=== PATIENT | male | born 1950 | race Caucasian/White ===

== ENCOUNTER 2018-09-08 20:13 | Inpatient (IN) | payer OTHER ==
--- OUTSIDE RECORDS SUMMARY | 2018-09-08 20:18 | XMS REPORT | Continuity of Care Document ---
:1950 Author Organization Interface Problems Problem Status Onset Classification Date Comments Source Date Reported AMS Active [facility] 8 INCREASED Active [facility] [place] 8 LEVEL/ACUTE ENCEPHAL LT HIP PAIN Active [facility] 5 [facility] OTHER Active [facility] SPECIFIED ABNORMAL FINDINGS OF BLO Medications Medication Details Route Status Patient Ordering Order Source Instructions Provider Date amLODIPine 10 mg 10 mg=1 tab, Active oral tablet PO, Daily, # 2018 [facility] 30 tab, 0 Refill(s), other gabapentin 100 MG 100 mg=1 cap, Active Oral Capsule PO, BID, # 60 2017 [facility] cap, 1 Refill(s), other Valium 10 mg, 2 tab, Inactive Route: PO, 2017 [facility] Drug form: TAB, ONCE, Dosing Weight 107.727, kg, Start date: 12/21/17 16:00:00 CDT, Stop date: 12/21/17 16:00:00 CDTNotes: (Same as: Valium) Ativan 1 mg, 0.5 mL, Inactive Route: IM, 2017 [facility] Drug form: INJ, ONCE, Dosing Weight 107.727, kg, Start date: 12/21/17 8:04:00 CDT, Stop date: 12/21/17 8:04:00 CDTNotes: (Same as: Ativan) potassium chloride 40 mEq, 2 tab, Inactive 20 mEq oral Route: PO, 2017 [facility] tablet, extended Drug form: release ERTAB, ONCE, Dosing Weight 107.727, kg, Start date: 12/17/17 20:38:00 CDT, Stop date: 12/17/17 20:38:00 CDTNotes: (Same as: K-Dur 20) "Do Not Crush" For patients unable to swallow tablet, dissolve in one half glass of water. Allow about 2 minutes for the tablets to disintegrate. Stir before giving to prepare slurry and administer. Please exclude Patient’ s with feeding tube less than 14 Japanese (Dobhoff, J-tube etc) and pediatric and patients. With food and full glass of water Lactulose 667 20 gm, 30 ml, Inactive MG/ML Oral Route: PO, 2017 [facility] Solution Drug form: SYRP, ONCE, Dosing Weight 107.727, kg, Start date: 12/17/17 20:38:00 CDT, Stop date: 12/17/17 20:38:00 CDTNotes: (Same as:Chronulac) Omnipaque 350 100 mL, Route: No Longer injectable IV, Drug Form: Active 2017 [facility] solution SOLN, Dosing Weight 107.727, kg, ONCALL, GFR > 45 mL/min, Start date: 12/17/17 14:00:00 CDT, Duration: 1 doses or timesNotes: (same as:Omnipaque 350). WASTE: F/P - Black; E - [employer] Trash Bin Vitamin B 12 1,000 No Longer microgram, 1 Active 2017 [facility] mL, Route: IM, Drug form: INJ, Daily, Dosing Weight 107.727, kg, Start date: 12/17/17 9:00:00 CDT, Duration: 7 day, Stop date: 12/23/17 9:00:00 CDTNotes: (Same As: Vitamin B12) Potassium Chloride 40 mEq, 2 tab, Inactive Route: PO, 2017 [facility] Drug form: ERTAB, ONCE, Dosing Weight 107.727, kg, Start date: 12/16/17 13:09:00 CDT, Stop date: 12/16/17 13:09:00 CDTNotes: (Same as: K-Dur 20) "Do Not Crush" For patients unable to swallow tablet, dissolve in one half glass of water. Allow about 2 minutes for the tablets to disintegrate. Stir before giving to prepare slurry and administer. Please exclude Patient’ s with feeding tube less than 14 Japanese (Dobhoff, J-tube etc) and pediatric and patients. With food and full glass of water cetirizine 10 mg, 2 tab, Inactive Route: PO, 2017 [facility] Drug form: TAB, Daily, Start date: 12/16/17 9:00:00 CDT, Duration: 30 day, Stop date: 01/14/18 9:00:00 CDTNotes: (Same As: Zyrtec) venlafaxine 75 mg, 2 tab, No Longer Route: PO, [facility] 2017 [facility] Drug form: TAB, Daily, Dosing Weight 107.727, kg, Start date: 12/16/17 9:00:00 CDT, Duration: 30 day, Stop date: 01/14/18 9:00:00 CDTNotes: (Same As: Effexor) Hydrochlorothiazid 1 tab, Route: No Longer e 12.5 MG / PO, Drug Form: [address] Losartan Potassium TAB, Dosing 100 MG Oral Tablet Weight 107.727, kg, Daily, Start date: 12/16/17 9:00:00 CDT, Duration: 30 day, Stop date: 01/14/18 9:00:00 CDT fexofenadine 180 mg, Route: No Longer PO, Drug form: [facility] 2017 [facility] TAB, Daily, Dosing Weight 107.727, kg, Start date: 12/16/17 9:00:00 CDT, Duration: 30 day, Stop date: 01/14/18 9:00:00 CDT clopidogrel 75 mg, 1 tab, No Longer Route: PO, 2017 [facility] Drug form: TAB, Daily, Dosing Weight 107.727, kg, Start date: 12/16/17 9:00:00 CDT, Duration: 30 day, Stop date: 01/14/18 9:00:00 CDTNotes: (Same As: Plavix) Simvastatin 20 mg, 1 tab, No Longer Route: PO, 2017 [facility] Drug form: TAB, Bedtime, Dosing Weight 107.727, kg, Start date: 12/15/17 21:00:00 CDT, Duration: 30 day, Stop date: 01/13/18 21:00:00 CDTNotes: (Same as: Zocor) Epitol 200 mg, 1 tab, No Longer Route: PO, 2017 [facility] Drug form: TAB, Q12H, Dosing Weight 107.727, kg, Start date: 12/15/17 21:00:00 CDT, Duration: 30 day, Stop date: 01/14/18 9:00:00 CDTNotes: With food. (Same As: Tegretol) Carbamazepine 200 mg, 1 tab, Inactive Route: PO, 2017 [facility] Drug form: TAB, Q6H, Dosing Weight 107.727, kg, Start date: 12/15/17 18:00:00 CDT, Duration: 30 day, Stop date: 01/14/18 12:00:00 CDTNotes: With food. (Same As: Tegretol) Advair Diskus 250 1 puff, Route: Inactive mcg-50 mcg INHALATION, 2017 [facility] inhalation powder Drug Form: AERO, Dosing Weight 107.727, kg, BID, Start date: 12/15/17 17:00:00 CDT, Duration: 30 day, Stop date: 01/14/18 9:00:00 CDT Fenofibrate 160 MG 145 mg, 1 tab, No Longer Oral Tablet Route: PO, Active 2017 [facility] Drug form: TAB, Daily, Dosing Weight 107.727, kg, Start date: 12/15/17 17:00:00 CDT, Duration: 30 day, Stop date: 01/13/18 17:00:00 CDTNotes: (Same as: Tricor) budesonide-formote 2 inhalation, No Longer rol 160 mcg-4.5 Route: Active 2017 [facility] mcg/inh inhalation INHALATION, aerosol with Drug Form: adapter AERO/A, BID, Start date: 12/15/17 17:00:00 CDT, Duration: 30 day, Stop date: 01/14/18 9:00:00 CDTNotes: (Same as: Symbicort) WASTE: Aerosol - Return to Pharmacy Albuterol 0.833 3 mL, Route: No Longer MG/ML / NEB, Drug Active 2017 [facility] Ipratropium Form: SOLN, [place] 0.167 Dosing Weight MG/ML Inhalant 107.727, kg, Solution RQID, Start date: 12/15/17 15:00:00 CDT, Duration: 30 day, Stop date: 01/14/18 11:00:00 CDTNotes: (Same as: Duoneb) Cozaar 100 mg, 2 tab, No Longer Route: PO, 2017 [facility] Drug form: TAB, Daily, Start date: 12/15/17 14:00:00 CDT, Duration: 30 day, Stop date: 01/14/18 9:00:00 CDTNotes: (Same as: Cozaar) hydrochlorothiazid 12.5 mg, 1 No Longer e tab, Route: Active 2017 [facility] PO, Drug form: TAB, Daily, Start date: 12/15/17 14:00:00 CDT, Duration: 30 day, Stop date: 01/14/18 9:00:00 CDTNotes: (Same as: Hydrodiuril). Give with food. Amoxicillin 500 MG 1 tab, PO, No Longer / Clavulanate 125 TID, 0 2017 [facility] Oral Tablet Refill(s) venlafaxine 75 mg 75 mg=1 tab, Active oral tablet PO, Daily, 0 2017 Refill(s) Advair Diskus 250 1 puff, No Longer mcg-50 mcg INHALATION, Active 2017 [facility] inhalation powder BID, 0 Refill(s) Carbamazepine 200 200 mg=1 tab, Active MG Oral Tablet PO, Q12H, 0 2017 [Epitol] Refill(s) carBAMazepine 200 200 mg=1 tab, Inactive mg oral tablet PO, QID, 0 2017 Refill(s) Metformin 500 mg, PO, Active Bedtime, 0 2017 Refill(s) gabapentin 300 MG 300 mg=1 cap, No Longer Oral Capsule PO, Bedtime, 0 2017 [facility] Refill(s) Hydrochlorothiazid 1 tab, PO, Active e 12.5 MG / Daily, 0 2017 [facility] Potassium Refill(s) 100 MG Oral Tablet simvastatin 20 mg 20 mg=1 tab, Active oral tablet PO, Bedtime, 0 2017 Refill(s) fexofenadine 180 180 mg=1 tab, Active mg oral tablet PO, Daily, 0 2017 [facility] Refill(s) Fenofibrate 160 MG 160 mg=1 tab, Active Oral Tablet PO, Daily, 0 2017 [facility] Refill(s) tramadol 50 mg=1 tab, No Longer hydrochloride 50 PO, Q4H, PRN Active 2017 [facility] MG Oral Tablet Pain Score 7-10, 0 Refill(s) clopidogrel 75 mg 75 mg=1 tab, Active oral tablet PO, Daily, 0 2017 [facility] Refill(s) Albuterol 0.833 3 mL, NEB, Active MG/ML / QID, 0 2017 [facility] Ipratropium Refill(s) [place] 0.167 MG/ML Inhalant Solution heparin 5,000 unit, 1 No Longer mL, Route: Active 2017 [facility] SUB-Q, Drug form: INJ, Q8H, Dosing Weight 102.273, kg, Start date: 12/15/17 0:00:00 CDT, Duration: 30 day, Stop date: 01/13/18 16:00:00 CDTNotes: porcine heparin Norvasc 10 mg, 2 tab, No Longer Route: PO, Active 2017 [facility] Drug form: TAB, Q24H, Dosing Weight 102.273, kg, Start date: 12/14/17 20:00:00 CDT, Duration: 30 day, Stop date: 01/12/18 20:00:00 CDTNotes: (Same as: Norvasc) Ativan 1 mg, 0.5 mL, Inactive Route: IV, 2017 [facility] Drug form: INJ, ONCE, Dosing Weight 102.273, kg, Start date: 12/14/17 19:09:00 CDT, Stop date: 12/14/17 19:09:00 CDTNotes: (Same as: Ativan) Albuterol 0.833 3 mL, Route: No Longer MG/ML / NEB, Drug Active 2017 [facility] Ipratropium Form: SOLN, [place] 0.167 Dosing Weight MG/ML Inhalant 102.273, kg, Solution [DuoNeb] Q6H, PRN as needed for shortness of breath or wheezing, Start date: 12/14/17 19:09:00 CDT, Duration: 30 day, Stop date: 01/13/18 19:08:00 CDTNotes: (Same as: Duoneb) Insulin Lispro 1 unit, 0.01 No Longer mL, Route: Active 2017 [facility] SUB-Q, Drug form: SOLN, TID-Before Meals, Dosing Weight 102.273, kg, PRN Blood Glucose Results, Start date: 12/14/17 19:07:00 CDT, Duration: 30 day, Stop date: 01/13/18 19:06:00 CDTNotes: (Same as: Humalog ) Roll in palms of hands gently; Do not shake `vigorously. "Single Patient Use Only " WASTE: F/P - Black; E - [employer] Trash Bin Stable for 28 days at room temperature. Expires in days from Date Glucagon 1 mg, Route: No Longer IM, Drug form: Active 2017 [facility] PDR/INJ, PRN, Dosing Weight 102.273, kg, PRN Blood Glucose Results, Start date: 12/14/17 19:07:00 CDT, Duration: 30 day, Stop date: 01/13/18 19:06:00 CDT Dextrose 50% 12.5 gm, 25 No Longer Syringe mL, Route: Active 2017 [facility] IVP, Drug Form: INJ, Dosing Weight 102.273, kg, PRN, PRN Blood Glucose Results, Start date: 12/14/17 19:07:00 CDT, Duration: 30 day, Stop date: 01/13/18 19:06:00 CDT Nitroglycerin 0.02 1 inch, Route: Inactive MG/MG Topical TOP, Drug 2017 [facility] Ointment Form: OINT, Dosing Weight 102.273, kg, ONCE, Start date: 12/14/17 18:56:00 CDT, Stop date: 12/14/17 18:56:00 CDTNotes: 1 gram is approximately 1 inch of nitroglycerin ointment (20 mg NTG per gram) (Same as:Nitro-Bid) Hydralazine 10 mg, 0.5 mL, No Longer Route: IV, Active [address] [place] [address] Drug form: INJ, Q6H, Dosing Weight 102.273, kg, PRN Elevated BP, Start date: 12/14/17 18:55:00 CDT, Duration: 30 day, Stop date: 01/13/18 18:54:00 CDT, for SBP > 160 mmNotes: (Same as: Apresoline) Push over 5 minutes NS 1,000 mL 1,000 mL, No Longer Rate: 75 Active 2017 [facility] ml/hr, Infuse over: 13.3 hr, Route: IV, Dosing Weight 102.273 kg, Total Volume: 1,000, Start date: 12/14/17 18:39:00 CDT, Duration: 30 day, Stop date: 01/13/18 18:38:00 CDT, 2.3, m2 Ondansetron 4 mg, 1 tab, No Longer Route: PO, Active 2017 [facility] Drug form: TAB, Q6H, Dosing Weight 102.273, kg, PRN Nausea & Vomiting, Start date: 12/14/17 18:38:00 CDT, Stop date: 01/13/18 18:37:00 CDTNotes: (Same as: Zofran) Acetaminophen 650 mg, 2 tab, No Longer Route: PO, Active 2017 [facility] Drug form: TAB, Q4H, Dosing Weight 102.273, kg, PRN Pain 1-3/Temp > 100.4 F, Start date: 12/14/17 18:38:00 CDT, Duration: 30 day, Stop date: 01/13/18 18:37:00 CDTNotes: Do not exceed 4 gm/day. (Same as: Tylenol) Lactulose 667 30 gm, 45 ml, Inactive MG/ML Oral Route: PO, 2017 [facility] Solution Drug form: SYRP, ONCE, Dosing Weight 102.273, kg, Priority: STAT, Start date: 12/14/17 17:31:00 CDT, Stop date: 12/14/17 17:31:00 CDTNotes: (Same as:Chronulac) Acetaminophen 300 1 tab, PO, Inactive MG / Codeine Q6H, PRN Pain, 2018 [facility] Phosphate 30 MG X 3 day, # 13 Oral Tablet tab, 0 [Tylenol with Refill(s) Codeine #3] Allergies, Adverse Reactions, Alerts Substance Category Reaction Severity Reaction Status Date Comments Source type Reported Immunizations Immunization Date Site Status Last Comments Source Given Updated pneumococcal Left completed [facility] 13-valent 8 Deltoid vaccine Results Order Name Results Value Reference Date Interpretation Comments Source Range LIPIDS LDL 74 mg/dL <=99 mg/dL 12/17 (Calculated) [facility] LIPIDS VLDL 29 12/17 [facility] LIPIDS Chol 136 mg/dL <=199 12/17 mg/dL [facility] LIPIDS Trig 143 mg/dL <=149 12/17 mg/dL [facility] LIPIDS CHD Risk 4.12 4.00 - 12/17 7.30 [facility] LIPIDS HDL 33 mg/dL >=61 mg/dL 12/17 [facility] CHEM PANEL Ammonia 35.0 <=45.0 12/16 umol/L uMol/L /2017 [facility] Carotid Carotid Patient Name: JULIÁN LEBLANC HASLIP 12/16 - artery artery /2017 - [facility] Doppler Doppler : 1950; Age: 67 years Male bilat US bilat US MR: [id number] Read by: David Gagnon MD Dictated Date/time: 12/16/17 14:37 Electronically Signed by: David Gagnon MD 12/16/17 14:39 FINAL REPORT Study: Carotid artery Doppler bilat US 12/15/2017 3:25 PM CDT Clinical Indication: - encephalopathy. COMPARISON: None TECHNIQUE: Pardo-scale, color Doppler and spectral Doppler of the carotid arteries was performed. Any reported ICA stenoses indirectly reference the distal internal carotid diameter as the denominator for the sten osis measurement, utilizing consensus panel criteria. FINDINGS: RIGHT: No significant plaque. ICA PSV 71 cm/sec CCA PSV 88 cm/sec ICA/CCA ratio 0.81 Vertebral flow is antegrade. External carotid artery is patent. LEFT: No significant plaque. ICA PSV 68.2 cm/sec CCA PSV 162 cm/sec ICA/CCA ratio 0.42 Vertebral flow is antegrade. External carotid artery is patent. IMPRESSION: 1. RIGHT: ICA stenosis <50% by velocity criteria. 1. LEFT: ICA stenosis <50% by velocity criteria. Consensus panel Doppler US criteria for diagnosis of ICA stenosis: Stenosis (%) ICA PSV (cm/sec) ICA/CCA ratio -- <50 <125 <2.0 50-69 125-230 2.0-4.0 >70 but less than >230 >4.0 near occlusion Near occlusion High, low, or Variable undetectable SL: [id number] ANEMIA Vitamin B12 323 pg/mL 254 - 1320 12/16 STUDY Lvl [facility] ELECTROLYT AGAP 12.4 meq/L 10.0 - 12/16 ES 20.0 [facility] ELECTROLYT B/C Ratio 20 6 - 25 12/16 ES [facility] ELECTROLYT Globulin 3.5 g/dL 2.7 - 4.2 12/16 ES [facility] ELECTROLYT A/G Ratio 1.0 0.7 - 1.6 12/16 [facility]16 Result Comment: The eGFR is calculated using the CKD-EPI formula. In most young, healthy individuals the eGFR will be >90 mL/ min/1.73m2. The eGFR declines with age. An eGFR of 60-89 may be normal in [facility] mL/min/1.7 some populations, particularly the elderly, for whom the CKD-EPI formula has not been extensively validated. Use of the eGFR is not recommended in the following populations: [facility] 3m2 Individuals with unstable creatinine concentrations, including patients and those with serious co-morbid conditions. Patients with extremes in muscle mass or diet. The data above are obtained from the National Kidney Disease Education Program (NKDEP) which additionally recommends that when the eGFR is used in patients with extremes of body mass index for purposes of drug dosing, the eGFR should be multiplied by the estimated BMI. ELECTROLYT Albumin Lvl 3.4 g/dL 3.5 - 5.0 12/16 [facility] Creatinine 0.97 mg/dL 0.50 - 12/16 ES Lvl 1.40 /2017 [facility] ELECTROLYT BUN 19 mg/dL 7 - 22 12/16 ES [facility] ELECTROLYT Sodium Lvl 142 meq/L 135 - 145 12/16 MH [facility] ELECTROLYT Glucose Lvl 137 mg/dL 70 - 99 12/16 [facility] ELECTROLYT CO2 26 meq/L 24 - 32 12/16 [facility] ELECTROLYT Calcium Lvl 9.3 mg/dL 8.5 - 10.5 12/16 [facility] ELECTROLYT Total 6.9 g/dL 6.4 - 8.4 12/16 ES [facility] ELECTROLYT ALT 14 unit/L 0 - 65 12/16 [facility] ELECTROLYT Bili Total 0.3 mg/dL 0.2 - 1.3 12/16 [facility] ELECTROLYT AST 6 unit/L 0 - 37 12/16 [facility] ELECTROLYT Alk Phos 63 unit/L 39 - 136 12/16 [facility] ELECTROLYT Potassium 3.4 meq/L 3.5 - 5.1 12/16 [facility] Lv /2017 [facility] ELECTROLYT Chloride Lvl 107 meq/L 95 - 109 12/16 [facility] HEMATOLOGY Hgb 12.6 g/dL 14.0 - 12/16 18.0 [facility] HEMATOLOGY Hct 36.5 % 42.0 - 12/16 54.0 [facility] HEMATOLOGY RBC 4.27 M/CMM 4.70 - 12/16 6.10 [facility] HEMATOLOGY WBC 5.5 K/CMM 3.7 - 10.4 12/16 [facility] HEMATOLOGY MCHC 34.4 g/dL 32.0 - 12/16 36.0 [facility] HEMATOLOGY RDW 13.4 % 11.5 - 12/16 14.5 [facility] HEMATOLOGY Platelet 232 K/CMM 133 - 450 12/16 [facility] HEMATOLOGY MCV 85.5 fL 80.0 - 12/16 94.0 [facility] HEMATOLOGY MPV 9.0 fL 7.4 - 10.4 12/16 [facility] HEMATOLOGY MCH 29.4 pg 27.0 - 12/16 31.0 [facility] Brain wo Brain wo Clinical Indication: - confusion 12/16 - contrast contrast MRI /2017 - [facility] MRI Comparison: Comparison is made to CT study of 12/14/2017 Read by: Cullen Santana MD Dictated Date/time: 12/16/17 10:39 TECHNIQUE: Multiplanar pre- and post-gadolinium contrast-enhanced MRI of the brain is performed on a 1.5 Batsheva magnet. Electronically Signed by: Cullen Santana MD 12/16/17 10:43 FINAL REPORT Contrast: None. 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 There is a chronic lacunar type infarct in the right paramedian juan jose. Multiple punctate areas of hemosiderin deposition are present in the juan jsoe and supratentorial brain consistent with amyloid angiopathy. There is flow in the 4th portions of both vertebral arteries, the basilar artery and intracranial carotid arteries. There is no obstructive hydrocephalus. There is central and cortical atrophy the supratentorial brain. There are no extra-axial fluid collections. Sella and parasellar structures in normal. There is no cerebellar tonsillar ectopia. CEREBELLOPONTINE REGIONS AND SKULL BASE: The cerebellopontine angles appear unremarkable. The skull base, craniocervical junction, and brainstem are normal. The optic chiasm is normal. The sellar and pineal regions are unremarkable. VENTRICLES: The ventricles are normal in size and configuration. The basilar cisterns are normal. VESSELS: The venous sinuses are grossly unremarkable. The expected intracranial flow voids are present. ORBITS, VISUALIZED PARANASAL SINUSES AND MASTOIDS: There is mucosal thickening throughout the ethmoid air cells and minimally of the frontal sinuses , frontal ethmoid recess and sphenoid sinus and base o f the maxillary sinuses. The orbital fossa contents are normal. The mastoid air cells are clear. 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 There is a chronic lacunar type infarct in the right paramedian juan jose. Multiple punctate areas of hemosiderin deposition are present in the juan jose and s upratentorial brain consistent with amyloid angiopathy. SL: JENNY-EDELMIRA Hip bilat Hip bilat w Clinical Indication: - patient says he had hip surgery , need x-ray done to be able to do MRI 12/15 - w pelvis pelvis and /2017 - [facility] and both both lat Comparison: None lat hips hips DX DX Read by: Richar Curry MD Dictated Date/time: 12/15/17 23:24 FINDINGS: Electronically Signed by: Richar Curry MD 12/15/17 23:26 FINAL REPORT Frontal view of the pelvis and neutral and abducted views of the bilateral hips demonstrate bilateral hip arthroplasty. There is resection of bilateral femoral head and neck. Superior and inferior pubic rami and iliac wings are intact. Sacroiliac joints are symmetric. Lucency is noted diffusely about the left acetabular component. There is a surgical clip in the soft tissues at the last of the right. IMPRESSION: Lucency about the left acetabular component concerning for loosening or infection. SL: [id number] ANEMIA Folate Lvl 17.7 ng/mL >=3.0 12/15 STUDY ng/mL /2017 [facility] CHEM PANEL eGFR 83 12/15 Result Comment: The eGFR is calculated using the CKD-EPI formula. In most young, healthy individuals the eGFR will be >90 mL/ min/1.73m2. The eGFR declines with age. An eGFR of 60-89 may be normal in mL/min/1.7 /2018 some populations, particularly the elderly, for whom the CKD-EPI formula has not been extensively validated. Use of the eGFR is not recommended in the following populations: [facility] 3m2 Individuals with unstable creatinine concentrations, including patients and those with serious co-morbid conditions. Patients with extremes in muscle mass or diet. The data above are obtained from the National Kidney Disease Education Program (NKDEP) which additionally recommends that when the eGFR is used in patients with extremes of body mass index for purposes of drug dosing, the eGFR should be multiplied by the estimated BMI. CHEM PANEL Bili Total 0.3 mg/dL 0.2 - 1.3 12/15 [facility] CHEM PANEL Alk Phos 62 unit/L 39 - 136 12/15 [facility] CHEM PANEL Potassium 3.5 meq/L 3.5 - 5.1 12/15 Lvl /2017 [facility] CHEM PANEL BUN 20 mg/dL 7 - 22 12/15 [facility] CHEM PANEL Sodium Lvl 145 meq/L 135 - 145 12/15 [facility] CHEM PANEL Creatinine 0.95 mg/dL 0.50 - 12/15 Lvl 1.40 /2017 [facility] CHEM PANEL Glucose Lvl 133 mg/dL 70 - 99 12/15 [facility] CHEM PANEL Albumin Lvl 3.3 g/dL 3.5 - 5.0 12/15 [facility] CHEM PANEL ALT 14 unit/L 0 - 65 12/15 [facility] CHEM PANEL A/G Ratio 1.0 0.7 - 1.6 12/15 [facility] CHEM PANEL AST 10 unit/L 0 - 37 12/15 [facility] CHEM PANEL Globulin 3.3 g/dL 2.7 - 4.2 12/15 [facility] CHEM PANEL Total 6.6 g/dL 6.4 - 8.4 12/15 [facility] CHEM PANEL Calcium Lvl 8.9 mg/dL 8.5 - 10.5 12/15 [facility] CHEM PANEL AGAP 13.5 meq/L 10.0 - 12/15 20.0 [facility] CHEM PANEL B/C Ratio 21 6 - 25 12/15 [facility] CHEM PANEL CO2 25 meq/L 24 - 32 12/15 [facility] CHEM PANEL Chloride Lvl 110 meq/L 95 - 109 12/15 [facility] CHEM PANEL Magnesium 1.7 mg/dL 1.8 - 2.4 12/15 MH Lvl /2018 [facility] HEMATOLOGY Hct 36.0 % 42.0 - 12/15 MH 54.0 [facility] HEMATOLOGY MCV 85.6 fL 80.0 - 12/15 MH 94.0 [facility] HEMATOLOGY Hgb 12.3 g/dL 14.0 - 12/15 MH 18.0 [facility] HEMATOLOGY MCH 29.4 pg 27.0 - 12/15 MH 31.0 [facility] HEMATOLOGY MCHC 34.3 g/dL 32.0 - 12/15 MH 36.0 [facility] HEMATOLOGY RDW 13.7 % 11.5 - 06 MH 14.5 [facility] HEMATOLOGY MPV 8.7 fL 7.4 - 10.4 12/15 [facility] HEMATOLOGY Platelet 223 K/CMM 133 - 450 12/15 [facility] HEMATOLOGY RBC 4.20 M/CMM 4.70 - 06 MH 6.10 [facility] HEMATOLOGY WBC 4.8 K/CMM 3.7 - 10.4 12/15 [facility] HEMATOLOGY Lymphocytes 1.5 K/CMM 1.0 - 5.5 12/15 MH # /2018 [facility] HEMATOLOGY Monocytes # 0.3 K/CMM 0.0 - 0.8 12/15 [facility] HEMATOLOGY Lymphocytes 31.9 % 20.0 - 12/15 MH 40.0 [facility] HEMATOLOGY Segs 55.2 % 45.0 - 12/15 MH 75.0 /2017 [facility] HEMATOLOGY Monocytes 7.1 % 2.0 - 12.0 12/15 [facility] HEMATOLOGY Eosinophils 4.6 % 0.0 - 4.0 12/15 [facility] HEMATOLOGY Segs-Bands # 2.6 K/CMM 1.5 - 8.1 12/15 [facility] HEMATOLOGY Basophils 1.2 % 0.0 - 1.0 12/15 [facility] HEMATOLOGY Eosinophils 0.2 K/CMM 0.0 - 0.5 12/15 /2017 [facility] HEMATOLOGY Basophils # 0.1 K/CMM 0.0 - 0.2 12/15 [facility] DRUG U Benzodia Negative Negative 12/14 SCREEN Sc[facility] *NA* (12/14/17 3:27 PM) DRUG U Cocaine Negative Negative 12/14 SCREEN [facility] *NA* (12/14/17 3:27 PM) DRUG U Cannab Scr Negative Negative 12/14 SCREEN [facility] *NA* (12/14/17 3:27 PM) DRUG U Opiate Scr Negative Negative 12/14 [facility] *NA* (12/14/17 3:27 PM) DRUG U Amph Scr Negative Negative 12/14 SCREEN [facility] *NA* (12/14/17 3:27 PM) DRUG U Sosa Scr Negative Negative 12/14 SCREEN [facility] *NA* (12/14/17 3:27 PM) DRUG UDS Note See Note 12/14 SCREEN /2017 [facility] (12/14/17 3:27 PM) DRUG U Phencyc Negative Negative 12/14 SCREEN Scr [facility] *NA* (12/14/17 3:27 PM) URINE AND UA Gran Cast 1 /LPF 12/14 STOOL [facility] URINE AND UA Sq Epi None Seen 12/14 STOOL [facility] URINE AND UA Mucus Few /LPF None Seen 12/14 STOOL /LPF /2017 [facility] URINE AND UA RBC 2 /HPF 0 - 2 12/14 STOOL [facility] URINE AND UA WBC 1 /HPF 0 - 5 12/14 STOOL [facility] URINE AND UA Blood Negative Negative 12/14 STOOL [facility] (12/14/17 3:27 PM) URINE AND UA 2.0 mg/dL 0.1 - 1.0 12/14 STOOL Urobilinogen /2017 [facility] URINE AND UA pH 5.0 5.0 - 8.0 12/14 STOOL [facility] URINE AND UA Spec Grav 1.027 <=1.030 12/14 STOOL [facility] URINE AND UA Protein Negative Negative 12/14 STOOL mg/dL mg/dL URINE AND UA Glucose Negative Negative 12/14 [facility]OOL mg/dL mg/dL URINE AND UA Nitrite Negative Negative 12/14 STOOL [facility] (12/14/17 3:27 PM) URINE AND UA Leuk Est Negative Negative 12/14 STOOL [facility] (12/14/17 3:27 PM) URINE AND UA Ketones Negative Negative 12/14 STOOL mg/dL mg/dL URINE AND UA Bili Negative Negative 12/14 STOOL [facility] *NA* (12/14/17 3:27 PM) URINE AND UA Turbidity Clear Clear 12/14 STOOL [facility] (12/14/17 3:27 PM) URINE AND UA Color Yellow Yellow 12/14 STOOL [facility] *NA* (12/14/17 3:27 PM) CHEM PANEL Ammonia 51.0 <=45.0 12/14 umol/L uMol/L [facility] CHEM PANEL eGFR 52 12/14 Result Comment: The eGFR is calculated using the CKD-EPI formula. In most young, healthy individuals the eGFR will be >90 mL/ min/1.73m2. The eGFR declines with age. An eGFR of 60-89 may be normal in MH mL/min/1.7 some populations, particularly the elderly, for whom the CKD-EPI formula has not been extensively validated. Use of the eGFR is not recommended in the following populations: [facility] 3m2 Individuals with unstable creatinine concentrations, including patients and those with serious co-morbid conditions. Patients with extremes in muscle mass or diet. The data above are obtained from the National Kidney Disease Education Program (NKDEP) which additionally recommends that when the eGFR is used in patients with extremes of body mass index for purposes of drug dosing, the eGFR should be multiplied by the estimated BMI. CHEM PANEL Alk Phos 70 unit/L 39 - 136 12/14 [facility] CHEM PANEL AST 7 unit/L 0 - 37 12/14 [facility] CHEM PANEL Bili Total 0.3 mg/dL 0.2 - 1.3 12/14 [facility] CHEM PANEL ALT 14 unit/L 0 - 65 12/14 [facility] CHEM PANEL Chloride Lvl 110 meq/L 95 - 109 12/14 [facility] CHEM PANEL Potassium 3.7 meq/L 3.5 - 5.1 12/14 Lvl [facility] CHEM PANEL Calcium Lvl 8.9 mg/dL 8.5 - 10.5 12/14 [facility] CHEM PANEL Albumin Lvl 3.8 g/dL 3.5 - 5.0 12/14 [facility] CHEM PANEL CO2 27 meq/L 24 - 32 12/14 [facility] CHEM PANEL Total 7.5 g/dL 6.4 - 8.4 12/14 [facility] CHEM PANEL Creatinine 1.41 mg/dL 0.50 - 12/14 MH Lvl 1.40 /2017 [facility] CHEM PANEL BUN 21 mg/dL 7 - 22 12/14 [facility] CHEM PANEL Glucose Lvl 125 mg/dL 70 - 99 12/14 [facility] CHEM PANEL Sodium Lvl 142 meq/L 135 - 145 12/14 [facility] CHEM PANEL AGAP 8.7 meq/L 10.0 - 12/14 20.0 [facility] CHEM PANEL B/C Ratio 15 6 - 25 12/14 [facility] CHEM PANEL A/G Ratio 1.0 0.7 - 1.6 12/14 [facility] CHEM PANEL Globulin 3.7 g/dL 2.7 - 4.2 12/14 [facility] HEMATOLOGY MPV 9.0 fL 7.4 - 10.4 12/14 [facility] HEMATOLOGY MCHC 33.5 g/dL 32.0 - 12/14 36.0 [facility] HEMATOLOGY RDW 13.5 % 11.5 - 12/14 MH 14. [facility] HEMATOLOGY Platelet 267 K/CMM 133 - 450 12/14 [facility] HEMATOLOGY MCH 28.7 pg 27.0 - 12/14 31.0 /2017 [facility] HEMATOLOGY MCV 85.8 fL 80.0 - 12/14 MH 94.0 /2017 [facility] HEMATOLOGY Hct 38.9 % 42.0 - 12/14 MH 54.0 /2017 [facility] HEMATOLOGY Hgb 13.0 g/dL 14.0 - 12/14 MH 18.0 /2017 [facility] HEMATOLOGY RBC 4.54 M/CMM 4.70 - 12/14 MH 6.10 /2017 [facility] HEMATOLOGY WBC 6.8 K/CMM 3.7 - 10.4 12/14 /2017 [facility] HEMATOLOGY Eosinophils 0.1 K/CMM 0.0 - 0.5 12/14 MH # /2018 [facility] HEMATOLOGY Basophils # 0.1 K/CMM 0.0 - 0.2 12/14 /2017 [facility] HEMATOLOGY Monocytes # 0.5 K/CMM 0.0 - 0.8 12/14 [facility] HEMATOLOGY Segs-Bands # 4.4 K/CMM 1.5 - 8.1 12/14 [facility] HEMATOLOGY Lymphocytes 1.7 K/CMM 1.0 - 5.5 12/14 # /2018 [facility] HEMATOLOGY Eosinophils 1.8 % 0.0 - 4.0 12/14 /2017 [facility] HEMATOLOGY Basophils 0.9 % 0.0 - 1.0 12/14 [facility] HEMATOLOGY Monocytes 7.1 % 2.0 - 12.0 12/14 /2017 [facility] HEMATOLOGY Segs 65.2 % 45.0 - 12/14 75.0 /2017 [facility] Lymphocytes 25.0 % 20.0 - 12/14 40.0 [facility] TOXICOLOGY Ethanol Lvl null 12/14 [facility] TOXICOLOGY Etoh (%) null 12/14 [facility] TOXICOLOGY Salicylate null 0.0 - 30.0 12/14 Lvl /2017 [facility] TOXICOLOGY Acetaminoph <2 10 - 20 12/14 Lvl
(12/14 3:17 PM) CARDIAC Total CK 79 unit/L 12 - 191 12/14 ENZYMES /2017 [facility] CARDIAC Troponin-I null 0.00 - 12/14 ENZYMES 0.40 /2017 [facility] Brain wo Brain wo Clinical Indication: Abdominal pain, bloody stool, ams 12/14 - contrast contrast CT /2017 - [facility] CT Comparison: None Read by: Dee Galindo MD Dictated Date/time: 12/14/17 16:46 TECHNIQUE: CT images were obtained from the foramen magnum to the vertex without the use of intravenous contrast on a multidetector CT. Coronal and sagittal reconstructions were obtained. Electronically Signed by: Dee Galindo MD 12/14/17 16:[address] radiation dose DLP: 982 mGy-cm FINDINGS: BRAIN PARENCHYMA: There is generalized brain parenchymal atrophy related to the patient's age. Severe nonspecific periventricular white matter disease changes are noted. A megacisterna magna is aga in noted. Atherosclerotic calcifications are present within the carotid siphons and distal vertebral arteries. There are no focal mass lesions on this noncontrast head CT. There is no mass effect, midline shift or edema. There are no intra-axial or extra-axial fluid collections, intraventricular or intraparenchy mal hemorrhage. There is no noncontrast CT evidence of a subacute stroke. The pineal, sellar, brainstem, cerebellum and skull base regions appear unremarkable. VENTRICLES: The lateral ventricles, third and fourth ventricles are unremarkable. The basilar cisterns are normal. ORBITS, MASTOIDS AND PARANASAL SINUSES: The visualized orbits are unremarkable. The paranasal sinuses are clear. The mastoid air cells are clear. SKULL: There are no calvarial abnormalities seen. If there is further concern for intracranial pathology or acute stroke, MRI of the brain may be performed for complete assessment. IMPRESSION: Chronic age-related and small vessel ischemic changes without acute intracranial injury, mass, hemorrhage or subacute stroke. SL: [id number] Chest Chest 1view 1 VIEW CXR. PORTABLE EXAM 3:07 PM 12/14 [facility] 1view DX /[address] [place] [address] HISTORY: Altered mental status. Read by: Rudy Dale MD Dictated Date/time: 12/14/17 15:26 Electronically Signed by: Rudy Dale MD 12/14/17 15:27 FINAL REPORT COMPARISON: None. The cardiomediastinal silhouette is normal. The lungs are clear with normal pulmonary vasculature. No pleural abnormality. Bones intact. IMPRESSION: Normal exam. END OF IMPRESSION SL: [id number] Vital Signs Vital Sign Value Date Comments Source Respitory Rate 18 12/23/2017 [facility] Heart Rate 78 12/23/2017 [facility] Systolic (mm Hg) 148 12/23/2017 [facility] Diastolic (mm Hg) 94 12/23/2017 [facility] Temperature Oral (F) 97.6 F 12/23/2017 [facility] Respitory Rate 18 12/23/2017 [facility] Respitory Rate 16 12/23/2017 [facility] Heart Rate 82 12/23/2017 [facility] Systolic (mm Hg) 143 12/23/2017 [facility] Diastolic (mm Hg) 94 12/23/2017 [facility] Temperature Oral (F) 98.4 F 12/23/2017 [facility] Heart Rate 93 12/22/2017 [facility] Temperature Oral (F) 98.7 F 12/22/2017 [facility] Systolic (mm Hg) 130 12/22/2017 [facility] Diastolic (mm Hg) 83 12/22/2017 [facility] BMI Calculated 32.21 12/15/2017 [facility] Weight 107.727 12/15/2017 [facility] Height 182.88 cm 12/15/2017 [facility] Height 182.88 cm 12/14/2017 [facility] BMI Calculated 30.58 12/14/2017 [facility] Weight 102.273 12/14/2017 [facility] Encounters Location Location Encounter Encounter Reason Attending ADM DC Status Source Details Type Number For Provider Date Date Visit [facility] [id number] Kilo 06/25 07/25 [facility] [place] /2014 [facility] [id number] Amir 12/14 12/23 Ritesh Haleranious /[address] [facility] Hospital Procedures Procedure Code Date Perfomer Comments Source Back fusion [id number] [facility] Hip replacement [id number] [facility]
[2018-09-08] MEDS ORDERED: NA CHLORIDE 0.9% 1,000 ML ONE (20:48)
--- NOTE | 2018-09-08 20:56 | RAD REPORT ---
EXAM DESCRIPTION: CT - Head C Spine Mpr Wo Con - 09/08/2018 8:44 pm CLINICAL HISTORY: Head and neck injury status post fall. Head and neck pain COMPARISON: None. TECHNIQUE: Computed axial tomography of the head and cervical spine was obtained. Sagittal and coronal reconstruction was performed. All CT scans are performed using dose optimization technique as appropriate and may include automated exposure control or mA/KV adjustment according to patient size. FINDINGS: An intracranial bleed is not seen. The ventricles are normal in caliber. An extra-axial fl uid collection is not noted. Marked low-density area within periventricular, deep and subcortical whi te matter is present bilaterally Fluid within the visualized sinuses and mastoids is not seen A cervical fracture is not visualized. No dislocation is noted. Spondylosis involves the cervical spi ne IMPRESSION: No acute intracranial abnormality is seen. Marked low-density areas within periventricular, deep and subcortical white matter may represent isch emic changes secondary to small vessel disease or a demyelinating process A cervical fracture is not visualized. If the patient continues to have symptoms to suggest intracra nial /spinal cord pathology then MRI would be recommended
[2018-09-08 21:13] LABS: Absolute Lymphocytes (CBC) 1.5 K/uL (0.7-4.9); Absolute Monocytes 0.5 K/uL (0.1-1.3); Absolute Neutrophil 5.4 K/uL (1.8-8.0); Basophils % 0.6 % (0-1.3); Eosinophils % 0.8 % (0-4.4); Hematocrit 46.7 % (39.6-49.0); Lymphocytes % 19.7 % (15.3-44.8); MPV 9.2 fL (7.6-11.3); Monocytes % 6.4 % (3.3-12.3); Protime INR 1.05; RBC Red Blood Cell Count 5.18 M/uL (4.33-5.43)
[2018-09-08 21:33] LABS: Amylase Level 15 U/L (25-115); BUN Blood Urea Nitrogen 27 mg/dL (7-18); Bicarbonate 25 mmol/L (21-32); Glucose Level 174 mg/dL (74-106); Lipase 55 U/L (73-393); Potassium 3.7 mmol/L (3.5-5.1); Sodium Level 141 mmol/L (136-145); Troponin (Emerg Dept Use Only) < 0.02 ng/mL (0.0-0.045)
[2018-09-08 22:35] LABS: Barbiturates NEGATIVE (NEGATIVE); Benzodiazepines NEGATIVE (NEGATIVE); Cocaine NEGATIVE (NEGATIVE); METHAMPHETAM NEGATIVE (NEGATIVE); Methadone NEGATIVE (NEGATIVE); Opiates NEGATIVE (NEGATIVE); Phencyclidine NEGATIVE (NEGATIVE); THC Cannibis NEGATIVE (NEGATIVE)
--- NOTE | 2018-09-08 22:57 | ER ---
Nurse's Notes [facility] Name: Reese Graf Age: 67 yrs Sex: Male : 1950 Arrival Date: 09/08/2018 Time: 20:15 Bed 6 Private MD: Diagnosis: Syncope and collapse Presentation: 09/08 20:25 Presenting complaint: Patient's nephew states that the patient wandered over to his [facility] house today, he noticed the patient had bruising on his forehead, and that he seemed confused, and his gait was less steady than normal. Patient reports that he tripped earlier today and hit his head but cannot remember what he tripped over or what he his head on. Patient takes Plavix for previous stroke. Care prior to arrival: None. Mechanism of Injury: Fall unknown. Trauma event details: Injury occurred in the [facility]. 20:25 Acuity: ANITA 2 aj1 20:25 Method Of Arrival: Wheelchair aj1 20:28 Transition of care: patient was not received from another setting of care. Onset of [facility] symptoms was September 08, 2018. Risk Assessment: Do you want to hurt yourself or someone else? Patient reports no desire to harm self or others. Initial Sepsis Screen: Does the patient meet any 2 criteria? No. Patient's initial sepsis screen is negative. Does the patient have a suspected source of infection? No. Patient's initial sepsis screen is negative. Triage Assessment: 20:32 General: Appears comfortable, Behavior is calm, cooperative. Pain: Denies pain. Neuro: aj1 Level of Consciousness is awake, alert, confused, Oriented to person, place, time, situation, Pediatric Cns are equal bilaterally Moves all extremities. Gait is unsteady, Speech Patient answers some questions appropriately, and other patients he answers inappropriately . Cardiovascular: Patient's skin is warm and dry. Respiratory: Airway is patent Respiratory effort is even, unlabored, Respiratory pattern is regular, symmetrical. Derm: Bruising that is dark purple, on forehead. Trauma Activation: Alert Physician: ED Physician; Name: ; Notified At: ; Arrived At: Physician: General Surgeon; Name: ; Notified At: ; Arrived At: Physician: Radiology; Name: ; Notified At: ; Arrived At: Physician: Respiratory; Name: ; Notified At: ; Arrived At: Physician: Lab; Name: ; Notified At: ; Arrived At: Historical: - Allergies: 20:32 No Known Allergies; aj1 - Home Meds: 20:32 Zanaflex 4 mg Oral tab 1 tab at night as needed [Active]; Plavix 75 mg Oral tab 1 tab aj1 once daily [Active]; simvastatin 20 mg Oral tab 1 tab once daily [Active]; venlafaxine 75 mg oral cp24 1 cap once daily [Active]; fexofenadine 180 mg Oral tab 1 tab once daily [Active]; fenofibrate 160 mg oral tab 1 tab once daily [Active]; carbamazepine 200 mg Oral CM12 1 cap every 12 hours [Active]; losartan 25 mg oral tab 1 tab once daily [Active]; - PMHx: 20:32 CVA; Hypertension; Hyperlipidemia; aj1 - PSHx: 20:32 hip replacement; back surgery; aj1 - Immunization history:: Flu vaccine is not up to date. - Immunization history: Last tetanus immunization: unknown. - Social history:: Patient/guardian denies using alcohol, street drugs, The patient lives with family, Smoking status: Patient/guardian denies using tobacco. - Ebola Screening: : Patient denies travel to an Ebola-affected area in the 21 days before illness onset. - Family history:: not pertinent. Screenin:25 Abuse screen: Denies threats or abuse. Denies injuries from another. Tuberculosis aj1 screening: No symptoms or risk factors identified. 20:35 Nutritional screening: No deficits noted. aj1 21:06 Fall Risk IV access (20 points). ea Primary Survey: 20:25 NO uncontrolled hemorrhage observed. A: The patient is alert. Airway: patent. aj1 Breathing/Chest: Respiratory pattern: regular, Respiratory effort: spontaneous, unlabored. Circulation: Skin color: pink. Disability Alert. Exposure/Environment: There is no evidence of uncontrolled external bleeding. 21:30 Reassessment Airway Airway Patent Breathing/Chest Respiratory pattern Regular ea Respiratory effort Spontaneous Unlabored Disability Alert. Secondary Survey: 21:08 HEENT: No deficits noted. Injury Description: Laceration sustained to forehead is 0.5 ea to 2.5 cm long. Assessment: 21:04 General: Appears in no apparent distress. Behavior is calm, cooperative. Pain: Denies ea pain. Neuro: Level of Consciousness is awake, alert, obeys commands, Oriented to person, place, time, Pediatric Cns are equal bilaterally Moves all extremities. Speech with expressive aphasia noted, Facial symmetry appears normal. Cardiovascular: Patient's skin is warm and dry. Respiratory: Airway is patent Respiratory effort is even, unlabored, Respiratory pattern is regular, symmetrical. GI: No signs and/or symptoms were reported involving the gastrointestinal system. Derm: Skin is pink, warm \T\ dry. 22:04 Reassessment: Patient and/or family updated on plan of care and expected duration. Pain ea level reassessed. Patient is alert, oriented x 3, equal unlabored respirations, skin warm/dry/pink. 22:42 Reassessment: No changes from previously documented assessment. Patient and/or family jd3 updated on plan of care and expected duration. Pain level reassessed. Patient is alert, oriented x 3, equal unlabored respirations, skin warm/dry/pink. 09/09 00:00 Reassessment: Patient and/or family updated on plan of care and expected duration. Pain ea level reassessed. Patient is alert, oriented x 3, equal unlabored respirations, skin warm/dry/pink. 01:00 Reassessment: Patient and/or family updated on plan of care and expected duration. Pain ea level reassessed. Pt resting with eyes closed, no s/s of pain or discomfort noted at this time. Awaiting on room assignment. 02:31 Reassessment: Patient and/or family updated on plan of care and expected duration. Pain ea level reassessed. Patient is alert, oriented x 3, equal unlabored respirations, skin warm/dry/pink. Report called to Lara OATES. Vital Signs: 09/08 20:25 BP 151 / 95; Pulse 86; Resp 20; Temp 98.6; Pulse Ox 97% on R/A; Pain 0/10; aj1 21:07 BP 146 / 88; Pulse 85; Resp 18; Pulse Ox 98% ; ea 22:07 BP 156 / 98; Pulse 77; Resp 18; Pulse Ox 99% ; ea 22:41 BP 171 / 93; Pulse 61; Resp 19 S; Pulse Ox 95% on R/A; jd3 23:30 BP 157 / 94; Pulse 67; Resp 18; Pulse Ox 98% on R/A; ea 09/09 00:00 BP 150 / 95; Pulse 68; Resp 18; Pulse Ox 98% on R/A; ea 01:00 BP 157 / 87; Pulse 66; Resp 18; Pulse Ox 99% on R/A; ea 02:35 BP 134 / 67; Pulse 69; Resp 18; Pulse Ox 99% on R/A; ea [place] Coma Score: 03 20:25 Eye Response: spontaneous(4). Verbal Response: confused(4). Motor Response: obeys aj1 commands(6). Total: 14. 21:07 Eye Response: spontaneous(4). Verbal Response: oriented(5). Motor Response: obeys ea commands(6). Total: 15. 22:07 Eye Response: spontaneous(4). Verbal Response: oriented(5). Motor Response: obeys ea commands(6). Total: 15. 22:41 Eye Response: spontaneous(4). Verbal Response: oriented(5). Motor Response: obeys ea commands(6). Total: 15. 23:30 Eye Response: spontaneous(4). Verbal Response: oriented(5). Motor Response: obeys ea commands(6). Total: 15. 0308 00:00 Eye Response: spontaneous(4). Verbal Response: oriented(5). Motor Response: obeys ea commands(6). Total: 15. 01:00 Eye Response: spontaneous(4). Verbal Response: oriented(5). Motor Response: obeys ea commands(6). Total: 15. 02:35 Eye Response: spontaneous(4). Verbal Response: oriented(5). Motor Response: obeys ea commands(6). Total: 15. Trauma Score (Adult): 09/08 20:25 Eye Response: spontaneous(1); Verbal Response: confused(1); Motor Response: obeys aj1 commands(2); Systolic BP: > 89 mm Hg(4); Respiratory Rate: 10 to 29 per min(4); [place] Score: 14; Trauma Score: 12 ED Course: 20:15 Patient arrived in ED. am2 20:21 Denise Dawn MD is Attending Physician. ma2 20:25 Patient has correct armband on for positive identification. aj1 20:25 Patient maintains SpO2 saturation greater than 95% on room air. aj1 20:27 Triage completed. aj1 20:32 Arm band placed on Patient placed in an exam room. aj1 20:35 Mcrae, Claudia, RN is Primary Nurse. ea 20:35 Inserted saline lock: 20 gauge in left antecubital area, using aseptic technique. Blood ea collected. 21:06 Thermoregulation: warm blanket given to patient. ea 22:07 No provider procedures requiring assistance completed. ea 22:56 Danika Dill MD is Hospitalizing Provider. ma2 23:15 Chest Single View In Process Unspecified. EDMS 09/09 02:36 Patient admitted, IV remains in place. ea Administered Medications: 09/08 21:00 Drug: NS 0.9% 1000 ml Route: IV; Rate: 1 bolus; Site: right antecubital; ea 09/09 00:00 Follow up: Response: No adverse reaction; IV Status: Completed infusion; IV Intake: ea 100ml Intake: 00:00 IV: 100ml; Total: 100ml. ea 02:35 PO: 0ml; Total: 100ml. ea Outcome: 09/08 22:57 Decision to Hospitalize by Provider. ma2 23:00 Admitted to Med/surg accompanied by tech, room 203, with chart, Report called to Lara kelley RN 23:00 Instructed on the need for admit. 03 02:35 Patient's length of stay in the Emergency Department was greater than 2 hours. Awaiting ea on room for admissionPatient's length of stay extended due to 02:52 Condition: stable ea 03:00 Patient left the ED. ea Signatures: Dispatcher [employer] EDDC Jasmyn Castillo RN RN aj1 Mary Herron Elena, RN RN Gurwinder Duke RN RN Denise Cruz MD MD az2
--- NOTE | 2018-09-08 22:58 | EDPHYS ---
Physician Documentation [facility] Name: Reese Graf Age: 67 yrs Sex: Male : 1950 Arrival Date: 09/08/2018 Time: 20:15 Bed 6 Private MD: ED Physician Denise Dawn HPI: 09/08 21:11 This 67 yrs old Male presents to ER via Wheelchair with complaints of Fall ma2 Injury, S/S of Possible Stroke. 21:11 Onset: The symptoms/episode began/occurred gradually, 1 day(s) ago. Severity of ma2 symptoms: At their worst the symptoms were moderate, in the emergency department the symptoms are unchanged. The patient has experienced a previous episode. hx of stroke found by son mildly confused and has forehead bruises, likely fall he does not remember he is mildly confused, at baseline he is a0x2 today aox1 to person only and slow to respond. Historical: - Allergies: 20:32 No Known Allergies; aj1 - Home Meds: 20:32 Zanaflex 4 mg Oral tab 1 tab at night as needed [Active]; Plavix 75 mg Oral tab 1 tab aj1 once daily [Active]; simvastatin 20 mg Oral tab 1 tab once daily [Active]; venlafaxine 75 mg oral cp24 1 cap once daily [Active]; fexofenadine 180 mg Oral tab 1 tab once daily [Active]; fenofibrate 160 mg oral tab 1 tab once daily [Active]; carbamazepine 200 mg Oral CM12 1 cap every 12 hours [Active]; losartan 25 mg oral tab 1 tab once daily [Active]; - PMHx: 20:32 CVA; Hypertension; Hyperlipidemia; aj1 - PSHx: 20:32 hip replacement; back surgery; aj1 - Immunization history:: Flu vaccine is not up to date. - Immunization history: Last tetanus immunization: unknown. - Social history:: Patient/guardian denies using alcohol, street drugs, The patient lives with family, Smoking status: Patient/guardian denies using tobacco. - Ebola Screening: : Patient denies travel to an Ebola-affected area in the 21 days before illness onset. - Family history:: not pertinent. ROS: 21:11 Cardiovascular: Negative for chest pain, palpitations, and edema, Respiratory: Negative ma2 for shortness of breath, cough, wheezing, and pleuritic chest pain, Abdomen/GI: Negative for abdominal pain, nausea, diarrhea, and constipation. 21:11 All other systems are negative. 21:11 All other systems are negative. 21:11 Unable to obtain ROS due to altered mental status. Exam: 21:11 Constitutional: This is a well developed, well nourished patient who is awake, alert, ma2 and in no acute distress. Neck: Trachea midline, no thyromegaly or masses palpated, and no cervical lymphadenopathy. Supple, full range of motion without nuchal rigidity, or vertebral point tenderness. No Meningismus. Chest/axilla: Normal chest wall appearance and motion. Nontender with no deformity. No lesions are appreciated. Cardiovascular: Regular rate and rhythm with a normal S1 and S2. No gallops, murmurs, or rubs. Normal PMI, no JVD. No pulse deficits. Respiratory: Lungs have equal breath sounds bilaterally, clear to auscultation and percussion. No rales, rhonchi or wheezes noted. No increased work of breathing, no retractions or nasal flaring. 21:11 Eyes: Pupils equal round and reactive to light, extra-ocular motions intact. Lids and lashes normal. Conjunctiva and sclera are non-icteric and not injected. Cornea within normal limits. Periorbital areas with no swelling, redness, or edema. ENT: Nares patent. No nasal discharge, no septal abnormalities noted. Tympanic membranes are normal and external auditory canals are clear. Oropharynx with no redness, swelling, or masses, exudates, or evidence of obstruction, uvula midline. Mucous membranes moist. Abdomen/GI: Soft, non-tender, with normal bowel sounds. No distension or tympany. No guarding or rebound. No evidence of tenderness throughout. Back: No spinal tenderness. No costovertebral tenderness. Full range of motion. MS/ Extremity: Pulses equal, no cyanosis. Neurovascular intact. Full, normal range of motion. 21:11 Head/face: forehead contusion . 21:11 Neuro: Orientation: to person, Not oriented to place, time, situation, Mentation: slow to respond, Cranial nerves: extraocular movements are intact, Facial palsy and sensory deficits are absent. Motor: moves all fours, strength is 5/5 in all extremities, unable to test, Sensation: unable to test, Gait: unable to assess. Vital Signs: 20:25 BP 151 / 95; Pulse 86; Resp 20; Temp 98.6; Pulse Ox 97% on R/A; Pain 0/10; aj1 21:07 BP 146 / 88; Pulse 85; Resp 18; Pulse Ox 98% ; ea 22:07 BP 156 / 98; Pulse 77; Resp 18; Pulse Ox 99% ; ea 22:41 BP 171 / 93; Pulse 61; Resp 19 S; Pulse Ox 95% on R/A; jd3 23:30 BP 157 / 94; Pulse 67; Resp 18; Pulse Ox 98% on R/A; ea 03 00:00 BP 150 / 95; Pulse 68; Resp 18; Pulse Ox 98% on R/A; ea 01:00 BP 157 / 87; Pulse 66; Resp 18; Pulse Ox 99% on R/A; ea 02:35 BP 134 / 67; Pulse 69; Resp 18; Pulse Ox 99% on R/A; ea Kashif Coma Score: 09/08 20:25 Eye Response: spontaneous(4). Verbal Response: confused(4). Motor Response: obeys aj1 commands(6). Total: 14. 21:07 Eye Response: spontaneous(4). Verbal Response: oriented(5). Motor Response: obeys ea commands(6). Total: 15. 22:07 Eye Response: spontaneous(4). Verbal Response: oriented(5). Motor Response: obeys ea commands(6). Total: 15. 22:41 Eye Response: spontaneous(4). Verbal Response: oriented(5). Motor Response: obeys ea commands(6). Total: 15. 23:30 Eye Response: spontaneous(4). Verbal Response: oriented(5). Motor Response: obeys ea commands(6). Total: 15. 08 00:00 Eye Response: spontaneous(4). Verbal Response: oriented(5). Motor Response: obeys ea commands(6). Total: 15. 01:00 Eye Response: spontaneous(4). Verbal Response: oriented(5). Motor Response: obeys ea commands(6). Total: 15. 02:35 Eye Response: spontaneous(4). Verbal Response: oriented(5). Motor Response: obeys ea commands(6). Total: 15. Trauma Score (Adult): 09/08 20:25 Eye Response: spontaneous(1); Verbal Response: confused(1); Motor Response: obeys aj1 commands(2); Systolic BP: > 89 mm Hg(4); Respiratory Rate: 10 to 29 per min(4); [place] Score: 14; Trauma Score: 12 MDM: 20:21 Patient medically screened. [facility] 21:11 Differential diagnosis: closed head injury, contusion, fracture, sprain, sepsis vs ma2 stroke . 22:55 Data reviewed: vital signs, nurses notes. Counseling: I had a detailed discussion with ma2 the patient and/or guardian regarding: the historical points, exam findings, and any diagnostic results supporting the discharge/admit diagnosis, the presence of at least one elevated blood pressure reading (>120/80) during this emergency department visit. Response to treatment: the patient's symptoms have markedly improved after treatment. ED course: has no deficit speech is unchanged yet he needs observation for syncope and further eval, discussed with dr. lopez. 09/08 21:20 Order name: CBC with Automated Diff; Complete Time: 21:56 EDMS 09/08 21:22 Order name: Protime (+INR); Complete Time: 21:56 EDMS 09/08 21:22 Order name: PTT, Activated Partial Thromb; Complete Time: 21:56 EDMS 09/08 21:33 Order name: Basic Metabolic Panel; Complete Time: 21:56 EDMS 09/08 21:33 Order name: Troponin (Emerg Dept Use Only); Complete Time: 21:56 EDMS 09/08 21:33 Order name: Amylase Level; Complete Time: 21:56 EDMS 09/08 20:57 Order name: CT; Complete Time: 21:56 EDMS 09/08 21:33 Order name: Lipase; Complete Time: 21:56 EDMS 09/08 22:36 Order name: Urine Drug Screen; Complete Time: 22:51 EDMS 09/08 23:14 Order name: Urine Dipstick--Ancillary (enter results); Complete Time: 02:01 ag4 09/08 23:15 Order name: Head C Spine Mpr Wo Con EDMS 09/08 23:49 Order name: Basic Metabolic Panel EDMS 09/08 23:49 Order name: Troponin (Emerg Dept Use Only) EDMS 09/08 23:49 Order name: Amylase Level EDMS 09/08 23:49 Order name: Lipase EDMS 09/08 23:49 Order name: CBC with Automated Diff EDMS 09/08 23:49 Order name: Protime (+INR) EDMS 09/08 23:49 Order name: PTT, Activated Partial Thromb EDMS 09/08 23:53 Order name: Urine Drug Screen EDIL 09/08 20:31 Order name: EKG; Complete Time: 20:32 il2 09/08 20:31 Order name: Accucheck; Complete Time: 21:54 il2 09/08 20:31 Order name: Cardiac monitoring; Complete Time: 21:54 il2 09/08 20:31 Order name: EKG - Nurse/Tech; Complete Time: 21:54 [facility] 09/08 20:31 Order name: IV Saline Lock; Complete Time: 21:01 il2 09/08 20:31 Order name: Labs collected and sent; Complete Time: 21:01 il2 09/08 20:31 Order name: NPO; Complete Time: 21:00 [facility] 09/08 20:31 Order name: O2 Per Protocol; Complete Time: 21:01 il2 09/08 20:31 Order name: O2 Sat Monitoring; Complete Time: 21:01 [facility] 09/08 20:31 Order name: Stroke Swallow Screen; Complete Time: 21:00 [facility] 09/08 20:31 Order name: Urine Dipstick-Ancillary (obtain specimen); Complete Time: 22:08 il2 09/08 23:15 Order name: Chest Single View EDIL Administered Medications: 21:00 Drug: NS 0.9% 1000 ml Route: IV; Rate: 1 bolus; Site: right antecubital; ea 09/09 00:00 Follow up: Response: No adverse reaction; IV Status: Completed infusion; IV Intake: ea 100ml Disposition: 09/08/18 22:57 Hospitalization ordered by Danika Lopez for Observation. Preliminary diagnosis is Syncope and collapse. - Bed requested for Telemetry/MedSurg (observation). - Status is Observation. ea - Condition is Stable. - Problem is new. - Symptoms are unchanged. UTI on Admission? No Signatures: Dispatcher [employer] [facility] Jasmyn Castillo RN RN aj1 Dianne Bautista RN RN kl Antunez, Elena, RN RN ea [facility], MD MD ma2 Corrections: (The following items were deleted from the chart) 09/08 23:46 20:31 CT-STROKE BRAIN W/O CONTRAST+CT.RAD.BRZ ordered. EDMS EDMS 23:46 20:32 Chest Single View+RAD.RAD.BRZ ordered. EDMS EDMS 23:46 20:32 C Spine Wo Con+CT.RAD.BRZ ordered. EDMS EDMS 23:55 20:31 AMYLASE, SERUM+C.LAB.BRZ ordered. EDMS EDMS 23:55 20:31 URINE DRUG SCREEN+CHEM UR.LAB.BRZ ordered. EDMS EDMS 23:56 20:31 TROPONIN (EMERG DEPT USE ONLY)+C.LAB.BRZ ordered. EDMS EDMS 23:56 20:31 LIPASE+C.LAB.BRZ ordered. EDMS EDMS 23:56 20:31 BASIC METABOLIC PANEL+C.LAB.BRZ ordered. EDMS EDMS 23:56 20:31 CBC+H.LAB.BRZ ordered. EDMS EDMS 23:56 20:31 PROTIME (+INR)+COAG.LAB.BRZ ordered. EDMS EDMS 23:56 20:31 PTT, ACTIVATED+COAG.LAB.BRZ ordered. EDIL EDMS 09/09 02:10 09/08 22:57 Hospitalization Ordered by Danika Lopez MD for Observation. Preliminary kl diagnosis is Syncope and collapse. Bed requested for Telemetry/MedSurg (observation). Status is Observation. Condition is Stable. Problem is new. Symptoms are unchanged. UTI on Admission? No. ma2 09/09 03:00 02:10 09/08/2018 22:57 Hospitalization Ordered by Danika Lopez MD for Observation. ea Preliminary diagnosis is Syncope and collapse. Bed requested for Telemetry/MedSurg (observation). Status is Observation. Condition is Stable. Problem is new. Symptoms are unchanged. UTI on Admission? No. kl
[2018-09-08 23:57] LABS: Urine Blood NEGATIVE (NEG); Urine Glucose NEGATIVE (NEG); Urine Protein 1+ (NEG); Urine Specific Gravity 1.025 (1.005-1.030); Urine pH 5.5 (5.0-7.0)
--- NOTE | 2018-09-09 02:14 | P.HP ---
Certification for Inpatient Patient admitted to: Observation With expected LOS: <2 Midnights Practitioner: I am a practitioner with admitting privileges, knowledge of patient current condition, hospital course, and medical plan of care. Services: Services provided to patient in accordance with Admission requirements found in Title 42 Section 412.3 of the Code of Federal Regulations Patient History Date of Service: 09/09/18 Reason for admission: syncope History of Present Illness: Mr Graf is a 67 years old male with history of CVA with residual expressive aphasia, HTN, who apparently he fell this morning and hit his forehead. His nephew with to the patient's house and found him more confused, and lethargic than usual. The patient can talk in 3 words sentence, this is his baseline. No history of fever or chills. No chest pain, palpitations or SOB reported. Lab work shows slightly abnormal renal function, EKG SR without ST-T abnormalities. CT head and neck shows no acute abnormalities. Home medications list reviewed: Yes - Past Medical/Surgical History -: CVA -: HTN -: hyperlipidemia -: Hip replacement -: back surgery - Family History Family History: Reviewed- Non-Contributory - Social History Smoking Status: Unknown if ever smoked CD- Drugs: No Place of Residence: Home Review of Systems 10-point ROS is otherwise unremarkable Physical Examination - Physical Exam General: Alert, In no apparent distress HEENT: PERRLA, Mucous membr. moist/pink, EOMI, Sclerae nonicteric Neck: Supple, 2+ carotid pulse no bruit, No LAD, Without JVD or thyroid abnormality Respiratory: Clear to auscultation bilaterally, Normal air movement Cardiovascular: Regular rate/rhythm, Normal S1 S2 Gastrointestinal: Normal bowel sounds, No tenderness Musculoskeletal: No tenderness Integumentary: No rashes Neurological: Normal strength at 5/5 x4 extr, Normal tone, Normal affect, Abnormal speech (expressive aphasia) Lymphatics: No axilla or inguinal lymphadenopathy - Studies Laboratory Data (last 24 hrs) 09/08/18 20:55: PT 12.4, INR 1.05, APTT 30.1 09/08/18 20:55: WBC 7.5, Hgb 15.9, Hct 46.7, Plt Count 205 09/08/18 20:55: Sodium 141, Potassium 3.7, BUN 27 H, Creatinine 1.19, Glucose 174 H, Amylase 15 L, Lipase 55 L 09/08/18 20:31: PT Cancelled, INR Cancelled, APTT Cancelled 09/08/18 20:31: WBC Cancelled, Hgb Cancelled, Hct Cancelled, Plt Count Cancelled 09/08/18 20:31: Sodium Cancelled, Potassium Cancelled, BUN Cancelled, Creatinine Cancelled, Glucose Cancelled, Lipase Cancelled 09/08/18 20:31: Amylase Cancelled Assessment and Plan - Problems (Diagnosis) (1) Syncope Current Visit: Yes Status: Acute Qualifiers: Syncope type: unspecified Qualified Code(s): R55 - Syncope and collapse (2) HTN (hypertension) Current Visit: Yes Status: Acute Qualifiers: Hypertension type: essential hypertension Qualified Code(s): I10 - Essential (primary) hypertension (3) Dyslipidemia Current Visit: Yes Status: Acute - Plan Will admit the patient to the hospital due to syncopal episode. Etiology no clear. Will order ECHO, radiation monitor, neurology consult. - Advance Directives Does patient have a Living Will: No Does patient have a Durable POA for Healthcare: No - Code Status/Comfort Care Code Status Assessed: Yes Code Status: Full Code
[2018-09-09] MEDS ORDERED: ONDANSETRON 4 MG/2 ML VIAL IV PRN (02:42)
[2018-09-09 05:58] LABS: Absolute Lymphocytes (CBC) 1.8 K/uL (0.7-4.9); Absolute Monocytes 0.5 K/uL (0.1-1.3); Absolute Neutrophil 4.6 K/uL (1.8-8.0); Basophils % 0.9 % (0-1.3); Eosinophils % 1.9 % (0-4.4); Hematocrit 41.9 % (39.6-49.0); Lymphocytes % 25.7 % (15.3-44.8); MPV 9.2 fL (7.6-11.3); Monocytes % 6.9 % (3.3-12.3); RBC Red Blood Cell Count 4.72 M/uL (4.33-5.43)
[2018-09-09 06:14] LABS: Potassium 3.5 mmol/L (3.5-5.1)
[2018-09-09] MEDS ORDERED: POTASSIUM CL SA 10 MEQ TAB PO ONE (08:00)
--- NOTE | 2018-09-09 08:07 | RAD REPORT ---
EXAM DESCRIPTION: RAD - Chest Single View - 09/08/2018 9:05 pm CLINICAL HISTORY: CODE STROKE Chest pain. COMPARISON: No comparisons FINDINGS: Portable technique limits examination quality. The lungs are mildly emphysematous but grossly clear. The heart is normal in size. No displaced fract ures. IMPRESSION: No acute intrathoracic process suspected.
--- NOTE | 2018-09-09 12:25 | RAD REPORT ---
EXAM DESCRIPTION: MRI - Brain W/Wo Cont - 09/09/2018 11:52 am CLINICAL HISTORY: Syncope, frequent falls COMPARISON: CT head September 08 TECHNIQUE: Sagittal and axial T1-weighted images were obtained. Axial PD/heavily T2-weighted and T2- FLAIR images were obtained along with axial DWI/ADC mapping sequences. Coronal heavily T2 weighted s equence obtained. Axial and coronal post-contrast T1-weighted images were also obtained. A 20 ml Mul tihance contrast following utilized. FINDINGS: No intracranial hemorrhage or mass lesions seen. There is no mass effect, edema or shift o f midline structures. Patient has a very small 2- 3 millimeter punctate focus of acute nonhemorrhagic infarction in the subcortical white matter anterior left frontal lobe. There is corresponding dimini shed activity on ADC mapping. Underlying moderate atrophy changes are present. Patient has advanced c hronic ischemic change throughout the cerebral white matter, each thalamus and basal ganglia. Brainst em chronic ischemic changes are also present. Signal voids are seen as a normal finding in the major intracranial vessels. Left frontal scalp hematoma again noted. Post-contrast imaging shows no enhancement at the punctate acute infarctions site. No abnormal dura o r brain parenchymal enhancement seen. Mastoid air cells and paranasal sinuses are clear. IMPRESSION: Punctate 2-3 mm focus of nonhemorrhagic acute infarction in the anterior left frontal lo be. No associated edema. Patient has very advanced chronic ischemic change throughout the cerebral white matter with significa nt but less extensive chronic ischemic change in the brainstem, thalamus and basal ganglia. Moderate underlying atrophy. Ventricles are in proportion to volume loss.
[2018-09-09] MEDS: CLOPIDOGREL 75 MG TABLET PO SCH (13:30)
[2018-09-09] MEDS: ASPIRIN EC 81 MG TAB PO SCH (13:30)
--- NOTE | 2018-09-09 13:41 | EKG ---
Test Date: 2018-09-08 Test Time: 21:44:17 Social Work Coordinator: JEANNIE MEASUREMENT RESULTS: Intervals: Rate: 73 MS: 226 QRSD: 100 QT: 392 QTc: 431 [place]: P: 52 MS: 226 QRS: -23 T: -15 INTERPRETIVE STATEMENTS: Sinus rhythm with 1st degree AV block Abnormal ECG No previous ECG available for comparison Electronically Signed On 09-09-18 13:41:19 BOARD CERTIFIED MUSIC THERAPIST by Theo Rondon
--- NOTE | 2018-09-09 14:36 | ECHO ---
HEIGHT: 6 ft 0 in WEIGHT: 204 lb 6.4 oz DATE OF STUDY: 09/09/[address]: Danika Douglas MD 2-DIMENSIONAL: YES M.MODE: YES DOPPLER: YES COLOR FLOW: YES TDS: YES PORTABLE: DEFINITY: BUBBLE STUDY: DIAGNOSIS: SYNCOPE CARDIAC HISTORY: CATHERIZATION: YES SURGERY: NO PROSTHETIC VALVE: NO PACEMAKER: NO MEASUREMENTS (cm) DIASTOLIC (NORMALS) SYSTOLIC (NORMALS) IVSd 1.3 (0.6-1.2) LA Diam 4.0 (1.9-4.0) LVEF 55% LVIDd 5.0 (3.5-5.7) LVIDs 3.6 (2.0-3.5) %FS 29% LVPWd 1.4 (0.6-1.2) Ao Diam 3.6 (2.0-3.7) 2 DIMENSIONAL ASSESSMENT: RIGHT ATRIUM: NORMAL LEFT ATRIUM: DILATED RIGHT VENTRICLE: NORMAL LEFT VENTRICLE: LEFT VENTRICULAR HYPERTROPHY TRICUSPID VALVE: NORMAL MITRAL VALVE: NORMAL PULMONIC VALVE: NORMAL AORTIC VALVE: NORMAL PERICARDIAL EFFUSION: NONE AORTIC ROOT: NORMAL LEFT VENTRICULAR WALL MOTION: NORMAL DOPPLER/COLOR FLOW: IMPAIRED LEFT VENTRICULAR RELAXATION. MILD AORTIC REGURGITATION AND MITRAL REGURGITATION. COMMENTS: NORMAL LEFT VENTRICULAR EJECTION FRACTION. LEFT VENTRICULAR HYPERTROPHY. DILATED LEFT ATRIUM. IMPAIRED LEFT VENTRICULAR RELAXATION. MILD AORTIC REGURGITATION AND MITRAL REGURGITATION. TECHNOLOGIST: PHYLLIS HOOD
--- NOTE | 2018-09-09 15:10 | RAD REPORT ---
EXAM DESCRIPTION: US - CP - 09/09/2018 2:41 pm CLINICAL HISTORY: CVA Headache, drowsiness, CVA COMPARISON: Head C Spine Mpr Wo Con dated 09/08/2018 TECHNIQUE: Real-time sonographic evaluation of both carotid systems was performed. Doppler interroga tion was performed with waveform tracing bilaterally. FINDINGS: Normal high resistance waveforms are noted in both external carotid arteries. The common c arotid arteries and internal carotid arteries show normal low resistance waveforms. Small amount hard plaque is seen in the left carotid bulb. Peak systolic and end diastolic velocity v alues and the ICA/CCA ratios are in the non-hemodynamically significant range. Antegrade flow seen in both vertebral arteries. IMPRESSION: Small amount hard plaque is seen left carotid bulb. No evidence of a hemodynamically significant stenosis.
[2018-09-09] MEDS ORDERED: PNEUMOCOCCAL VACCINE 0.5 ML IMVAC ONE (16:00)
--- NOTE | 2018-09-09 17:57 | PN ---
Date of Progress Note: 09/09/2018 Subjective: The patient is seen and examined. Chart reviewed and case discussed with RN. Code Status: Full. Physical Examination: Vital Signs: Temperature 98.6, heart rate 68, blood pressure 150/95, respirations 18, O2 98% on room air. General: Awake, alert, and oriented, no acute distress. Elderly male, ill appearing. CV: S1, S2. Regular rate and rhythm. Peripheral pulses present. Respiratory: Moving air well bilaterally. No wheezing. Gastrointestinal: Abdomen is soft, nontender, nondistended. Positive bowel sounds. Extremities: No clubbing, cyanosis, or edema. Neuro: Cranial nerves 2 through 12 intact grossly. No focal neurological deficit. Speech is normal . Skin: The patient has abrasions on his forehead. Laboratory Data: Sodium 142, potassium 3.5, chloride 108, CO2 26, BUN 24, creatinine 1.09, glucose 1 41, calcium 8.2. WBC 7.1, H and H 14.5 and 41.9, platelets 195, neutrophils 64%. MRI of the brain shows punctate 2 to 3 mm focus of nonhemorrhagic acute infarction in the anterior le ft frontal lobe. No associated edema. The patient has very advanced chronic ischemic change through out the cerebral white matter with significant, but less extensive chronic ischemic change in the bra instem, thalamus, and basal ganglia. Moderate underlying atrophy. Ventricles are in proportion to v olume loss. Assessment And Plan: A 67-year-old male with, 1.Acute cerebrovascular accident, left frontal lobe, 2 to 3 mm lesion, nonhemorrhagic. We will star t on stroke guidelines. Dr. Lebron with Neurology has been consulted. We will continue with PT, O T, aspirin, statin, and Plavix. 2.Syncopal episode. We will continue with fall precautions. Physical therapy evaluation likely sec ondary to above. 3.Essential hypertension. We will allow permissive hypertension and hold blood pressure medications for now. 4.Dyslipidemia. Continue statin. 5.Deep vein thrombosis prophylaxis with Lovenox. Plan: We will obtain remainder of the workup including echocardiogram and carotid artery ultrasound. SA/MODL Voice ID: [id number] Report ID: [id number]
[2018-09-09] MEDS: ATORVASTATIN 40 MG TAB PO SCH (21:05)
--- NOTE | 2018-09-10 03:05 | CON ---
Reason For Consultation: Aphasia earlier in the morning. History Of Present Illness: The patient was reportedly only able to speak about 3 words. Came into [facility]. Had the head CT scan, which identified a small vessel ischemic disease that is at a marked degree. No acute intracranial findings. However, subsequently brain MRI done stroke pro tocol identified a punctate 2-3 mm area of nonhemorrhagic acute infarct in the anterior left frontal lobe along with very advanced chronic small-vessel ischemic disease, but to less extent involving the brainstem, thalamus, and basal ganglia. Ventricles are increase in size in proportion. The rest of his stroke workup included an echocardiogram showing ejection fraction of 55% with impaired ventricu lar relaxation, left ventricular hypertrophy. His carotid artery ultrasound showed a small hard plaq ue in the left carotid bulb. No evidence of hemodynamically significant stenosis. The patient was p laced on aspirin and Plavix along with 40 mg of Lipitor. Past Medical History: Stroke, hypertension, and dyslipidemia. Surgical History: Hip replacement and back surgery. Family History: Noncontributory. Social History: Denies recent alcohol, tobacco, or IV drug use. Family History: Noncontributory. Current Medications: As indicated above. Review of Systems: The patient is unable to give a very reliable review of systems, but as far as he can tell, he denies fevers or chills, myalgias, arthralgias. No recent rash, weight change. Physical Examination: Vital Signs: Blood pressure 173/90, pulse 75, respiratory rate 18, temperature 97.6, oxygen saturati on 98%, weight 204 pounds, height 6 feet, and BMI 27.7. Neurologic: Mr. Graf is alert and oriented to situation and place. He does follow simple commands . However, he is unable to recall 3 words after 3 minutes, unable to spell the word world backwards and unable to do serial 7 calculations. On cranial nerve examination, he has no focal deficits on 2 through 12 despite the history of his atrophy and acute small stroke. On motor examination, no focal weakness identified in upper and lower extremities, at least 4+ bilaterally. Sensory exam, stocking -glove loss. Reflexes show paratonia with increased tone. Coordination is slow, but intact in upper and lower extremities. Laboratory Studies: Complete blood count with differential is completely normal. His chemistries sh ow slightly elevated chloride of 108, glucose ranging at 241-174. His toxicology screen is negative. Urinalysis shows 1+ protein. Assessment: Mr. Graf is a 67-year-old patient with likely hypertensive-related small vessel ischem ic disease and lacunar infarct in the left frontal lobe. He also has advanced dementia, likely vascu lar. He does have a slight bruise actually on his forehead from a fall. Plan: 1.Aspirin and Plavix as indicated. 2.Lipitor as indicated. 3.The patient may benefit from physical, occupational, and speech therapy. May determine if he can be a candidate for inpatient rehabilitation. At this point, he does have some significant cognitive issues and could benefit again from cognitive therapy. ISA/JAVON Voice ID: [id number] Report ID: [id number]
[2018-09-10 06:53] LABS: Absolute Lymphocytes (CBC) 1.5 K/uL (0.7-4.9); Absolute Monocytes 0.4 K/uL (0.1-1.3); Absolute Neutrophil 3.2 K/uL (1.8-8.0); Hematocrit 41.3 % (39.6-49.0); MPV 9.2 fL (7.6-11.3); Monocytes % 7.2 % (3.3-12.3); RBC Red Blood Cell Count 4.64 M/uL (4.33-5.43)
[2018-09-10 06:58] LABS: Potassium 3.4 mmol/L (3.5-5.1)
[2018-09-10 07:45] LABS: Magnesium 1.9 mg/dL (1.8-2.4)
[2018-09-10] MEDS ORDERED: POTASSIUM 25 MEQ EFFERV TAB PO ONE (09:00)
[2018-09-10] MEDS: ASPIRIN EC 81 MG TAB PO SCH (09:06)
[2018-09-10] MEDS: CLOPIDOGREL 75 MG TABLET PO SCH (09:06)
--- NOTE | 2018-09-10 12:43 | P.PN ---
Subjective Date of Service: 09/10/18 Chief Complaint: syncope Patient seen and examined at bedside with RN. Chart reviewed. Case discussed with neurology at this time. Overnight no complaints to offer. Doing well overall. Working with physical therapy occupational therapy and speech therapy at this time Review of Systems 10-point ROS is otherwise unremarkable Physical Examination - Vital Signs Temperature: 97.2 F Blood Pressure: 165/82 Pulse: 58 Respirations: 18 Pulse Ox (%): 97 - Physical Exam General: Alert, In no apparent distress HEENT: Atraumatic, PERRLA, EOMI Neck: Supple, JVD not distended Respiratory: Clear to auscultation bilaterally, Normal air movement Cardiovascular: Regular rate/rhythm, Normal S1 S2 Gastrointestinal: Normal bowel sounds, No tenderness Musculoskeletal: No tenderness Integumentary: No rashes Neurological: Normal speech, Normal tone, Normal affect Lymphatics: No axilla or inguinal lymphadenopathy - Studies Medications List Reviewed: Yes Assessment And Plan - Current Problems (Diagnosis) (1) Acute CVA (cerebrovascular accident) Current Visit: Yes Status: Acute Plan: MRI consistent with left frontal lobe, 2 to 3 mm lesion, nonhemorrhagic. - patient started on stroke precautions at this time - Dr. Lebron with Neurology consulted and appreciated recommendations at this time - patient currently working with occupational therapy and physical therapy. - will continue with aspirin, Plavix, statin at this time -patient will benefit from placement in inpatient rehab her physical therapy and neurology recommendation (2) Syncope Current Visit: Yes Status: Acute Plan: Acute syncopal episode most likely secondary to acute CVA -fall precautions given at this time Qualifiers: Syncope type: unspecified Qualified Code(s): R55 - Syncope and collapse (3) Dyslipidemia Current Visit: Yes Status: Chronic (4) HTN (hypertension) Current Visit: Yes Status: Chronic Qualifiers: Hypertension type: essential hypertension Qualified Code(s): I10 - Essential (primary) hypertension - Plan Patient pending placement at this time. Currently working with physical therapy , occupational therapy, speech therapy. Will benefit from inpatient rehab if accepted Discharge Plan: Other Plan to discharge in: Greater than 2 days - Code Status/Comfort Care Code Status Assessed: Yes Critical Care: No
[2018-09-10] MEDS ORDERED: PNEUMOCOCCAL VACCINE 0.5 ML IMVAC ONE (13:00)
[2018-09-10] MEDS ORDERED: ACETAMINOPHEN 500 MG TAB PO PRN (15:26)
[2018-09-10] MEDS: ATORVASTATIN 40 MG TAB PO SCH (20:19)
[2018-09-11] MEDS: ASPIRIN EC 81 MG TAB PO SCH (09:08)
[2018-09-11] MEDS: CLOPIDOGREL 75 MG TABLET PO SCH (09:08)
--- NOTE | 2018-09-11 10:27 | P.PN ---
Subjective Date of Service: 09/11/18 Chief Complaint: syncope Patient seen and examined at bedside with RN. Chart reviewed. Case discussed with neurology at this time. Overnight no complaints to offer. Doing well overall. Working with physical therapy occupational therapy and speech therapy at this time. Pending Placement to Inpatient Rehab Review of Systems 10-point ROS is otherwise unremarkable Physical Examination - Vital Signs Temperature: 97.9 F Blood Pressure: 147/89 Pulse: 70 Respirations: 16 Pulse Ox (%): 97 - Physical Exam General: Alert, In no apparent distress HEENT: Atraumatic, PERRLA, EOMI Neck: Supple, JVD not distended Respiratory: Clear to auscultation bilaterally, Normal air movement Cardiovascular: Regular rate/rhythm, Normal S1 S2 Gastrointestinal: Normal bowel sounds, No tenderness Musculoskeletal: No tenderness Integumentary: No rashes Neurological: Normal speech, Normal tone, Normal affect, Abnormal strength Lymphatics: No axilla or inguinal lymphadenopathy - Studies Medications List Reviewed: Yes Assessment And Plan - Current Problems (Diagnosis) (1) Acute CVA (cerebrovascular accident) Current Visit: Yes Status: Acute Plan: MRI consistent with left frontal lobe, 2 to 3 mm lesion, nonhemorrhagic. - Dr. Lebron with Neurology consulted and appreciated recommendations at this time - patient currently working with occupational therapy and physical therapy. - will continue with aspirin, Plavix, statin at this time - patient will benefit from placement in inpatient rehab her physical therapy and neurology recommendation (2) Syncope Current Visit: Yes Status: Acute Plan: Acute syncopal episode most likely secondary to acute CVA -fall precautions given at this time Qualifiers: Syncope type: unspecified Qualified Code(s): R55 - Syncope and collapse (3) Dyslipidemia Current Visit: Yes Status: Chronic (4) HTN (hypertension) Current Visit: Yes Status: Chronic Qualifiers: Hypertension type: essential hypertension Qualified Code(s): I10 - Essential (primary) hypertension - Plan Patient pending placement at this time. Currently working with physical therapy , occupational therapy, speech therapy. Will benefit from inpatient rehab if accepted Discharge Plan: Other Plan to discharge in: 48 Hours - Code Status/Comfort Care Code Status Assessed: Yes Critical Care: No
[2018-09-11] MEDS: ATORVASTATIN 40 MG TAB PO SCH (20:19)
[2018-09-11] MEDS: TRAMADOL HCL 50 MG TAB PO PRN (22:31)
[2018-09-12 06:32] VITALS: BMI 28.8
[2018-09-12] MEDS: ASPIRIN EC 81 MG TAB PO SCH (08:19)
[2018-09-12] MEDS: CLOPIDOGREL 75 MG TABLET PO SCH (08:19)
--- NOTE | 2018-09-12 14:00 | P.PN ---
Subjective Date of Service: 09/12/18 Chief Complaint: syncope Patient seen and examined at bedside with RN. Chart reviewed. Case discussed with neurology at this time. Overnight no complaints to offer. Doing well overall. Working with physical therapy occupational therapy and speech therapy at this time. Pending Placement to Inpatient Rehab Review of Systems 10-point ROS is otherwise unremarkable Physical Examination - Vital Signs Temperature: 98.1 F Blood Pressure: 173/88 Pulse: 78 Respirations: 20 Pulse Ox (%): 93 - Physical Exam General: Alert, In no apparent distress HEENT: Atraumatic, PERRLA, EOMI Neck: Supple, JVD not distended Respiratory: Clear to auscultation bilaterally, Normal air movement Cardiovascular: Regular rate/rhythm, Normal S1 S2 Gastrointestinal: Normal bowel sounds, No tenderness Musculoskeletal: No tenderness Integumentary: No rashes Neurological: Normal speech, Normal tone, Normal affect Lymphatics: No axilla or inguinal lymphadenopathy - Studies Medications List Reviewed: Yes Assessment And Plan - Current Problems (Diagnosis) (1) Acute CVA (cerebrovascular accident) Current Visit: Yes Status: Acute Plan: MRI consistent with left frontal lobe, 2 to 3 mm lesion, nonhemorrhagic. - Dr. Lebron with Neurology consulted and appreciated recommendations at this time - patient currently working with occupational therapy and physical therapy. - will continue with aspirin, Plavix, statin at this time - patient will benefit from placement in inpatient rehab her physical therapy and neurology recommendation (2) Syncope Current Visit: Yes Status: Acute Plan: Acute syncopal episode most likely secondary to acute CVA -fall precautions given at this time Qualifiers: Syncope type: unspecified Qualified Code(s): R55 - Syncope and collapse (3) Dyslipidemia Current Visit: Yes Status: Chronic (4) HTN (hypertension) Current Visit: Yes Status: Chronic Qualifiers: Hypertension type: essential hypertension Qualified Code(s): I10 - Essential (primary) hypertension - Plan Patient pending placement at this time. Currently working with physical therapy , occupational therapy, speech therapy. Will benefit from inpatient rehab if accepted Discharge Plan: Other Plan to discharge in: 48 Hours - Code Status/Comfort Care Code Status Assessed: Yes Critical Care: No
[2018-09-12] MEDS: TRAMADOL HCL 50 MG TAB PO PRN (19:15)
[2018-09-12] MEDS: ATORVASTATIN 40 MG TAB PO SCH (20:03)
[2018-09-13] MEDS: ASPIRIN EC 81 MG TAB PO SCH (08:38)
[2018-09-13] MEDS: CLOPIDOGREL 75 MG TABLET PO SCH (08:38)
[2018-09-13] MEDS: TRAMADOL HCL 50 MG TAB PO PRN (08:40)
--- NOTE | 2018-09-13 16:28 | P.PN ---
Subjective Date of Service: 09/13/18 Chief Complaint: syncope Patient seen and examined at bedside with RN. Chart reviewed. Case discussed with neurology at this time. Overnight no complaints to offer. Doing well overall. Working with physical therapy occupational therapy and speech therapy at this time. Pending Placement to Inpatient Rehab Review of Systems 10-point ROS is otherwise unremarkable Physical Examination - Vital Signs Temperature: 97.8 F Blood Pressure: 165/91 Pulse: 78 Respirations: 16 Pulse Ox (%): 98 - Physical Exam General: Alert, In no apparent distress HEENT: Atraumatic, PERRLA, EOMI Neck: Supple, JVD not distended Respiratory: Clear to auscultation bilaterally, Normal air movement Cardiovascular: Regular rate/rhythm, Normal S1 S2 Gastrointestinal: Normal bowel sounds, No tenderness Musculoskeletal: No tenderness Integumentary: No rashes Neurological: Normal speech, Normal tone, Normal affect Lymphatics: No axilla or inguinal lymphadenopathy - Studies Medications List Reviewed: Yes Assessment And Plan - Current Problems (Diagnosis) (1) Acute CVA (cerebrovascular accident) Current Visit: Yes Status: Acute Plan: MRI consistent with left frontal lobe, 2 to 3 mm lesion, nonhemorrhagic. - Dr. Lebron with Neurology consulted and appreciated recommendations at this time - patient currently working with occupational therapy and physical therapy. - will continue with aspirin, Plavix, statin at this time - patient will benefit from placement in inpatient rehab her physical therapy and neurology recommendation (2) Syncope Current Visit: Yes Status: Acute Plan: Acute syncopal episode most likely secondary to acute CVA -fall precautions given at this time Qualifiers: Syncope type: unspecified Qualified Code(s): R55 - Syncope and collapse (3) Dyslipidemia Current Visit: Yes Status: Chronic (4) HTN (hypertension) Current Visit: Yes Status: Chronic Qualifiers: Hypertension type: essential hypertension Qualified Code(s): I10 - Essential (primary) hypertension - Plan Patient pending placement at this time. Currently working with physical therapy , occupational therapy, speech therapy. Will benefit from inpatient rehab if accepted Discharge Plan: Other Plan to discharge in: 48 Hours Critical Care: No
[2018-09-13] MEDS: ATORVASTATIN 40 MG TAB PO SCH (20:54)
[2018-09-14] MEDS: ASPIRIN EC 81 MG TAB PO SCH (09:15)
[2018-09-14] MEDS: CLOPIDOGREL 75 MG TABLET PO SCH (09:15)
--- NOTE | 2018-09-14 16:29 | P.PN ---
Subjective Date of Service: 09/14/18 Chief Complaint: syncope Patient seen and examined at bedside with RN. Chart reviewed. Case discussed with neurology at this time. Overnight no complaints to offer. Doing well overall. Working with physical therapy occupational therapy and speech therapy at this time. Pending Placement to Inpatient Rehab Physical Examination - Vital Signs Temperature: 97.9 F Blood Pressure: 161/92 Pulse: 80 Respirations: 18 Pulse Ox (%): 97 - Physical Exam General: Alert, In no apparent distress HEENT: Atraumatic, PERRLA, EOMI Neck: Supple, JVD not distended Respiratory: Clear to auscultation bilaterally, Normal air movement Cardiovascular: Regular rate/rhythm, Normal S1 S2 Gastrointestinal: Normal bowel sounds, No tenderness Musculoskeletal: No tenderness Integumentary: No rashes Neurological: Normal speech, Normal tone, Normal affect Lymphatics: No axilla or inguinal lymphadenopathy - Studies Medications List Reviewed: Yes Assessment And Plan - Current Problems (Diagnosis) (1) Acute CVA (cerebrovascular accident) Current Visit: Yes Status: Acute Plan: MRI consistent with left frontal lobe, 2 to 3 mm lesion, nonhemorrhagic. - Dr. Lebron with Neurology consulted and appreciated recommendations at this time - patient currently working with occupational therapy and physical therapy. - will continue with aspirin, Plavix, statin at this time - patient will benefit from placement in inpatient rehab her physical therapy and neurology recommendation (2) Syncope Current Visit: Yes Status: Acute Plan: Acute syncopal episode most likely secondary to acute CVA -fall precautions given at this time Qualifiers: Syncope type: unspecified Qualified Code(s): R55 - Syncope and collapse (3) Dyslipidemia Current Visit: Yes Status: Chronic (4) HTN (hypertension) Current Visit: Yes Status: Chronic Qualifiers: Hypertension type: essential hypertension Qualified Code(s): I10 - Essential (primary) hypertension - Plan Patient pending placement at this time. Currently working with physical therapy , occupational therapy, speech therapy. Will benefit from inpatient rehab if accepted
[2018-09-14] MEDS: ATORVASTATIN 40 MG TAB PO SCH (21:08)
[2018-09-14] MEDS: TRAMADOL HCL 50 MG TAB PO PRN (21:08)
[2018-09-15 02:08] VITALS: O2SAT 95
[2018-09-15] MEDS: CLOPIDOGREL 75 MG TABLET PO SCH (09:13)
[2018-09-15] MEDS: ASPIRIN EC 81 MG TAB PO SCH (09:13)
--- NOTE | 2018-09-15 14:43 | P.PN ---
Subjective Date of Service: 09/15/18 Chief Complaint: syncope Patient seen and examined at bedside with RN. Chart reviewed. Case discussed with neurology at this time. Overnight no complaints to offer. Doing well overall. Working with physical therapy occupational therapy and speech therapy at this time. Pending Placement to Inpatient Rehab Review of Systems 10-point ROS is otherwise unremarkable Physical Examination - Vital Signs Temperature: 98.0 F Blood Pressure: 145/92 Pulse: 94 Respirations: 18 Pulse Ox (%): 96 - Physical Exam General: Alert, In no apparent distress HEENT: Atraumatic, PERRLA, EOMI Neck: Supple, JVD not distended Respiratory: Clear to auscultation bilaterally, Normal air movement Cardiovascular: Regular rate/rhythm, Normal S1 S2 Gastrointestinal: Normal bowel sounds, No tenderness Musculoskeletal: No tenderness Integumentary: No rashes Neurological: Normal speech, Normal tone, Normal affect Lymphatics: No axilla or inguinal lymphadenopathy - Studies Medications List Reviewed: Yes Assessment And Plan - Current Problems (Diagnosis) (1) Acute CVA (cerebrovascular accident) Current Visit: Yes Status: Acute Plan: MRI consistent with left frontal lobe, 2 to 3 mm lesion, nonhemorrhagic. - Dr. Lebron with Neurology consulted and appreciated recommendations at this time - patient currently working with occupational therapy and physical therapy. - will continue with aspirin, Plavix, statin at this time - patient will benefit from placement in inpatient rehab her physical therapy and neurology recommendation (2) Syncope Current Visit: Yes Status: Acute Plan: Acute syncopal episode most likely secondary to acute CVA -fall precautions given at this time Qualifiers: Syncope type: unspecified Qualified Code(s): R55 - Syncope and collapse (3) Dyslipidemia Current Visit: Yes Status: Chronic (4) HTN (hypertension) Current Visit: Yes Status: Chronic Qualifiers: Hypertension type: essential hypertension Qualified Code(s): I10 - Essential (primary) hypertension - Plan Patient pending placement at this time. Currently working with physical therapy , occupational therapy, speech therapy. Will benefit from inpatient rehab if accepted Discharge Plan: Other Plan to discharge in: Greater than 2 days - Code Status/Comfort Care Code Status Assessed: Yes Critical Care: No
--- NOTE | 2018-09-15 17:04 | P.DS ---
Admission Date: 09/09/18 Discharge Date: 09/15/18 Reason for Admission: syncope Consultations: Neurology - Problems (1) Acute CVA (cerebrovascular accident) Current Visit: Yes Status: Acute (2) Syncope Current Visit: Yes Status: Acute Qualifiers: Syncope type: unspecified Qualified Code(s): R55 - Syncope and collapse (3) Dyslipidemia Current Visit: Yes Status: Chronic (4) HTN (hypertension) Current Visit: Yes Status: Chronic Qualifiers: Hypertension type: essential hypertension Qualified Code(s): I10 - Essential (primary) hypertension Brief History of Present Illness: Mr Graf is a 67 years old male with history of CVA with residual expressive aphasia, HTN, who apparently he fell this morning and hit his forehead. His nephew with to the patient's house and found him more confused, and lethargic than usual. The patient can talk in 3 words sentence, this is his baseline. No history of fever or chills. No chest pain, palpitations or SOB reported. Lab work shows slightly abnormal renal function, EKG SR without ST-T abnormalities. CT head and neck shows no acute abnormalities. Hospital Course: Overall during the hospital stay patient remained stable Patient was initially admitted to the hospital status post fall. Patient also had altered mental status when he was presented to the ER. Patient had extensive workup done here for acute CVA. Patient had head CT which was negative initially. Patient also had a brain MRI which was positive for acute CVA. At that time. Neurology was consulted who recommended patient be started on aspirin Plavix and Lipitor. Patient was started here on aspirin Plavix and Lipitor in the hospital. Patient did well overall. Patient had physical therapy speech therapy and occupational therapy consulted in the hospital. Physical therapy neurology recommended the patient get inpatient rehab for continuous therapy after his acute CVA. Patient was accepted to the inpatient rehab and was approved with insurance and thus was transferred to inpatient rehab for further care. Vital Signs/Physical Exam: Temp Pulse Resp BP Pulse Ox 98.0 F 94 H 18 145/92 H 96 09/15/18 14:43 09/15/18 14:43 09/15/18 14:43 09/15/18 14:43 09/15/18 14:43 General: Alert, In no apparent distress HEENT: Atraumatic, PERRLA, EOMI Neck: Supple, JVD not distended Respiratory: Clear to auscultation bilaterally, Normal air movement Cardiovascular: Regular rate/rhythm, Normal S1 S2 Gastrointestinal: Normal bowel sounds, No tenderness Musculoskeletal: No tenderness Integumentary: No rashes Neurological: Normal speech, Normal tone, Normal affect Lymphatics: No axilla or inguinal lymphadenopathy Laboratory Data at Discharge: WBC 5.3 K/uL (4.3-10.9) D 09/10/18 06:20 Hgb 14.3 g/dL (13.6-17.9) 09/10/18 06:20 Hct 41.3 % (39.6-49.0) 09/10/18 06:20 Plt Count 194 K/uL (152-406) 09/10/18 06:20 PT 12.4 SECONDS (9.5-12.5) 09/08/18 20:55 INR 1.05 09/08/18 20:55 APTT 30.1 SECONDS (24.3-36.9) 09/08/18 20:55 Sodium 142 mmol/L (136-145) 09/10/18 06:20 Potassium 4.3 mmol/L (3.5-5.1) 09/10/18 16:15 BUN 20 mg/dL (7-18) H 09/10/18 06:20 Creatinine 0.99 mg/dL (0.55-1.3) 09/10/18 06:20 Glucose 130 mg/dL (74-106) H 09/10/18 06:20 Magnesium 1.9 mg/dL (1.8-2.4) 09/10/18 06:20 Amylase 15 U/L (25-115) L 09/08/18 20:55 Lipase 55 U/L (73-393) L 09/08/18 20:55 Home Medications: NK [No Home Meds] 09/10/18
[2018-09-15 17:48] VITALS: BP 151/91; TEMP 97.7
== END 2018-09-15 18:25 | DRG 66 ==
LOC: ER 20:13 → ERHOLD 09-09 02:03 → 2ND 09-09 02:36 → OBSVTOIN 09-09 12:37
PROVIDERS: ADMIT Internal Medicine; ATTEND Family Medicine
DX: I63.9 Cerebral infarction, unspecified (principal); R55 Syncope and collapse; E78.5 Hyperlipidemia, unspecified; I10 Essential (primary) hypertension; S00.83XA Contusion of other part of head, initial encounter; W01.0XXA Fall on same level from slipping, tripping and stumbling without subsequent striking against object, initial encounter; Y93.89 Activity, other specified; Y92.019 Unspecified place in single-family (private) house as the place of occurrence of the external cause; F01.50 Vascular dementia, unspecified severity, without behavioral disturbance, psychotic disturbance, mood disturbance, and anxiety; F80.1 Expressive language disorder
CPT/HCPCS: 36415; 70450; 70553; 71045; 72125; 80048; 80061; 80307; 81003; 82150; 83690; 83735; 84132; 84484; 85025; 85610; 85730; 90670; 92507; 92523; 92610; 93005; 93306; 93880; 96360; 96361; 97110; 97112; 97116; 97163; 97166; 97530; 99285; A9577; G0378; J7030

== ENCOUNTER 2018-09-15 15:32 | Inpatient (IN) | payer OTHER ==
--- NOTE | 2018-09-15 16:11 | R.PREADM ---
SCREENING DATE AND TIME 09/15/2018 15:36 (CDT) ANTICIPATED REHAB ADMISSION DATE 09/17/2018 REFERRING FACILITY [facility] REFERRAL DATE AND TIME 09/15/2018 15:36 (CDT) REFERRAL ROOM# [id number] ACUTE ADMIT DATE 09/09/2018 Previous Rehabilitation(s): No. REFERRING PHYSICIAN Rigo Granado REHAB FACILITY [facility] CLINICAL LIAISON Danyelle Bobby PHYSICIAN REVIEWER Dr. Moises Lebron M.D. [id number] [id number] NAME REESE JJ ADDRESS [address] [facility] [place]IP [id number] DATE OF 1950 AGE 67 SSN# [id number] GENDER male MARITAL STATUS RACE white ADMIT FROM 02 - [facility] PRE-HOSPITAL LIVING SETTING 01 - Home (private home/apt. board/care, assisted living, half-way, transitional living) HOME TYPE AND DETAILS Type of home: single family house # of levels in the residence: 1 # of steps within the residence: 0 # of steps to enter the residence: 3 PRE-HOSPITAL LIVING WITH Alone FAMILY SUPPORT Yes PRIMARY FAMILY CONTACT NAME RASHEEDA MARTIN PRIMARY FAMILY CONTACT PHONE PRIMARY FAMILY CONTACT RELATIONSHIP Nephew PHONE PRIMARY FAMILY CONTACT ON ADM.? no IS PRIMARY FAMILY CONTACT AUTH. REP.? no 1ST EMERGENCY CONTACT RASHEEDA MARTIN 1ST CONTACT PHONE 1ST CONTACT RELATIONSHIP Nephew PHONE 1ST CONTACT ON ADM. no IS 1ST CONTACT AUTH. REP.? no PHONE 2ND CONTACT ON ADM.? no PATIENT EMPLOYMENT STATUS Retired (for age) PATIENT EMPLOYER No Employer PAYOR INFORMATION: 1ST PAYOR NAME [employer] MEDICARE 1ST PAYOR INJURY/ILLNESS DUE TO ACCIDENT? No ANOTHER GREEN PARTY RESPONSIBLE? No PRIMARY REHAB/ACUTE DIAGNOSIS: Left Acute CVA ONSET DATE 09/09/2018 REHAB IMPAIRMENT CATEGORY (JAMEE): 01 Stroke (STR) MEETS 60% rule AFFECTED EXTREMITIES: RLE, and RUE PRIMARY DIAGNOSIS-RELATED SURGERIES: N/A COMORBID REHAB/ACUTE DIAGNOSES: - N/A CVA Hypertension Hyperlipidemia INTERVENTIONS: - Hypertension Fluid management Medications VS RISK FOR COMPLICATIONS: - Hypertension CVA Hypotension NM TIA SUMMARY OF ACUTE HOSPITALIZATION: Pt. is a 67 yo Right-handed white male. On 09/09/2018 Pt. presented to [facility] with sudden onset of right-side weakn ess. On 09/09/2018 he was admitted to [facility] with diagnosis Left Acute CVA. His impairment category is Stroke 01 - Right Body (Left Brain) (01.2). Pre-morbidly, Pt. was independent/mod-I in Self-Care, Sphincter Control, Transfers Control, Locomotio n, Communication, and Social Cognition; and he had good Sphincter Control. Currently, he has deficits of Transfers Control, Locomotion, Communication, Social Cognition, Enduran ce, Balance, Safety Awareness, and Self-Care. Pt. is now referred to [facility] for acute in-patient rehabilitation in order to maximize patient's functional independence in activities of daily living, strength, ROM, and mobi lity. Patient has realistic goal of being discharged at assistance level 6-Delmer to reside at Home with Fam davie/Relatives. Reese Jj is a 67 year old male that lives in a single wendi home with 3 steps to enter. Patient is independent and performs self care ADL without assist at home and he received meals on wheels. On 09/09/2018, he was walking down the street when he fell and hit his forehead and was admitted to [facility] and treated. He is now medically stable but in need of 24-hour nursing, doctor supervision and oversite participate in 3hours of therapy a day/15 hours per week and receive care with an intensive interdisciplinary approach. PAST MEDICAL HISTORY CVA Hyperlipidemia Hypertension PAST SURGICAL HISTORY: Hip Replacement BACK SURGERY MEDICATION ALLERGIES: No Known Drug Allergies (NKDA) ENVIRONMENTAL ALLERGIES: None Known - Substance Allergies None Known - Other Allergies None Known CODE STATUS: Full code WEIGHT/HEIGHT/BMI: WEIGHT 212 lbs HEIGHT 6'0" BMI 28.7 DIET: - Diet Type Heart Healthy - Diet - Solid Texture Regular - Diet - Liquid Texture Regular - Tube Feed N/A REVIEW OF SYSTEMS: - Gen Alert and awake Lying in bed No apparent distress Oriented to: person, time, and place - Vital Signs Temperature: 98 F SBP/DBP: 145/92 Pulse: 94 Resp: 18 Vital signs stable, afebrile - CVS RRR VITAL SIGNS Temperature: 98 F SBP/DBP: 145/92 Pulse: 94 Resp: 18 Vital signs stable, afebrile CURRENT SPHINCTER CONTROL: Pre-hospital bladder status: continent # of bladder accidents in the last 7 days prior to screenin Pre-hospital bowel status: continent # of bowel accidents in the last 7 days prior to screenin Last Bowel Movement Date: 09/12/2018 DETAILED CURRENT FUNCTIONAL STATUS: - Bladder accident frequency: Ind - No accidents in the past 7 days - Bowel accident frequency: Ind - No accidents in the past 7 days - Walking score based on distance walked: 3(>=150ft) - Wheelchair score based on distance traveled: 0(N/A) FUNCTIONAL STATUS: - Self-Care A. Eating Ind Delmer B. Grooming Ind sup C. Bathing Ind sup D. Dressing - Upper Ind Lisbet E. Dressing - Lower Ind Dep F. Toileting Ind sup - Sphincter Control G: Bladder control Ind Ind H: Bowel control Ind Ind - Transfers Control I. Bed/Chair/Wheelchair Ind sup J. Toilet Ind sup K. Tub/Shower Ind ADNO - Locomotion L. Walk/Wheelchair (C) Ind sup L. Walk/Wheelchair (W) Ind sup M. Stairs Ind sup - Communication N. Comprehension (B) Ind Lisbet O. Expression (B) Ind Lisbet - Social Cognition P. Social Interaction Ind sup Q. Problem Solving Ind sup R. Memory Ind sup - Endurance Fair - Balance Fair - Safety Awareness Fair CURRENT FUNC. DEFICITS: Transfers Control, Locomotion, Communication, Social Cognition, Endurance, Balance, Safety Awareness, and Self-Care THERAPY NOTES FROM ACUTE CARE: Attached. SPECIAL NEEDS: - Safety Concerns Skin breakdown precautions needed due to skin breakdown risk PATIENT NEEDS ACTIVE AND ONGOING THERAPEUTIC INTERVENTION OF MULTIPLE THERAPY DISCIPLINES, INCLUDING: - Occupational Therapy Evaluate and Treat. Visual Perceptual Training. Cognitive Retraining. - Speech Therapy Cognitive Training. Memory Strategies. Speech Intelligibility Training. Expressive Language Skills. R eceptive Language Skills. - Physical Therapy Evaluate and Treat. PATIENT NEEDS CLOSE MEDICAL SUPERVISION BY A REHABILITATION PHYSICIAN FOR: Bowel and Bladder Management Coordination of Treatment Team Medical and Co-Morbidity Management Pain Management DVT Management PATIENT REQUIRES 24X7 REHAB NURSING FOR MEDICAL AND FUNCTIONAL MGT. OF THE FOLLOWING DEFICITS: ADL's Ambulation Bowel and Bladder Management Cognition Communication Disease Management Medication Management Patient/Family Education Providing Safe Environment Transfers PATIENT REQUIRES INTENSIVE, COORDINATED INTERDISCIPLINARY APPROACH TO REHAB: Arranging Home Equipment/Services Discharge Planning Family Intervention/Training Solar Maintenance Technician/Case Management PATIENT REHAB POTENTIAL: Expected level of measurable improvement will be of a practical value to patient's functional capacit y or adaptations to impairments Has a viable Discharge Plan Medically appropriate; condition is sufficiently stable to participate in intensive rehab program Patient is able and expected to receive 3 hours of individualized therapy daily on at least 5 of ever y 7 days Patient's prognosis for significant practical improvement within a reasonable period of time appears Good DISCHARGE PLAN: - Estimated Length of Stay (days) 17. - Consensus on plan Discharge plan has been discussed with primary caregiver. Patient/Family is in agreement with the jazzmine n. Primary caregiver is in agreement with the plan. - Patient/Family Goals Return home with assistance. - Planned Living Setting Upon Discharge Home, to live with Family/Relatives. RECOMMENDED CARE LEVEL: IRF RECOMMENDATION DETAILS: Recommended Admission to Comprehensive Rehabilitation Program to Increase Functional [place] SCREENER'S COMPLETENESS CONFIRMATION: - Screening Confirmation The patient data collection on this preadmission screening form is finished PHYSICIANS REVIEW AND ADMISSION DETERMINATION Admit - Based on my review of the Pre-Admission Screening results, in my medical judgment and experie nce, I concur with the findings and recommend admission to [facility], as this patient requires an IRF level of care. SIGNATURE PANEL: Clinical Liaison - [electronically] signed by Danyelle Bobby on 09/15/2018 at 15:55 (CDT) Physician Reviewer - [electronically] signed by Dr. Moises Lebron M.D. on 09/15/2018 at 16:09 (CDT )
--- OUTSIDE RECORDS SUMMARY | 2018-09-15 18:40 | XMS REPORT | Continuity of Care Document ---
:1950 Author Organization Interface Problems Problem Status Onset Classification Date Comments Source Date Reported AMS Active [facility] 8 INCREASED Active [facility] [place] 8 LEVEL/ACUTE ENCEPHAL LT HIP PAIN Active [facility] 5 TLA [facility] OTHER Active [facility] SPECIFIED ABNORMAL FINDINGS OF BLO Medications Medication Details Route Status Patient Ordering Order Source Instructions Provider Date amLODIPine 10 mg 10 mg=1 tab, Active oral tablet PO, Daily, # 2018 [facility] 30 tab, 0 Refill(s), other gabapentin 100 MG 100 mg=1 cap, Active Oral Capsule PO, BID, # 60 2017 [facility] cap, 1 Refill(s), other Valium 10 mg, 2 tab, Inactive Route: PO, 2017 [facility] Drug form: TAB, ONCE, Dosing Weight 107.727, kg, Start date: 12/21/17 16:00:00 CDT, Stop date: 12/21/17 16:00:00 CDTNotes: (Same as: Valium) Ativan 1 mg, 0.5 mL, Inactive Route: IM, 2017 [facility] Drug form: INJ, ONCE, Dosing Weight 107.727, kg, Start date: 12/21/17 8:04:00 CDT, Stop date: 12/21/17 8:04:00 CDTNotes: (Same as: Ativan) potassium chloride 40 mEq, 2 tab, Inactive 20 mEq oral Route: PO, 2017 [facility] tablet, extended Drug form: release ERTAB, ONCE, [...] s with feeding tube less than 14 [place] (Dobhoff, J-tube etc) and pediatric and patients. With food and full glass of water Lactulose 667 20 gm, 30 ml, Inactive MG/ML Oral Route: PO, 2017 [facility] Solution Drug form: SYRP, ONCE, Dosing Weight 107.727, kg, Start date: 12/17/17 20:38:00 CDT, Stop date: 12/17/17 20:38:00 CDTNotes: (Same as:Chronulac) Omnipaque 350 100 mL, Route: No Longer injectable IV, Drug Form: Active 2017 [facility] solution SOLN, Dosing Weight 107.727, kg, ONCALL, GFR > 45 mL/min, Start date: 12/17/17 14:00:00 CDT, Duration: 1 doses or timesNotes: (same as:Omnipaque 350). WASTE: F/P - Black; E - [employer] Trash Bin Vitamin B 12 1,000 No Longer microgram, 1 Active 2017 [facility] mL, Route: IM, Drug form: INJ, Daily, Dosing Weight 107.727, kg, Start date: 12/17/17 9:00:00 CDT, Duration: 7 day, Stop date: 12/23/17 9:00:00 CDTNotes: (Same As: Vitamin B12) Potassium Chloride 40 mEq, 2 tab, Inactive Route: PO, 2017 [facility] Drug form: ERTAB, ONCE, Dosing Weight 107.727, [...] s with feeding tube less than 14 [place] (Dobhoff, J-tube etc) and pediatric and patients. With food and full glass of water cetirizine 10 mg, 2 tab, Inactive Route: PO, 2017 [facility] Drug form: TAB, Daily, Start date: 12/16/17 9:00:00 CDT, Duration: 30 day, Stop date: 01/14/18 9:00:00 CDTNotes: (Same As: Zyrtec) venlafaxine 75 mg, 2 tab, No Longer Route: PO, [facility] 2017 [facility] Drug form: TAB, Daily, Dosing Weight 107.727, kg, Start date: 12/16/17 9:00:00 CDT, Duration: 30 day, Stop date: 01/14/18 9:00:00 CDTNotes: (Same As: Effexor) Hydrochlorothiazid 1 tab, Route: No Longer e 12.5 MG / PO, Drug Form: [address] Losartan Potassium TAB, Dosing 100 MG Oral Tablet Weight 107.727, kg, Daily, Start date: 12/16/17 9:00:00 CDT, Duration: 30 day, Stop date: 01/14/18 9:00:00 CDT fexofenadine 180 mg, Route: No Longer PO, Drug form: [facility] 2017 [facility] TAB, Daily, Dosing Weight 107.727, kg, Start date: 12/16/17 9:00:00 CDT, Duration: 30 day, Stop date: 01/14/18 9:00:00 CDT clopidogrel 75 mg, 1 tab, No Longer Route: PO, 2017 [facility] Drug form: TAB, Daily, Dosing Weight 107.727, kg, Start date: 12/16/17 9:00:00 CDT, Duration: 30 day, Stop date: 01/14/18 9:00:00 CDTNotes: (Same As: Plavix) Simvastatin 20 mg, 1 tab, No Longer Route: PO, 2017 [facility] Drug form: TAB, Bedtime, Dosing Weight 107.727, kg, Start date: 12/15/17 21:00:00 CDT, Duration: 30 day, Stop date: 01/13/18 21:00:00 CDTNotes: (Same as: Zocor) Epitol 200 mg, 1 tab, No Longer Route: PO, 2017 [facility] Drug form: TAB, Q12H, Dosing Weight 107.727, kg, Start date: 12/15/17 21:00:00 CDT, Duration: 30 day, Stop date: 01/14/18 9:00:00 CDTNotes: With food. (Same As: Tegretol) Carbamazepine 200 mg, 1 tab, Inactive Route: PO, 2017 [facility] Drug form: TAB, Q6H, Dosing Weight 107.727, kg, Start date: 12/15/17 18:00:00 CDT, Duration: 30 day, Stop date: 01/14/18 12:00:00 CDTNotes: With food. (Same As: Tegretol) Advair Diskus 250 1 puff, Route: Inactive mcg-50 mcg INHALATION, 2017 [facility] inhalation powder Drug Form: AERO, Dosing Weight 107.727, kg, BID, Start date: 12/15/17 17:00:00 CDT, Duration: 30 day, Stop date: 01/14/18 9:00:00 CDT Fenofibrate 160 MG 145 mg, 1 tab, No Longer Oral Tablet Route: PO, Active 2017 [facility] Drug form: TAB, Daily, Dosing Weight 107.727, kg, Start date: 12/15/17 17:00:00 CDT, Duration: 30 day, Stop date: 01/13/18 17:00:00 CDTNotes: (Same as: Tricor) budesonide-formote 2 inhalation, No Longer rol 160 mcg-4.5 Route: Active 2017 [facility] mcg/inh inhalation INHALATION, aerosol with Drug Form: adapter AERO/A, BID, Start date: 12/15/17 17:00:00 CDT, Duration: 30 day, Stop date: 01/14/18 9:00:00 CDTNotes: (Same as: Symbicort) WASTE: Aerosol - Return to Pharmacy Albuterol 0.833 3 mL, Route: No Longer MG/ML / NEB, Drug Active 2017 [facility] Ipratropium Form: SOLN, [place] 0.167 Dosing Weight MG/ML Inhalant 107.727, kg, Solution RQID, Start date: 12/15/17 15:00:00 CDT, Duration: 30 day, Stop date: 01/14/18 11:00:00 CDTNotes: (Same as: Duoneb) Cozaar 100 mg, 2 tab, No Longer Route: PO, 2017 [facility] Drug form: TAB, Daily, Start date: 12/15/17 14:00:00 CDT, Duration: 30 day, Stop date: 01/14/18 9:00:00 CDTNotes: (Same as: Cozaar) hydrochlorothiazid 12.5 mg, 1 No Longer e tab, Route: Active 2017 [facility] PO, Drug form: TAB, Daily, Start date: [...] No Longer mcg-50 mcg INHALATION, Active 2017 [facility] inhalation powder BID, 0 Refill(s) Carbamazepine 200 200 mg=1 tab, Active MG Oral Tablet PO, Q12H, 0 2017 [Epitol] Refill(s) carBAMazepine 200 200 mg=1 tab, Inactive mg oral tablet PO, QID, 0 2017 Refill(s) Metformin 500 mg, PO, Active Bedtime, 0 2017 Refill(s) gabapentin 300 MG 300 mg=1 cap, No Longer Oral Capsule PO, Bedtime, 0 2017 [facility] Refill(s) Hydrochlorothiazid 1 tab, PO, Active e 12.5 MG / Daily, 0 2017 Losartan Potassium Refill(s) 100 MG Oral Tablet simvastatin 20 mg 20 mg=1 tab, Active oral tablet PO, Bedtime, 0 2017 Refill(s) fexofenadine 180 180 mg=1 tab, Active mg oral tablet PO, Daily, 0 2017 [facility] Refill(s) Fenofibrate 160 MG 160 mg=1 tab, Active Oral Tablet PO, Daily, 0 2017 [facility] Refill(s) tramadol 50 mg=1 tab, No Longer hydrochloride 50 PO, Q4H, PRN Active 2017 [facility] MG Oral Tablet Pain Score 7-10, 0 Refill(s) clopidogrel 75 mg 75 mg=1 tab, Active oral tablet PO, Daily, 0 2017 [facility] Refill(s) Albuterol 0.833 3 mL, NEB, Active MG/ML / QID, 0 2017 [facility] Ipratropium Refill(s) [place] 0.167 MG/ML Inhalant Solution heparin 5,000 unit, 1 No Longer mL, Route: Active 2017 [facility] SUB-Q, Drug form: INJ, Q8H, Dosing Weight 102.273, kg, Start date: 12/15/17 0:00:00 CDT, Duration: 30 day, Stop date: 01/13/18 16:00:00 CDTNotes: porcine heparin Norvasc 10 mg, 2 tab, No Longer Route: PO, Active 2017 [facility] Drug form: TAB, Q24H, Dosing Weight 102.273, kg, Start date: 12/14/17 20:00:00 CDT, Duration: 30 day, Stop date: 01/12/18 20:00:00 CDTNotes: (Same as: Norvasc) Ativan 1 mg, 0.5 mL, Inactive Route: IV, 2017 [facility] Drug form: INJ, ONCE, Dosing Weight 102.273, kg, Start date: 12/14/17 19:09:00 CDT, Stop date: 12/14/17 19:09:00 CDTNotes: (Same as: Ativan) Albuterol 0.833 3 mL, Route: No Longer MG/ML / NEB, Drug Active 2017 [facility] Ipratropium Form: SOLN, [place] 0.167 Dosing Weight MG/ML Inhalant 102.273, kg, Solution [DuoNeb] Q6H, PRN as needed for shortness of breath or wheezing, Start date: 12/14/17 19:09:00 CDT, Duration: 30 day, Stop date: 01/13/18 19:08:00 CDTNotes: (Same as: Duoneb) Insulin Lispro 1 unit, 0.01 No Longer mL, Route: Active 2017 [facility] SUB-Q, Drug form: SOLN, TID-Before Meals, Dosing [...] No Longer IM, Drug form: Active 2017 [facility] PDR/INJ, PRN, Dosing Weight 102.273, kg, PRN Blood Glucose Results, Start date: 12/14/17 19:07:00 CDT, Duration: 30 day, Stop date: 01/13/18 19:06:00 CDT Dextrose 50% 12.5 gm, 25 No Longer Syringe mL, Route: Active 2017 [facility] IVP, Drug Form: INJ, Dosing Weight 102.273, kg, PRN, PRN Blood Glucose Results, Start date: 12/14/17 19:07:00 CDT, Duration: 30 day, Stop date: 01/13/18 19:06:00 CDT Nitroglycerin 0.02 1 inch, Route: Inactive MG/MG Topical TOP, Drug 2017 [facility] Ointment Form: OINT, Dosing Weight 102.273, kg, ONCE, Start date: 12/14/17 18:56:00 CDT, Stop date: 12/14/17 18:56:00 CDTNotes: 1 gram is approximately 1 inch of nitroglycerin ointment (20 mg NTG per gram) (Same as:Nitro-Bid) Hydralazine 10 mg, 0.5 mL, No Longer Route: IV, Active [address] [place] [address] Drug form: INJ, Q6H, Dosing Weight 102.273, kg, PRN Elevated BP, Start date: 12/14/17 18:55:00 CDT, Duration: 30 day, Stop date: 01/13/18 18:54:00 CDT, for SBP > 160 mmNotes: (Same as: Apresoline) Push over 5 minutes NS 1,000 mL 1,000 mL, No Longer Rate: 75 Active 2017 [facility] ml/hr, Infuse over: 13.3 hr, Route: IV, Dosing Weight 102.273 kg, Total Volume: 1,000, Start date: 12/14/17 18:39:00 CDT, Duration: 30 day, Stop date: 01/13/18 18:38:00 CDT, 2.3, m2 Ondansetron 4 mg, 1 tab, No Longer Route: PO, Active 2017 [facility] Drug form: TAB, Q6H, Dosing Weight 102.273, kg, PRN Nausea & Vomiting, Start date: 12/14/17 18:38:00 CDT, Stop date: 01/13/18 18:37:00 CDTNotes: (Same as: Zofran) Acetaminophen 650 mg, 2 tab, No Longer Route: PO, Active 2017 [facility] Drug form: TAB, Q4H, Dosing Weight 102.273, kg, PRN Pain 1-3/Temp > 100.4 F, Start date: 12/14/17 18:38:00 CDT, Duration: 30 day, Stop date: 01/13/18 18:37:00 CDTNotes: Do not exceed 4 gm/day. (Same as: Tylenol) Lactulose 667 30 gm, 45 ml, Inactive MG/ML Oral Route: PO, 2017 [facility] Solution Drug form: SYRP, ONCE, Dosing Weight 102.273, kg, Priority: STAT, Start date: 12/14/17 17:31:00 CDT, Stop date: 12/14/17 17:31:00 CDTNotes: (Same as:Chronulac) Acetaminophen 300 1 tab, PO, Inactive MG / Codeine Q6H, PRN Pain, 2018 [facility] Phosphate 30 MG X 3 day, # 13 Oral Tablet tab, 0 [Tylenol with Refill(s) Codeine #3] Allergies, Adverse Reactions, Alerts Substance Category Reaction Severity Reaction Status Date Comments Source type Reported Immunizations Immunization Date Site Status Last Comments Source Given Updated pneumococcal Left completed [facility] 13-valent 8 Deltoid vaccine Results Order Name Results Value Reference Date Interpretation Comments Source Range LIPIDS LDL 74 mg/dL <=99 mg/dL 12/17 (Calculated) [facility] LIPIDS VLDL 29 12/17 [facility] LIPIDS Chol 136 mg/dL <=199 12/17 mg/dL [facility] LIPIDS Trig 143 mg/dL <=149 12/17 mg/dL [facility] LIPIDS CHD Risk 4.12 4.00 - 12/17 7.30 [facility] LIPIDS HDL 33 mg/dL >=61 mg/dL 12/17 [facility] CHEM PANEL Ammonia 35.0 <=45.0 12/16 umol/L uMol/L /2017 [facility] Carotid Carotid Patient Name: JULIÁN LEBLANC HASLIP 12/16 - artery artery /2017 - [facility] Doppler Doppler : 1950; Age: 67 years Male bilat US bilat US MR: [id number] Read by: David Gagnon MD Dictated Date/time: [...] occlusion High, low, or Variable undetectable SL: [id number] [place] Vitamin B12 323 pg/mL 254 - 1320 12/16 STUDY Lvl [facility] ELECTROLYT AGAP 12.4 meq/L 10.0 - 12/16 ES 20.0 [facility] ELECTROLYT B/C Ratio 20 6 - 25 12/16 ES [facility] ELECTROLYT Globulin 3.5 g/dL 2.7 - 4.2 12/16 ES [facility] ELECTROLYT A/G Ratio 1.0 0.7 - 1.6 12/16 [facility] 82 12/16 Result Comment: The eGFR is calculated using the CKD-EPI formula. In most young, healthy individuals the eGFR will be >90 mL/ min/1.73m2. The eGFR declines with age. An eGFR of 60-89 [address] normal in [facility] mL/min/1.7 some populations, particularly the elderly, for whom the CKD-EPI formula has not been extensively validated. Use of the eGFR is not recommended in the following populations: [facility] 3m2 Individuals with unstable creatinine concentrations, including [...] 3.4 g/dL 3.5 - 5.0 12/16 ES [facility] Creatinine 0.97 mg/dL 0.50 - 12/16 ES Lvl 1.40 /2017 [facility] ELECTROLYT BUN 19 mg/dL 7 - 22 12/16 ES [facility] ELECTROLYT Sodium Lvl 142 meq/L 135 - 145 12/16 MH [facility] ELECTROLYT Glucose Lvl 137 mg/dL 70 - 99 12/16 [facility] ELECTROLYT CO2 26 meq/L 24 - 32 12/16 [facility] ELECTROLYT Calcium Lvl 9.3 mg/dL 8.5 - 10.5 12/16 [facility] ELECTROLYT Total 6.9 g/dL 6.4 - 8.4 12/16 ES [facility] ELECTROLYT ALT 14 unit/L 0 - 65 12/16 [facility] ELECTROLYT Bili Total 0.3 mg/dL 0.2 - 1.3 12/16 [facility] ELECTROLYT AST 6 unit/L 0 - 37 12/16 [facility] ELECTROLYT Alk Phos 63 unit/L 39 - 136 12/16 [facility] ELECTROLYT Potassium 3.4 meq/L 3.5 - 5.1 12/16 [facility] Lv /2017 [facility] ELECTROLYT Chloride Lvl 107 meq/L 95 - 109 12/16 [facility] HEMATOLOGY Hgb 12.6 g/dL 14.0 - 12/16 18.0 [facility] HEMATOLOGY Hct 36.5 % 42.0 - 12/16 54.0 [facility] HEMATOLOGY RBC 4.27 M/CMM 4.70 - 12/16 6.10 [facility] HEMATOLOGY WBC 5.5 K/CMM 3.7 - 10.4 12/16 [facility] HEMATOLOGY MCHC 34.4 g/dL 32.0 - 12/16 36.0 [facility] HEMATOLOGY RDW 13.4 % 11.5 - 12/16 14.5 [facility] HEMATOLOGY Platelet 232 K/CMM 133 - 450 12/16 [facility] HEMATOLOGY MCV 85.5 fL 80.0 - 12/16 94.0 [facility] HEMATOLOGY MPV 9.0 fL 7.4 - 10.4 12/16 [facility] HEMATOLOGY MCH 29.4 pg 27.0 - 12/16 31.0 [facility] Brain wo Brain wo Clinical Indication: - confusion 12/16 - contrast contrast MRI /2017 - [facility] MRI Comparison: Comparison is made to CT [...] are present in the [place] and supratentorial brain consistent with amyloid angiopathy. [...] component concerning for loosening or infection. SL: [id number] [place] Folate Lvl 17.7 ng/mL >=3.0 12/15 STUDY ng/mL /2017 [facility] CHEM PANEL eGFR 83 12/15 Result Comment: [...] is not recommended in the following populations: [facility] 3m2 Individuals with unstable creatinine concentrations, including [...] Total 0.3 mg/dL 0.2 - 1.3 12/15 [facility] CHEM PANEL Alk Phos 62 unit/L 39 - 136 12/15 [facility] CHEM PANEL Potassium 3.5 meq/L 3.5 - 5.1 12/15 Lvl /2017 [facility] CHEM PANEL BUN 20 mg/dL 7 - 22 12/15 [facility] CHEM PANEL Sodium Lvl 145 meq/L 135 - 145 12/15 [facility] CHEM PANEL Creatinine 0.95 mg/dL 0.50 - [...] Lvl 8.9 mg/dL 8.5 - 10.5 12/15 [facility] CHEM PANEL AGAP 13.5 meq/L 10.0 - 12/15 20.0 [facility] CHEM PANEL B/C Ratio 21 6 - 25 12/15 [facility] CHEM PANEL CO2 25 meq/L 24 - 32 12/15 [facility] CHEM PANEL Chloride Lvl 110 meq/L 95 - 109 12/15 [facility] CHEM PANEL Magnesium 1.7 mg/dL 1.8 - 2.4 12/15 [facility] Lvl /2018 [facility] HEMATOLOGY Hct 36.0 % 42.0 - 12/15 [facility] 54.0 [facility] HEMATOLOGY MCV 85.6 fL 80.0 - 12/15 [facility] 94.0 [facility] HEMATOLOGY Hgb 12.3 g/dL 14.0 - 12/15 MH 18.0 [facility] HEMATOLOGY MCH 29.4 pg 27.0 - 12/15 MH 31.0 [facility] HEMATOLOGY MCHC 34.3 g/dL 32.0 - 12/15 MH 36.0 [facility] HEMATOLOGY RDW 13.7 % 11.5 - 06 MH 14.5 [facility] HEMATOLOGY MPV 8.7 fL 7.4 - 10.4 12/15 [facility] HEMATOLOGY Platelet 223 K/CMM 133 - 450 12/15 [facility] HEMATOLOGY RBC 4.20 M/CMM 4.70 - 06 MH 6.10 [facility] HEMATOLOGY WBC 4.8 K/CMM 3.7 - 10.4 12/15 [facility] HEMATOLOGY Lymphocytes 1.5 K/CMM 1.0 - 5.5 12/15 MH # /2018 [facility] HEMATOLOGY Monocytes # 0.3 K/CMM 0.0 - 0.8 12/15 [facility] HEMATOLOGY Lymphocytes 31.9 % 20.0 - 12/15 MH 40.0 [facility] HEMATOLOGY Segs 55.2 % 45.0 - 12/15 MH 75.0 /2017 [facility] HEMATOLOGY Monocytes 7.1 % 2.0 - 12.0 12/15 [facility] HEMATOLOGY Eosinophils 4.6 % 0.0 - 4.0 12/15 [facility] HEMATOLOGY Segs-Bands # 2.6 K/CMM 1.5 - 8.1 12/15 [facility] HEMATOLOGY Basophils 1.2 % 0.0 - 1.0 12/15 [facility] HEMATOLOGY Eosinophils 0.2 K/CMM 0.0 - 0.5 12/15 /2017 [facility] HEMATOLOGY Basophils # 0.1 K/CMM 0.0 - 0.2 12/15 [facility] DRUG U Benzodia Negative Negative 12/14 SCREEN Scr [facility] *NA* (12/14/17 3:27 PM) DRUG U Cocaine Negative Negative 12/14 SCREEN [facility] *NA* (12/14/17 3:27 PM) DRUG U Cannab Scr Negative Negative 12/14 SCREEN [facility] *NA* (12/14/17 3:27 PM) DRUG U Opiate Scr Negative Negative 12/14 [facility] *NA* (12/14/17 3:27 PM) DRUG U Amph Scr Negative Negative 12/14 SCREEN [facility] *NA* (12/14/17 3:27 PM) DRUG U Sosa Scr Negative Negative 12/14 SCREEN [facility] *NA* (12/14/17 3:27 PM) DRUG UDS Note See Note 12/14 SCREEN /2017 [facility] (12/14/17 3:27 PM) DRUG U Phencyc Negative Negative 12/14 SCREEN Scr [facility] *NA* (12/14/17 3:27 PM) URINE AND UA Gran Cast 1 /LPF 12/14 STOOL [facility] URINE AND UA Sq Epi None Seen 12/14 STOOL [facility] URINE AND UA Mucus Few /LPF None Seen 12/14 STOOL /LPF /2017 [facility] URINE AND UA RBC 2 /HPF 0 - 2 12/14 STOOL [facility] URINE AND UA WBC 1 /HPF 0 - 5 12/14 STOOL [facility] URINE AND UA Blood Negative Negative 12/14 STOOL [facility] (12/14/17 3:27 PM) URINE AND UA 2.0 mg/dL 0.1 - 1.0 12/14 STOOL Urobilinogen /2017 [facility] URINE AND UA pH 5.0 5.0 - 8.0 12/14 [facility]OL [facility] [facility] URINE AND UA Spec Grav 1.027 <=1.030 12/14 STOOL [facility] URINE AND UA Protein Negative Negative 12/14 STOOL mg/dL mg/dL URINE AND UA Glucose Negative Negative 12/14 STOOL mg/dL mg/dL URINE AND UA Nitrite Negative Negative 12/14 STOOL [facility] (12/14/17 3:27 PM) URINE AND UA Leuk Est Negative Negative 12/14 STOOL [facility] (12/14/17 3:27 PM) URINE AND UA Ketones Negative Negative 12/14 STOOL mg/dL mg/dL URINE AND UA Bili Negative Negative 12/14 STOOL [facility] *NA* (12/14/17 3:27 PM) URINE AND UA Turbidity Clear Clear 12/14 STOOL [facility] (12/14/17 3:27 PM) URINE AND UA Color Yellow Yellow 12/14 STOOL [facility] *NA* (12/14/17 3:27 PM) CHEM PANEL Ammonia 51.0 <=45.0 12/14 umol/L uMol/L [facility] CHEM PANEL eGFR 52 12/14 Result Comment: [...] is not recommended in the following populations: [facility] 3m2 Individuals with unstable creatinine concentrations, including [...] Lvl 142 meq/L 135 - 145 12/14 [facility] CHEM PANEL AGAP 8.7 meq/L 10.0 - 12/14 20.0 [facility] CHEM PANEL B/C Ratio 15 6 - 25 12/14 [facility] CHEM PANEL A/G Ratio 1.0 0.7 - 1.6 12/14 [facility] CHEM PANEL Globulin 3.7 g/dL 2.7 - 4.2 12/14 [facility] HEMATOLOGY MPV 9.0 fL 7.4 - 10.4 12/14 [facility] HEMATOLOGY MCHC 33.5 g/dL 32.0 - 12/14 36.0 [facility] HEMATOLOGY RDW 13.5 % 11.5 - 12/14 MH 14. [facility] HEMATOLOGY Platelet 267 K/CMM 133 - 450 12/14 [facility] HEMATOLOGY MCH 28.7 pg 27.0 - 12/14 31.0 /2017 [facility] HEMATOLOGY MCV 85.8 fL 80.0 - 12/14 MH 94.0 /2017 [facility] HEMATOLOGY Hct 38.9 % 42.0 - 12/14 MH 54.0 /2017 [facility] HEMATOLOGY Hgb 13.0 g/dL 14.0 - 12/14 MH 18.0 /2017 [facility] HEMATOLOGY RBC 4.54 M/CMM 4.70 - 12/14 MH 6.10 /2017 [facility] HEMATOLOGY WBC 6.8 K/CMM 3.7 - 10.4 12/14 /2017 [facility] HEMATOLOGY Eosinophils 0.1 K/CMM 0.0 - 0.5 12/14 MH # /2018 [facility] HEMATOLOGY Basophils # 0.1 K/CMM 0.0 - 0.2 12/14 /2017 [facility] HEMATOLOGY Monocytes # 0.5 K/CMM 0.0 - 0.8 12/14 [facility] HEMATOLOGY Segs-Bands # 4.4 K/CMM 1.5 - 8.1 12/14 [facility] HEMATOLOGY Lymphocytes 1.7 K/CMM 1.0 - 5.5 12/14 # /2018 [facility] HEMATOLOGY Eosinophils 1.8 % 0.0 - 4.0 12/14 /2017 [facility] HEMATOLOGY Basophils 0.9 % 0.0 - 1.0 12/14 [facility] HEMATOLOGY Monocytes 7.1 % 2.0 - 12.0 12/14 /2017 [facility] HEMATOLOGY Segs 65.2 % 45.0 - 12/14 75.0 /2017 [facility] Lymphocytes 25.0 % 20.0 - 12/14 40.0 [facility] TOXICOLOGY Ethanol Lvl null 12/14 [facility] TOXICOLOGY Etoh (%) null 12/14 [facility] TOXICOLOGY Salicylate null 0.0 - 30.0 12/14 Lvl /2017 [facility] TOXICOLOGY Acetaminoph <2 10 - 20 12/14 Lvl
(12/14 3:17 PM) CARDIAC Total CK 79 unit/L 12 - 191 12/14 ENZYMES /2017 [facility] CARDIAC Troponin-I null 0.00 - 12/14 ENZYMES 0.40 /2017 [facility] Brain wo Brain wo Clinical Indication: Abdominal pain, bloody stool, ams 12/14 - contrast contrast CT /2017 - [facility] CT Comparison: None Read by: Dee Galindo [...] injury, mass, hemorrhage or subacute stroke. SL: [id number] Chest Chest 1view 1 VIEW CXR. PORTABLE EXAM 3:07 PM 12/14 [facility] 1view DX /[address] [place] [address] HISTORY: Altered mental status. Read by: Rudy Dale MD Dictated Date/time: 12/14/17 15:26 Electronically Signed by: Rudy Dale MD 12/14/17 15:27 FINAL REPORT COMPARISON: None. The cardiomediastinal silhouette is normal. The lungs are clear with normal pulmonary vasculature. No pleural abnormality. Bones intact. IMPRESSION: Normal exam. END OF IMPRESSION SL: [id number] Vital Signs Vital Sign Value Date Comments Source Respitory Rate 18 12/23/2017 [facility] Heart Rate 78 12/23/2017 [facility] Systolic (mm Hg) 148 12/23/2017 [facility] Diastolic (mm Hg) 94 12/23/2017 [facility] Temperature Oral (F) 97.6 F 12/23/2017 [facility] Respitory Rate 18 12/23/2017 [facility] Respitory Rate 16 12/23/2017 [facility] Heart Rate 82 12/23/2017 [facility] Systolic (mm Hg) 143 12/23/2017 [facility] Diastolic (mm Hg) 94 12/23/2017 [facility] Temperature Oral (F) 98.4 F 12/23/2017 [facility] Heart Rate 93 12/22/2017 [facility] Temperature Oral (F) 98.7 F 12/22/2017 [facility] Systolic (mm Hg) 130 12/22/2017 [facility] Diastolic (mm Hg) 83 12/22/2017 [facility] BMI Calculated 32.21 12/15/2017 [facility] Weight 107.727 12/15/2017 [facility] Height 182.88 cm 12/15/2017 [facility] Height 182.88 cm 12/14/2017 [facility] BMI Calculated 30.58 12/14/2017 [facility] Weight 102.273 12/14/2017 [facility] Encounters Location Location Encounter Encounter Reason Attending ADM DC Status Source Details Type Number For Provider Date Date Visit [facility] Edwin OP Therapy [id number] Kilo 06/25 07/25 [facility] [place] /2014 [facility] [id number] Amir 12/14 12/23 Ritesh Haleranious /2017 [facility] Procedures Procedure Code Date Perfomer Comments Source Back fusion [id number] [facility] Hip replacement [id number] [facility]
[2018-09-15] MEDS ORDERED: DOCUSATE NA/SENNA CONC 1 TAB PO PRN (18:49)
[2018-09-15] MEDS: ATORVASTATIN 40 MG TAB PO SCH (20:10)
[2018-09-15 20:15] LABS: Urine Appearance CLEAR; Urine Bilirubin NEGATIVE (NEG); Urine Blood NEGATIVE (NEG); Urine Color YELLOW; Urine Glucose NEGATIVE (NEG); Urine Protein NEGATIVE (NEG)
[2018-09-15 21:06] LABS: Urine Bacteria NONE SEEN /HPF (NONE SEEN); Urine Culture Reflex Order NOT NEEDED; Urine RBC <5 /HPF (NONE SEEN)
[2018-09-16 06:58] LABS: Absolute Lymphocytes (CBC) 2.1 K/uL (0.7-4.9); Absolute Monocytes 0.4 K/uL (0.1-1.3); Absolute Neutrophil 3.8 K/uL (1.8-8.0); Albumin 3.5 g/dL (3.4-5.0); Basophils % 1.3 % (0-1.3); Eosinophils % 4.5 % (0-4.4); Hematocrit 43.4 % (39.6-49.0); Lymphocytes % 31.8 % (15.3-44.8); MPV 9.3 fL (7.6-11.3); Magnesium 1.9 mg/dL (1.8-2.4); Monocytes % 5.8 % (3.3-12.3); Potassium 3.9 mmol/L (3.5-5.1); Prealbumin 23.6 mg/dL (20-40); RBC Red Blood Cell Count 4.89 M/uL (4.33-5.43)
[2018-09-16] MEDS: ASPIRIN EC 81 MG TAB PO SCH (08:32)
[2018-09-16] MEDS: CLOPIDOGREL 75 MG TABLET PO SCH (08:32)
--- NOTE | 2018-09-16 10:16 | P.RH.PN ---
Estimated Length of Stay: 7 Expected Discharge Date: 09/28/18 Discharge Disposition Plan: Home Family Support: Yes Insurance Sales Specialist Goal: Mobility, Transfers, Self Care Vital Signs: Last Vital Signs Temp 97.1 F 09/16/18 07:43 Pulse 63 09/16/18 07:43 Resp 16 09/16/18 07:43 BP 175/89 H 09/16/18 07:43 Pulse Ox 98 09/16/18 07:43 Laboratory: Laboratory Last Values WBC 6.7 K/uL (4.3-10.9) D 09/16/18 06:30 RBC 4.89 M/uL (4.33-5.43) 09/16/18 06:30 Hgb 15.0 g/dL (13.6-17.9) 09/16/18 06:30 Hct 43.4 % (39.6-49.0) 09/16/18 06:30 MCV 88.6 fL (80-100) 09/16/18 06:30 MCH 30.7 pg (27.0-35.0) 09/16/18 06:30 MCHC 34.7 g/dL (32.0-36.0) 09/16/18 06:30 RDW 13.1 % (12.1-15.2) 09/16/18 06:30 Plt Count 236 K/uL (152-406) D 09/16/18 06:30 MPV 9.3 fL (7.6-11.3) 09/16/18 06:30 Neutrophils % 56.6 % (41.7-73.7) 09/16/18 06:30 Lymphocytes % 31.8 % (15.3-44.8) 09/16/18 06:30 Monocytes % 5.8 % (3.3-12.3) 09/16/18 06:30 Eosinophils % 4.5 % (0-4.4) H 09/16/18 06:30 Basophils % 1.3 % (0-1.3) 09/16/18 06:30 Absolute Neutrophils 3.8 K/uL (1.8-8.0) 09/16/18 06:30 Absolute Lymphocytes 2.1 K/uL (0.7-4.9) 09/16/18 06:30 Absolute Monocytes 0.4 K/uL (0.1-1.3) 09/16/18 06:30 Absolute Eosinophils 0.3 K/uL (0-0.5) 09/16/18 06:30 Absolute Basophils 0.1 K/uL (0-0.5) 09/16/18 06:30 Sodium 142 mmol/L (136-145) 09/16/18 06:30 Potassium 3.9 mmol/L (3.5-5.1) 09/16/18 06:30 Chloride 110 mmol/L (98-107) H 09/16/18 06:30 Carbon Dioxide 28 mmol/L (21-32) 09/16/18 06:30 BUN 23 mg/dL (7-18) H 09/16/18 06:30 Creatinine 0.92 mg/dL (0.55-1.3) 09/16/18 06:30 Estimated GFR 83 mL/min (=/>90) L 09/16/18 06:30 Glucose 124 mg/dL (74-106) H 09/16/18 06:30 Calcium 8.6 mg/dL (8.5-10.1) 09/16/18 06:30 Magnesium 1.9 mg/dL (1.8-2.4) 09/16/18 06:30 Albumin 3.5 g/dL (3.4-5.0) 09/16/18 06:30 Prealbumin 23.6 mg/dL (20-40) 09/16/18 06:30 Urine Color Yellow 09/15/18 19:25 Urine Appearance Clear 09/15/18 19:25 Urine pH 7.0 (5.0-7.0) 09/15/18 19:25 Ur Specific Jerome 1.020 (1.005-1.030) 09/15/18 19:25 Urine Ketones Negative (NEG) 09/15/18 19:25 Urine Blood Negative (NEG) 09/15/18 19:25 Urine Nitrite Negative (NEG) 09/15/18 19:25 Urine Bilirubin Negative (NEG) 09/15/18 19:25 Urine Urobilinogen 1.0 mg/dL (0.2-1.0) 09/15/18 19:25 Ur Leukocyte Esterase Negative (NEG) 09/15/18 19:25 Urine RBC <5 /HPF (NONE SEEN) 03/14/19 19:25 Urine WBC <5 /HPF (<5) 09/15/18 19:25 Ur Squamous Epith Cells <5 /HPF (NONE SEEN) 09/15/18 19:25 Urine Bacteria None seen /HPF (NONE SEEN) 09/15/18 19:25 Urine Culture Reflexed Not needed 09/15/18 19:25 Urine Glucose Negative (NEG) 09/15/18 19:25 Urine Total Protein Negative (NEG) 09/15/18 19:25 Weight: 215 lb 1.6 oz Wound Present: No Closed Surgical Incision Present: No Negative Pressure Wound Therapy Present: No Physician Update: Labs have been reviewed and are essentially normal. He has right arm and shoulder pain after a fall on the right side. He is at the standby assistance with plhysical and occupational therapy. Summary: Patient's care plan and roasterman goals have been reviewed and revised as necessary. Please see the Rehabilitation Signature page for all necessary signatures.
--- NOTE | 2018-09-16 14:38 | RAD REPORT ---
EXAM DESCRIPTION: Shoulder Right 2 View - 09/16/2018 2:25 pm CLINICAL HISTORY: Nontraumatic right shoulder pain COMPARISON: None. TECHNIQUE: Internal and external rotation views of the right shoulder were obtained. FINDINGS: There is no fracture or dislocation. AC joint is normal in appearance. Acromial humeral j oint space is normal with no abnormal soft tissue calcifications. No acute or suspicious findings. IMPRESSION: Negative two-view right shoulder examination.
--- NOTE | 2018-09-16 15:20 | R.HP ---
FACILITY: [facility] ENCOUNTER DATE AND TIME: 09/16/2018 15:13 (CDT) MR#: [id number] NAME REESE GRAF ADDRESS: [address] CITY: [place]IP [address] PHONE: DATE OF : 1950 AGE: 67 SSN# [id number] GENDER: Male DEXTERITY Right-handed MARITAL STATUS RACE White PRE-HOSPITAL LIVING SETTING 01 - Home (private home/apt. board/care, assisted living, long-term, transitional living) PRE-HOSPITAL LIVING WITH Alone ENCOUNTER PHYSICIAN: Dr. Moises Lebron M.D. REFERRING DOCTOR: gregg Granado DATE OF ADMISSION: 09/15/2018 18:37 (CDT) REFERRING FACILITY [facility] HOME TYPE AND DETAILS: Type of home: single family house # of levels in the residence: 1 # of steps within the residence: 0 # of steps to enter the residence: 3 ADMISSION DIAGNOSIS: Left Acute CVA ONSET DATE: 09/09/2018 PRIMARY DIAGNOSIS-RELATED SURGERIES: N/A SECONDARY/COMORBID DIAGNOSES (TIERED): - N/A CVA Hypertension Hyperlipidemia HISTORY OF PRESENT ILLNESS (HPI): Pt. is a 67 yo Right-handed white male. On 09/09/2018 Pt. presented to [facility] with sudden onset of right-side weakn ess. On 09/09/2018 he was admitted to [facility] with diagnosis Left Acute CVA. His impairment category is Stroke 01 - Right Body (Left Brain) (01.2). Pre-morbidly, Pt. was independent/mod-I in Self-Care, Sphincter Control, Transfers Control, Locomotio n, Communication, and Social Cognition; and he had good Sphincter Control. Currently, he has deficits of Transfers Control, Locomotion, Communication, Social Cognition, Enduran ce, Balance, Safety Awareness, and Self-Care. Pt. is now referred to [facility] for acute in-patient rehabilitation in order to maximize patient's functional independence in activities of daily living, strength, ROM, and mobi lity. Patient has realistic goal of being discharged at assistance level 6-Delmer to reside at Home with Fam davie/Relatives. Reese Graf is a 67 year old male that lives in a single wendi home with 3 steps to enter. Patient is independent and performs self care ADL without assist at home and he received meals on wheels. On 09/09/2018, he was walking down the street when he fell and hit his forehead and was admitted to [facility] and treated. He is now medically stable but in need of 24-hour nursing, doctor supervision and oversite participate in 3hours of therapy a day/15 hours per week and receive care with an intensive interdisciplinary approach. MEDICATION ALLERGIES: No Known Drug Allergies (NKDA) ENVIRONMENTAL ALLERGIES: None Known - Substance Allergies None Known - Other Allergies None Known PAST MEDICAL HISTORY: CVA Hyperlipidemia Hypertension PAST SURGICAL HISTORY: Hip Replacement BACK SURGERY FAMILY HISTORY: Family history is not contributory. SOCIAL HISTORY: - Home Living Alone REVIEW OF SYSTEMS: - Gen No Chills No Fatigue No Fever - Eyes No Double Vision No itchiness - ENMT No Difficulty Swallowing - CVS No Chest Discomfort No Chest Pain No Fatigue No Weight Gain - Resp No Cough No Shortness of Breath - GI Continent No Abdominal Pain No Constipation No Diarrhea - Continent No Kidney Pain No Painful Urination No Urinary Urgency - MSK No Joint Pain No Muscle Cramps No Stiffness - Skin No Itching No Rash No Suspicious Lesions - Neuro No Coordination Difficulty No Difficulty with Concentration No Memory Loss No Seizures No Weakness - Psych No Anxiety No Depression No HIV Exposure No Persistent Infections No Seasonal Allergies - Endo No Cold/Heat Intolerance No Excessive Hunger No Excessive Thirst No Excessive Urination PHYSICAL EXAM - Gen Alert and awake Lying in bed No apparent distress Oriented to: person, time, and place - Skin No beakdown No abnormalities - Eyes No abnormalities - Neck No abnormalities - CVS RRR - Chest Clear - Abd +bowel sounds - GI Soft Deferred - No abnormalities - Ext no edema - MSK No focal muscle weakness. - Neuro Expressive aphasia and incoordination. - Psych No abnormalities VITAL SIGNS Temperature: 97.8 F SBP/DBP: 175/89 Pulse: 63 Resp: 18 NURSING: - Shower allowing shower - Bladder care per protocol - Skin care per protocol PRECAUTIONS: - Weight Bearing Precaution WBAT right LE ACTIVITIES OOB only with supervision FUNCTIONAL STATUS: - Self-Care A. Eating Ind Delmer B. Grooming Ind sup C. Bathing Ind sup D. Dressing - Upper Ind Lisbet E. Dressing - Lower Ind Dep F. Toileting Ind sup - Sphincter Control G: Bladder control Ind Ind H: Bowel control Ind Ind - Transfers Control I. Bed/Chair/Wheelchair Ind sup J. Toilet Ind sup K. Tub/Shower Ind ADNO - Locomotion L. Walk/Wheelchair (C) Ind sup L. Walk/Wheelchair (W) Ind sup M. Stairs Ind sup - Communication N. Comprehension (B) Ind Lisbet O. Expression (B) Ind Lisbet - Social Cognition P. Social Interaction Ind sup Q. Problem Solving Ind sup R. Memory Ind sup - Endurance Fair - Balance Fair - Safety Awareness Fair CURRENT FUNC. DEFICITS: Transfers Control, Locomotion, Communication, Social Cognition, Endurance, Balance, Safety Awareness, and Self-Care ASSESSMENT: Pt. is a 67 yo Right-handed white male.On 09/09/2018 Pt. presented to [facility] with sudden onset of right-side weakness.On 09/09/2018 he was admitted to [facility] with diagnosis Left Acute CVA.His impairment category is Stroke 01 - Right Body (Left Brain) (01.2).Pre-morbidly, Pt. was independent/mod-I in Self-Care, Sphincter Control, Transfers Control, L ocomotion, Communication, and Social Cognition; and he had good Sphincter Control.Currently, he has d eficits of Transfers Control, Locomotion, Communication, Social Cognition, Endurance, Balance, Safety Awareness, and Self-Care.Pt. is now referred to [facility] for acute in-patie nt rehabilitation in order to maximize patient's functional independence in activities of daily livin g, strength, ROM, and mobility.- Rehab Goal Patient has realistic goal of being discharged at assistance level 6-Delmer to reside at Home with Fam davie/Relatives. Reese Graf is a 67 year old male that lives in a single wendi home with 3 steps to enter. Patient is independent and performs self care ADL without assist at home and he received meals on wheels. On 09/09/2018, he was walking down the street when he fell and hit his forehead and was admitted to [facility] and treated. He is now medically stable but in need of 24-hour nursing, doctor supervision and oversite participate in 3hours of therapy a day/15 hours per week and receive care with an intensive interdisciplinary approach.REHAB PLAN: for Dementia, TBI, Stroke, or others - Physical Therapy Gait dysfunction - to improve, our physical therapists will perform initial evaluation of pt's status upon admission and devise an individualized program for Gait Training, and Wheel Chair mobility Inability to transfer - to improve, our physical therapists will perform initial evaluation of pt's s tatus upon admission and devise an individualized program for Bed mobility Need for home safety evaluation - to improve, our physical therapists will perform initial evaluation of pt's status upon admission and devise an individualized program for Home Evaluation Need in caregiver upon discharge - to improve, our physical therapists will perform initial evaluatio n of pt's status upon admission and devise an individualized program for Caregiver Training New precaution - to improve, our physical therapists will perform initial evaluation of pt's status u yanci admission and devise an individualized program for Patient precaution education Poor balance - to improve, our physical therapists will perform initial evaluation of pt's status upo n admission and devise an individualized program for Balance Training Poor endurance - to improve, our physical therapists will perform initial evaluation of pt's status u yanci admission and devise an individualized program for Endurance Training Weakness - to improve, our physical therapists will perform initial evaluation of pt's status upon ad mission and devise an individualized program for Aquatic Therapy, Neuromuscular Reeducation, and Stre ngthening Achieving independence - to improve, our physical therapists will perform initial evaluation of pt's status upon admission and devise an individualized program for Community Reintegration Activities - Occupational Therapy ADL deficits - to improve, our occupation therapists will perform initial evaluation of pt's status u yanci admission and devise an individualized program for Bathing, Bed mobility, Community Reintegration , Cooking, Dressing, Eating, Fine Motor Skills, Grooming, Homemaking, Kitchen Mobility, Laundry, Tamika ent Education, Safety Awareness, Splinting - Positioning, Transfers(Toilet, Tub, Shower), and Wheel C hair Management Cognitive deficits - to improve, our occupation therapists will perform initial evaluation of pt's st atus upon admission and devise an individualized program for Cognition - orientation Need for intensive care nurse - to improve, our occupation therapists will perform initial evaluation of pt's s tatus upon admission and devise an individualized program for Caregiver Training Weakness - to improve, our occupation therapists will perform initial evaluation of pt's status upon admission and devise an individualized program for Aquatic Therapy, Balance, Endurance, UE ROM, and U E strengthening MEDICAL PLAN: - Diet Type Heart Healthy - Diet - Liquid Texture Regular - Tube Feed N/A - Bladder care per protocol - Weight Bearing Precaution WBAT LE - Skin care per protocol - Diet - Solid Texture Regular - Shower shower DISCHARGE PLAN: - Estimated Length of Stay (days) 17. - Consensus on plan Discharge plan has been discussed with primary caregiver. Patient/Family is in agreement with the jazzmine n. Primary caregiver is in agreement with the plan. - Patient/Family Goals Return home with assistance. - Planned Living Setting Upon Discharge Home, to live with Family/Relatives. SIGNATURE PANEL: (CDT)
--- NOTE | 2018-09-16 15:21 | PAPE ---
PATIENT: [facility] MR# [id number] REFERRING DOCTOR gregg Granado EVALUATION DATE AND TIME 09/16/2018 15:19 (CDT) NAME JULIÁN JJ DATE OF 1950 AGE 67 PHONE SSN# [id number] GENDER male EVALUATING PHYSICIAN Dr. Moises Lebron M.D. ADMISSION DIAGNOSIS: Left Acute CVA ONSET DATE 09/09/2018 SECONDARY/COMORBID DIAGNOSES TIERED: - N/A CVA Hypertension Hyperlipidemia POST-ADMISSION FUNCTIONAL/MEDICAL STATUS: - Bladder Same accident frequency: Ind - No accidents in the past 7 days - Bowel Same accident frequency: Ind - No accidents in the past 7 days - Walking Same score based on distance walked: 3(>=150ft) - Wheelchair Same score based on distance traveled: 0(N/A) STATUS CHANGE EVALUATION: No change in Functional or Medical Status is identified compared with Pre-Admission screening. PATIENT NEEDS CLOSE MEDICAL SUPERVISION BY A REHABILITATION PHYSICIAN FOR: Bowel and Bladder Management Coordination of Treatment Team Medical and Co-Morbidity Management Pain Management DVT Management PATIENT REQUIRES 24X7 REHAB NURSING FOR MEDICAL AND FUNCTIONAL MGT. OF THE FOLLOWING DEFICITS: ADL's Ambulation Bowel and Bladder Management Cognition Communication Disease Management Medication Management Patient/Family Education Providing Safe Environment Transfers PATIENT REQUIRES INTENSIVE, COORDINATED INTERDISCIPLINARY APPROACH TO REHAB: Arranging Home Equipment/Services Discharge Planning Family Intervention/Training Clinical Transformation Specialist/Case Management LIST OF IDENTIFIED AND POTENTIAL PROBLEMS: Alteration in leisure activities Bladder, Incontinence Blood Pressure, Hypertension/hypotension Issues Bowel, Incontinence Infection, Actual or Potential Mobility Impaired Pain, Alteration in Comfort Self Care Deficit Skin Integrity, Actual or Potential Urinary Tract Infection (UTI), Actual or Potential RISK FOR COMPLICATIONS - Hypertension CVA. Hypotension. MD. TIA. INTERVENTIONS - Hypertension PATIENT COULD BE AT RISK FOR COMPLICATIONS FROM ADVERSE MEDICAL CONDITIONS DUE TO HIS/HER COMORBIDITI ES AND THE RIGORS OF THE INTENSIVE REHABILLITATION PROGRAM. METHODS OR INTERVENTIONS TO AVOID COMPLIC ATIONS INCLUDE: - Deep Vein Thrombosis (DVT) Prophylaxis therapy for prevention . Sequential Compression Device (SCD). TE D Hose. - Bleeding Stroke patients assessed for lethargy or change in status. - Infection Clinical staff to assess and manage the signs and symptoms of infection including fever, redness, war mth, etc. - Urinary Tract Infection - Aspiration Clinical staff will assess and manage coughing, drooling, congestion. - Falls Patient will be evaluated for Fall Precautions and will be placed on Fall Precautions as indicated pe r protocol. - Skin Breakdown Nursing will assess skin daily using assessment tool and will place on Skin Breakdown Precautions as indicated per protocol. - Pain Clinical staff may employ non-medication methods such as massage, distraction, decrease stimulus, etc . as needed. Clinical staff will assess patient's pain level every shift per protocol to assess and e nsure pain management effectiveness. Medications will be given and the pain level re-assessed. PRELIMINARY PLAN OF CARE: - Physical Therapy Patient needs Physical Therapy for a daily minimum of 1.5 hours at least 5 out of 7 days, to improve: Mobility, Strengthening, Transfers, Stretching, ROM, Endurance, Ability to manage stairs, Gait, and Balance. - Speech Therapy Patient needs Speech Therapy for a daily minimum of 0.5 hours at least 5 out of 7 days, to improve: S wallowing, Cognition, Language Skills, and Compensatory Strategies. - Rehabilitation Nursing Patient requires 24x7 Rehabilitation Nursing for: Pain Issues, Identifying and preventing risk factor s, Monitoring and reporting current medical conditions, Assisting with ambulation and transfer, Rafa ting with all ADL-s, Teaching patients about disease process and medications, Family teaching, Provid ing safe environment, Bowel and Bladder Issues, Skin Integrity, and Medication Management. Patient needs Clinical Transformation Specialist and/or Case Management for: Discharge Planning, Arranging Home Equipmen t or Services, and Family Interventions. - Dietary and Nutrition Services Patient needs Dietary and Nutrition Services for: Adequate Nutrition, Nutritional Supplements, and Nu tritional Education. - Occupational Therapy Patient needs Occupational Therapy for a daily minimum of 1.5 hours at least 5 out of 7 days, to impr ove Activities of Daily Living, including: Eating, Grooming, Bathing, Dressing, Toileting, Toilet Tra nsfers, Community Reintegration, Higher functional activities, Adaptive Equipment, Splinting, Househo ld Tasks, and Other activities as determined. POTENTIAL FUNCTIONAL GOALS FOR PATIENT TO ACHIEVE BY DISCHARGE: - Safety Precaution Patient will remain free from falls or injury at time of discharge. - Bed Mobility Patient will perform bed mobility at 4-Lisbet level of assistance. - Transfers Patient will complete transfers from bed to chair at 4-Lisbet level of assistance. - Mobility Patient will ambulate 150 ft with 4-Lisbet level of assistance with RW. PATIENT REHAB POTENTIAL Expected level of measurable improvement will be of a practical value to patient's functional capacit y or adaptations to impairments Has a viable Discharge Plan Medically appropriate; condition is sufficiently stable to participate in intensive rehab program Patient is able and expected to receive 3 hours of individualized therapy daily on at least 5 of ever y 7 days Patient's prognosis for significant practical improvement within a reasonable period of time appears Good DISCHARGE PLAN: - Estimated Length of Stay (days) 17. - Consensus on plan Discharge plan has been discussed with primary caregiver. Patient/Family is in agreement with the [facility]. Primary caregiver is in agreement with the plan. - Patient/Family Goals Return home with assistance. - Planned Living Setting Upon Discharge Home, to live with Family/Relatives. CONCLUSION ON REHABILITATION NECESSITY: I have evaluated patient's pre-admission functional status and, comparing it to the patient's post-ad mission functional status now, I conclude that the pre-admission assessment was accurate. Patient's c ondition on admission supports the medical necessity of admission to IRF. It is safe to proceed with patient's therapy program. SIGNATURE PANEL: (CDT)
--- NOTE | 2018-09-16 15:54 | FAST ---
SHIFT START DATE/TIME: 09/16/2018 07:00 (CDT) SHIFT END DATE/TIME: 09/16/2018 19:00 (CDT) NAME JULIÁN JJ DATE OF : 1950 DATE OF ADMISSION: 09/15/2018 18:37 (CDT) PHONE: AGE: 67 N# [id number] GENDER: Male ENCOUNTER PHYSICIAN: Dr. Moises Lebron M.D. ADMISSION DIAGNOSIS: - Stroke 01 - Right Body (Left Brain) (01.2) Left Acute CVA. EATING: EATING - STEP 1: Does the patient require the assistance of a person or device, or need extra time when eating? Yes. EATING - STEP 2: Does the patient require the assistance of a helper? Yes. EATING - STEP 3: Does the patient perform half or more of the eating tasks? Yes. EATING - STEP 4: Does the patient need only supervision, cuing, coaxing OR help to apply an orthosis OR help to cut fo od, open containers, pour liquids, or butter bread? Yes. EATING - SCORE: 5-SUP GROOMING: Activity did not occur on this shift GROOMING - SCORE: 0-UNK BATHING: Activity did not occur on this shift BATHING - SCORE: 0-UNK DRESSING - UPPER BODY: Activity did not occur on this shift ARTICLES SCORE Total number of steps: 0 DRESSING - UPPER BODY - SCORE: 0-UNK DRESSING - UPPER BODY - COMMENTS: Will change clothes during shower time with therapist DRESSING - LOWER BODY: Activity did not occur on this shift ARTICLES SCORE Total number of steps: 0 DRESSING - LOWER BODY - SCORE: 0-UNK DRESSING - LOWER BODY - COMMENTS: Will change during shower time with therapist TOILETING: TOILETING - STEP 1: Does the patient require the assistance of a person or device, or need extra time with toileting? Yes . TOILETING - STEP 2: Does the patient require the assistance of a helper? No. TOILETING - SCORE: 6-SIMONA BLADDER MANAGEMENT: BLADDER MANAGEMENT - STEP 1: Does the patient control the bladder completely and intentionally without equipment or devices or med ications, and is always continent? No. BLADDER MANAGEMENT - STEP 2: Does the patient require the assistance of a helper? No, patient requires and independently uses an a ssistive device, such as a urinal, bedpan, bedside commode, catheter, absorbent pad, or collecting de vice BLADDER MANAGEMENT - SCORE: 6-SIMONA BLADDER MANAGEMENT - FREQUENCY OF ACCIDENTS: BLADDER MANAGEMENT(FA) - STEP 1: How many accidents has the patient had during the current shift? 0 BOWEL MANAGEMENT: Activity did not occur on this shift BOWEL MANAGEMENT - SCORE: 7-IND BOWEL MANAGEMENT - FREQUENCY OF ACCIDENTS: BOWEL MANAGEMENT(FA) - STEP 1: How many accidents has the patient had during the current shift? 0 TRANSFERS: BED, CHAIR, WHEELCHAIR: TRANSFERS: BED, CHAIR, WHEELCHAIR - STEP 1: Does the patient require assistance of a person or device, or need extra time with bed, chair, or whe elchair transfers? Yes. TRANSFERS: BED, CHAIR, WHEELCHAIR - STEP 2: Does the patient require the assistance of a helper? No. Patient only requires an assistive device fo r bed, chair, wheelchair transfers such as a sliding board, grab bar, or brace, OR s/he takes more th an reasonable time, OR there is a safety concern when s/he performs the transfers TRANSFERS: BED, CHAIR, WHEELCHAIR - SCORE: 6-SIMONA TRANSFERS: TOILET: TRANSFERS: TOILET - STEP 1: Does the patient require the assistance of a person or device, or need extra time with toilet transfe rs? Yes. TRANSFERS: TOILET - STEP 2: Does the patient require the assistance of a helper? No. Patient only requires an assistive device fry ch as a grab bar or special seat, OR s/he takes more than reasonable time to perform toilet transfers , OR there is a safety concern when s/he performs toilet transfers. TRANSFERS: TOILET - SCORE: 6-SIMONA TRANSFERS: SHOWER: Activity did not occur on this shift TRANSFERS: SHOWER - SCORE: 0-UNK TRANSFERS: TUB: Activity did not occur on this shift TRANSFERS: TUB - SCORE: 0-UNK LOCOMOTION: WALK: LOCOMOTION: WALK - STEP 1: Does the patient need help from a person or device, or need extra time to walk 150 feet? Yes. LOCOMOTION: WALK - STEP 2: How much assistance does the patient require to walk a minimum of 150 feet? Only supervision, cuing, or coaxing LOCOMOTION: WALK - SCORE: 5-SUP LOCOMOTION: WHEELCHAIR: Activity did not occur on this shift LOCOMOTION: WHEELCHAIR - SCORE: 0-UNK COMPREHENSION: COMPREHENSION: TYPE: Both COMPREHENSION - STEP 1: Does the patient require help from a person or device, or need extra time to understand complex and a bstract ideas (such as current events, finances, discharge planning, medical issues, relationships, e tc)? Yes. COMPREHENSION - STEP 2: Does the patient require help to understand questions or statements about basic needs or ideas (such as hunger, thirst, sleep, safety, daily schedule, room location, or discomfort) half or more of the t ute? No. COMPREHENSION - STEP 3: How often does the patient need help to understand directions and conversation about basic needs? 10% - 24% of the time COMPREHENSION - SCORE: 4-MIN COMPREHENSION - COMMENTS: Pt has expressive asphia EXPRESSION EXPRESSION: TYPE: Both EXPRESSION - STEP 1: Does the patient require help from a person or device, or need extra time expressing complex and abst ract ideas (such as current events, finances, discharge planning, medical issues, relationships, etc) ? Yes. EXPRESSION - STEP 2: Does the patient require help to express basic necessities or ideas (such as hunger, thirst, sleep, s afety, daily schedule, room location, or discomfort) half or more of the time? No. EXPRESSION - STEP 3: How often does the patient need help to express directions and conversation about basic needs? 10-24% of the time EXPRESSION - SCORE: 4-MIN EXPRESSION - COMMENTS: Expressive asphia SOCIAL INTERACTION: SOCIAL INTERACTION - STEP 1: Does the patient require a helper to interact with others in social and therapeutic situations? No. SOCIAL INTERACTION - STEP 2: Does the patient need extra time in social situations, OR does s/he interact with staff, other patien ts, and family members ONLY in structured environments, OR does s/he require medication for social in teraction? Yes, patient needs extra time SOCIAL INTERACTION - SCORE: 6-SIMONA PROBLEM SOLVING: PROBLEM SOLVING - STEP 1: Does the patient need help from a person or device, or need extra time to solve complex problems such as managing a checking account or confronting interpersonal problems? Yes. PROBLEM SOLVING - STEP 2: Does the patient solve basic routine problems half or more of the time? Yes. PROBLEM SOLVING - STEP 3: How often does the patient need help to solve basic routine problems? 10%-24% of the time PROBLEM SOLVING - SCORE: 4-MIN MEMORY: MEMORY - STEP 1: Does the patient need help from a person or device, or need extra time to remember frequently encount ered people, daily routines, and executing requests? Yes. MEMORY - STEP 2: How often does the patient need help to remember frequently encountered people, daily routines, and e xecuting requests? 10% - 24% of the time MEMORY - SCORE: 4-MIN SIGNATURE PANEL: The following modified sections: Eating - Score, Grooming - Score, Bathing - Score, Dressing - Upper Body - Score, Dressing - Lower Body - Score, Dressing - Upper Body - Comments:, Dressing - Lower Body - Comments:, Toileting - Score, Bladder Management - Score, Bowel Management - Score, Transfers: Bed , Chair, Wheelchair - Score, Transfers: Toilet - Score, Transfers: Shower - Score, Transfers: Tub - S core, Locomotion: Walk - Score, Locomotion: Wheelchair - Score, Comprehension - Score, Comprehension - Comments:, Expression - Score, Expression - Comments:, Social Interaction - Score, Problem Solving - Score, Memory - Score were [electronically] signed by Nora HydeNSharmaine on WedSep 16 2018 15:53 :33 T-0500 (Central Daylight Time)
--- NOTE | 2018-09-16 16:52 | FAST ---
ENCOUNTER DATE AND TIME: 09/16/2018 08:00 (CDT) NAME JULIÁN JJ DATE OF : 1950 DATE OF ADMISSION: 09/15/2018 18:37 (CDT) PHONE: AGE: 67 N# [id number] GENDER: Male ENCOUNTER PHYSICIAN: Dr. Moises Lebron M.D. ADMISSION DIAGNOSIS: - Stroke 01 - Right Body (Left Brain) (01.2) Left Acute CVA. EATING: Activity did not occur on this shift EATING - SCORE: 0-UNK GROOMING: Activity did not occur on this shift GROOMING - SCORE: 0-UNK BATHING: Activity did not occur on this shift BATHING - SCORE: 0-UNK DRESSING - UPPER BODY: Activity did not occur on this shift Patient is not dressing in public clothing ARTICLES SCORE Total number of steps: 0 DRESSING - UPPER BODY - SCORE: 0-UNK DRESSING - LOWER BODY: Activity did not occur on this shift Patient is not dressing in public clothing ARTICLES SCORE Total number of steps: 0 DRESSING - LOWER BODY - SCORE: 0-UNK TOILETING: Activity did not occur on this shift TOILETING - SCORE: 0-UNK BLADDER MANAGEMENT: Activity did not occur on this shift BLADDER MANAGEMENT - SCORE: 7-IND BOWEL MANAGEMENT: Activity did not occur on this shift BOWEL MANAGEMENT - SCORE: 7-IND TRANSFERS: BED, CHAIR, WHEELCHAIR: TRANSFERS: BED, CHAIR, WHEELCHAIR - STEP 1: Does the patient require assistance of a person or device, or need extra time with bed, chair, or whe elchair transfers? Yes. TRANSFERS: BED, CHAIR, WHEELCHAIR - STEP 2: Does the patient require the assistance of a helper? Yes. TRANSFERS: BED, CHAIR, WHEELCHAIR - STEP 3: How much assistance does the patient require from the helper? Only supervision TRANSFERS: BED, CHAIR, WHEELCHAIR - SCORE: 5-SUP TRANSFERS: TOILET: Activity did not occur on this shift TRANSFERS: TOILET - SCORE: 0-UNK TRANSFERS: SHOWER: Activity did not occur on this shift TRANSFERS: SHOWER - SCORE: 0-UNK TRANSFERS: TUB: Activity did not occur on this shift TRANSFERS: TUB - SCORE: 0-UNK LOCOMOTION: WALK: LOCOMOTION: WALK - STEP 1: Does the patient need help from a person or device, or need extra time to walk 150 feet? Yes. LOCOMOTION: WALK - STEP 2: How much assistance does the patient require to walk a minimum of 150 feet? Only supervision, cuing, or coaxing LOCOMOTION: WALK - SCORE: 5-SUP LOCOMOTION: WHEELCHAIR: Activity did not occur on this shift LOCOMOTION: WHEELCHAIR - SCORE: 0-UNK LOCOMOTION: STAIRS: LOCOMOTION: STAIRS - STEP 1: Does the patient need help to go up and down 12 to 14 stairs? No. LOCOMOTION: STAIRS - STEP 2: Does the patient require an assistive device - such as handrails or cane - to go up and down one flig ht of stairs, OR does s/he take more than reasonable time, OR is there a concern for safety? Yes, the patient requires an assistive device LOCOMOTION: STAIRS - SCORE: 6-SIMONA COMPREHENSION: COMPREHENSION - SCORE: 0-UNK EXPRESSION EXPRESSION - SCORE: 0-UNK SOCIAL INTERACTION: SOCIAL INTERACTION - SCORE: 0-UNK PROBLEM SOLVING: PROBLEM SOLVING - SCORE: 0-UNK MEMORY: MEMORY - SCORE: 0-UNK SIGNATURE PANEL: The following modified sections: Transfers: Bed, Chair, Wheelchair - Score, Transfers: Toilet - Score , Locomotion: Walk - Score, Locomotion: Wheelchair - Score, Locomotion: Stairs - Score were [electron icakory] signed by Jeff Garcia PT on WedSep 16 2018 16:51:31 T-0500 (Central Daylight Time)
[2018-09-16] MEDS: APIXABAN 2.5 MG TABLET PO SCH (20:17)
[2018-09-16] MEDS: MELATONIN 3 MG TABLET PO PRN (20:17)
[2018-09-16] MEDS: ATORVASTATIN 40 MG TAB PO SCH (20:17)
--- NOTE | 2018-09-17 02:05 | FAST ---
SHIFT START DATE/TIME: 09/16/2018 19:00 (CDT) SHIFT END DATE/TIME: 09/17/2018 07:00 (CDT) NAME JULIÁN JJ DATE OF : 1950 DATE OF ADMISSION: 09/15/2018 18:37 (CDT) PHONE: AGE: 67 N# [id number] GENDER: Male ENCOUNTER PHYSICIAN: Dr. Moises Lebron M.D. ADMISSION DIAGNOSIS: - Stroke 01 - Right Body (Left Brain) (01.2) Left Acute CVA. EATING: Activity did not occur on this shift EATING - SCORE: 0-UNK GROOMING: Activity did not occur on this shift GROOMING - SCORE: 0-UNK BATHING: Activity did not occur on this shift BATHING - SCORE: 0-UNK DRESSING - UPPER BODY: Patient is not dressing in public clothing ARTICLES SCORE Total number of steps: 0 DRESSING - UPPER BODY - SCORE: 0-UNK DRESSING - LOWER BODY: Patient is not dressing in public clothing ARTICLES SCORE Total number of steps: 0 DRESSING - LOWER BODY - SCORE: 0-UNK TOILETING: TOILETING - STEP 1: Does the patient require the assistance of a person or device, or need extra time with toileting? Yes . TOILETING - STEP 2: Does the patient require the assistance of a helper? Yes. TOILETING - STEP 3: How much assistance does the patient require from the helper? Only supervision TOILETING - SCORE: 5-SUP BLADDER MANAGEMENT: BLADDER MANAGEMENT - STEP 1: Does the patient control the bladder completely and intentionally without equipment or devices or med ications, and is always continent? No. BLADDER MANAGEMENT - STEP 2: Does the patient require the assistance of a helper? Yes. BLADDER MANAGEMENT - STEP 3: How much assistance does the patient require from the helper? Only set-up of equipment - such as plac ing it within reach of the patient or emptying a device - to maintain either satisfactory voiding pat tern or managing an external device, such as an absorbent pad, ileal device, or catheter BLADDER MANAGEMENT - SCORE: 5-SUP BOWEL MANAGEMENT: Activity did not occur on this shift BOWEL MANAGEMENT - SCORE: 7-IND TRANSFERS: BED, CHAIR, WHEELCHAIR: Activity did not occur on this shift TRANSFERS: BED, CHAIR, WHEELCHAIR - SCORE: 0-UNK TRANSFERS: TOILET: Activity did not occur on this shift TRANSFERS: TOILET - SCORE: 0-UNK TRANSFERS: SHOWER: Activity did not occur on this shift TRANSFERS: SHOWER - SCORE: 0-UNK TRANSFERS: TUB: Activity did not occur on this shift TRANSFERS: TUB - SCORE: 0-UNK LOCOMOTION: WALK: Activity did not occur on this shift LOCOMOTION: WALK - SCORE: 0-UNK LOCOMOTION: WHEELCHAIR: Activity did not occur on this shift LOCOMOTION: WHEELCHAIR - SCORE: 0-UNK COMPREHENSION: COMPREHENSION: TYPE: Both COMPREHENSION - STEP 1: Does the patient require help from a person or device, or need extra time to understand complex and a bstract ideas (such as current events, finances, discharge planning, medical issues, relationships, e tc)? No. COMPREHENSION - STEP 2: Does the patient need extra time, require an assistive device (such as glasses for visual comprehensi on or a hearing aid for auditory comprehension) or does s/he have mild difficulty understanding compl ex and abstract information? Yes. COMPREHENSION - SCORE: 6-SIMONA EXPRESSION EXPRESSION: TYPE: Both EXPRESSION - STEP 1: Does the patient require help from a person or device, or need extra time expressing complex and abst ract ideas (such as current events, finances, discharge planning, medical issues, relationships, etc) ? No. EXPRESSION - STEP 2: Does the patient need extra time, require an assistive device (such as augmentive communication syste m or a communication board), OR does s/he have mild difficulty expressing complex and abstract ideas (including mild dysarthria or mild word-find problems)? Yes. EXPRESSION - SCORE: 6-SIMONA SOCIAL INTERACTION: SOCIAL INTERACTION - STEP 1: Does the patient require a helper to interact with others in social and therapeutic situations? No. SOCIAL INTERACTION - STEP 2: Does the patient need extra time in social situations, OR does s/he interact with staff, other patien ts, and family members ONLY in structured environments, OR does s/he require medication for social in teraction? Yes, patient needs extra time SOCIAL INTERACTION - SCORE: 6-SIMONA PROBLEM SOLVING: PROBLEM SOLVING - STEP 1: Does the patient need help from a person or device, or need extra time to solve complex problems such as managing a checking account or confronting interpersonal problems? No. PROBLEM SOLVING - STEP 2: Does the patient require extra time to make decisions or solve problems, OR does s/he have slight dif ficulty reading, initiating, or self-correcting in unfamiliar situations? Yes, patient needs extra ti me. PROBLEM SOLVING - SCORE: 6-SIMONA MEMORY: MEMORY - STEP 1: Does the patient need help from a person or device, or need extra time to remember frequently encount ered people, daily routines, and executing requests? No. MEMORY - STEP 2: Does the patient have slight difficulty recognizing frequently encountered people, daily routines, or executing requests without the need for repetition or using self-initiated or environmental cues to remember? Yes. MEMORY - SCORE: 6-SIMONA
[2018-09-17] MEDS: VENLAFAXINE HCL XR 75 MG CAP PO SCH (08:00)
[2018-09-17] MEDS ORDERED: LOSARTAN POTASSIUM 50 MG TABLET PO SCH (08:00)
[2018-09-17] MEDS: ASPIRIN EC 81 MG TAB PO SCH (08:33)
[2018-09-17] MEDS: CLOPIDOGREL 75 MG TABLET PO SCH (08:33)
[2018-09-17] MEDS: APIXABAN 2.5 MG TABLET PO SCH ×2 (08:33→21:20)
[2018-09-17] MEDS ORDERED: ACETAMINOPHEN 500 MG TAB PO PRN (09:18)
[2018-09-17] MEDS: TRAMADOL HCL 50 MG TAB PO PRN ×2 (10:20→15:26)
--- NOTE | 2018-09-17 15:22 | FAST ---
SHIFT START DATE/TIME: 09/17/2018 07:00 (CDT) SHIFT END DATE/TIME: 09/17/2018 19:00 (CDT) NAME JULIÁN JJ DATE OF : 1950 DATE OF ADMISSION: 09/15/2018 18:37 (CDT) PHONE: AGE: 67 N# [id number] GENDER: Male ENCOUNTER PHYSICIAN: Dr. Moises Lebron M.D. ADMISSION DIAGNOSIS: - Stroke 01 - Right Body (Left Brain) (01.2) Left Acute CVA. EATING: EATING - STEP 1: Does the patient require the assistance of a person or device, or need extra time when eating? Yes. EATING - STEP 2: Does the patient require the assistance of a helper? No, patient only requires an assistive device, O R s/he takes more than reasonable time to eat, OR there is a safety concern, OR s/he requires modifie d food consistency EATING - SCORE: 6-SIMONA GROOMING: Comb/brush hair Wash, rinse, and dry face Wash, rinse, and dry hands GROOMING - STEP 1: Does the patient require the assistance of a person or device, or need extra time when grooming? Yes. GROOMING - STEP 2: Does the patient require the assistance of a helper? No. The patient only requires an assistive devic e, OR takes more than reasonable time to groom, OR there is a concern for safety as the patient groom s GROOMING - SCORE: 6-SIMONA BATHING: Activity did not occur on this shift BATHING - SCORE: 0-UNK DRESSING - UPPER BODY: Button down shirt or blouse - NOT tucked in (four steps) ARTICLES SCORE Total number of steps: 4 DRESSING - UPPER BODY - STEP 1: Does the patient require help from a person or device, or need extra time when dressing above the gina st? Yes. DRESSING - UPPER BODY - STEP 2: Does the patient require the assistance of a helper? No. Patient only requires an assistive device, s uch as a button hook, velcro, or wireless telegrapher. OR s/he takes more than reasonable time as s/he dresses the upper body. OR there is a concern for safety when s/he dresses the upper body DRESSING - UPPER BODY - SCORE: 6-SIMONA DRESSING - LOWER BODY: Sock - Left foot (one step) Sock - Right foot (one step) Zippered pants (four steps) ARTICLES SCORE Total number of steps: 6 DRESSING - LOWER BODY - STEP 1: Does the patient require help from a person or device, or need extra time when dressing below the gina st? Yes. DRESSING - LOWER BODY - STEP 2: Does the patient require the assistance of a helper? No. Patient requires an assistive device such as a wireless telegrapher. OR s/he takes more than reasonable time as s/he dresses the lower body, OR there is a con cern for safety when s/he dresses the lower body DRESSING - LOWER BODY - SCORE: 6-SIMONA TOILETING: TOILETING - STEP 1: Does the patient require the assistance of a person or device, or need extra time with toileting? Yes . TOILETING - STEP 2: Does the patient require the assistance of a helper? No. TOILETING - SCORE: 6-SIMONA BLADDER MANAGEMENT: BLADDER MANAGEMENT - STEP 1: Does the patient control the bladder completely and intentionally without equipment or devices or med ications, and is always continent? No. BLADDER MANAGEMENT - STEP 2: Does the patient require the assistance of a helper? No, patient requires and independently uses an a ssistive device, such as a urinal, bedpan, bedside commode, catheter, absorbent pad, or collecting de vice BLADDER MANAGEMENT - SCORE: 6-SIMONA BLADDER MANAGEMENT - FREQUENCY OF ACCIDENTS: BLADDER MANAGEMENT(FA) - STEP 1: How many accidents has the patient had during the current shift? 0 BOWEL MANAGEMENT: Activity did not occur on this shift BOWEL MANAGEMENT - SCORE: 7-IND BOWEL MANAGEMENT - FREQUENCY OF ACCIDENTS: BOWEL MANAGEMENT(FA) - STEP 1: How many accidents has the patient had during the current shift? 0 TRANSFERS: BED, CHAIR, WHEELCHAIR: TRANSFERS: BED, CHAIR, WHEELCHAIR - STEP 1: Does the patient require assistance of a person or device, or need extra time with bed, chair, or whe elchair transfers? No. TRANSFERS: BED, CHAIR, WHEELCHAIR - SCORE: 7-IND TRANSFERS: TOILET: TRANSFERS: TOILET - STEP 1: Does the patient require the assistance of a person or device, or need extra time with toilet transfe rs? Yes. TRANSFERS: TOILET - STEP 2: Does the patient require the assistance of a helper? No. Patient only requires an assistive device fry ch as a grab bar or special seat, OR s/he takes more than reasonable time to perform toilet transfers , OR there is a safety concern when s/he performs toilet transfers. TRANSFERS: TOILET - SCORE: 6-SIMONA TRANSFERS: SHOWER: Activity did not occur on this shift TRANSFERS: SHOWER - SCORE: 0-UNK TRANSFERS: TUB: Activity did not occur on this shift TRANSFERS: TUB - SCORE: 0-UNK LOCOMOTION: WALK: LOCOMOTION: WALK - STEP 1: Does the patient need help from a person or device, or need extra time to walk 150 feet? Yes. LOCOMOTION: WALK - STEP 2: How much assistance does the patient require to walk a minimum of 150 feet? Only supervision, cuing, or coaxing LOCOMOTION: WALK - SCORE: 5-SUP LOCOMOTION: WHEELCHAIR: Activity did not occur on this shift LOCOMOTION: WHEELCHAIR - SCORE: 0-UNK COMPREHENSION: COMPREHENSION: TYPE: Both COMPREHENSION - STEP 1: Does the patient require help from a person or device, or need extra time to understand complex and a bstract ideas (such as current events, finances, discharge planning, medical issues, relationships, e tc)? No. COMPREHENSION - STEP 2: Does the patient need extra time, require an assistive device (such as glasses for visual comprehensi on or a hearing aid for auditory comprehension) or does s/he have mild difficulty understanding compl ex and abstract information? Yes. COMPREHENSION - SCORE: 6-SIMONA EXPRESSION EXPRESSION: TYPE: Both EXPRESSION - STEP 1: Does the patient require help from a person or device, or need extra time expressing complex and abst ract ideas (such as current events, finances, discharge planning, medical issues, relationships, etc) ? Yes. EXPRESSION - STEP 2: Does the patient require help to express basic necessities or ideas (such as hunger, thirst, sleep, s afety, daily schedule, room location, or discomfort) half or more of the time? No. EXPRESSION - STEP 3: How often does the patient need help to express directions and conversation about basic needs? Less t gamble 10% of the time EXPRESSION - SCORE: 5-SUP SOCIAL INTERACTION: SOCIAL INTERACTION - STEP 1: Does the patient require a helper to interact with others in social and therapeutic situations? No. SOCIAL INTERACTION - STEP 2: Does the patient need extra time in social situations, OR does s/he interact with staff, other patien ts, and family members ONLY in structured environments, OR does s/he require medication for social in teraction? Yes, patient needs extra time SOCIAL INTERACTION - SCORE: 6-SIMONA PROBLEM SOLVING: PROBLEM SOLVING - STEP 1: Does the patient need help from a person or device, or need extra time to solve complex problems such as managing a checking account or confronting interpersonal problems? Yes. PROBLEM SOLVING - STEP 2: Does the patient solve basic routine problems half or more of the time? Yes. PROBLEM SOLVING - STEP 3: How often does the patient need help to solve basic routine problems? Less than 10% of the time PROBLEM SOLVING - SCORE: 5-SUP MEMORY: MEMORY - STEP 1: Does the patient need help from a person or device, or need extra time to remember frequently encount ered people, daily routines, and executing requests? No. MEMORY - STEP 2: Does the patient have slight difficulty recognizing frequently encountered people, daily routines, or executing requests without the need for repetition or using self-initiated or environmental cues to remember? Yes. MEMORY - SCORE: 6-SIMNOA SIGNATURE PANEL: The following modified sections: Eating - Score, Grooming - Score, Transfers: Bed, Chair, Wheelchair - Score, Transfers: Toilet - Score, Transfers: Shower - Score, Transfers: Tub - Score, Locomotion: Wa lk - Score, Comprehension - Score, Social Interaction - Score, Problem Solving - Score, Memory - Scor e, Expression - Score, Locomotion: Wheelchair - Score, Bathing - Score, Dressing - Upper Body - Score , Dressing - Lower Body - Score, Toileting - Score, Bladder Management - Score, Bowel Management - Sc ore were [electronically] signed by Lavonne Lucas C.N.A. on Sat Sep 17 2018 15:21:33 GMT-0500 (Centra l Daylight Time)
[2018-09-17] MEDS: FENOFIBRATE 160 MG TAB PO SCH (17:07)
[2018-09-17] MEDS: DOCUSATE NA/SENNA CONC 1 TAB PO SCH (21:20)
[2018-09-17] MEDS: ATORVASTATIN 40 MG TAB PO SCH (21:20)
[2018-09-17] MEDS: LOSARTAN POTASSIUM 50 MG TABLET PO SCH (22:02)
[2018-09-17] MEDS: cloNIDine HCl 0.1 MG TAB PO PRN (23:12)
[2018-09-17] MEDS: MELATONIN 3 MG TABLET PO PRN (23:13)
--- NOTE | 2018-09-18 02:44 | FAST ---
SHIFT START DATE/TIME: 09/17/2018 19:00 (CDT) SHIFT END DATE/TIME: 09/18/2018 07:00 (CDT) NAME JULIÁN JJ DATE OF : 1950 DATE OF ADMISSION: 09/15/2018 18:37 (CDT) PHONE: AGE: 67 N# [id number] GENDER: Male ENCOUNTER PHYSICIAN: Dr. Moises Lebron M.D. ADMISSION DIAGNOSIS: - Stroke 01 - Right Body (Left Brain) (01.2) Left Acute CVA. EATING: Activity did not occur on this shift EATING - SCORE: 0-UNK GROOMING: Wash, rinse, and dry hands GROOMING - STEP 1: Does the patient require the assistance of a person or device, or need extra time when grooming? Yes. GROOMING - STEP 2: Does the patient require the assistance of a helper? No. The patient only requires an assistive devic e, OR takes more than reasonable time to groom, OR there is a concern for safety as the patient groom s GROOMING - SCORE: 6-SIMONA BATHING: Activity did not occur on this shift BATHING - SCORE: 0-UNK DRESSING - UPPER BODY: Patient is not dressing in public clothing ARTICLES SCORE Total number of steps: 0 DRESSING - UPPER BODY - SCORE: 0-UNK DRESSING - LOWER BODY: Patient is not dressing in public clothing ARTICLES SCORE Total number of steps: 0 DRESSING - LOWER BODY - SCORE: 0-UNK TOILETING: TOILETING - STEP 1: Does the patient require the assistance of a person or device, or need extra time with toileting? Yes . TOILETING - STEP 2: Does the patient require the assistance of a helper? Yes. TOILETING - STEP 3: How much assistance does the patient require from the helper? Only supervision TOILETING - SCORE: 5-SUP BLADDER MANAGEMENT: BLADDER MANAGEMENT - STEP 1: Does the patient control the bladder completely and intentionally without equipment or devices or med ications, and is always continent? Yes. BLADDER MANAGEMENT - SCORE: 7-IND BOWEL MANAGEMENT: BOWEL MANAGEMENT - STEP 1: Does the patient control bowels completely and intentionally without equipment devices or medications AND is always continent? No. BOWEL MANAGEMENT - STEP 2: Does the patient require the assistance of a helper? No, patient requires medication for control such as stool softeners, suppositories, laxatives, enemas, or OTC medications BOWEL MANAGEMENT - SCORE: 6-SIMONA TRANSFERS: BED, CHAIR, WHEELCHAIR: TRANSFERS: BED, CHAIR, WHEELCHAIR - STEP 1: Does the patient require assistance of a person or device, or need extra time with bed, chair, or whe elchair transfers? Yes. TRANSFERS: BED, CHAIR, WHEELCHAIR - STEP 2: Does the patient require the assistance of a helper? No. Patient only requires an assistive device fo r bed, chair, wheelchair transfers such as a sliding board, grab bar, or brace, OR s/he takes more th an reasonable time, OR there is a safety concern when s/he performs the transfers TRANSFERS: BED, CHAIR, WHEELCHAIR - SCORE: 6-SIMONA TRANSFERS: TOILET: TRANSFERS: TOILET - STEP 1: Does the patient require the assistance of a person or device, or need extra time with toilet transfe rs? Yes. TRANSFERS: TOILET - STEP 2: Does the patient require the assistance of a helper? No. Patient only requires an assistive device fry ch as a grab bar or special seat, OR s/he takes more than reasonable time to perform toilet transfers , OR there is a safety concern when s/he performs toilet transfers. TRANSFERS: TOILET - SCORE: 6-SIMONA TRANSFERS: SHOWER: Activity did not occur on this shift TRANSFERS: SHOWER - SCORE: 0-UNK TRANSFERS: TUB: Activity did not occur on this shift TRANSFERS: TUB - SCORE: 0-UNK LOCOMOTION: WALK: Activity did not occur on this shift LOCOMOTION: WALK - SCORE: 0-UNK LOCOMOTION: WHEELCHAIR: Activity did not occur on this shift LOCOMOTION: WHEELCHAIR - SCORE: 0-UNK COMPREHENSION: COMPREHENSION: TYPE: Both COMPREHENSION - STEP 1: Does the patient require help from a person or device, or need extra time to understand complex and a bstract ideas (such as current events, finances, discharge planning, medical issues, relationships, e tc)? Yes. COMPREHENSION - STEP 2: Does the patient require help to understand questions or statements about basic needs or ideas (such as hunger, thirst, sleep, safety, daily schedule, room location, or discomfort) half or more of the t ute? No. COMPREHENSION - STEP 3: How often does the patient need help to understand directions and conversation about basic needs? Les s than 10% of the time COMPREHENSION - SCORE: 5-SUP EXPRESSION EXPRESSION: TYPE: Both EXPRESSION - STEP 1: Does the patient require help from a person or device, or need extra time expressing complex and abst ract ideas (such as current events, finances, discharge planning, medical issues, relationships, etc) ? No. EXPRESSION - STEP 2: Does the patient need extra time, require an assistive device (such as augmentive communication syste m or a communication board), OR does s/he have mild difficulty expressing complex and abstract ideas (including mild dysarthria or mild word-find problems)? Yes. EXPRESSION - SCORE: 6-SIMONA SOCIAL INTERACTION: SOCIAL INTERACTION - STEP 1: Does the patient require a helper to interact with others in social and therapeutic situations? No. SOCIAL INTERACTION - STEP 2: Does the patient need extra time in social situations, OR does s/he interact with staff, other patien ts, and family members ONLY in structured environments, OR does s/he require medication for social in teraction? Yes, patient requires medication for social interaction SOCIAL INTERACTION - SCORE: 6-SIMONA PROBLEM SOLVING: PROBLEM SOLVING - STEP 1: Does the patient need help from a person or device, or need extra time to solve complex problems such as managing a checking account or confronting interpersonal problems? Yes. PROBLEM SOLVING - STEP 2: Does the patient solve basic routine problems half or more of the time? Yes. PROBLEM SOLVING - STEP 3: How often does the patient need help to solve basic routine problems? Less than 10% of the time PROBLEM SOLVING - SCORE: 5-SUP MEMORY: MEMORY - STEP 1: Does the patient need help from a person or device, or need extra time to remember frequently encount ered people, daily routines, and executing requests? No. MEMORY - STEP 2: Does the patient have slight difficulty recognizing frequently encountered people, daily routines, or executing requests without the need for repetition or using self-initiated or environmental cues to remember? Yes. MEMORY - SCORE: 6-SIMONA SIGNATURE PANEL: The following modified sections: Eating - Score, Grooming - Score, Dressing - Upper Body - Score, Kiran ssing - Lower Body - Score, Toileting - Score, Bladder Management - Score, Bowel Management - Score, Transfers: Bed, Chair, Wheelchair - Score, Transfers: Toilet - Score, Transfers: Shower - Score, Sethi sfers: Tub - Score, Locomotion: Walk - Score, Locomotion: Wheelchair - Score, Comprehension - Score, Expression - Score, Social Interaction - Score, Problem Solving - Score, Memory - Score were [electro nically] signed by Lisa Marks CNA on WedSep 18 2018 02:43:33 GMT-0500 (Central Daylight Time)
[2018-09-18] MEDS: TRAMADOL HCL 50 MG TAB PO PRN (08:09)
[2018-09-18] MEDS: VENLAFAXINE HCL XR 75 MG CAP PO SCH (08:09)
[2018-09-18] MEDS: LOSARTAN POTASSIUM 50 MG TABLET PO SCH ×2 (08:09→20:03)
[2018-09-18] MEDS: APIXABAN 2.5 MG TABLET PO SCH ×2 (08:10→20:03)
[2018-09-18] MEDS: ASPIRIN EC 81 MG TAB PO SCH (08:10)
[2018-09-18] MEDS: CLOPIDOGREL 75 MG TABLET PO SCH (08:10)
--- NOTE | 2018-09-18 13:45 | FAST ---
SHIFT START DATE/TIME: 09/18/2018 07:00 (CDT) SHIFT END DATE/TIME: 09/18/2018 19:00 (CDT) NAME JULIÁN JJ DATE OF : 1950 DATE OF ADMISSION: 09/15/2018 18:37 (CDT) PHONE: AGE: 67 N# [id number] GENDER: Male ENCOUNTER PHYSICIAN: Dr. Moises Lebron M.D. ADMISSION DIAGNOSIS: - Stroke 01 - Right Body (Left Brain) (01.2) Left Acute CVA. EATING: EATING - STEP 1: Does the patient require the assistance of a person or device, or need extra time when eating? Yes. EATING - STEP 2: Does the patient require the assistance of a helper? No, patient only requires an assistive device, O R s/he takes more than reasonable time to eat, OR there is a safety concern, OR s/he requires modifie d food consistency EATING - SCORE: 6-SIMONA GROOMING: Comb/brush hair Wash, rinse, and dry face Wash, rinse, and dry hands GROOMING - STEP 1: Does the patient require the assistance of a person or device, or need extra time when grooming? No. GROOMING - SCORE: 7-IND BATHING: Activity did not occur on this shift BATHING - SCORE: 0-UNK DRESSING - UPPER BODY: Activity did not occur on this shift ARTICLES SCORE Total number of steps: 0 DRESSING - UPPER BODY - SCORE: 0-UNK DRESSING - LOWER BODY: Activity did not occur on this shift ARTICLES SCORE Total number of steps: 0 DRESSING - LOWER BODY - SCORE: 0-UNK TOILETING: TOILETING - STEP 1: Does the patient require the assistance of a person or device, or need extra time with toileting? No. TOILETING - SCORE: 7-IND BLADDER MANAGEMENT: BLADDER MANAGEMENT - STEP 1: Does the patient control the bladder completely and intentionally without equipment or devices or med ications, and is always continent? Yes. BLADDER MANAGEMENT - SCORE: 7-IND BLADDER MANAGEMENT - FREQUENCY OF ACCIDENTS: BLADDER MANAGEMENT(FA) - STEP 1: How many accidents has the patient had during the current shift? 0 BOWEL MANAGEMENT: Activity did not occur on this shift BOWEL MANAGEMENT - SCORE: 7-IND BOWEL MANAGEMENT - FREQUENCY OF ACCIDENTS: BOWEL MANAGEMENT(FA) - STEP 1: How many accidents has the patient had during the current shift? 0 TRANSFERS: BED, CHAIR, WHEELCHAIR: TRANSFERS: BED, CHAIR, WHEELCHAIR - STEP 1: Does the patient require assistance of a person or device, or need extra time with bed, chair, or whe elchair transfers? No. TRANSFERS: BED, CHAIR, WHEELCHAIR - SCORE: 7-IND TRANSFERS: TOILET: TRANSFERS: TOILET - STEP 1: Does the patient require the assistance of a person or device, or need extra time with toilet transfe rs? No. TRANSFERS: TOILET - SCORE: 7-IND TRANSFERS: SHOWER: Activity did not occur on this shift TRANSFERS: SHOWER - SCORE: 0-UNK TRANSFERS: TUB: Activity did not occur on this shift TRANSFERS: TUB - SCORE: 0-UNK LOCOMOTION: WALK: LOCOMOTION: WALK - STEP 1: Does the patient need help from a person or device, or need extra time to walk 150 feet? No. LOCOMOTION: WALK - STEP 2: Does the patient need an assistive device (such as an orthosis, prosthesis, crutches, or walker) to g o 150 feet, OR does s/he take more than reasonable time, OR is there a concern for safety? No. LOCOMOTION: WALK - SCORE: 7-IND LOCOMOTION: WHEELCHAIR: Activity did not occur on this shift LOCOMOTION: WHEELCHAIR - SCORE: 0-UNK COMPREHENSION: COMPREHENSION: TYPE: Both COMPREHENSION - STEP 1: Does the patient require help from a person or device, or need extra time to understand complex and a bstract ideas (such as current events, finances, discharge planning, medical issues, relationships, e tc)? No. COMPREHENSION - STEP 2: Does the patient need extra time, require an assistive device (such as glasses for visual comprehensi on or a hearing aid for auditory comprehension) or does s/he have mild difficulty understanding compl ex and abstract information? Yes. COMPREHENSION - SCORE: 6-SIMONA EXPRESSION EXPRESSION: TYPE: Both EXPRESSION - STEP 1: Does the patient require help from a person or device, or need extra time expressing complex and abst ract ideas (such as current events, finances, discharge planning, medical issues, relationships, etc) ? No. EXPRESSION - STEP 2: Does the patient need extra time, require an assistive device (such as augmentive communication syste m or a communication board), OR does s/he have mild difficulty expressing complex and abstract ideas (including mild dysarthria or mild word-find problems)? Yes. EXPRESSION - SCORE: 6-SIMONA SOCIAL INTERACTION: SOCIAL INTERACTION - STEP 1: Does the patient require a helper to interact with others in social and therapeutic situations? No. SOCIAL INTERACTION - STEP 2: Does the patient need extra time in social situations, OR does s/he interact with staff, other patien ts, and family members ONLY in structured environments, OR does s/he require medication for social in teraction? No. SOCIAL INTERACTION - SCORE: 7-IND PROBLEM SOLVING: PROBLEM SOLVING - STEP 1: Does the patient need help from a person or device, or need extra time to solve complex problems such as managing a checking account or confronting interpersonal problems? No. PROBLEM SOLVING - STEP 2: Does the patient require extra time to make decisions or solve problems, OR does s/he have slight dif ficulty reading, initiating, or self-correcting in unfamiliar situations? Yes, patient has slight dif ficulty reading, initiating, or self-correcting in unfamiliar situations. PROBLEM SOLVING - SCORE: 6-SIMONA MEMORY: MEMORY - STEP 1: Does the patient need help from a person or device, or need extra time to remember frequently encount ered people, daily routines, and executing requests? No. MEMORY - STEP 2: Does the patient have slight difficulty recognizing frequently encountered people, daily routines, or executing requests without the need for repetition or using self-initiated or environmental cues to remember? Yes. MEMORY - SCORE: 6-SIMONA SIGNATURE PANEL: The following modified sections: Eating - Score, Grooming - Score, Bathing - Score, Dressing - Upper Body - Score, Dressing - Lower Body - Score, Toileting - Score, Bladder Management - Score, Bowel Man agement - Score, Transfers: Bed, Chair, Wheelchair - Score, Transfers: Toilet - Score, Transfers: Siomara wer - Score, Transfers: Tub - Score, Locomotion: Walk - Score, Locomotion: Wheelchair - Score, Compre hension - Score, Expression - Score, Social Interaction - Score, Problem Solving - Score, Memory - Sc ore were [electronically] signed by Lavonne Lucas C.N.A. on WedSep 18 2018 13:45:02 T-0500 (Centra l Daylight Time)
[2018-09-18] MEDS: LIDOCAINE 5% PATCH TOP SCH (16:56)
[2018-09-18] MEDS: FENOFIBRATE 160 MG TAB PO SCH (16:56)
[2018-09-18] MEDS: DOCUSATE NA/SENNA CONC 1 TAB PO SCH (20:04)
[2018-09-18] MEDS: MELATONIN 3 MG TABLET PO PRN (20:04)
[2018-09-18] MEDS: ATORVASTATIN 40 MG TAB PO SCH (20:04)
--- NOTE | 2018-09-19 01:18 | FAST ---
SHIFT START DATE/TIME: 09/18/2018 19:00 (CDT) SHIFT END DATE/TIME: 09/19/2018 07:00 (CDT) NAME JULIÁN JJ DATE OF : 1950 DATE OF ADMISSION: 09/15/2018 18:37 (CDT) PHONE: AGE: 67 N# [id number] GENDER: Male ENCOUNTER PHYSICIAN: Dr. Moises Lebron M.D. ADMISSION DIAGNOSIS: - Stroke 01 - Right Body (Left Brain) (01.2) Left Acute CVA. EATING: Activity did not occur on this shift EATING - SCORE: 0-UNK GROOMING: Wash, rinse, and dry hands GROOMING - STEP 1: Does the patient require the assistance of a person or device, or need extra time when grooming? Yes. GROOMING - STEP 2: Does the patient require the assistance of a helper? No. The patient only requires an assistive devic e, OR takes more than reasonable time to groom, OR there is a concern for safety as the patient groom s GROOMING - SCORE: 6-SIMONA BATHING: Activity did not occur on this shift BATHING - SCORE: 0-UNK DRESSING - UPPER BODY: Patient is not dressing in public clothing ARTICLES SCORE Total number of steps: 0 DRESSING - UPPER BODY - SCORE: 0-UNK DRESSING - LOWER BODY: Patient is not dressing in public clothing ARTICLES SCORE Total number of steps: 0 DRESSING - LOWER BODY - SCORE: 0-UNK TOILETING: TOILETING - STEP 1: Does the patient require the assistance of a person or device, or need extra time with toileting? Yes . TOILETING - STEP 2: Does the patient require the assistance of a helper? No. TOILETING - SCORE: 6-SIMONA BLADDER MANAGEMENT: BLADDER MANAGEMENT - STEP 1: Does the patient control the bladder completely and intentionally without equipment or devices or med ications, and is always continent? Yes. BLADDER MANAGEMENT - SCORE: 7-IND BOWEL MANAGEMENT: BOWEL MANAGEMENT - STEP 1: Does the patient control bowels completely and intentionally without equipment devices or medications AND is always continent? No. BOWEL MANAGEMENT - STEP 2: Does the patient require the assistance of a helper? No, patient requires medication for control such as stool softeners, suppositories, laxatives, enemas, or OTC medications BOWEL MANAGEMENT - SCORE: 6-SIMONA TRANSFERS: BED, CHAIR, WHEELCHAIR: TRANSFERS: BED, CHAIR, WHEELCHAIR - STEP 1: Does the patient require assistance of a person or device, or need extra time with bed, chair, or whe elchair transfers? Yes. TRANSFERS: BED, CHAIR, WHEELCHAIR - STEP 2: Does the patient require the assistance of a helper? Yes. TRANSFERS: BED, CHAIR, WHEELCHAIR - STEP 3: How much assistance does the patient require from the helper? Only supervision TRANSFERS: BED, CHAIR, WHEELCHAIR - SCORE: 5-SUP TRANSFERS: TOILET: TRANSFERS: TOILET - STEP 1: Does the patient require the assistance of a person or device, or need extra time with toilet transfe rs? Yes. TRANSFERS: TOILET - STEP 2: Does the patient require the assistance of a helper? No. Patient only requires an assistive device fry ch as a grab bar or special seat, OR s/he takes more than reasonable time to perform toilet transfers , OR there is a safety concern when s/he performs toilet transfers. TRANSFERS: TOILET - SCORE: 6-SIMONA TRANSFERS: SHOWER: Activity did not occur on this shift TRANSFERS: SHOWER - SCORE: 0-UNK TRANSFERS: TUB: Activity did not occur on this shift TRANSFERS: TUB - SCORE: 0-UNK LOCOMOTION: WALK: Activity did not occur on this shift LOCOMOTION: WALK - SCORE: 0-UNK LOCOMOTION: WHEELCHAIR: Activity did not occur on this shift LOCOMOTION: WHEELCHAIR - SCORE: 0-UNK COMPREHENSION: COMPREHENSION: TYPE: Both COMPREHENSION - STEP 1: Does the patient require help from a person or device, or need extra time to understand complex and a bstract ideas (such as current events, finances, discharge planning, medical issues, relationships, e tc)? Yes. COMPREHENSION - STEP 2: Does the patient require help to understand questions or statements about basic needs or ideas (such as hunger, thirst, sleep, safety, daily schedule, room location, or discomfort) half or more of the t ute? No. COMPREHENSION - STEP 3: How often does the patient need help to understand directions and conversation about basic needs? Les s than 10% of the time COMPREHENSION - SCORE: 5-SUP EXPRESSION EXPRESSION: TYPE: Both EXPRESSION - STEP 1: Does the patient require help from a person or device, or need extra time expressing complex and abst ract ideas (such as current events, finances, discharge planning, medical issues, relationships, etc) ? No. EXPRESSION - STEP 2: Does the patient need extra time, require an assistive device (such as augmentive communication syste m or a communication board), OR does s/he have mild difficulty expressing complex and abstract ideas (including mild dysarthria or mild word-find problems)? Yes. EXPRESSION - SCORE: 6-SIMONA SOCIAL INTERACTION: SOCIAL INTERACTION - STEP 1: Does the patient require a helper to interact with others in social and therapeutic situations? No. SOCIAL INTERACTION - STEP 2: Does the patient need extra time in social situations, OR does s/he interact with staff, other patien ts, and family members ONLY in structured environments, OR does s/he require medication for social in teraction? Yes, patient requires medication for social interaction SOCIAL INTERACTION - SCORE: 6-SIMONA PROBLEM SOLVING: PROBLEM SOLVING - STEP 1: Does the patient need help from a person or device, or need extra time to solve complex problems such as managing a checking account or confronting interpersonal problems? Yes. PROBLEM SOLVING - STEP 2: Does the patient solve basic routine problems half or more of the time? Yes. PROBLEM SOLVING - STEP 3: How often does the patient need help to solve basic routine problems? 10%-24% of the time PROBLEM SOLVING - SCORE: 4-MIN MEMORY: MEMORY - STEP 1: Does the patient need help from a person or device, or need extra time to remember frequently encount ered people, daily routines, and executing requests? No. MEMORY - STEP 2: Does the patient have slight difficulty recognizing frequently encountered people, daily routines, or executing requests without the need for repetition or using self-initiated or environmental cues to remember? Yes. MEMORY - SCORE: 6-SIMONA SIGNATURE PANEL: The following modified sections: Eating - Score, Grooming - Score, Dressing - Upper Body - Score, Kiran ssing - Lower Body - Score, Toileting - Score, Bladder Management - Score, Bowel Management - Score, Transfers: Bed, Chair, Wheelchair - Score, Transfers: Toilet - Score, Transfers: Shower - Score, Sethi sfers: Tub - Score, Locomotion: Walk - Score, Locomotion: Wheelchair - Score, Comprehension - Score, Expression - Score, Social Interaction - Score, Problem Solving - Score, Memory - Score were [electro nically] signed by Lisa Marks CNA on WedSep 19 2018 01:17:07 GMT-0500 (Central Daylight Time)
[2018-09-19] MEDS: CLOPIDOGREL 75 MG TABLET PO SCH (08:36)
[2018-09-19] MEDS: LIDOCAINE 5% PATCH TOP SCH (08:36)
[2018-09-19] MEDS: APIXABAN 2.5 MG TABLET PO SCH ×2 (08:36→20:06)
[2018-09-19] MEDS: LOSARTAN POTASSIUM 50 MG TABLET PO SCH ×2 (08:37→20:07)
[2018-09-19] MEDS: VENLAFAXINE HCL XR 75 MG CAP PO SCH (08:37)
[2018-09-19] MEDS: ASPIRIN EC 81 MG TAB PO SCH (08:37)
--- NOTE | 2018-09-19 13:01 | FAST ---
SHIFT START DATE/TIME: 09/19/2018 07:00 (CDT) SHIFT END DATE/TIME: 09/19/2018 19:00 (CDT) NAME JULIÁN JJ DATE OF : 1950 DATE OF ADMISSION: 09/15/2018 18:37 (CDT) PHONE: AGE: 67 N# [id number] GENDER: Male ENCOUNTER PHYSICIAN: Dr. Moises Lebron M.D. ADMISSION DIAGNOSIS: - Stroke 01 - Right Body (Left Brain) (01.2) Left Acute CVA. EATING: EATING - STEP 1: Does the patient require the assistance of a person or device, or need extra time when eating? Yes. EATING - STEP 2: Does the patient require the assistance of a helper? No, patient only requires an assistive device, O R s/he takes more than reasonable time to eat, OR there is a safety concern, OR s/he requires modifie d food consistency EATING - SCORE: 6-SIMONA GROOMING: Comb/brush hair Oral care GROOMING - STEP 1: Does the patient require the assistance of a person or device, or need extra time when grooming? No. GROOMING - SCORE: 7-IND BATHING: Activity did not occur on this shift BATHING - SCORE: 0-UNK DRESSING - UPPER BODY: Activity did not occur on this shift ARTICLES SCORE Total number of steps: 0 DRESSING - UPPER BODY - SCORE: 0-UNK DRESSING - LOWER BODY: Activity did not occur on this shift ARTICLES SCORE Total number of steps: 0 DRESSING - LOWER BODY - SCORE: 0-UNK TOILETING: TOILETING - STEP 1: Does the patient require the assistance of a person or device, or need extra time with toileting? Yes . TOILETING - STEP 2: Does the patient require the assistance of a helper? Yes. TOILETING - STEP 3: How much assistance does the patient require from the helper? Only supervision TOILETING - SCORE: 5-SUP BLADDER MANAGEMENT: BLADDER MANAGEMENT - STEP 1: Does the patient control the bladder completely and intentionally without equipment or devices or med ications, and is always continent? No. BLADDER MANAGEMENT - STEP 2: Does the patient require the assistance of a helper? No, patient requires and independently uses an a ssistive device, such as a urinal, bedpan, bedside commode, catheter, absorbent pad, or collecting de vice BLADDER MANAGEMENT - SCORE: 6-SIMONA BOWEL MANAGEMENT: Activity did not occur on this shift BOWEL MANAGEMENT - SCORE: 7-IND TRANSFERS: BED, CHAIR, WHEELCHAIR: TRANSFERS: BED, CHAIR, WHEELCHAIR - STEP 1: Does the patient require assistance of a person or device, or need extra time with bed, chair, or whe elchair transfers? Yes. TRANSFERS: BED, CHAIR, WHEELCHAIR - STEP 2: Does the patient require the assistance of a helper? Yes. TRANSFERS: BED, CHAIR, WHEELCHAIR - STEP 3: How much assistance does the patient require from the helper? Only supervision TRANSFERS: BED, CHAIR, WHEELCHAIR - SCORE: 5-SUP TRANSFERS: TOILET: TRANSFERS: TOILET - STEP 1: Does the patient require the assistance of a person or device, or need extra time with toilet transfe rs? Yes. TRANSFERS: TOILET - STEP 2: Does the patient require the assistance of a helper? Yes. TRANSFERS: TOILET - STEP 3: How much assistance does the patient require from the helper? Only supervision, cuing, coaxing, OR he lp to set out transfer equipment or to lock brakes and/or lift foot rests TRANSFERS: TOILET - SCORE: 5-SUP TRANSFERS: SHOWER: Activity did not occur on this shift TRANSFERS: SHOWER - SCORE: 0-UNK TRANSFERS: TUB: Activity did not occur on this shift TRANSFERS: TUB - SCORE: 0-UNK LOCOMOTION: WALK: Activity did not occur on this shift LOCOMOTION: WALK - SCORE: 0-UNK LOCOMOTION: WHEELCHAIR: Activity did not occur on this shift LOCOMOTION: WHEELCHAIR - SCORE: 0-UNK COMPREHENSION: COMPREHENSION: TYPE: Both COMPREHENSION - STEP 1: Does the patient require help from a person or device, or need extra time to understand complex and a bstract ideas (such as current events, finances, discharge planning, medical issues, relationships, e tc)? Yes. COMPREHENSION - STEP 2: Does the patient require help to understand questions or statements about basic needs or ideas (such as hunger, thirst, sleep, safety, daily schedule, room location, or discomfort) half or more of the t ute? No. COMPREHENSION - STEP 3: How often does the patient need help to understand directions and conversation about basic needs? 10% - 24% of the time COMPREHENSION - SCORE: 4-MIN EXPRESSION EXPRESSION: TYPE: Both EXPRESSION - STEP 1: Does the patient require help from a person or device, or need extra time expressing complex and abst ract ideas (such as current events, finances, discharge planning, medical issues, relationships, etc) ? Yes. EXPRESSION - STEP 2: Does the patient require help to express basic necessities or ideas (such as hunger, thirst, sleep, s afety, daily schedule, room location, or discomfort) half or more of the time? No. EXPRESSION - STEP 3: How often does the patient need help to express directions and conversation about basic needs? Less t gamble 10% of the time EXPRESSION - SCORE: 5-SUP SOCIAL INTERACTION: SOCIAL INTERACTION - STEP 1: Does the patient require a helper to interact with others in social and therapeutic situations? Yes. SOCIAL INTERACTION - STEP 2: Does the patient interact appropriately half or more of the time? Yes. SOCIAL INTERACTION - STEP 3: How often does the patient need help to interact appropriately? Less than 10% of the time SOCIAL INTERACTION - SCORE: 5-SUP PROBLEM SOLVING: PROBLEM SOLVING - STEP 1: Does the patient need help from a person or device, or need extra time to solve complex problems such as managing a checking account or confronting interpersonal problems? Yes. PROBLEM SOLVING - STEP 2: Does the patient solve basic routine problems half or more of the time? Yes. PROBLEM SOLVING - STEP 3: How often does the patient need help to solve basic routine problems? Less than 10% of the time PROBLEM SOLVING - SCORE: 5-SUP MEMORY: MEMORY - STEP 1: Does the patient need help from a person or device, or need extra time to remember frequently encount ered people, daily routines, and executing requests? Yes. MEMORY - STEP 2: How often does the patient need help to remember frequently encountered people, daily routines, and e xecuting requests? Less than 10% of the time MEMORY - SCORE: 5-SUP SIGNATURE PANEL: The following modified sections: Eating - Score, Grooming - Score, Bathing - Score, Dressing - Upper Body - Score, Dressing - Lower Body - Score, Toileting - Score, Bladder Management - Score, Bowel Man agement - Score, Transfers: Bed, Chair, Wheelchair - Score, Transfers: Toilet - Score, Transfers: Siomara wer - Score, Transfers: Tub - Score, Locomotion: Walk - Score, Locomotion: Wheelchair - Score, Compre hension - Score, Expression - Score, Social Interaction - Score, Problem Solving - Score, Memory - Sc ore were [electronically] signed by Gold Barbosa on WedSep 19 2018 13:00:05 GMT-0500 (Central Daylight Time)
[2018-09-19] MEDS: FENOFIBRATE 160 MG TAB PO SCH (16:50)
--- NOTE | 2018-09-19 17:22 | R.PN ---
ENCOUNTER DATE AND TIME: 09/19/2018 17:16 (CDT) NAME JULIÁN JJ DATE OF : 1950 DATE OF ADMISSION: 09/15/2018 18:37 (CDT) Left Acute CVACHIEF COMPLAINT: Right sided weakness after stroke. SUBJECTIVE: Pt denied any Shortness of Breath. Pt denied any depression. Ambulated 1200' without an assistive device with standby assistance. Up and down 15 steps with standb y assistance. Patient reports increased urinary frequency up to 4 times daily. CBC with differential is normal. Glu cose 124-143. Will order PSA and Hg A1c. VITAL SIGNS Temperature: 97.9 F SBP/DBP: 158/95 Pulse: 78 Resp: 16 MEDICATION ALLERGIES: No Known Drug Allergies (NKDA) ENVIRONMENTAL ALLERGIES: None Known - Substance Allergies None Known - Other Allergies None Known NURSING: - Shower allowing shower - Bladder care per protocol - Skin care per protocol PRECAUTIONS: - Weight Bearing Precaution WBAT right LE ACTIVITIES OOB only with supervision THERAPIES: - Occupational Therapy Evaluate and Treat. Visual Perceptual Training. Cognitive Retraining. - Speech Therapy Cognitive Training. Memory Strategies. Speech Intelligibility Training. Expressive Language Skills. R eceptive Language Skills. - Physical Therapy Evaluate and Treat. PHYSICAL EXAM - Gen Alert and awake Lying in bed No apparent distress Oriented to: person, time, and place - Skin No beakdown No abnormalities - Eyes No abnormalities - Neck No abnormalities - CVS RRR - Chest Clear - Abd +bowel sounds - GI Soft Deferred - No abnormalities - Ext no edema - MSK No focal muscle weakness. - Neuro Expressive aphasia and incoordination. - Psych No abnormalities ASSESSMENT: Pt. is a 67 yo Right-handed white male.On 09/09/[address] [facility] with sudden onset of right-side weakness.On 09/09/2018 he was admitted to [facility] with diagnosis Left Acute CVA.His impairment category is Stroke 01 - Right Body (Left Brain) (01.2).Pre-morbidly, Pt. was independent/mod-I in Self-Care, Sphincter Control, Transfers Control, L ocomotion, Communication, and Social Cognition; and he had good Sphincter Control.Currently, he has d eficits of Transfers Control, Locomotion, Communication, Social Cognition, Endurance, Balance, Safety Awareness, and Self-Care.Pt. is now referred to [facility] for acute in-patie nt rehabilitation in order to maximize patient's functional independence in activities of daily livin g, strength, ROM, and mobility.- Rehab Goal Patient has realistic goal of being discharged at assistance level 6-Delmer to reside at Home with Fam davie/Relatives. MDM/PLAN: - Physical Therapy Gait dysfunction - to improve, our physical therapists will perform initial evaluation of pt's statu s upon admission and devise an individualized program for Gait Training, and Wheel Chair mobility Inability to transfer - to improve, our physical therapists will perform initial evaluation of pt's status upon admission and devise an individualized program for Bed mobility Need for home safety evaluation - to improve, our physical therapists will perform initial evaluatio n of pt's status upon admission and devise an individualized program for Home Evaluation Need in caregiver upon discharge - to improve, our physical therapists will perform initial evaluati on of pt's status upon admission and devise an individualized program for Caregiver Training New precaution - to improve, our physical therapists will perform initial evaluation of pt's status upon admission and devise an individualized program for Patient precaution education Poor balance - to improve, our physical therapists will perform initial evaluation of pt's status up on admission and devise an individualized program for Balance Training Poor endurance - to improve, our physical therapists will perform initial evaluation of pt's status upon admission and devise an individualized program for Endurance Training Weakness - to improve, our physical therapists will perform initial evaluation of pt's status upon a dmission and devise an individualized program for Aquatic Therapy, Neuromuscular Reeducation, and Str engthening Achieving independence - to improve, our physical therapists will perform initial evaluation of pt's status upon admission and devise an individualized program for Community Reintegration Activities - Occupational Therapy ADL deficits - to improve, our occupation therapists will perform initial evaluation of pt's status upon admission and devise an individualized program for Bathing, Bed mobility, Community Reintegratio n, Cooking, Dressing, Eating, Fine Motor Skills, Grooming, Homemaking, Kitchen Mobility, Laundry, Pat ient Education, Safety Awareness, Splinting - Positioning, Transfers(Toilet, Tub, Shower), and Wheel Chair Management Cognitive deficits - to improve, our occupation therapists will perform initial evaluation of pt's s tatus upon admission and devise an individualized program for Cognition - orientation Need for hourly caregiver - to improve, our occupation therapists will perform initial evaluation of pt's status upon admission and devise an individualized program for Caregiver Training Weakness - to improve, our occupation therapists will perform initial evaluation of pt's status upon admission and devise an individualized program for Aquatic Therapy, Balance, Endurance, UE ROM, and UE strengthening - Diet Type Continue Heart Healthy - Diet - Liquid Texture Continue Regular - Tube Feed Continue N/A - Bladder care per protocol - Weight Bearing Precaution WBAT right LE - Skin care per protocol - Diet - Solid Texture Continue Regular - Shower allowing shower for Dementia, TBI, Stroke, or others FUNCTIONAL STATUS: UPDATED AT WEEKLY TEAM CONFERENCE - Bladder Same accident frequency: 7-Ind - No accidents in the past 7 days - Bowel Same accident frequency: 7-Ind - No accidents in the past 7 days - Walking Same score based on distance walked: 3(>=150ft) - Wheelchair Same score based on distance traveled: 0(N/A) FUNCTIONAL STATUS: - Self-Care A. Eating Delmer B. Grooming sup C. Bathing sup D. Dressing - Upper [place] E. Dressing - Lower Dep F. Toileting sup - Sphincter Control G: Bladder control Ind H: Bowel control Ind - Transfers Control I. Bed/Chair/Wheelchair sup J. Toilet sup K. Tub/Shower ADNO - Locomotion L. Walk/Wheelchair (C) sup L. Walk/Wheelchair (W) sup M. Stairs sup - Communication N. Comprehension (B) Lisbet O. Expression (B) Lisbet - Social Cognition P. Social Interaction sup Q. Problem Solving sup R. Memory sup - Endurance Fair - Balance Fair - Safety Awareness Fair CURRENT FUNC. DEFICITS: Transfers Control, Locomotion, Communication, Social Cognition, Endurance, Balance, Safety Awareness, and Self-Care SIGNATURE PANEL: (CDT)
[2018-09-19] MEDS: MELATONIN 3 MG TABLET PO PRN (20:06)
[2018-09-19] MEDS: ATORVASTATIN 40 MG TAB PO SCH (20:06)
[2018-09-19] MEDS: DOCUSATE NA/SENNA CONC 1 TAB PO SCH (20:07)
--- NOTE | 2018-09-20 02:32 | FAST ---
SHIFT START DATE/TIME: 09/19/2018 19:00 (CDT) SHIFT END DATE/TIME: 09/20/2018 07:00 (CDT) NAME JULIÁN JJ DATE OF : 1950 DATE OF ADMISSION: 09/15/2018 18:37 (CDT) PHONE: AGE: 67 N# [id number] GENDER: Male ENCOUNTER PHYSICIAN: Dr. Moises Lebron M.D. ADMISSION DIAGNOSIS: - Stroke 01 - Right Body (Left Brain) (01.2) Left Acute CVA. EATING: Activity did not occur on this shift EATING - SCORE: 0-UNK GROOMING: Activity did not occur on this shift GROOMING - SCORE: 0-UNK BATHING: Activity did not occur on this shift BATHING - SCORE: 0-UNK DRESSING - UPPER BODY: Patient is not dressing in public clothing ARTICLES SCORE Total number of steps: 0 DRESSING - UPPER BODY - SCORE: 0-UNK DRESSING - LOWER BODY: Patient is not dressing in public clothing ARTICLES SCORE Total number of steps: 0 DRESSING - LOWER BODY - SCORE: 0-UNK TOILETING: TOILETING - STEP 1: Does the patient require the assistance of a person or device, or need extra time with toileting? Yes . TOILETING - STEP 2: Does the patient require the assistance of a helper? Yes. TOILETING - STEP 3: How much assistance does the patient require from the helper? Only supervision TOILETING - SCORE: 5-SUP BLADDER MANAGEMENT: BLADDER MANAGEMENT - STEP 1: Does the patient control the bladder completely and intentionally without equipment or devices or med ications, and is always continent? Yes. BLADDER MANAGEMENT - SCORE: 7-IND BOWEL MANAGEMENT: Activity did not occur on this shift BOWEL MANAGEMENT - SCORE: 7-IND TRANSFERS: BED, CHAIR, WHEELCHAIR: TRANSFERS: BED, CHAIR, WHEELCHAIR - STEP 1: Does the patient require assistance of a person or device, or need extra time with bed, chair, or whe elchair transfers? Yes. TRANSFERS: BED, CHAIR, WHEELCHAIR - STEP 2: Does the patient require the assistance of a helper? Yes. TRANSFERS: BED, CHAIR, WHEELCHAIR - STEP 3: How much assistance does the patient require from the helper? Only supervision TRANSFERS: BED, CHAIR, WHEELCHAIR - SCORE: 5-SUP TRANSFERS: TOILET: TRANSFERS: TOILET - STEP 1: Does the patient require the assistance of a person or device, or need extra time with toilet transfe rs? Yes. TRANSFERS: TOILET - STEP 2: Does the patient require the assistance of a helper? Yes. TRANSFERS: TOILET - STEP 3: How much assistance does the patient require from the helper? Only supervision, cuing, coaxing, OR he lp to set out transfer equipment or to lock brakes and/or lift foot rests TRANSFERS: TOILET - SCORE: 5-SUP TRANSFERS: SHOWER: Activity did not occur on this shift TRANSFERS: SHOWER - SCORE: 0-UNK TRANSFERS: TUB: Activity did not occur on this shift TRANSFERS: TUB - SCORE: 0-UNK LOCOMOTION: WALK: Activity did not occur on this shift LOCOMOTION: WALK - SCORE: 0-UNK LOCOMOTION: WHEELCHAIR: Activity did not occur on this shift LOCOMOTION: WHEELCHAIR - SCORE: 0-UNK COMPREHENSION: COMPREHENSION: TYPE: Both COMPREHENSION - STEP 1: Does the patient require help from a person or device, or need extra time to understand complex and a bstract ideas (such as current events, finances, discharge planning, medical issues, relationships, e tc)? No. COMPREHENSION - STEP 2: Does the patient need extra time, require an assistive device (such as glasses for visual comprehensi on or a hearing aid for auditory comprehension) or does s/he have mild difficulty understanding compl ex and abstract information? Yes. COMPREHENSION - SCORE: 6-SIMONA EXPRESSION EXPRESSION: TYPE: Both EXPRESSION - STEP 1: Does the patient require help from a person or device, or need extra time expressing complex and abst ract ideas (such as current events, finances, discharge planning, medical issues, relationships, etc) ? No. EXPRESSION - STEP 2: Does the patient need extra time, require an assistive device (such as augmentive communication syste m or a communication board), OR does s/he have mild difficulty expressing complex and abstract ideas (including mild dysarthria or mild word-find problems)? No. EXPRESSION - SCORE: 7-IND SOCIAL INTERACTION: SOCIAL INTERACTION - STEP 1: Does the patient require a helper to interact with others in social and therapeutic situations? No. SOCIAL INTERACTION - STEP 2: Does the patient need extra time in social situations, OR does s/he interact with staff, other patien ts, and family members ONLY in structured environments, OR does s/he require medication for social in teraction? Yes, patient needs extra time SOCIAL INTERACTION - SCORE: 6-SIMONA PROBLEM SOLVING: PROBLEM SOLVING - STEP 1: Does the patient need help from a person or device, or need extra time to solve complex problems such as managing a checking account or confronting interpersonal problems? No. PROBLEM SOLVING - STEP 2: Does the patient require extra time to make decisions or solve problems, OR does s/he have slight dif ficulty reading, initiating, or self-correcting in unfamiliar situations? Yes, patient needs extra ti me. PROBLEM SOLVING - SCORE: 6-SIMONA MEMORY: MEMORY - STEP 1: Does the patient need help from a person or device, or need extra time to remember frequently encount ered people, daily routines, and executing requests? No. MEMORY - STEP 2: Does the patient have slight difficulty recognizing frequently encountered people, daily routines, or executing requests without the need for repetition or using self-initiated or environmental cues to remember? No. MEMORY - SCORE: 7-IND SIGNATURE PANEL: The following modified sections: Eating - Score, Grooming - Score, Bathing - Score, Dressing - Upper Body - Score, Dressing - Lower Body - Score, Toileting - Score, Bladder Management - Score, Bowel Man agement - Score, Transfers: Bed, Chair, Wheelchair - Score, Transfers: Toilet - Score, Transfers: Siomara wer - Score, Transfers: Tub - Score, Locomotion: Walk - Score, Locomotion: Wheelchair - Score, Compre hension - Score, Expression - Score, Social Interaction - Score, Problem Solving - Score, Memory - Sc ore were [electronically] signed by Mel Moya CNA on WedSep 20 2018 02:31:39 T-0500 ([place] Da ylight Time)
[2018-09-20] MEDS: TRAMADOL HCL 50 MG TAB PO PRN ×3 (02:49→15:48)
[2018-09-20] MEDS: CLOPIDOGREL 75 MG TABLET PO SCH (08:04)
[2018-09-20] MEDS: VENLAFAXINE HCL XR 75 MG CAP PO SCH (08:04)
[2018-09-20] MEDS: LOSARTAN POTASSIUM 50 MG TABLET PO SCH ×2 (08:05→19:54)
[2018-09-20] MEDS: APIXABAN 2.5 MG TABLET PO SCH ×2 (08:05→19:54)
[2018-09-20] MEDS: ASPIRIN EC 81 MG TAB PO SCH (08:05)
[2018-09-20] MEDS: LIDOCAINE 5% PATCH TOP SCH (08:05)
--- NOTE | 2018-09-20 14:02 | FAST ---
SHIFT START DATE/TIME: 09/20/2018 07:00 (CDT) SHIFT END DATE/TIME: 09/20/2018 19:00 (CDT) NAME JULIÁN JJ DATE OF : 1950 DATE OF ADMISSION: 09/15/2018 18:37 (CDT) PHONE: AGE: 67 N# [id number] GENDER: Male ENCOUNTER PHYSICIAN: Dr. Moises Lebron M.D. ADMISSION DIAGNOSIS: - Stroke 01 - Right Body (Left Brain) (01.2) Left Acute CVA. EATING: EATING - STEP 1: Does the patient require the assistance of a person or device, or need extra time when eating? Yes. EATING - STEP 2: Does the patient require the assistance of a helper? No, patient only requires an assistive device, O R s/he takes more than reasonable time to eat, OR there is a safety concern, OR s/he requires modifie d food consistency EATING - SCORE: 6-SIMONA GROOMING: Comb/brush hair Oral care GROOMING - STEP 1: Does the patient require the assistance of a person or device, or need extra time when grooming? No. GROOMING - SCORE: 7-IND BATHING: Activity did not occur on this shift BATHING - SCORE: 0-UNK DRESSING - UPPER BODY: Activity did not occur on this shift ARTICLES SCORE Total number of steps: 0 DRESSING - UPPER BODY - SCORE: 0-UNK DRESSING - LOWER BODY: Activity did not occur on this shift ARTICLES SCORE Total number of steps: 0 DRESSING - LOWER BODY - SCORE: 0-UNK TOILETING: TOILETING - STEP 1: Does the patient require the assistance of a person or device, or need extra time with toileting? Yes . TOILETING - STEP 2: Does the patient require the assistance of a helper? Yes. TOILETING - STEP 3: How much assistance does the patient require from the helper? Only supervision TOILETING - SCORE: 5-SUP BLADDER MANAGEMENT: BLADDER MANAGEMENT - STEP 1: Does the patient control the bladder completely and intentionally without equipment or devices or med ications, and is always continent? No. BLADDER MANAGEMENT - STEP 2: Does the patient require the assistance of a helper? No, patient requires and independently uses an a ssistive device, such as a urinal, bedpan, bedside commode, catheter, absorbent pad, or collecting de vice BLADDER MANAGEMENT - SCORE: 6-SIMONA BOWEL MANAGEMENT: Activity did not occur on this shift BOWEL MANAGEMENT - SCORE: 7-IND TRANSFERS: BED, CHAIR, WHEELCHAIR: TRANSFERS: BED, CHAIR, WHEELCHAIR - STEP 1: Does the patient require assistance of a person or device, or need extra time with bed, chair, or whe elchair transfers? Yes. TRANSFERS: BED, CHAIR, WHEELCHAIR - STEP 2: Does the patient require the assistance of a helper? Yes. TRANSFERS: BED, CHAIR, WHEELCHAIR - STEP 3: How much assistance does the patient require from the helper? Only supervision TRANSFERS: BED, CHAIR, WHEELCHAIR - SCORE: 5-SUP TRANSFERS: TOILET: TRANSFERS: TOILET - STEP 1: Does the patient require the assistance of a person or device, or need extra time with toilet transfe rs? Yes. TRANSFERS: TOILET - STEP 2: Does the patient require the assistance of a helper? Yes. TRANSFERS: TOILET - STEP 3: How much assistance does the patient require from the helper? Only supervision, cuing, coaxing, OR he lp to set out transfer equipment or to lock brakes and/or lift foot rests TRANSFERS: TOILET - SCORE: 5-SUP TRANSFERS: SHOWER: Activity did not occur on this shift TRANSFERS: SHOWER - SCORE: 0-UNK TRANSFERS: TUB: Activity did not occur on this shift TRANSFERS: TUB - SCORE: 0-UNK LOCOMOTION: WALK: Activity did not occur on this shift LOCOMOTION: WALK - SCORE: 0-UNK LOCOMOTION: WHEELCHAIR: Activity did not occur on this shift LOCOMOTION: WHEELCHAIR - SCORE: 0-UNK COMPREHENSION: COMPREHENSION: TYPE: Both COMPREHENSION - STEP 1: Does the patient require help from a person or device, or need extra time to understand complex and a bstract ideas (such as current events, finances, discharge planning, medical issues, relationships, e tc)? Yes. COMPREHENSION - STEP 2: Does the patient require help to understand questions or statements about basic needs or ideas (such as hunger, thirst, sleep, safety, daily schedule, room location, or discomfort) half or more of the t ute? No. COMPREHENSION - STEP 3: How often does the patient need help to understand directions and conversation about basic needs? Les s than 10% of the time COMPREHENSION - SCORE: 5-SUP EXPRESSION EXPRESSION: TYPE: Both EXPRESSION - STEP 1: Does the patient require help from a person or device, or need extra time expressing complex and abst ract ideas (such as current events, finances, discharge planning, medical issues, relationships, etc) ? Yes. EXPRESSION - STEP 2: Does the patient require help to express basic necessities or ideas (such as hunger, thirst, sleep, s afety, daily schedule, room location, or discomfort) half or more of the time? No. EXPRESSION - STEP 3: How often does the patient need help to express directions and conversation about basic needs? Less t gamble 10% of the time EXPRESSION - SCORE: 5-SUP SOCIAL INTERACTION: SOCIAL INTERACTION - STEP 1: Does the patient require a helper to interact with others in social and therapeutic situations? Yes. SOCIAL INTERACTION - STEP 2: Does the patient interact appropriately half or more of the time? Yes. SOCIAL INTERACTION - STEP 3: How often does the patient need help to interact appropriately? Less than 10% of the time SOCIAL INTERACTION - SCORE: 5-SUP PROBLEM SOLVING: PROBLEM SOLVING - STEP 1: Does the patient need help from a person or device, or need extra time to solve complex problems such as managing a checking account or confronting interpersonal problems? Yes. PROBLEM SOLVING - STEP 2: Does the patient solve basic routine problems half or more of the time? Yes. PROBLEM SOLVING - STEP 3: How often does the patient need help to solve basic routine problems? Less than 10% of the time PROBLEM SOLVING - SCORE: 5-SUP MEMORY: MEMORY - STEP 1: Does the patient need help from a person or device, or need extra time to remember frequently encount ered people, daily routines, and executing requests? Yes. MEMORY - STEP 2: How often does the patient need help to remember frequently encountered people, daily routines, and e xecuting requests? Less than 10% of the time MEMORY - SCORE: 5-SUP SIGNATURE PANEL: The following modified sections: Eating - Score, Grooming - Score, Bathing - Score, Dressing - Upper Body - Score, Dressing - Lower Body - Score, Toileting - Score, Bladder Management - Score, Bowel Man agement - Score, Transfers: Bed, Chair, Wheelchair - Score, Transfers: Toilet - Score, Transfers: Siomara wer - Score, Transfers: Tub - Score, Locomotion: Walk - Score, Locomotion: Wheelchair - Score, Compre hension - Score, Expression - Score, Social Interaction - Score, Problem Solving - Score, Memory - Sc ore were [electronically] signed by Gold Barbosa on WedSep 20 2018 14:00:58 GMT-0500 (Central Daylight Time)
[2018-09-20] MEDS ORDERED: FLEET ENEMA ADULT PR PRN (15:28)
[2018-09-20] MEDS ORDERED: BISACODYL 10 MG RECTAL SUPP PR PRN (15:28)
--- NOTE | 2018-09-20 15:34 | FAST ---
ENCOUNTER DATE AND TIME: 09/20/2018 08:00 (CDT) NAME JULIÁN JJ DATE OF : 1950 DATE OF ADMISSION: 09/15/2018 18:37 (CDT) PHONE: AGE: 67 N# [id number] GENDER: Male ENCOUNTER PHYSICIAN: Dr. Moises Lebron M.D. ADMISSION DIAGNOSIS: - Stroke 01 - Right Body (Left Brain) (01.2) Left Acute CVA. EATING: Activity did not occur on this shift EATING - SCORE: 0-UNK GROOMING: Activity did not occur on this shift GROOMING - SCORE: 0-UNK BATHING: Activity did not occur on this shift BATHING - SCORE: 0-UNK DRESSING - UPPER BODY: Activity did not occur on this shift Patient is not dressing in public clothing ARTICLES SCORE Total number of steps: 0 DRESSING - UPPER BODY - SCORE: 0-UNK DRESSING - LOWER BODY: Activity did not occur on this shift Patient is not dressing in public clothing ARTICLES SCORE Total number of steps: 0 DRESSING - LOWER BODY - SCORE: 0-UNK TOILETING: Activity did not occur on this shift TOILETING - SCORE: 0-UNK BLADDER MANAGEMENT: Activity did not occur on this shift BLADDER MANAGEMENT - SCORE: 7-IND BOWEL MANAGEMENT: Activity did not occur on this shift BOWEL MANAGEMENT - SCORE: 7-IND TRANSFERS: BED, CHAIR, WHEELCHAIR: TRANSFERS: BED, CHAIR, WHEELCHAIR - STEP 1: Does the patient require assistance of a person or device, or need extra time with bed, chair, or whe elchair transfers? No. TRANSFERS: BED, CHAIR, WHEELCHAIR - SCORE: 7-IND TRANSFERS: TOILET: Activity did not occur on this shift TRANSFERS: TOILET - SCORE: 0-UNK TRANSFERS: SHOWER: Activity did not occur on this shift TRANSFERS: SHOWER - SCORE: 0-UNK TRANSFERS: TUB: Activity did not occur on this shift TRANSFERS: TUB - SCORE: 0-UNK LOCOMOTION: WALK: LOCOMOTION: WALK - STEP 1: Does the patient need help from a person or device, or need extra time to walk 150 feet? No. LOCOMOTION: WALK - STEP 2: Does the patient need an assistive device (such as an orthosis, prosthesis, crutches, or walker) to g o 150 feet, OR does s/he take more than reasonable time, OR is there a concern for safety? No. LOCOMOTION: WALK - SCORE: 7-IND LOCOMOTION: WHEELCHAIR: Activity did not occur on this shift LOCOMOTION: WHEELCHAIR - SCORE: 0-UNK LOCOMOTION: STAIRS: LOCOMOTION: STAIRS - STEP 1: Does the patient need help to go up and down 12 to 14 stairs? No. LOCOMOTION: STAIRS - STEP 2: Does the patient require an assistive device - such as handrails or cane - to go up and down one flig ht of stairs, OR does s/he take more than reasonable time, OR is there a concern for safety? Yes, the patient requires an assistive device LOCOMOTION: STAIRS - SCORE: 6-SIMONA COMPREHENSION: COMPREHENSION - SCORE: 0-UNK EXPRESSION EXPRESSION - SCORE: 0-UNK SOCIAL INTERACTION: SOCIAL INTERACTION - SCORE: 0-UNK PROBLEM SOLVING: PROBLEM SOLVING - SCORE: 0-UNK MEMORY: MEMORY - SCORE: 0-UNK SIGNATURE PANEL: The following modified sections: Transfers: Bed, Chair, Wheelchair - Score, Transfers: Toilet - Score , Locomotion: Walk - Score, Locomotion: Wheelchair - Score, Locomotion: Stairs - Score were [electron leni] signed by Jeff Garcia PT on WedSep 20 2018 15:34:12 T-0500 (Central Daylight Time)
--- NOTE | 2018-09-20 15:39 | FAST ---
ENCOUNTER DATE AND TIME: 09/19/2018 08:00 (CDT) NAME JULIÁN JJ DATE OF : 1950 DATE OF ADMISSION: 09/15/2018 18:37 (CDT) PHONE: AGE: 67 N# [id number] GENDER: Male ENCOUNTER PHYSICIAN: Dr. Moises Lebron M.D. ADMISSION DIAGNOSIS: - Stroke 01 - Right Body (Left Brain) (01.2) Left Acute CVA. EATING: Activity did not occur on this shift EATING - SCORE: 0-UNK GROOMING: Activity did not occur on this shift GROOMING - SCORE: 0-UNK BATHING: Activity did not occur on this shift BATHING - SCORE: 0-UNK DRESSING - UPPER BODY: Activity did not occur on this shift Patient is not dressing in public clothing ARTICLES SCORE Total number of steps: 0 DRESSING - UPPER BODY - SCORE: 0-UNK DRESSING - LOWER BODY: Activity did not occur on this shift Patient is not dressing in public clothing ARTICLES SCORE Total number of steps: 0 DRESSING - LOWER BODY - SCORE: 0-UNK TOILETING: Activity did not occur on this shift TOILETING - SCORE: 0-UNK BLADDER MANAGEMENT: Activity did not occur on this shift BLADDER MANAGEMENT - SCORE: 7-IND BOWEL MANAGEMENT: Activity did not occur on this shift BOWEL MANAGEMENT - SCORE: 7-IND TRANSFERS: BED, CHAIR, WHEELCHAIR: TRANSFERS: BED, CHAIR, WHEELCHAIR - STEP 1: Does the patient require assistance of a person or device, or need extra time with bed, chair, or whe elchair transfers? Yes. TRANSFERS: BED, CHAIR, WHEELCHAIR - STEP 2: Does the patient require the assistance of a helper? Yes. TRANSFERS: BED, CHAIR, WHEELCHAIR - STEP 3: How much assistance does the patient require from the helper? Only supervision TRANSFERS: BED, CHAIR, WHEELCHAIR - SCORE: 5-SUP TRANSFERS: TOILET: Activity did not occur on this shift TRANSFERS: TOILET - SCORE: 0-UNK TRANSFERS: SHOWER: Activity did not occur on this shift TRANSFERS: SHOWER - SCORE: 0-UNK TRANSFERS: TUB: Activity did not occur on this shift TRANSFERS: TUB - SCORE: 0-UNK LOCOMOTION: WALK: LOCOMOTION: WALK - STEP 1: Does the patient need help from a person or device, or need extra time to walk 150 feet? Yes. LOCOMOTION: WALK - STEP 2: How much assistance does the patient require to walk a minimum of 150 feet? Only supervision, cuing, or coaxing LOCOMOTION: WALK - SCORE: 5-SUP LOCOMOTION: WHEELCHAIR: Activity did not occur on this shift LOCOMOTION: WHEELCHAIR - SCORE: 0-UNK LOCOMOTION: STAIRS: LOCOMOTION: STAIRS - STEP 1: Does the patient need help to go up and down 12 to 14 stairs? Yes. LOCOMOTION: STAIRS - STEP 2: How much assistance does the patient need from the helper to go a minimum of 12 to 14 stairs? Only fry pervision, cuing, or coaxing LOCOMOTION: STAIRS - SCORE: 5-SUP COMPREHENSION: COMPREHENSION - SCORE: 0-UNK EXPRESSION EXPRESSION - SCORE: 0-UNK SOCIAL INTERACTION: SOCIAL INTERACTION - SCORE: 0-UNK PROBLEM SOLVING: PROBLEM SOLVING - SCORE: 0-UNK MEMORY: MEMORY - SCORE: 0-UNK SIGNATURE PANEL: The following modified sections: Transfers: Bed, Chair, Wheelchair - Score, Transfers: Toilet - Score , Locomotion: Walk - Score, Locomotion: Wheelchair - Score, Locomotion: Stairs - Score were [electron leni] signed by Candelario Mack PTA on WedSep 20 2018 15:37:55 GMT-0500 (Central Daylight Time)
[2018-09-20] MEDS: FENOFIBRATE 160 MG TAB PO SCH (16:20)
--- NOTE | 2018-09-20 17:06 | R.PN ---
ENCOUNTER DATE AND TIME: 09/20/2018 17:02 (CDT) NAME JULIÁN JJ DATE OF : 1950 DATE OF ADMISSION: 09/15/2018 18:37 (CDT) Left Acute CVACHIEF COMPLAINT: Right sided weakness after stroke. SUBJECTIVE: Pt denied any Shortness of Breath. Pt denied any depression. Ambulated 400' without an assistive device with modified independence. Up and down 50 steps with fallon fied independence. Patient reports increased urinary frequency up to 4 times daily. CBC with differential is normal. Glu cose 124-143. PSA is normal at 2.55 and Hg A1c is mildly increased to 6.3. VITAL SIGNS Temperature: 97.9 F SBP/DBP: 124/87 Pulse: 69 Resp: 16 MEDICATION ALLERGIES: No Known Drug Allergies (NKDA) ENVIRONMENTAL ALLERGIES: None Known - Substance Allergies None Known - Other Allergies None Known NURSING: - Shower allowing shower - Bladder care per protocol - Skin care per protocol PRECAUTIONS: - Weight Bearing Precaution WBAT right LE ACTIVITIES OOB only with supervision THERAPIES: - Occupational Therapy Evaluate and Treat. Visual Perceptual Training. Cognitive Retraining. - Speech Therapy Cognitive Training. Memory Strategies. Speech Intelligibility Training. Expressive Language Skills. R eceptive Language Skills. - Physical Therapy Evaluate and Treat. PHYSICAL EXAM - Gen Alert and awake Lying in bed No apparent distress Oriented to: person, time, and place - Skin No beakdown No abnormalities - Eyes No abnormalities - Neck No abnormalities - CVS RRR - Chest Clear - Abd +bowel sounds - GI Soft Deferred - No abnormalities - Ext no edema - MSK No focal muscle weakness. - Neuro Expressive aphasia and incoordination. - Psych No abnormalities ASSESSMENT: Pt. is a 67 yo Right-handed white male.On 09/09/2018 Pt. presented to [facility] with sudden onset of right-side weakness.On 09/09/2018 he was admitted to [facility] with diagnosis Left Acute CVA.His impairment category is Stroke 01 - Right Body (Left Brain) (01.2).Pre-morbidly, Pt. was independent/mod-I in Self-Care, Sphincter Control, Transfers Control, L ocomotion, Communication, and Social Cognition; and he had good Sphincter Control.Currently, he has d eficits of Transfers Control, Locomotion, Communication, Social Cognition, Endurance, Balance, Safety Awareness, and Self-Care.Pt. is now referred to [facility] for acute in-patie nt rehabilitation in order to maximize patient's functional independence in activities of daily livin g, strength, ROM, and mobility.- Rehab Goal Patient has realistic goal of being discharged at assistance level 6-Fallon to reside at Home with Fam davie/Relatives. MDM/PLAN: - Physical Therapy Gait dysfunction - to improve, our physical therapists will perform initial evaluation of pt's statu s upon admission and devise an individualized program for Gait Training, and Wheel Chair mobility Inability to transfer - to improve, our physical therapists will perform initial evaluation of pt's status upon admission and devise an individualized program for Bed mobility Need for home safety evaluation - to improve, our physical therapists will perform initial evaluatio n of pt's status upon admission and devise an individualized program for Home Evaluation Need in caregiver upon discharge - to improve, our physical therapists will perform initial evaluati on of pt's status upon admission and devise an individualized program for Caregiver Training New precaution - to improve, our physical therapists will perform initial evaluation of pt's status upon admission and devise an individualized program for Patient precaution education Poor balance - to improve, our physical therapists will perform initial evaluation of pt's status up on admission and devise an individualized program for Balance Training Poor endurance - to improve, our physical therapists will perform initial evaluation of pt's status upon admission and devise an individualized program for Endurance Training Weakness - to improve, our physical therapists will perform initial evaluation of pt's status upon a dmission and devise an individualized program for Aquatic Therapy, Neuromuscular Reeducation, and Str engthening Achieving independence - to improve, our physical therapists will perform initial evaluation of pt's status upon admission and devise an individualized program for Community Reintegration Activities - Occupational Therapy ADL deficits - to improve, our occupation therapists will perform initial evaluation of pt's status upon admission and devise an individualized program for Bathing, Bed mobility, Community Reintegratio n, Cooking, Dressing, Eating, Fine Motor Skills, Grooming, Homemaking, Kitchen Mobility, Laundry, Pat ient Education, Safety Awareness, Splinting - Positioning, Transfers(Toilet, Tub, Shower), and Wheel Chair Management Cognitive deficits - to improve, our occupation therapists will perform initial evaluation of pt's s tatus upon admission and devise an individualized program for Cognition - orientation Need for long term care social worker - to improve, our occupation therapists will perform initial evaluation of pt's status upon admission and devise an individualized program for Caregiver Training Weakness - to improve, our occupation therapists will perform initial evaluation of pt's status upon admission and devise an individualized program for Aquatic Therapy, Balance, Endurance, UE ROM, and UE strengthening - Diet Type Continue Heart Healthy - Diet - Liquid Texture Continue Regular - Tube Feed Continue N/A - Bladder care per protocol - Weight Bearing Precaution WBAT right LE - Skin care per protocol - Diet - Solid Texture Continue Regular - Shower allowing shower for Dementia, TBI, Stroke, or others FUNCTIONAL STATUS: UPDATED AT WEEKLY TEAM CONFERENCE - Bladder Same accident frequency: 7-Ind - No accidents in the past 7 days - Bowel Same accident frequency: 7-Ind - No accidents in the past 7 days - Walking Same score based on distance walked: 3(>=150ft) - Wheelchair Same score based on distance traveled: 0(N/A) FUNCTIONAL STATUS: - Self-Care A. Eating Fallon B. Grooming sup C. Bathing sup D. Dressing - Upper Lisbet E. Dressing - Lower Dep F. Toileting sup - Sphincter Control G: Bladder control Ind H: Bowel control Ind - Transfers Control I. Bed/Chair/Wheelchair sup J. Toilet sup K. Tub/Shower ADNO - Locomotion L. Walk/Wheelchair (C) sup L. Walk/Wheelchair (W) sup M. Stairs sup - Communication N. Comprehension (B) Lisbet O. Expression (B) Lisbet - Social Cognition P. Social Interaction sup Q. Problem Solving sup R. Memory sup - Endurance Fair - Balance Fair - Safety Awareness Fair CURRENT FUNC. DEFICITS: Transfers Control, Locomotion, Communication, Social Cognition, Endurance, Balance, Safety Awareness, and Self-Care SIGNATURE PANEL: (CDT)
[2018-09-20] MEDS: MELATONIN 3 MG TABLET PO PRN (19:53)
[2018-09-20] MEDS: MAGNESIUM OXIDE 400 MG TAB PO SCH (19:54)
[2018-09-20] MEDS: ATORVASTATIN 40 MG TAB PO SCH (19:59)
[2018-09-20] MEDS: DOCUSATE NA/SENNA CONC 1 TAB PO SCH (19:59)
--- NOTE | 2018-09-21 03:26 | FAST ---
SHIFT START DATE/TIME: 09/20/2018 19:00 (CDT) SHIFT END DATE/TIME: 09/21/2018 07:00 (CDT) NAME JULIÁN JJ DATE OF : 1950 DATE OF ADMISSION: 09/15/2018 18:37 (CDT) PHONE: AGE: 67 N# [id number] GENDER: Male ENCOUNTER PHYSICIAN: Dr. Moises Lebron M.D. ADMISSION DIAGNOSIS: - Stroke 01 - Right Body (Left Brain) (01.2) Left Acute CVA. EATING: Activity did not occur on this shift EATING - SCORE: 0-UNK GROOMING: Activity did not occur on this shift GROOMING - SCORE: 0-UNK BATHING: Activity did not occur on this shift BATHING - SCORE: 0-UNK DRESSING - UPPER BODY: Patient is not dressing in public clothing ARTICLES SCORE Total number of steps: 0 DRESSING - UPPER BODY - SCORE: 0-UNK DRESSING - LOWER BODY: Patient is not dressing in public clothing ARTICLES SCORE Total number of steps: 0 DRESSING - LOWER BODY - SCORE: 0-UNK TOILETING: TOILETING - STEP 1: Does the patient require the assistance of a person or device, or need extra time with toileting? Yes . TOILETING - STEP 2: Does the patient require the assistance of a helper? Yes. TOILETING - STEP 3: How much assistance does the patient require from the helper? Only supervision TOILETING - SCORE: 5-SUP BLADDER MANAGEMENT: BLADDER MANAGEMENT - STEP 1: Does the patient control the bladder completely and intentionally without equipment or devices or med ications, and is always continent? Yes. BLADDER MANAGEMENT - SCORE: 7-IND BOWEL MANAGEMENT: Activity did not occur on this shift BOWEL MANAGEMENT - SCORE: 7-IND TRANSFERS: BED, CHAIR, WHEELCHAIR: TRANSFERS: BED, CHAIR, WHEELCHAIR - STEP 1: Does the patient require assistance of a person or device, or need extra time with bed, chair, or whe elchair transfers? Yes. TRANSFERS: BED, CHAIR, WHEELCHAIR - STEP 2: Does the patient require the assistance of a helper? Yes. TRANSFERS: BED, CHAIR, WHEELCHAIR - STEP 3: How much assistance does the patient require from the helper? Only supervision TRANSFERS: BED, CHAIR, WHEELCHAIR - SCORE: 5-SUP TRANSFERS: TOILET: TRANSFERS: TOILET - STEP 1: Does the patient require the assistance of a person or device, or need extra time with toilet transfe rs? Yes. TRANSFERS: TOILET - STEP 2: Does the patient require the assistance of a helper? Yes. TRANSFERS: TOILET - STEP 3: How much assistance does the patient require from the helper? Only supervision, cuing, coaxing, OR he lp to set out transfer equipment or to lock brakes and/or lift foot rests TRANSFERS: TOILET - SCORE: 5-SUP TRANSFERS: SHOWER: Activity did not occur on this shift TRANSFERS: SHOWER - SCORE: 0-UNK TRANSFERS: TUB: Activity did not occur on this shift TRANSFERS: TUB - SCORE: 0-UNK LOCOMOTION: WALK: Activity did not occur on this shift LOCOMOTION: WALK - SCORE: 0-UNK LOCOMOTION: WHEELCHAIR: Activity did not occur on this shift LOCOMOTION: WHEELCHAIR - SCORE: 0-UNK COMPREHENSION: COMPREHENSION: TYPE: Both COMPREHENSION - STEP 1: Does the patient require help from a person or device, or need extra time to understand complex and a bstract ideas (such as current events, finances, discharge planning, medical issues, relationships, e tc)? No. COMPREHENSION - STEP 2: Does the patient need extra time, require an assistive device (such as glasses for visual comprehensi on or a hearing aid for auditory comprehension) or does s/he have mild difficulty understanding compl ex and abstract information? No. COMPREHENSION - SCORE: 7-IND EXPRESSION EXPRESSION: TYPE: Both EXPRESSION - STEP 1: Does the patient require help from a person or device, or need extra time expressing complex and abst ract ideas (such as current events, finances, discharge planning, medical issues, relationships, etc) ? No. EXPRESSION - STEP 2: Does the patient need extra time, require an assistive device (such as augmentive communication syste m or a communication board), OR does s/he have mild difficulty expressing complex and abstract ideas (including mild dysarthria or mild word-find problems)? No. EXPRESSION - SCORE: 7-IND SOCIAL INTERACTION: SOCIAL INTERACTION - STEP 1: Does the patient require a helper to interact with others in social and therapeutic situations? No. SOCIAL INTERACTION - STEP 2: Does the patient need extra time in social situations, OR does s/he interact with staff, other patien ts, and family members ONLY in structured environments, OR does s/he require medication for social in teraction? No. SOCIAL INTERACTION - SCORE: 7-IND PROBLEM SOLVING: PROBLEM SOLVING - STEP 1: Does the patient need help from a person or device, or need extra time to solve complex problems such as managing a checking account or confronting interpersonal problems? No. PROBLEM SOLVING - STEP 2: Does the patient require extra time to make decisions or solve problems, OR does s/he have slight dif ficulty reading, initiating, or self-correcting in unfamiliar situations? No. PROBLEM SOLVING - SCORE: 7-IND MEMORY: MEMORY - STEP 1: Does the patient need help from a person or device, or need extra time to remember frequently encount ered people, daily routines, and executing requests? No. MEMORY - STEP 2: Does the patient have slight difficulty recognizing frequently encountered people, daily routines, or executing requests without the need for repetition or using self-initiated or environmental cues to remember? No. MEMORY - SCORE: 7-IND SIGNATURE PANEL: The following modified sections: Eating - Score, Grooming - Score, Bathing - Score, Dressing - Upper Body - Score, Dressing - Lower Body - Score, Toileting - Score, Bladder Management - Score, Bowel Man agement - Score, Transfers: Bed, Chair, Wheelchair - Score, Transfers: Toilet - Score, Transfers: Siomara wer - Score, Transfers: Tub - Score, Locomotion: Walk - Score, Locomotion: Wheelchair - Score, Compre hension - Score, Expression - Score, Social Interaction - Score, Problem Solving - Score, Memory - Sc ore were [electronically] signed by Mel Moya CNA on WedSep 21 2018 03:25:41 T-0500 ([place] Da ylight Time)
[2018-09-21] MEDS: LIDOCAINE 5% PATCH TOP SCH (08:35)
[2018-09-21] MEDS: CLOPIDOGREL 75 MG TABLET PO SCH (08:36)
[2018-09-21] MEDS: ASPIRIN EC 81 MG TAB PO SCH (08:36)
[2018-09-21] MEDS: MAGNESIUM OXIDE 400 MG TAB PO SCH ×2 (08:36→19:31)
[2018-09-21] MEDS: LOSARTAN POTASSIUM 50 MG TABLET PO SCH ×2 (08:36→19:31)
[2018-09-21] MEDS: VENLAFAXINE HCL XR 75 MG CAP PO SCH (08:36)
[2018-09-21] MEDS: APIXABAN 2.5 MG TABLET PO SCH ×2 (08:36→19:32)
[2018-09-21] MEDS: TRAMADOL HCL 50 MG TAB PO PRN ×2 (08:40→19:32)
--- NOTE | 2018-09-21 11:56 | FAST ---
ENCOUNTER DATE AND TIME: 09/21/2018 08:00 (CDT) NAME JULIÁN JJ DATE OF : 1950 DATE OF ADMISSION: 09/15/2018 18:37 (CDT) PHONE: AGE: 67 SSN# [id number] GENDER: Male ENCOUNTER PHYSICIAN: Dr. Moises Lebron M.D. ADMISSION DIAGNOSIS: - Stroke 01 - Right Body (Left Brain) (01.2) Left Acute CVA. EATING: Activity did not occur on this shift EATING - SCORE: 0-UNK GROOMING: Comb/brush hair Oral care Wash, rinse, and dry hands GROOMING - STEP 1: Does the patient require the assistance of a person or device, or need extra time when grooming? No. GROOMING - SCORE: 7-IND BATHING: Abdomen Buttocks Chest Left arm Left lower leg and foot Left upper leg Perineal area Right lower leg and foot Right upper leg BATHING - STEP 1: Does the patient require the assistance of a person or device, or need extra time when bathing? Yes. BATHING - STEP 2: Does the patient require the assistance of a helper? No. The patient only requires an assistive devic e such as a bath edward, OR the patient takes more than reasonable time to bathe, OR there is a concern for safety such as regulating water temperature as the patient bathes. BATHING - SCORE: 6-SIMONA DRESSING - UPPER BODY: T-shirt/pullover shirt (four steps) ARTICLES SCORE Total number of steps: 4 DRESSING - UPPER BODY - STEP 1: Does the patient require help from a person or device, or need extra time when dressing above the gina st? No. DRESSING - UPPER BODY - SCORE: 7-IND DRESSING - LOWER BODY: Elastic waist pants (three steps) Tied or buckled shoe - Left foot (two steps) Tied or buckled shoe - Right foot (two steps) ARTICLES SCORE Total number of steps: 7 DRESSING - LOWER BODY - STEP 1: Does the patient require help from a person or device, or need extra time when dressing below the gina st? Yes. DRESSING - LOWER BODY - STEP 2: Does the patient require the assistance of a helper? No. Patient requires an assistive device such as a track oiler. OR s/he takes more than reasonable time as s/he dresses the lower body, OR there is a con cern for safety when s/he dresses the lower body DRESSING - LOWER BODY - SCORE: 6-SIMONA TOILETING: Activity did not occur on this shift TOILETING - SCORE: 0-UNK BLADDER MANAGEMENT: Activity did not occur on this shift BLADDER MANAGEMENT - SCORE: 7-IND BOWEL MANAGEMENT: Activity did not occur on this shift BOWEL MANAGEMENT - SCORE: 7-IND TRANSFERS: BED, CHAIR, WHEELCHAIR: TRANSFERS: BED, CHAIR, WHEELCHAIR - STEP 1: Does the patient require assistance of a person or device, or need extra time with bed, chair, or whe elchair transfers? Yes. TRANSFERS: BED, CHAIR, WHEELCHAIR - STEP 2: Does the patient require the assistance of a helper? No. Patient only requires an assistive device fo r bed, chair, wheelchair transfers such as a sliding board, grab bar, or brace, OR s/he takes more th an reasonable time, OR there is a safety concern when s/he performs the transfers TRANSFERS: BED, CHAIR, WHEELCHAIR - SCORE: 6-SIMONA TRANSFERS: TOILET: Activity did not occur on this shift TRANSFERS: TOILET - SCORE: 0-UNK TRANSFERS: SHOWER: Activity did not occur on this shift TRANSFERS: SHOWER - SCORE: 0-UNK TRANSFERS: TUB: TRANSFERS: TUB - STEP 1: Does the patient require the assistance of a person or device, or need extra time with tub transfers? Yes. TRANSFERS: TUB - STEP 2: Does the patient require the assistance of a helper? No. Only requires the assistance of an assistive device, OR takes more than reasonable time, OR there is a concern for safety when s/he performs tub transfers TRANSFERS: TUB - SCORE: 6-SIMONA LOCOMOTION: WALK: Activity did not occur on this shift LOCOMOTION: WALK - SCORE: 0-UNK LOCOMOTION: WHEELCHAIR: Activity did not occur on this shift LOCOMOTION: WHEELCHAIR - SCORE: 0-UNK LOCOMOTION: STAIRS: Activity did not occur on this shift LOCOMOTION: STAIRS - SCORE: 0-UNK COMPREHENSION: COMPREHENSION: TYPE: Both COMPREHENSION - STEP 1: Does the patient require help from a person or device, or need extra time to understand complex and a bstract ideas (such as current events, finances, discharge planning, medical issues, relationships, e tc)? Yes. COMPREHENSION - STEP 2: Does the patient require help to understand questions or statements about basic needs or ideas (such as hunger, thirst, sleep, safety, daily schedule, room location, or discomfort) half or more of the t ute? No. COMPREHENSION - STEP 3: How often does the patient need help to understand directions and conversation about basic needs? 25% - 49% of the time COMPREHENSION - SCORE: 3-MOD EXPRESSION EXPRESSION: TYPE: Both EXPRESSION - STEP 1: Does the patient require help from a person or device, or need extra time expressing complex and abst ract ideas (such as current events, finances, discharge planning, medical issues, relationships, etc) ? Yes. EXPRESSION - STEP 2: Does the patient require help to express basic necessities or ideas (such as hunger, thirst, sleep, s afety, daily schedule, room location, or discomfort) half or more of the time? No. EXPRESSION - STEP 3: How often does the patient need help to express directions and conversation about basic needs? 25-49% of the time EXPRESSION - SCORE: 3-MOD SOCIAL INTERACTION: SOCIAL INTERACTION - STEP 1: Does the patient require a helper to interact with others in social and therapeutic situations? No. SOCIAL INTERACTION - STEP 2: Does the patient need extra time in social situations, OR does s/he interact with staff, other patien ts, and family members ONLY in structured environments, OR does s/he require medication for social in teraction? Yes, patient needs extra time SOCIAL INTERACTION - SCORE: 6-SIMONA PROBLEM SOLVING: PROBLEM SOLVING - STEP 1: Does the patient need help from a person or device, or need extra time to solve complex problems such as managing a checking account or confronting interpersonal problems? Yes. PROBLEM SOLVING - STEP 2: Does the patient solve basic routine problems half or more of the time? No. PROBLEM SOLVING - STEP 3: Does the patient need help to solve problems all the time or is s/he unable to solve problems? No. Pa laurent can sometimes solve problems PROBLEM SOLVING - SCORE: 2-MAX MEMORY: MEMORY - STEP 1: Does the patient need help from a person or device, or need extra time to remember frequently encount ered people, daily routines, and executing requests? Yes. MEMORY - STEP 2: How often does the patient need help to remember frequently encountered people, daily routines, and e xecuting requests? 10% - 24% of the time MEMORY - SCORE: 4-MIN SIGNATURE PANEL: The following modified sections: Eating - Score, Grooming - Score, Bathing - Score, Dressing - Upper Body - Score, Dressing - Lower Body - Score, Toileting - Score, Transfers: Bed, Chair, Wheelchair - S core, Transfers: Toilet - Score, Transfers: Shower - Score, Transfers: Tub - Score, Comprehension - S core, Expression - Score, Social Interaction - Score, Problem Solving - Score, Memory - Score were [e lectronically] signed by Mulu Mcdonald OT on WedSep 21 2018 11:55:51 T-0500 ([place] Da ylight Time)
--- NOTE | 2018-09-21 13:57 | FAST ---
SHIFT START DATE/TIME: 09/21/2018 07:00 (CDT) SHIFT END DATE/TIME: 09/21/2018 19:00 (CDT) NAME UJLIÁN JJ DATE OF : 1950 DATE OF ADMISSION: 09/15/2018 18:37 (CDT) PHONE: AGE: 67 N# [id number] GENDER: Male ENCOUNTER PHYSICIAN: Dr. Moises Lebron M.D. ADMISSION DIAGNOSIS: - Stroke 01 - Right Body (Left Brain) (01.2) Left Acute CVA. EATING: EATING - STEP 1: Does the patient require the assistance of a person or device, or need extra time when eating? Yes. EATING - STEP 2: Does the patient require the assistance of a helper? No, patient only requires an assistive device, O R s/he takes more than reasonable time to eat, OR there is a safety concern, OR s/he requires modifie d food consistency EATING - SCORE: 6-SIMONA GROOMING: Comb/brush hair Wash, rinse, and dry face Wash, rinse, and dry hands GROOMING - STEP 1: Does the patient require the assistance of a person or device, or need extra time when grooming? No. GROOMING - SCORE: 7-IND BATHING: Activity did not occur on this shift BATHING - SCORE: 0-UNK DRESSING - UPPER BODY: Activity did not occur on this shift ARTICLES SCORE Total number of steps: 0 DRESSING - UPPER BODY - SCORE: 0-UNK DRESSING - LOWER BODY: Activity did not occur on this shift ARTICLES SCORE Total number of steps: 0 DRESSING - LOWER BODY - SCORE: 0-UNK TOILETING: TOILETING - STEP 1: Does the patient require the assistance of a person or device, or need extra time with toileting? Yes . TOILETING - STEP 2: Does the patient require the assistance of a helper? No. TOILETING - SCORE: 6-SIMONA BLADDER MANAGEMENT: BLADDER MANAGEMENT - STEP 1: Does the patient control the bladder completely and intentionally without equipment or devices or med ications, and is always continent? Yes. BLADDER MANAGEMENT - SCORE: 7-IND BLADDER MANAGEMENT - FREQUENCY OF ACCIDENTS: BLADDER MANAGEMENT(FA) - STEP 1: How many accidents has the patient had during the current shift? 0 BOWEL MANAGEMENT: Activity did not occur on this shift BOWEL MANAGEMENT - SCORE: 7-IND BOWEL MANAGEMENT - FREQUENCY OF ACCIDENTS: BOWEL MANAGEMENT(FA) - STEP 1: How many accidents has the patient had during the current shift? 0 TRANSFERS: BED, CHAIR, WHEELCHAIR: TRANSFERS: BED, CHAIR, WHEELCHAIR - STEP 1: Does the patient require assistance of a person or device, or need extra time with bed, chair, or whe elchair transfers? No. TRANSFERS: BED, CHAIR, WHEELCHAIR - SCORE: 7-IND TRANSFERS: TOILET: TRANSFERS: TOILET - STEP 1: Does the patient require the assistance of a person or device, or need extra time with toilet transfe rs? Yes. TRANSFERS: TOILET - STEP 2: Does the patient require the assistance of a helper? No. Patient only requires an assistive device fry ch as a grab bar or special seat, OR s/he takes more than reasonable time to perform toilet transfers , OR there is a safety concern when s/he performs toilet transfers. TRANSFERS: TOILET - SCORE: 6-SIMONA TRANSFERS: SHOWER: Activity did not occur on this shift TRANSFERS: SHOWER - SCORE: 0-UNK TRANSFERS: TUB: Activity did not occur on this shift TRANSFERS: TUB - SCORE: 0-UNK LOCOMOTION: WALK: LOCOMOTION: WALK - STEP 1: Does the patient need help from a person or device, or need extra time to walk 150 feet? Yes. LOCOMOTION: WALK - STEP 2: How much assistance does the patient require to walk a minimum of 150 feet? Only supervision, cuing, or coaxing LOCOMOTION: WALK - SCORE: 5-SUP LOCOMOTION: WHEELCHAIR: Activity did not occur on this shift LOCOMOTION: WHEELCHAIR - SCORE: 0-UNK COMPREHENSION: COMPREHENSION: TYPE: Both COMPREHENSION - STEP 1: Does the patient require help from a person or device, or need extra time to understand complex and a bstract ideas (such as current events, finances, discharge planning, medical issues, relationships, e tc)? Yes. COMPREHENSION - STEP 2: Does the patient require help to understand questions or statements about basic needs or ideas (such as hunger, thirst, sleep, safety, daily schedule, room location, or discomfort) half or more of the t ute? No. COMPREHENSION - STEP 3: How often does the patient need help to understand directions and conversation about basic needs? Les s than 10% of the time COMPREHENSION - SCORE: 5-SUP EXPRESSION EXPRESSION: TYPE: Both EXPRESSION - STEP 1: Does the patient require help from a person or device, or need extra time expressing complex and abst ract ideas (such as current events, finances, discharge planning, medical issues, relationships, etc) ? Yes. EXPRESSION - STEP 2: Does the patient require help to express basic necessities or ideas (such as hunger, thirst, sleep, s afety, daily schedule, room location, or discomfort) half or more of the time? No. EXPRESSION - STEP 3: How often does the patient need help to express directions and conversation about basic needs? Less t gamble 10% of the time EXPRESSION - SCORE: 5-SUP SOCIAL INTERACTION: SOCIAL INTERACTION - STEP 1: Does the patient require a helper to interact with others in social and therapeutic situations? No. SOCIAL INTERACTION - STEP 2: Does the patient need extra time in social situations, OR does s/he interact with staff, other patien ts, and family members ONLY in structured environments, OR does s/he require medication for social in teraction? Yes, patient needs extra time SOCIAL INTERACTION - SCORE: 6-SIMONA PROBLEM SOLVING: PROBLEM SOLVING - STEP 1: Does the patient need help from a person or device, or need extra time to solve complex problems such as managing a checking account or confronting interpersonal problems? Yes. PROBLEM SOLVING - STEP 2: Does the patient solve basic routine problems half or more of the time? Yes. PROBLEM SOLVING - STEP 3: How often does the patient need help to solve basic routine problems? Less than 10% of the time PROBLEM SOLVING - SCORE: 5-SUP MEMORY: MEMORY - STEP 1: Does the patient need help from a person or device, or need extra time to remember frequently encount ered people, daily routines, and executing requests? Yes. MEMORY - STEP 2: How often does the patient need help to remember frequently encountered people, daily routines, and e xecuting requests? Less than 10% of the time MEMORY - SCORE: 5-SUP SIGNATURE PANEL: The following modified sections: Eating - Score, Grooming - Score, Bathing - Score, Dressing - Upper Body - Score, Dressing - Lower Body - Score, Toileting - Score, Bladder Management - Score, Bowel Man agement - Score, Transfers: Bed, Chair, Wheelchair - Score, Transfers: Toilet - Score, Transfers: Siomara wer - Score, Transfers: Tub - Score, Locomotion: Walk - Score, Locomotion: Wheelchair - Score, Compre hension - Score, Expression - Score, Social Interaction - Score, Problem Solving - Score, Memory - Sc ore were [electronically] signed by Lavonen Lucas C.N.A. on WedSep 21 2018 13:56:08 T-0500 (Centra l Daylight Time)
[2018-09-21] MEDS: FENOFIBRATE 160 MG TAB PO SCH (16:15)
--- NOTE | 2018-09-21 17:24 | FAST ---
ENCOUNTER DATE AND TIME: 09/21/2018 08:00 (CDT) NAME JULIÁN JJ DATE OF : 1950 DATE OF ADMISSION: 09/15/2018 18:37 (CDT) PHONE: AGE: 67 SSN# [id number] GENDER: Male ENCOUNTER PHYSICIAN: Dr. Moises Lebron M.D. ADMISSION DIAGNOSIS: - Stroke 01 - Right Body (Left Brain) (01.2) Left Acute CVA. EATING: Activity did not occur on this shift EATING - SCORE: 0-UNK GROOMING: Activity did not occur on this shift GROOMING - SCORE: 0-UNK BATHING: Activity did not occur on this shift BATHING - SCORE: 0-UNK DRESSING - UPPER BODY: Activity did not occur on this shift Patient is not dressing in public clothing ARTICLES SCORE Total number of steps: 0 DRESSING - UPPER BODY - SCORE: 0-UNK DRESSING - LOWER BODY: Activity did not occur on this shift Patient is not dressing in public clothing ARTICLES SCORE Total number of steps: 0 DRESSING - LOWER BODY - SCORE: 0-UNK TOILETING: Activity did not occur on this shift TOILETING - SCORE: 0-UNK BLADDER MANAGEMENT: Activity did not occur on this shift BLADDER MANAGEMENT - SCORE: 7-IND BOWEL MANAGEMENT: Activity did not occur on this shift BOWEL MANAGEMENT - SCORE: 7-IND TRANSFERS: BED, CHAIR, WHEELCHAIR: TRANSFERS: BED, CHAIR, WHEELCHAIR - STEP 1: Does the patient require assistance of a person or device, or need extra time with bed, chair, or whe elchair transfers? No. TRANSFERS: BED, CHAIR, WHEELCHAIR - SCORE: 7-IND TRANSFERS: TOILET: TRANSFERS: TOILET - STEP 1: Does the patient require the assistance of a person or device, or need extra time with toilet transfe rs? No. TRANSFERS: TOILET - SCORE: 7-IND TRANSFERS: SHOWER: Activity did not occur on this shift TRANSFERS: SHOWER - SCORE: 0-UNK TRANSFERS: TUB: Activity did not occur on this shift TRANSFERS: TUB - SCORE: 0-UNK LOCOMOTION: WALK: LOCOMOTION: WALK - STEP 1: Does the patient need help from a person or device, or need extra time to walk 150 feet? No. LOCOMOTION: WALK - STEP 2: Does the patient need an assistive device (such as an orthosis, prosthesis, crutches, or walker) to g o 150 feet, OR does s/he take more than reasonable time, OR is there a concern for safety? No. LOCOMOTION: WALK - SCORE: 7-IND LOCOMOTION: WHEELCHAIR: Activity did not occur on this shift LOCOMOTION: WHEELCHAIR - SCORE: 0-UNK LOCOMOTION: STAIRS: LOCOMOTION: STAIRS - STEP 1: Does the patient need help to go up and down 12 to 14 stairs? No. LOCOMOTION: STAIRS - STEP 2: Does the patient require an assistive device - such as handrails or cane - to go up and down one flig ht of stairs, OR does s/he take more than reasonable time, OR is there a concern for safety? Yes, the patient requires an assistive device LOCOMOTION: STAIRS - SCORE: 6-SIMONA COMPREHENSION: COMPREHENSION - SCORE: 0-UNK EXPRESSION EXPRESSION - SCORE: 0-UNK SOCIAL INTERACTION: SOCIAL INTERACTION - SCORE: 0-UNK PROBLEM SOLVING: PROBLEM SOLVING - SCORE: 0-UNK MEMORY: MEMORY - SCORE: 0-UNK SIGNATURE PANEL: The following modified sections: Transfers: Bed, Chair, Wheelchair - Score, Transfers: Toilet - Score , Locomotion: Walk - Score, Locomotion: Wheelchair - Score, Locomotion: Stairs - Score were [electron leni] signed by Jeff Garcia PT on WedSep 21 2018 17:22:59 T-0500 (Central Daylight Time)
--- NOTE | 2018-09-21 17:39 | R.PN ---
ENCOUNTER DATE AND TIME: 09/21/2018 17:36 (CDT) NAME JULIÁN JJ DATE OF : 1950 DATE OF ADMISSION: 09/15/2018 18:37 (CDT) Left Acute CVACHIEF COMPLAINT: Right sided weakness after stroke. SUBJECTIVE: Pt denied any Shortness of Breath. Pt denied any depression. Ambulated 1250' without an assistive device with modified independence. Up and down 25 steps with mod ified independence. Patient reports increased urinary frequency up to 4 times daily. CBC with differential is normal. Glu cose 124-143. PSA is normal at 2.55 and Hg A1c is mildly increased to 6.3. VITAL SIGNS Temperature: 97.4 F SBP/DBP: 158-173/82-91 Pulse: 69 Resp: 16 MEDICATION ALLERGIES: No Known Drug Allergies (NKDA) ENVIRONMENTAL ALLERGIES: None Known - Substance Allergies None Known - Other Allergies None Known NURSING: - Shower allowing shower - Bladder care per protocol - Skin care per protocol PRECAUTIONS: - Weight Bearing Precaution WBAT right LE ACTIVITIES OOB only with supervision THERAPIES: - Occupational Therapy Evaluate and Treat. Visual Perceptual Training. Cognitive Retraining. - Speech Therapy Cognitive Training. Memory Strategies. Speech Intelligibility Training. Expressive Language Skills. R eceptive Language Skills. - Physical Therapy Evaluate and Treat. PHYSICAL EXAM - Gen Alert and awake Lying in bed No apparent distress Oriented to: person, time, and place - Skin No beakdown No abnormalities - Eyes No abnormalities - Neck No abnormalities - CVS RRR - Chest Clear - Abd +bowel sounds - GI Soft Deferred - No abnormalities - Ext no edema - MSK No focal muscle weakness. - Neuro Expressive aphasia and incoordination. - Psych No abnormalities ASSESSMENT: Pt. is a 67 yo Right-handed white male.On 09/09/2018 Pt. presented to [facility] with sudden onset of right-side weakness.On 09/09/2018 [facility] diagnosis Left Acute CVA.His impairment category is Stroke 01 - Right Body (Left Brain) (01.2).Pre-morbidly, Pt. was independent/mod-I in Self-Care, Sphincter Control, Transfers Control, L ocomotion, Communication, and Social Cognition; and he had good Sphincter Control.Currently, he has d eficits of Transfers Control, Locomotion, Communication, Social Cognition, Endurance, Balance, Safety Awareness, and Self-Care.Pt. is now referred to [facility] for acute in-patie nt rehabilitation in order to maximize patient's functional independence in activities of daily livin g, strength, ROM, and mobility.- Rehab Goal Patient has realistic goal of being discharged at assistance level 6-Delmer to reside at Home with Fam davie/Relatives. MDM/PLAN: - Physical Therapy Gait dysfunction - to improve, our physical therapists will perform initial evaluation of pt's statu s upon admission and devise an individualized program for Gait Training, and Wheel Chair mobility Inability to transfer - to improve, our physical therapists will perform initial evaluation of pt's status upon admission and devise an individualized program for Bed mobility Need for home safety evaluation - to improve, our physical therapists will perform initial evaluatio n of pt's status upon admission and devise an individualized program for Home Evaluation Need in caregiver upon discharge - to improve, our physical therapists will perform initial evaluati on of pt's status upon admission and devise an individualized program for Caregiver Training New precaution - to improve, our physical therapists will perform initial evaluation of pt's status upon admission and devise an individualized program for Patient precaution education Poor balance - to improve, our physical therapists will perform initial evaluation of pt's status up on admission and devise an individualized program for Balance Training Poor endurance - to improve, our physical therapists will perform initial evaluation of pt's status upon admission and devise an individualized program for Endurance Training Weakness - to improve, our physical therapists will perform initial evaluation of pt's status upon a dmission and devise an individualized program for Aquatic Therapy, Neuromuscular Reeducation, and Str engthening Achieving independence - to improve, our physical therapists will perform initial evaluation of pt's status upon admission and devise an individualized program for Community Reintegration Activities - Occupational Therapy ADL deficits - to improve, our occupation therapists will perform initial evaluation of pt's status upon admission and devise an individualized program for Bathing, Bed mobility, Community Reintegratio n, Cooking, Dressing, Eating, Fine Motor Skills, Grooming, Homemaking, Kitchen Mobility, Laundry, Pat ient Education, Safety Awareness, Splinting - Positioning, Transfers(Toilet, Tub, Shower), and Wheel Chair Management Cognitive deficits - to improve, our occupation therapists will perform initial evaluation of pt's s tatus upon admission and devise an individualized program for Cognition - orientation Need for healthcare management - to improve, our occupation therapists will perform initial evaluation of pt's status upon admission and devise an individualized program for Caregiver Training Weakness - to improve, our occupation therapists will perform initial evaluation of pt's status upon admission and devise an individualized program for Aquatic Therapy, Balance, Endurance, UE ROM, and UE strengthening - Diet Type Continue Heart Healthy - Diet - Liquid Texture Continue Regular - Tube Feed Continue N/A - Bladder care per protocol - Weight Bearing Precaution WBAT right LE - Skin care per protocol - Diet - Solid Texture Continue Regular - Shower allowing shower for Dementia, TBI, Stroke, or others FUNCTIONAL STATUS: UPDATED AT WEEKLY TEAM CONFERENCE - Bladder Same accident frequency: 7-Ind - No accidents in the past 7 days - Bowel Same accident frequency: 7-Ind - No accidents in the past 7 days - Walking Same score based on distance walked: 3(>=150ft) - Wheelchair Same score based on distance traveled: 0(N/A) FUNCTIONAL STATUS: - Self-Care A. Eating Delmer B. Grooming sup C. Bathing sup D. Dressing - Upper Lisbet E. Dressing - Lower Dep F. Toileting sup - Sphincter Control G: Bladder control Ind H: Bowel control Ind - Transfers Control I. Bed/Chair/Wheelchair sup J. Toilet sup K. Tub/Shower ADNO - Locomotion L. Walk/Wheelchair (C) sup L. Walk/Wheelchair (W) sup M. Stairs sup - Communication N. Comprehension (B) Lisbet O. Expression (B) Lisbet - Social Cognition P. Social Interaction sup Q. Problem Solving sup R. Memory sup - Endurance Fair - Balance Fair - Safety Awareness Fair CURRENT FUNC. DEFICITS: Transfers Control, Locomotion, Communication, Social Cognition, Endurance, Balance, Safety Awareness, and Self-Care SIGNATURE PANEL: (CDT)
[2018-09-21] MEDS: MELATONIN 3 MG TABLET PO PRN (19:32)
[2018-09-21] MEDS: ATORVASTATIN 40 MG TAB PO SCH (19:32)
[2018-09-21] MEDS: DOCUSATE NA/SENNA CONC 1 TAB PO SCH (19:33)
[2018-09-21] MEDS: cloNIDine HCl 0.1 MG TAB PO PRN (20:44)
--- NOTE | 2018-09-22 01:07 | FAST ---
SHIFT START DATE/TIME: 09/21/2018 19:00 (CDT) SHIFT END DATE/TIME: 09/22/2018 07:00 (CDT) NAME JULIÁN JJ DATE OF : 1950 DATE OF ADMISSION: 09/15/2018 18:37 (CDT) PHONE: AGE: 67 N# [id number] GENDER: Male ENCOUNTER PHYSICIAN: Dr. Moises Lebron M.D. ADMISSION DIAGNOSIS: - Stroke 01 - Right Body (Left Brain) (01.2) Left Acute CVA. EATING: Activity did not occur on this shift EATING - SCORE: 0-UNK GROOMING: Oral care Wash, rinse, and dry hands GROOMING - STEP 1: Does the patient require the assistance of a person or device, or need extra time when grooming? Yes. GROOMING - STEP 2: Does the patient require the assistance of a helper? No. The patient only requires an assistive devic e, OR takes more than reasonable time to groom, OR there is a concern for safety as the patient groom s GROOMING - SCORE: 6-SIMONA BATHING: Activity did not occur on this shift BATHING - SCORE: 0-UNK DRESSING - UPPER BODY: Patient is not dressing in public clothing ARTICLES SCORE Total number of steps: 0 DRESSING - UPPER BODY - SCORE: 0-UNK DRESSING - LOWER BODY: Patient is not dressing in public clothing ARTICLES SCORE Total number of steps: 0 DRESSING - LOWER BODY - SCORE: 0-UNK TOILETING: TOILETING - STEP 1: Does the patient require the assistance of a person or device, or need extra time with toileting? Yes . TOILETING - STEP 2: Does the patient require the assistance of a helper? No. TOILETING - SCORE: 6-SIMONA BLADDER MANAGEMENT: BLADDER MANAGEMENT - STEP 1: Does the patient control the bladder completely and intentionally without equipment or devices or med ications, and is always continent? Yes. BLADDER MANAGEMENT - SCORE: 7-IND BOWEL MANAGEMENT: BOWEL MANAGEMENT - STEP 1: Does the patient control bowels completely and intentionally without equipment devices or medications AND is always continent? No. BOWEL MANAGEMENT - STEP 2: Does the patient require the assistance of a helper? No, patient requires medication for control such as stool softeners, suppositories, laxatives, enemas, or OTC medications BOWEL MANAGEMENT - SCORE: 6-SIMONA TRANSFERS: BED, CHAIR, WHEELCHAIR: TRANSFERS: BED, CHAIR, WHEELCHAIR - STEP 1: Does the patient require assistance of a person or device, or need extra time with bed, chair, or whe elchair transfers? Yes. TRANSFERS: BED, CHAIR, WHEELCHAIR - STEP 2: Does the patient require the assistance of a helper? No. Patient only requires an assistive device fo r bed, chair, wheelchair transfers such as a sliding board, grab bar, or brace, OR s/he takes more th an reasonable time, OR there is a safety concern when s/he performs the transfers TRANSFERS: BED, CHAIR, WHEELCHAIR - SCORE: 6-SIMONA TRANSFERS: TOILET: TRANSFERS: TOILET - STEP 1: Does the patient require the assistance of a person or device, or need extra time with toilet transfe rs? Yes. TRANSFERS: TOILET - STEP 2: Does the patient require the assistance of a helper? No. Patient only requires an assistive device fry ch as a grab bar or special seat, OR s/he takes more than reasonable time to perform toilet transfers , OR there is a safety concern when s/he performs toilet transfers. TRANSFERS: TOILET - SCORE: 6-SIMONA TRANSFERS: SHOWER: Activity did not occur on this shift TRANSFERS: SHOWER - SCORE: 0-UNK TRANSFERS: TUB: Activity did not occur on this shift TRANSFERS: TUB - SCORE: 0-UNK LOCOMOTION: WALK: Activity did not occur on this shift LOCOMOTION: WALK - SCORE: 0-UNK LOCOMOTION: WHEELCHAIR: Activity did not occur on this shift LOCOMOTION: WHEELCHAIR - SCORE: 0-UNK COMPREHENSION: COMPREHENSION: TYPE: Both COMPREHENSION - STEP 1: Does the patient require help from a person or device, or need extra time to understand complex and a bstract ideas (such as current events, finances, discharge planning, medical issues, relationships, e tc)? No. COMPREHENSION - STEP 2: Does the patient need extra time, require an assistive device (such as glasses for visual comprehensi on or a hearing aid for auditory comprehension) or does s/he have mild difficulty understanding compl ex and abstract information? Yes. COMPREHENSION - SCORE: 6-SIMONA EXPRESSION EXPRESSION: TYPE: Both EXPRESSION - STEP 1: Does the patient require help from a person or device, or need extra time expressing complex and abst ract ideas (such as current events, finances, discharge planning, medical issues, relationships, etc) ? No. EXPRESSION - STEP 2: Does the patient need extra time, require an assistive device (such as augmentive communication syste m or a communication board), OR does s/he have mild difficulty expressing complex and abstract ideas (including mild dysarthria or mild word-find problems)? Yes. EXPRESSION - SCORE: 6-SIMONA SOCIAL INTERACTION: SOCIAL INTERACTION - STEP 1: Does the patient require a helper to interact with others in social and therapeutic situations? No. SOCIAL INTERACTION - STEP 2: Does the patient need extra time in social situations, OR does s/he interact with staff, other patien ts, and family members ONLY in structured environments, OR does s/he require medication for social in teraction? Yes, patient requires medication for social interaction SOCIAL INTERACTION - SCORE: 6-SIMONA PROBLEM SOLVING: PROBLEM SOLVING - STEP 1: Does the patient need help from a person or device, or need extra time to solve complex problems such as managing a checking account or confronting interpersonal problems? No. PROBLEM SOLVING - STEP 2: Does the patient require extra time to make decisions or solve problems, OR does s/he have slight dif ficulty reading, initiating, or self-correcting in unfamiliar situations? Yes, patient needs extra ti me. PROBLEM SOLVING - SCORE: 6-SIMONA MEMORY: MEMORY - STEP 1: Does the patient need help from a person or device, or need extra time to remember frequently encount ered people, daily routines, and executing requests? No. MEMORY - STEP 2: Does the patient have slight difficulty recognizing frequently encountered people, daily routines, or executing requests without the need for repetition or using self-initiated or environmental cues to remember? Yes. MEMORY - SCORE: 6-SIMONA SIGNATURE PANEL: The following modified sections: Eating - Score, Grooming - Score, Dressing - Upper Body - Score, Kiran ssing - Lower Body - Score, Toileting - Score, Bladder Management - Score, Bowel Management - Score, Transfers: Bed, Chair, Wheelchair - Score, Transfers: Toilet - Score, Transfers: Shower - Score, Sethi sfers: Tub - Score, Locomotion: Walk - Score, Locomotion: Wheelchair - Score, Comprehension - Score, Expression - Score, Social Interaction - Score, Problem Solving - Score, Memory - Score were [electro nically] signed by Lisa Marks CNA on WedSep 22 2018 01:06:48 GMT-0500 (Central Daylight Time)
[2018-09-22 06:32] LABS: Absolute Lymphocytes (CBC) 1.7 K/uL (0.7-4.9); Absolute Monocytes 0.4 K/uL (0.1-1.3); Basophils % 1.1 % (0-1.3); Hematocrit 42.6 % (39.6-49.0); Lymphocytes % 30.9 % (15.3-44.8); MPV 9.6 fL (7.6-11.3); Monocytes % 7.6 % (3.3-12.3); RBC Red Blood Cell Count 4.79 M/uL (4.33-5.43)
[2018-09-22 07:07] LABS: Albumin 3.5 g/dL (3.4-5.0); Potassium 4.9 mmol/L (3.5-5.1)
[2018-09-22] MEDS: VENLAFAXINE HCL XR 75 MG CAP PO SCH (08:21)
[2018-09-22] MEDS: LIDOCAINE 5% PATCH TOP SCH (08:21)
[2018-09-22] MEDS: TRAMADOL HCL 50 MG TAB PO PRN ×2 (08:21→20:04)
[2018-09-22] MEDS: LOSARTAN POTASSIUM 50 MG TABLET PO SCH ×2 (08:22→20:04)
[2018-09-22] MEDS: ASPIRIN EC 81 MG TAB PO SCH (08:22)
[2018-09-22] MEDS: CLOPIDOGREL 75 MG TABLET PO SCH (08:22)
[2018-09-22] MEDS: APIXABAN 2.5 MG TABLET PO SCH ×2 (08:22→20:03)
[2018-09-22] MEDS: MAGNESIUM OXIDE 400 MG TAB PO SCH ×2 (08:22→20:03)
--- NOTE | 2018-09-22 14:09 | FAST ---
SHIFT START DATE/TIME: 09/22/2018 07:00 (CDT) SHIFT END DATE/TIME: 09/22/2018 19:00 (CDT) NAME JULIÁN JJ DATE OF : 1950 DATE OF ADMISSION: 09/15/2018 18:37 (CDT) PHONE: AGE: 67 N# [id number] GENDER: Male ENCOUNTER PHYSICIAN: Dr. Moises Lebron M.D. ADMISSION DIAGNOSIS: - Stroke 01 - Right Body (Left Brain) (01.2) Left Acute CVA. EATING: EATING - STEP 1: Does the patient require the assistance of a person or device, or need extra time when eating? Yes. EATING - STEP 2: Does the patient require the assistance of a helper? No, patient only requires an assistive device, O R s/he takes more than reasonable time to eat, OR there is a safety concern, OR s/he requires modifie d food consistency EATING - SCORE: 6-SIMONA GROOMING: Comb/brush hair Oral care Wash, rinse, and dry face Wash, rinse, and dry hands GROOMING - STEP 1: Does the patient require the assistance of a person or device, or need extra time when grooming? Yes. GROOMING - STEP 2: Does the patient require the assistance of a helper? No. The patient only requires an assistive devic e, OR takes more than reasonable time to groom, OR there is a concern for safety as the patient groom s GROOMING - SCORE: 6-SIMONA BATHING: Activity did not occur on this shift BATHING - SCORE: 0-UNK DRESSING - UPPER BODY: Activity did not occur on this shift ARTICLES SCORE Total number of steps: 0 DRESSING - UPPER BODY - SCORE: 0-UNK DRESSING - LOWER BODY: Activity did not occur on this shift ARTICLES SCORE Total number of steps: 0 DRESSING - LOWER BODY - SCORE: 0-UNK TOILETING: TOILETING - STEP 1: Does the patient require the assistance of a person or device, or need extra time with toileting? Yes . TOILETING - STEP 2: Does the patient require the assistance of a helper? No. TOILETING - SCORE: 6-SIMONA BLADDER MANAGEMENT: BLADDER MANAGEMENT - STEP 1: Does the patient control the bladder completely and intentionally without equipment or devices or med ications, and is always continent? No. BLADDER MANAGEMENT - STEP 2: Does the patient require the assistance of a helper? No, patient requires and independently uses an a ssistive device, such as a urinal, bedpan, bedside commode, catheter, absorbent pad, or collecting de vice BLADDER MANAGEMENT - SCORE: 6-SIMONA BLADDER MANAGEMENT - FREQUENCY OF ACCIDENTS: BLADDER MANAGEMENT(FA) - STEP 1: How many accidents has the patient had during the current shift? 0 BOWEL MANAGEMENT: Activity did not occur on this shift BOWEL MANAGEMENT - SCORE: 7-IND BOWEL MANAGEMENT - FREQUENCY OF ACCIDENTS: BOWEL MANAGEMENT(FA) - STEP 1: How many accidents has the patient had during the current shift? 0 TRANSFERS: BED, CHAIR, WHEELCHAIR: TRANSFERS: BED, CHAIR, WHEELCHAIR - STEP 1: Does the patient require assistance of a person or device, or need extra time with bed, chair, or whe elchair transfers? No. TRANSFERS: BED, CHAIR, WHEELCHAIR - SCORE: 7-IND TRANSFERS: TOILET: TRANSFERS: TOILET - STEP 1: Does the patient require the assistance of a person or device, or need extra time with toilet transfe rs? No. TRANSFERS: TOILET - SCORE: 7-IND TRANSFERS: SHOWER: Activity did not occur on this shift TRANSFERS: SHOWER - SCORE: 0-UNK TRANSFERS: TUB: Activity did not occur on this shift TRANSFERS: TUB - SCORE: 0-UNK LOCOMOTION: WALK: LOCOMOTION: WALK - STEP 1: Does the patient need help from a person or device, or need extra time to walk 150 feet? No. LOCOMOTION: WALK - STEP 2: Does the patient need an assistive device (such as an orthosis, prosthesis, crutches, or walker) to g o 150 feet, OR does s/he take more than reasonable time, OR is there a concern for safety? Yes, there is a safety concern LOCOMOTION: WALK - SCORE: 6-SIMONA LOCOMOTION: WHEELCHAIR: Activity did not occur on this shift LOCOMOTION: WHEELCHAIR - SCORE: 0-UNK COMPREHENSION: COMPREHENSION: TYPE: Both COMPREHENSION - STEP 1: Does the patient require help from a person or device, or need extra time to understand complex and a bstract ideas (such as current events, finances, discharge planning, medical issues, relationships, e tc)? No. COMPREHENSION - STEP 2: Does the patient need extra time, require an assistive device (such as glasses for visual comprehensi on or a hearing aid for auditory comprehension) or does s/he have mild difficulty understanding compl ex and abstract information? Yes. COMPREHENSION - SCORE: 6-SIMONA EXPRESSION EXPRESSION: TYPE: Both EXPRESSION - STEP 1: Does the patient require help from a person or device, or need extra time expressing complex and abst ract ideas (such as current events, finances, discharge planning, medical issues, relationships, etc) ? No. EXPRESSION - STEP 2: Does the patient need extra time, require an assistive device (such as augmentive communication syste m or a communication board), OR does s/he have mild difficulty expressing complex and abstract ideas (including mild dysarthria or mild word-find problems)? Yes. EXPRESSION - SCORE: 6-SIMONA SOCIAL INTERACTION: SOCIAL INTERACTION - STEP 1: Does the patient require a helper to interact with others in social and therapeutic situations? No. SOCIAL INTERACTION - STEP 2: Does the patient need extra time in social situations, OR does s/he interact with staff, other patien ts, and family members ONLY in structured environments, OR does s/he require medication for social in teraction? Yes, patient needs extra time SOCIAL INTERACTION - SCORE: 6-SIMONA PROBLEM SOLVING: PROBLEM SOLVING - STEP 1: Does the patient need help from a person or device, or need extra time to solve complex problems such as managing a checking account or confronting interpersonal problems? No. PROBLEM SOLVING - STEP 2: Does the patient require extra time to make decisions or solve problems, OR does s/he have slight dif ficulty reading, initiating, or self-correcting in unfamiliar situations? Yes, patient needs extra ti me. PROBLEM SOLVING - SCORE: 6-SIMONA MEMORY: MEMORY - STEP 1: Does the patient need help from a person or device, or need extra time to remember frequently encount ered people, daily routines, and executing requests? No. MEMORY - STEP 2: Does the patient have slight difficulty recognizing frequently encountered people, daily routines, or executing requests without the need for repetition or using self-initiated or environmental cues to remember? No. MEMORY - SCORE: 7-IND SIGNATURE PANEL: The following modified sections: Eating - Score, Grooming - Score, Bathing - Score, Dressing - Upper Body - Score, Dressing - Lower Body - Score, Toileting - Score, Bladder Management - Score, Bowel Man agement - Score, Transfers: Bed, Chair, Wheelchair - Score, Transfers: Toilet - Score, Transfers: Siomara wer - Score, Transfers: Tub - Score, Locomotion: Walk - Score, Locomotion: Wheelchair - Score, Compre hension - Score, Expression - Score, Social Interaction - Score, Problem Solving - Score, Memory - Sc ore were [electronically] signed by Nora [email or web address] on WedSep 22 2018 14:06:47 T-0500 (Centra l Daylight Time)
[2018-09-22] MEDS: FENOFIBRATE 160 MG TAB PO SCH (16:56)
--- NOTE | 2018-09-22 18:15 | R.PN ---
ENCOUNTER DATE AND TIME: 09/22/2018 18:10 (CDT) NAME JULIÁN JJ DATE OF : 1950 DATE OF ADMISSION: 09/15/2018 18:37 (CDT) Left Acute CVACHIEF COMPLAINT: Right sided weakness after stroke. SUBJECTIVE: Pt denied any Shortness of Breath. Pt denied any depression. Ambulated 1500' without an assistive device with modified independence. Up and down 15 steps with mod ified independence. Patient reports increased urinary frequency up to 4 times daily. CBC with differential is normal. Glu cose 130-143. PSA is normal at 2.55 and Hg A1c is mildly increased to 6.3. VITAL SIGNS Temperature: 97.4 F SBP/DBP: 168/87 Pulse: 68 Resp: 16 MEDICATION ALLERGIES: No Known Drug Allergies (NKDA) ENVIRONMENTAL ALLERGIES: None Known - Substance Allergies None Known - Other Allergies None Known NURSING: - Shower allowing shower - Bladder care per protocol - Skin care per protocol PRECAUTIONS: - Weight Bearing Precaution WBAT right LE ACTIVITIES OOB only with supervision THERAPIES: - Occupational Therapy Evaluate and Treat. Visual Perceptual Training. Cognitive Retraining. - Speech Therapy Cognitive Training. Memory Strategies. Speech Intelligibility Training. Expressive Language Skills. R eceptive Language Skills. - Physical Therapy Evaluate and Treat. PHYSICAL EXAM - Gen Alert and awake Lying in bed No apparent distress Oriented to: person, time, and place - Skin No beakdown No abnormalities - Eyes No abnormalities - Neck No abnormalities - CVS RRR - Chest Clear - Abd +bowel sounds - GI Soft Deferred - No abnormalities - Ext no edema - MSK No focal muscle weakness. - Neuro Expressive aphasia and incoordination. - Psych No abnormalities ASSESSMENT: Pt. is a 67 yo Right-handed white male.On 09/09/2018 Pt. presented to [facility] with sudden onset of right-side weakness.On 09/09/2018 he was admitted to [facility] with diagnosis Left Acute CVA.His impairment category is Stroke 01 - Right Body (Left Brain) (01.2).Pre-morbidly, Pt. was independent/mod-I in Self-Care, Sphincter Control, Transfers Control, L ocomotion, Communication, and Social Cognition; and he had good Sphincter Control.Currently, he has d eficits of Transfers Control, Locomotion, Communication, Social Cognition, Endurance, Balance, Safety Awareness, and Self-Care.Pt. is now referred to [facility] for acute in-patie nt rehabilitation in order to maximize patient's functional independence in activities of daily livin g, strength, ROM, and mobility.- Rehab Goal Patient has realistic goal of being discharged at assistance level 6-Delmer to reside at Home with Fam davie/Relatives. MDM/PLAN: - Physical Therapy Gait dysfunction - to improve, our physical therapists will perform initial evaluation of pt's statu s upon admission and devise an individualized program for Gait Training, and Wheel Chair mobility Inability to transfer - to improve, our physical therapists will perform initial evaluation of pt's status upon admission and devise an individualized program for Bed mobility Need for home safety evaluation - to improve, our physical therapists will perform initial evaluatio n of pt's status upon admission and devise an individualized program for Home Evaluation Need in caregiver upon discharge - to improve, our physical therapists will perform initial evaluati on of pt's status upon admission and devise an individualized program for Caregiver Training New precaution - to improve, our physical therapists will perform initial evaluation of pt's status upon admission and devise an individualized program for Patient precaution education Poor balance - to improve, our physical therapists will perform initial evaluation of pt's status up on admission and devise an individualized program for Balance Training Poor endurance - to improve, our physical therapists will perform initial evaluation of pt's status upon admission and devise an individualized program for Endurance Training Weakness - to improve, our physical therapists will perform initial evaluation of pt's status upon a dmission and devise an individualized program for Aquatic Therapy, Neuromuscular Reeducation, and Str engthening Achieving independence - to improve, our physical therapists will perform initial evaluation of pt's status upon admission and devise an individualized program for Community Reintegration Activities - Occupational Therapy ADL deficits - to improve, our occupation therapists will perform initial evaluation of pt's status upon admission and devise an individualized program for Bathing, Bed mobility, Community Reintegratio n, Cooking, Dressing, Eating, Fine Motor Skills, Grooming, Homemaking, Kitchen Mobility, Laundry, Pat ient Education, Safety Awareness, Splinting - Positioning, Transfers(Toilet, Tub, Shower), and Wheel Chair Management Cognitive deficits - to improve, our occupation therapists will perform initial evaluation of pt's s tatus upon admission and devise an individualized program for Cognition - orientation Need for director critical care - to improve, our occupation therapists will perform initial evaluation of pt's status upon admission and devise an individualized program for Caregiver Training Weakness - to improve, our occupation therapists will perform initial evaluation of pt's status upon admission and devise an individualized program for Aquatic Therapy, Balance, Endurance, UE ROM, and UE strengthening - Diet Type Continue Heart Healthy - Diet - Liquid Texture Continue Regular - Tube Feed Continue N/A - Bladder care per protocol - Weight Bearing Precaution WBAT right LE - Skin care per protocol - Diet - Solid Texture Continue Regular - Shower allowing shower for Dementia, TBI, Stroke, or others FUNCTIONAL STATUS: UPDATED AT WEEKLY TEAM CONFERENCE - Bladder Same accident frequency: 7-Ind - No accidents in the past 7 days - Bowel Same accident frequency: 7-Ind - No accidents in the past 7 days - Walking Same score based on distance walked: 3(>=150ft) - Wheelchair Same score based on distance traveled: 0(N/A) FUNCTIONAL STATUS: - Self-Care A. Eating Delmer B. Grooming sup C. Bathing sup D. Dressing - Upper Lisbet E. Dressing - Lower Dep F. Toileting sup - Sphincter Control G: Bladder control Ind H: Bowel control Ind - Transfers Control I. Bed/Chair/Wheelchair sup J. Toilet sup K. Tub/Shower ADNO - Locomotion L. Walk/Wheelchair (C) sup L. Walk/Wheelchair (W) sup M. Stairs sup - Communication N. Comprehension (B) Lisbet O. Expression (B) Lisbet - Social Cognition P. Social Interaction sup Q. Problem Solving sup R. Memory sup - Endurance Fair - Balance Fair - Safety Awareness Fair CURRENT FUNC. DEFICITS: Transfers Control, Locomotion, Communication, Social Cognition, Endurance, Balance, Safety Awareness, and Self-Care SIGNATURE PANEL: (CDT)
[2018-09-22] MEDS: ATORVASTATIN 40 MG TAB PO SCH (20:03)
[2018-09-22] MEDS: DOCUSATE NA/SENNA CONC 1 TAB PO SCH ×2 (20:03→20:13)
[2018-09-22] MEDS: MELATONIN 3 MG TABLET PO PRN (20:12)
[2018-09-22 20:48] VITALS: TEMP 97.4
--- NOTE | 2018-09-23 02:03 | FAST ---
SHIFT START DATE/TIME: 09/22/2018 19:00 (CDT) SHIFT END DATE/TIME: 09/23/2018 07:00 (CDT) NAME JULIÁN JJ DATE OF : 1950 DATE OF ADMISSION: 09/15/2018 18:37 (CDT) PHONE: AGE: 67 N# [id number] GENDER: Male ENCOUNTER PHYSICIAN: Dr. Moises Lebron M.D. ADMISSION DIAGNOSIS: - Stroke 01 - Right Body (Left Brain) (01.2) Left Acute CVA. EATING: Activity did not occur on this shift EATING - SCORE: 0-UNK GROOMING: Wash, rinse, and dry hands GROOMING - STEP 1: Does the patient require the assistance of a person or device, or need extra time when grooming? Yes. GROOMING - STEP 2: Does the patient require the assistance of a helper? No. The patient only requires an assistive devic e, OR takes more than reasonable time to groom, OR there is a concern for safety as the patient groom s GROOMING - SCORE: 6-SIMONA BATHING: Activity did not occur on this shift BATHING - SCORE: 0-UNK DRESSING - UPPER BODY: Patient is not dressing in public clothing ARTICLES SCORE Total number of steps: 0 DRESSING - UPPER BODY - SCORE: 0-UNK DRESSING - LOWER BODY: Patient is not dressing in public clothing ARTICLES SCORE Total number of steps: 0 DRESSING - LOWER BODY - SCORE: 0-UNK TOILETING: TOILETING - STEP 1: Does the patient require the assistance of a person or device, or need extra time with toileting? Yes . TOILETING - STEP 2: Does the patient require the assistance of a helper? No. TOILETING - SCORE: 6-SIMONA BLADDER MANAGEMENT: BLADDER MANAGEMENT - STEP 1: Does the patient control the bladder completely and intentionally without equipment or devices or med ications, and is always continent? Yes. BLADDER MANAGEMENT - SCORE: 7-IND BOWEL MANAGEMENT: Activity did not occur on this shift BOWEL MANAGEMENT - SCORE: 7-IND TRANSFERS: BED, CHAIR, WHEELCHAIR: TRANSFERS: BED, CHAIR, WHEELCHAIR - STEP 1: Does the patient require assistance of a person or device, or need extra time with bed, chair, or whe elchair transfers? Yes. TRANSFERS: BED, CHAIR, WHEELCHAIR - STEP 2: Does the patient require the assistance of a helper? No. Patient only requires an assistive device fo r bed, chair, wheelchair transfers such as a sliding board, grab bar, or brace, OR s/he takes more th an reasonable time, OR there is a safety concern when s/he performs the transfers TRANSFERS: BED, CHAIR, WHEELCHAIR - SCORE: 6-SIMONA TRANSFERS: TOILET: TRANSFERS: TOILET - STEP 1: Does the patient require the assistance of a person or device, or need extra time with toilet transfe rs? Yes. TRANSFERS: TOILET - STEP 2: Does the patient require the assistance of a helper? No. Patient only requires an assistive device fry ch as a grab bar or special seat, OR s/he takes more than reasonable time to perform toilet transfers , OR there is a safety concern when s/he performs toilet transfers. TRANSFERS: TOILET - SCORE: 6-SIMONA TRANSFERS: SHOWER: Activity did not occur on this shift TRANSFERS: SHOWER - SCORE: 0-UNK TRANSFERS: TUB: Activity did not occur on this shift TRANSFERS: TUB - SCORE: 0-UNK LOCOMOTION: WALK: Activity did not occur on this shift LOCOMOTION: WALK - SCORE: 0-UNK LOCOMOTION: WHEELCHAIR: Activity did not occur on this shift LOCOMOTION: WHEELCHAIR - SCORE: 0-UNK COMPREHENSION: COMPREHENSION: TYPE: Both COMPREHENSION - STEP 1: Does the patient require help from a person or device, or need extra time to understand complex and a bstract ideas (such as current events, finances, discharge planning, medical issues, relationships, e tc)? Yes. COMPREHENSION - STEP 2: Does the patient require help to understand questions or statements about basic needs or ideas (such as hunger, thirst, sleep, safety, daily schedule, room location, or discomfort) half or more of the t ute? No. COMPREHENSION - STEP 3: How often does the patient need help to understand directions and conversation about basic needs? Les s than 10% of the time COMPREHENSION - SCORE: 5-SUP EXPRESSION EXPRESSION: TYPE: Both EXPRESSION - STEP 1: Does the patient require help from a person or device, or need extra time expressing complex and abst ract ideas (such as current events, finances, discharge planning, medical issues, relationships, etc) ? No. EXPRESSION - STEP 2: Does the patient need extra time, require an assistive device (such as augmentive communication syste m or a communication board), OR does s/he have mild difficulty expressing complex and abstract ideas (including mild dysarthria or mild word-find problems)? Yes. EXPRESSION - SCORE: 6-SIMONA SOCIAL INTERACTION: SOCIAL INTERACTION - STEP 1: Does the patient require a helper to interact with others in social and therapeutic situations? No. SOCIAL INTERACTION - STEP 2: Does the patient need extra time in social situations, OR does s/he interact with staff, other patien ts, and family members ONLY in structured environments, OR does s/he require medication for social in teraction? Yes, patient needs extra time SOCIAL INTERACTION - SCORE: 6-SIMONA PROBLEM SOLVING: PROBLEM SOLVING - STEP 1: Does the patient need help from a person or device, or need extra time to solve complex problems such as managing a checking account or confronting interpersonal problems? Yes. PROBLEM SOLVING - STEP 2: Does the patient solve basic routine problems half or more of the time? Yes. PROBLEM SOLVING - STEP 3: How often does the patient need help to solve basic routine problems? Less than 10% of the time PROBLEM SOLVING - SCORE: 5-SUP MEMORY: MEMORY - STEP 1: Does the patient need help from a person or device, or need extra time to remember frequently encount ered people, daily routines, and executing requests? No. MEMORY - STEP 2: Does the patient have slight difficulty recognizing frequently encountered people, daily routines, or executing requests without the need for repetition or using self-initiated or environmental cues to remember? Yes. MEMORY - SCORE: 6-SIMONA SIGNATURE PANEL: The following modified sections: Eating - Score, Grooming - Score, Dressing - Upper Body - Score, Kiran ssing - Lower Body - Score, Toileting - Score, Bladder Management - Score, Bowel Management - Score, Transfers: Bed, Chair, Wheelchair - Score, Transfers: Toilet - Score, Transfers: Shower - Score, Sethi sfers: Tub - Score, Locomotion: Walk - Score, Locomotion: Wheelchair - Score, Comprehension - Score, Expression - Score, Social Interaction - Score, Problem Solving - Score, Memory - Score were [electro nically] signed by Lisa Marks CNA on WedSep 23 2018 02:03:25 GMT-0500 (Central Daylight Time)
[2018-09-23 07:13] VITALS: BP 148/80
[2018-09-23] MEDS: TRAMADOL HCL 50 MG TAB PO PRN ×2 (07:23→12:23)
[2018-09-23] MEDS: VENLAFAXINE HCL XR 75 MG CAP PO SCH (08:02)
[2018-09-23] MEDS: CLOPIDOGREL 75 MG TABLET PO SCH (08:02)
[2018-09-23] MEDS: MAGNESIUM OXIDE 400 MG TAB PO SCH (08:03)
[2018-09-23] MEDS: ASPIRIN EC 81 MG TAB PO SCH (08:03)
[2018-09-23] MEDS: LOSARTAN POTASSIUM 50 MG TABLET PO SCH (08:03)
[2018-09-23] MEDS: APIXABAN 2.5 MG TABLET PO SCH (08:03)
--- NOTE | 2018-09-23 09:27 | FAST ---
SHIFT START DATE/TIME: 09/23/2018 07:00 (CDT) SHIFT END DATE/TIME: 09/23/2018 19:00 (CDT) NAME JULIÁN JJ DATE OF : 1950 DATE OF ADMISSION: 09/15/2018 18:37 (CDT) PHONE: AGE: 67 N# [id number] GENDER: Male ENCOUNTER PHYSICIAN: Dr. Moises Lebron M.D. ADMISSION DIAGNOSIS: - Stroke 01 - Right Body (Left Brain) (01.2) Left Acute CVA. EATING: EATING - STEP 1: Does the patient require the assistance of a person or device, or need extra time when eating? No. EATING - SCORE: 7-IND GROOMING: GROOMING - STEP 1: Does the patient require the assistance of a person or device, or need extra time when grooming? No. GROOMING - SCORE: 7-IND BATHING: Activity did not occur on this shift BATHING - SCORE: 0-UNK DRESSING - UPPER BODY: ARTICLES SCORE Total number of steps: 0 DRESSING - UPPER BODY - STEP 1: Does the patient require help from a person or device, or need extra time when dressing above the gina st? Yes. DRESSING - UPPER BODY - STEP 2: Does the patient require the assistance of a helper? No. Patient only requires an assistive device, s uch as a button hook, velcro, or dosimetrist. OR s/he takes more than reasonable time as s/he dresses the upper body. OR there is a concern for safety when s/he dresses the upper body DRESSING - UPPER BODY - SCORE: 6-SIMONA DRESSING - LOWER BODY: ARTICLES SCORE Total number of steps: 0 DRESSING - LOWER BODY - STEP 1: Does the patient require help from a person or device, or need extra time when dressing below the gina st? Yes. DRESSING - LOWER BODY - STEP 2: Does the patient require the assistance of a helper? No. Patient requires an assistive device such as a dosimetrist. OR s/he takes more than reasonable time as s/he dresses the lower body, OR there is a con cern for safety when s/he dresses the lower body DRESSING - LOWER BODY - SCORE: 6-SIMONA TOILETING: TOILETING - STEP 1: Does the patient require the assistance of a person or device, or need extra time with toileting? Yes . TOILETING - STEP 2: Does the patient require the assistance of a helper? No. TOILETING - SCORE: 6-SIMONA BLADDER MANAGEMENT: BLADDER MANAGEMENT - STEP 1: Does the patient control the bladder completely and intentionally without equipment or devices or med ications, and is always continent? Yes. BLADDER MANAGEMENT - SCORE: 7-IND BLADDER MANAGEMENT - FREQUENCY OF ACCIDENTS: BLADDER MANAGEMENT(FA) - STEP 1: How many accidents has the patient had during the current shift? 0 BOWEL MANAGEMENT: BOWEL MANAGEMENT - STEP 1: Does the patient control bowels completely and intentionally without equipment devices or medications AND is always continent? Yes. BOWEL MANAGEMENT - SCORE: 7-IND BOWEL MANAGEMENT - FREQUENCY OF ACCIDENTS: BOWEL MANAGEMENT(FA) - STEP 1: How many accidents has the patient had during the current shift? 0 TRANSFERS: BED, CHAIR, WHEELCHAIR: TRANSFERS: BED, CHAIR, WHEELCHAIR - STEP 1: Does the patient require assistance of a person or device, or need extra time with bed, chair, or whe elchair transfers? Yes. TRANSFERS: BED, CHAIR, WHEELCHAIR - STEP 2: Does the patient require the assistance of a helper? No. Patient only requires an assistive device fo r bed, chair, wheelchair transfers such as a sliding board, grab bar, or brace, OR s/he takes more th an reasonable time, OR there is a safety concern when s/he performs the transfers TRANSFERS: BED, CHAIR, WHEELCHAIR - SCORE: 6-SIMONA TRANSFERS: TOILET: TRANSFERS: TOILET - STEP 1: Does the patient require the assistance of a person or device, or need extra time with toilet transfe rs? Yes. TRANSFERS: TOILET - STEP 2: Does the patient require the assistance of a helper? No. Patient only requires an assistive device fry ch as a grab bar or special seat, OR s/he takes more than reasonable time to perform toilet transfers , OR there is a safety concern when s/he performs toilet transfers. TRANSFERS: TOILET - SCORE: 6-SIMOAN TRANSFERS: SHOWER: Activity did not occur on this shift TRANSFERS: SHOWER - SCORE: 0-UNK TRANSFERS: TUB: Activity did not occur on this shift TRANSFERS: TUB - SCORE: 0-UNK LOCOMOTION: WALK: Activity did not occur on this shift LOCOMOTION: WALK - SCORE: 0-UNK LOCOMOTION: WHEELCHAIR: Activity did not occur on this shift LOCOMOTION: WHEELCHAIR - SCORE: 0-UNK COMPREHENSION: COMPREHENSION - SCORE: 0-UNK EXPRESSION EXPRESSION - SCORE: 0-UNK SOCIAL INTERACTION: SOCIAL INTERACTION - SCORE: 0-UNK PROBLEM SOLVING: PROBLEM SOLVING - SCORE: 0-UNK MEMORY: MEMORY - SCORE: 0-UNK SIGNATURE PANEL: The following modified sections: Eating - Score, Grooming - Score, Bathing - Score, Dressing - Upper Body - Score, Dressing - Lower Body - Score, Toileting - Score, Bladder Management - Score, Bowel Man agement - Score, Transfers: Bed, Chair, Wheelchair - Score, Transfers: Toilet - Score, Transfers: Siomara wer - Score, Transfers: Tub - Score, Locomotion: Walk - Score, Locomotion: Wheelchair - Score, Compre hension - Score, Expression - Score, Social Interaction - Score, Problem Solving - Score, Memory - Sc ore were [electronically] signed by Josefina Muñoz CNA on WedSep 23 2018 09:26:54 T-0500 (Centra l Daylight Time)
--- NOTE | 2018-09-23 09:31 | P.RH.PN ---
Estimated Length of Stay: 9 Expected Discharge Date: 09/23/18 Discharge Disposition Plan: Home Family Support: Yes Fruit And Vegetable Inspector Goal: Mobility, Transfers, Self Care Vital Signs: Last Vital Signs Temp 97.4 F 09/23/18 07:12 Pulse 70 09/23/18 07:12 Resp 18 09/23/18 07:12 BP 148/80 H 09/23/18 07:12 Pulse Ox 98 09/23/18 07:12 Laboratory: Laboratory Last Values WBC 5.5 K/uL (4.3-10.9) D 09/22/18 06:05 RBC 4.79 M/uL (4.33-5.43) 09/22/18 06:05 Hgb 14.7 g/dL (13.6-17.9) 09/22/18 06:05 Hct 42.6 % (39.6-49.0) 09/22/18 06:05 MCV 89.1 fL (80-100) 09/22/18 06:05 MCH 30.6 pg (27.0-35.0) 09/22/18 06:05 MCHC 34.4 g/dL (32.0-36.0) 09/22/18 06:05 RDW 13.5 % (12.1-15.2) 09/22/18 06:05 Plt Count 218 K/uL (152-406) 09/22/18 06:05 MPV 9.6 fL (7.6-11.3) 09/22/18 06:05 Neutrophils % 54.4 % (41.7-73.7) 09/22/18 06:05 Lymphocytes % 30.9 % (15.3-44.8) 09/22/18 06:05 Monocytes % 7.6 % (3.3-12.3) 09/22/18 06:05 Eosinophils % 6.0 % (0-4.4) H 09/22/18 06:05 Basophils % 1.1 % (0-1.3) 09/22/18 06:05 Absolute Neutrophils 3.0 K/uL (1.8-8.0) 09/22/18 06:05 Absolute Lymphocytes 1.7 K/uL (0.7-4.9) 09/22/18 06:05 Absolute Monocytes 0.4 K/uL (0.1-1.3) 09/22/18 06:05 Absolute Eosinophils 0.3 K/uL (0-0.5) 09/22/18 06:05 Absolute Basophils 0.1 K/uL (0-0.5) 09/22/18 06:05 Sodium 143 mmol/L (136-145) 09/22/18 06:05 Potassium 4.9 mmol/L (3.5-5.1) 09/22/18 06:05 Chloride 108 mmol/L (98-107) H 09/22/18 06:05 Carbon Dioxide 32 mmol/L (21-32) 09/22/18 06:05 BUN 24 mg/dL (7-18) H 09/22/18 06:05 Creatinine 1.11 mg/dL (0.55-1.3) 09/22/18 06:05 Estimated GFR 66 mL/min (=/>90) L 09/22/18 06:05 Glucose 130 mg/dL (74-106) H 09/22/18 06:05 POC Glucose 143 mg/dl (65-120) H 09/16/18 12:00 Hemoglobin A1c 6.3 % (4.2-6.3) 09/20/18 06:15 Calcium 8.9 mg/dL (8.5-10.1) 09/22/18 06:05 Magnesium 2.0 mg/dL (1.8-2.4) 09/22/18 06:05 Albumin 3.5 g/dL (3.4-5.0) 09/22/18 06:05 Prealbumin 22.0 mg/dL (20-40) 09/22/18 06:05 Prostate Specific Ag 2.55 ng/mL (0-4.00) 09/20/18 06:15 Urine Color Yellow 09/15/18 19:25 Urine Appearance Clear 09/15/18 19:25 Urine pH 7.0 (5.0-7.0) 09/15/18 19:25 Ur Specific [place] 1.020 (1.005-1.030) 09/15/18 19:25 Urine Ketones Negative (NEG) 09/15/18 19:25 Urine Blood Negative (NEG) 09/15/18 19:25 Urine Nitrite Negative (NEG) 09/15/18 19:25 Urine Bilirubin Negative (NEG) 09/15/18 19:25 Urine Urobilinogen 1.0 mg/dL (0.2-1.0) 09/15/18 19:25 Ur Leukocyte Esterase Negative (NEG) 09/15/18 19:25 Urine RBC <5 /HPF (NONE SEEN) 09/15/18 19:25 Urine WBC <5 /HPF (<5) 09/15/18 19:25 Ur Squamous Epith Cells <5 /HPF (NONE SEEN) 09/15/18 19:25 Urine Bacteria None seen /HPF (NONE SEEN) 09/15/18 19:25 Urine Culture Reflexed Not needed 09/15/18 19:25 Urine Glucose Negative (NEG) 09/15/18 19:25 Urine Total Protein Negative (NEG) 09/15/18 19:25 Weight: 209 lb 8 oz Wound Present: No Closed Surgical Incision Present: No Negative Pressure Wound Therapy Present: No Physician Update: Her labs have been reviewed. He is independent with his gait, transfers but is at supervision at times with his cognition. His ready for discharge today and have home health since he has no transportation. Medical Issues: DVT Prophylaxis - Eliquis 2.5mg BID PO Pain Issues: Tramadol 50mg Q4H PRN Functional Improvement: Patient has met short-term and long-term goals w/ the exception of a car transfer and ambulating on outdoor surfaces. Patient continues to present well physically, however shows issues w/ cognition. Speech Therapy Update: Patient requires MIN A for Auditory Comprehension, MAX A for Verbal Expression, SUPV for Social Interaction and Problem Solving, and MOD I for Memory. Summary: Patient's care plan and superintendent container terminal goals have been reviewed and revised as necessary. Please see the Rehabilitation Signature page for all necessary signatures.
[2018-09-23] MEDS: LIDOCAINE 5% PATCH TOP SCH (10:12)
--- NOTE | 2018-09-23 14:18 | R.DS ---
FACILITY [facility] MR# [id number] NAME REESE RGAF ADDRESS [address] [place]IP [address] PHONE DATE OF 1950 AGE 67 SSN# [id number] GENDER Male DEXTERITY Right-handed MARITAL STATUS RACE White ENCOUNTER PHYSICIAN Dr. Moises Lebron M.D. REFERRING DOCTOR Rigo Granado REFERRING FACILITY [facility] DISCHARGE DIAGNOSIS: - Stroke 01 - Right Body (Left Brain) (01.2) Left Acute CVA. DISCHARGE COMORBIDITIES: - N/A CVA Hypertension Hyperlipidemia DATE OF ADMISSION 09/15/2018 18:37 (CDT) MEDICATION ALLERGIES: No Known Drug Allergies (NKDA) ENVIRONMENTAL ALLERGIES: None Known - Substance Allergies None Known - Other Allergies None Known NURSING: - Shower allowing shower - Bladder care per protocol - Skin care per protocol PRECAUTIONS: - Weight Bearing Precaution WBAT right LE ACTIVITIES OOB only with supervision THERAPIES: - Occupational Therapy Evaluate and Treat Visual Perceptual Training Cognitive Retraining - Speech Therapy Cognitive Training Memory Strategies Speech Intelligibility Training Expressive Language Skills Receptive Language Skills - Physical Therapy Evaluate and Treat HISTORY OF PRESENT ILLNESS: Pt. is a 67 yo Right-handed white male.On 09/09/2018 Pt. presented to [facility] with sudden onset of right-side weakness.On 09/09/2018 he was admitted to [facility] with diagnosis Left Acute CVA.His impairment category is Stroke 01 - Right Body (Left Brain) (01.2).Pre-morbidly, Pt. was independent/mod-I in Self-Care and Sphincter Control; and he had good S phincter Control.Currently, he has deficits of Transfers Control, Locomotion, Communication, Social C ognition, Endurance, Balance, Safety Awareness, and Self-Care.Pt. is now referred to [facility] for acute in-patient rehabilitation in order to maximize patient's functional indep endence in activities of daily living, strength, ROM, and mobility.- Rehab Goal Patient has realistic goal of being discharged at assistance level 6-Delmer to reside at Home with Fam davie/Relatives. Reese Graf is a 67 year old male that lives in a single wendi home with 3 steps to enter. Patient is independent and performs self care ADL without assist at home and he received meals on wheels. On 09/09/2018, he was walking down the street when he fell and hit his forehead and was admitted to [facility] and treated. He is now medically stable but in need of 24-hour nursing, doctor supervision and oversite participate in 3hours of therapy a day/15 hours per week and receive care with an intensive interdisciplinary approach.HOSPITAL COURSE: DIET - LIQUID TEXTURE: On 09/15/2018 Pt was upgraded to Regular Diet - Liquid Texture. DIET - SOLID TEXTURE: On 09/15/2018 Pt was upgraded to Regular Diet - Solid Texture. DIET TYPE: On 09/15/2018 Pt was changed to Heart Healthy Diet Type. TUBE FEED: On 09/15/2018 Pt was changed to N/A Tube Feed. WEIGHT BEARING PRECAUTION: On 09/16/2018 the following precautions were added for the patient: Weight Bearing Precaution - WBAT right LE. On 09/19/2018 the following precautions were added for the patient: Weight Bearing Precaution - WBAT right LE. DISCHARGE PHYSICAL EXAM - Gen Alert and awake Lying in bed No apparent distress Oriented to: person, time, and place - Skin No beakdown No abnormalities - Eyes No abnormalities - Neck No abnormalities - CVS RRR - Chest Clear - Abd +bowel sounds - GI Soft Deferred - No abnormalities - Ext no edema - MSK No focal muscle weakness. - Neuro Expressive aphasia and incoordination. - Psych No abnormalities FUNCTIONAL STATUS: - Self-Care A. Eating 7-Ind B. Grooming 7-Ind C. Bathing 6-Delmer D. Dressing - Upper 6-Delmer E. Dressing - Lower 6-Delmer F. Toileting 6-Delmer - Sphincter Control G: Bladder control 7-Ind H: Bowel control 7-Ind - Transfers Control I. Bed/Chair/Wheelchair 6-Delmer J. Toilet 6-Delmer K. Tub/Shower 6-Delmer - Locomotion L. Walk/Wheelchair (C) 7-Ind L. Walk/Wheelchair (W) 7-Ind M. Stairs 6-Delmer - Communication N. Comprehension (B) 6-Delmer O. Expression (B) 5-sup - Social Cognition P. Social Interaction 6-Delmer Q. Problem Solving 6-Delmer R. Memory 6-Delmer - Endurance Fair - Balance Fair - Safety Awareness Fair DISCHARGE INSTRUCTIONS: - N/A Aspirin 81 mg and plavix 75 mg daily. DISCHARGE PLAN, FOLLOW UP CARE PROVISIONS: - Estimated Length of Stay (days) 17. - Consensus on plan Discharge plan has been discussed with primary caregiver. Patient/Family is in agreement with the [facility]. Primary caregiver is in agreement with the plan. - Patient/Family Goals Return home with assistance. - Planned Living Setting Upon Discharge Home, to live with Family/Relatives. SIGNATURE PANEL: (CDT)
--- NOTE | 2018-09-23 14:38 | FAST ---
ENCOUNTER DATE AND TIME: 09/23/2018 08:00 (CDT) NAME JULIÁN JJ DATE OF : 1950 DATE OF ADMISSION: 09/15/2018 18:37 (CDT) PHONE: AGE: 67 N# [id number] GENDER: Male ENCOUNTER PHYSICIAN: Dr. Moises Lebron M.D. ADMISSION DIAGNOSIS: - Stroke 01 - Right Body (Left Brain) (01.2) Left Acute CVA. EATING: Activity did not occur on this shift EATING - SCORE: 0-UNK GROOMING: Activity did not occur on this shift GROOMING - SCORE: 0-UNK BATHING: Activity did not occur on this shift BATHING - SCORE: 0-UNK DRESSING - UPPER BODY: Activity did not occur on this shift Patient is not dressing in public clothing ARTICLES SCORE Total number of steps: 0 DRESSING - UPPER BODY - SCORE: 0-UNK DRESSING - LOWER BODY: Activity did not occur on this shift Patient is not dressing in public clothing ARTICLES SCORE Total number of steps: 0 DRESSING - LOWER BODY - SCORE: 0-UNK TOILETING: Activity did not occur on this shift TOILETING - SCORE: 0-UNK BLADDER MANAGEMENT: Activity did not occur on this shift BLADDER MANAGEMENT - SCORE: 7-IND BOWEL MANAGEMENT: Activity did not occur on this shift BOWEL MANAGEMENT - SCORE: 7-IND TRANSFERS: BED, CHAIR, WHEELCHAIR: TRANSFERS: BED, CHAIR, WHEELCHAIR - STEP 1: Does the patient require assistance of a person or device, or need extra time with bed, chair, or whe elchair transfers? No. TRANSFERS: BED, CHAIR, WHEELCHAIR - SCORE: 7-IND TRANSFERS: TOILET: Activity did not occur on this shift TRANSFERS: TOILET - SCORE: 0-UNK TRANSFERS: SHOWER: Activity did not occur on this shift TRANSFERS: SHOWER - SCORE: 0-UNK TRANSFERS: TUB: Activity did not occur on this shift TRANSFERS: TUB - SCORE: 0-UNK LOCOMOTION: WALK: LOCOMOTION: WALK - STEP 1: Does the patient need help from a person or device, or need extra time to walk 150 feet? No. LOCOMOTION: WALK - STEP 2: Does the patient need an assistive device (such as an orthosis, prosthesis, crutches, or walker) to g o 150 feet, OR does s/he take more than reasonable time, OR is there a concern for safety? No. LOCOMOTION: WALK - SCORE: 7-IND LOCOMOTION: WHEELCHAIR: Activity did not occur on this shift LOCOMOTION: WHEELCHAIR - SCORE: 0-UNK LOCOMOTION: STAIRS: LOCOMOTION: STAIRS - STEP 1: Does the patient need help to go up and down 12 to 14 stairs? No. LOCOMOTION: STAIRS - STEP 2: Does the patient require an assistive device - such as handrails or cane - to go up and down one flig ht of stairs, OR does s/he take more than reasonable time, OR is there a concern for safety? Yes, the patient requires an assistive device LOCOMOTION: STAIRS - SCORE: 6-SIMONA COMPREHENSION: COMPREHENSION - SCORE: 0-UNK EXPRESSION EXPRESSION - SCORE: 0-UNK SOCIAL INTERACTION: SOCIAL INTERACTION - SCORE: 0-UNK PROBLEM SOLVING: PROBLEM SOLVING - SCORE: 0-UNK MEMORY: MEMORY - SCORE: 0-UNK SIGNATURE PANEL: The following modified sections: Transfers: Bed, Chair, Wheelchair - Score, Transfers: Toilet - Score , Locomotion: Walk - Score, Locomotion: Wheelchair - Score, Locomotion: Stairs - Score were [electron leni] signed by Candelario Mack PTA on WedSep 23 2018 14:37:06 GMT-0500 (Central Daylight Time)
--- NOTE | 2018-09-23 14:55 | FAST ---
ENCOUNTER DATE AND TIME: 09/23/2018 08:00 (CDT) NAME JULIÁN JJ DATE OF : 1950 DATE OF ADMISSION: 09/15/2018 18:37 (CDT) PHONE: AGE: 67 SSN# [id number] GENDER: Male ENCOUNTER PHYSICIAN: Dr. Moises Lebron M.D. ADMISSION DIAGNOSIS: - Stroke 01 - Right Body (Left Brain) (01.2) Left Acute CVA. EATING: Activity did not occur on this shift EATING - SCORE: 0-UNK GROOMING: Comb/brush hair Wash, rinse, and dry face Wash, rinse, and dry hands GROOMING - STEP 1: Does the patient require the assistance of a person or device, or need extra time when grooming? No. GROOMING - SCORE: 7-IND BATHING: Abdomen Buttocks Chest Left arm Left lower leg and foot Left upper leg Perineal area Right arm Right lower leg and foot Right upper leg BATHING - STEP 1: Does the patient require the assistance of a person or device, or need extra time when bathing? Yes. BATHING - STEP 2: Does the patient require the assistance of a helper? No. The patient only requires an assistive devic e such as a bath edward, OR the patient takes more than reasonable time to bathe, OR there is a concern for safety such as regulating water temperature as the patient bathes. BATHING - SCORE: 6-SIMONA DRESSING - UPPER BODY: Button down shirt or blouse - NOT tucked in (four steps) ARTICLES SCORE Total number of steps: 4 DRESSING - UPPER BODY - STEP 1: Does the patient require help from a person or device, or need extra time when dressing above the gina st? No. DRESSING - UPPER BODY - SCORE: 7-IND DRESSING - LOWER BODY: Sock - Left foot (one step) Sock - Right foot (one step) Tied or buckled shoe - Left foot (two steps) Tied or buckled shoe - Right foot (two steps) Underwear (three steps) Zippered pants (four steps) ARTICLES SCORE Total number of steps: 13 DRESSING - LOWER BODY - STEP 1: Does the patient require help from a person or device, or need extra time when dressing below the gina st? Yes. DRESSING - LOWER BODY - STEP 2: Does the patient require the assistance of a helper? No. Patient requires an assistive device such as a play leader. OR s/he takes more than reasonable time as s/he dresses the lower body, OR there is a con cern for safety when s/he dresses the lower body DRESSING - LOWER BODY - SCORE: 6-SIMONA TOILETING: TOILETING - STEP 1: Does the patient require the assistance of a person or device, or need extra time with toileting? Yes . TOILETING - STEP 2: Does the patient require the assistance of a helper? No. TOILETING - SCORE: 6-SIMONA BLADDER MANAGEMENT: Activity did not occur on this shift BLADDER MANAGEMENT - SCORE: 7-IND BOWEL MANAGEMENT: Activity did not occur on this shift BOWEL MANAGEMENT - SCORE: 7-IND TRANSFERS: BED, CHAIR, WHEELCHAIR: Activity did not occur on this shift TRANSFERS: BED, CHAIR, WHEELCHAIR - SCORE: 0-UNK TRANSFERS: TOILET: TRANSFERS: TOILET - STEP 1: Does the patient require the assistance of a person or device, or need extra time with toilet transfe rs? Yes. TRANSFERS: TOILET - STEP 2: Does the patient require the assistance of a helper? No. Patient only requires an assistive device fry ch as a grab bar or special seat, OR s/he takes more than reasonable time to perform toilet transfers , OR there is a safety concern when s/he performs toilet transfers. TRANSFERS: TOILET - SCORE: 6-SIMONA TRANSFERS: SHOWER: Activity did not occur on this shift TRANSFERS: SHOWER - SCORE: 0-UNK TRANSFERS: TUB: TRANSFERS: TUB - STEP 1: Does the patient require the assistance of a person or device, or need extra time with tub transfers? Yes. TRANSFERS: TUB - STEP 2: Does the patient require the assistance of a helper? No. Only requires the assistance of an assistive device, OR takes more than reasonable time, OR there is a concern for safety when s/he performs tub transfers TRANSFERS: TUB - SCORE: 6-SIMONA LOCOMOTION: WALK: Activity did not occur on this shift LOCOMOTION: WALK - SCORE: 0-UNK LOCOMOTION: WHEELCHAIR: Activity did not occur on this shift LOCOMOTION: WHEELCHAIR - SCORE: 0-UNK LOCOMOTION: STAIRS: Activity did not occur on this shift LOCOMOTION: STAIRS - SCORE: 0-UNK COMPREHENSION: COMPREHENSION - SCORE: 0-UNK EXPRESSION EXPRESSION - SCORE: 0-UNK SOCIAL INTERACTION: SOCIAL INTERACTION - SCORE: 0-UNK PROBLEM SOLVING: PROBLEM SOLVING - SCORE: 0-UNK MEMORY: MEMORY - SCORE: 0-UNK SIGNATURE PANEL: The following modified sections: Eating - Score, Grooming - Score, Bathing - Score, Dressing - Upper Body - Score, Dressing - Lower Body - Score, Toileting - Score, Transfers: Bed, Chair, Wheelchair - S core, Transfers: Toilet - Score, Transfers: Shower - Score, Transfers: Tub - Score, Comprehension - S core, Expression - Score, Social Interaction - Score, Problem Solving - Score, Memory - Score were [e lectronically] signed by TANNER Arango on WedSep 23 2018 14:54:52 T-0500 ([facility])
== END 2018-09-23 13:30 | disposition home health service (06) | DRG 57 ==
LOC: 5TH 18:37
PROVIDERS: ADMIT Psychiatry & Neurology Neurology with Special Qualifications in Child Neurology; ATTEND Psychiatry & Neurology Neurology with Special Qualifications in Child Neurology
DX: I69.351 Hemiplegia and hemiparesis following cerebral infarction affecting right dominant side (principal); E78.5 Hyperlipidemia, unspecified; I10 Essential (primary) hypertension
CPT/HCPCS: 36415; 80048; 81001; 82040; 82962; 83036; 83735; 84134; 84153; 85025; 87086; 87088; 92507; 92523; 97110; 97112; 97116; 97124; 97127; 97150; 97162; 97167; 97530

== ENCOUNTER 2018-12-01 10:38 | Emergency (ER) | payer OTHER ==
[2018-12-01] MEDS ORDERED: IPRATROPIUM BROM 0.5MG/2.5ML ONE (11:58)
[2018-12-01] MEDS ORDERED: ALBUTEROL 2.5 MG/3 ML NEB SOL ONE (11:58)
--- NOTE | 2018-12-01 12:26 | EDPHYS ---
Physician Documentation [facility] Name: Reese Graf Age: 68 yrs Sex: Male : 1950 Arrival Date: 12/01/2018 Time: 10:40 Bed 13 Private MD: ED Physician Deep Davison HPI: 12/01 11:09 This 68 yrs old Male presents to ER via Ambulatory with complaints of Flu cp Symptoms. 11:09 The patient or guardian reports cough, that is intermittent, with productive sputum. cp Onset: The symptoms/episode began/occurred 1 week(s) ago. Associated signs and symptoms: Pertinent positives: fever, Pertinent negatives: chest pain, diarrhea, sore throat, vomiting. Severity of symptoms: in the emergency department the symptoms are unchanged despite home interventions. Historical: - Allergies: 10:57 No Known Allergies; iw - Home Meds: 10:57 carbamazepine 200 mg Oral CM12 1 cap every 12 hours [Active]; fenofibrate 160 mg Oral iw tab 1 tab once daily [Active]; fexofenadine 180 mg Oral tab 1 tab once daily [Active]; losartan 25 mg Oral tab 1 tab once daily [Active]; Plavix 75 mg Oral tab 1 tab once daily [Active]; simvastatin 20 mg Oral tab 1 tab once daily [Active]; venlafaxine 75 mg Oral cp24 1 cap once daily [Active]; Zanaflex 4 mg Oral tab 1 tab at night as needed [Active]; - PMHx: 10:57 CVA; Hyperlipidemia; Hypertension; iw - PSHx: 10:57 hip replacement; back surgery; iw - Immunization history:: Adult Immunizations not up to date. - Social history:: Smoking status: Patient/guardian denies using tobacco. - Ebola Screening: : Patient negative for fever greater than or equal to 101.5 degrees Fahrenheit, and additional compatible Ebola Virus Disease symptoms Patient denies exposure to infectious person Patient denies travel to an Ebola-affected area in the 21 days before illness onset No symptoms or risks identified at this time. ROS: 11:12 Eyes: Negative for injury, pain, redness, and discharge. cp 11:12 Constitutional: Negative for body aches, chills, fever, poor PO intake. 11:12 ENT: Negative for drainage from ear(s), ear pain, sore throat, difficulty swallowing, difficulty handling secretions. 11:12 Cardiovascular: Negative for chest pain, edema, palpitations. 11:12 Respiratory: Positive for cough, Negative for shortness of breath, wheezing. 11:12 Abdomen/GI: Negative for abdominal pain, nausea, vomiting, and diarrhea. 11:12 Back: Negative for pain at rest, pain with movement, radiated pain. 11:12 Skin: Negative for rash. 11:12 Neuro: Negative for altered mental status, headache, weakness. 11:12 All other systems are negative. Exam: 11:20 Constitutional: The patient appears in no acute distress, alert, awake, cp non-diaphoretic, non-toxic, well developed, well nourished. 11:20 Head/Face: Normocephalic, atraumatic. cp 11:20 Eyes: Periorbital structures: appear normal, Conjunctiva: normal, no exudate, no injection, Sclera: no appreciated abnormality, Lids and lashes: appear normal, bilaterally. 11:20 ENT: External ear(s): are unremarkable, Ear canal(s): are normal, clear, TM's: bulging, is not appreciated, bilaterally, dullness, bilaterally, erythema, is not appreciated, bilaterally, Nose: is normal, Mouth: Lips: moist, Oral mucosa: moist, Posterior pharynx: Airway: no evidence of obstruction, patent, Tonsils: are normal in appearance, Uvula: midline, swelling, is not appreciated, erythema, is not appreciated, exudate, is not appreciated. 11:20 Neck: ROM/movement: is normal, is supple, without pain, no range of motions limitations, no nuchal rigidity, Lymph nodes: no appreciated lymphadenopathy. 11:20 Chest/axilla: Inspection: normal, Palpation: is normal, no crepitus, no tenderness. 11:20 Cardiovascular: Rate: normal, Rhythm: regular. 11:20 Respiratory: the patient does not display signs of respiratory distress, Respirations: normal, no use of accessory muscles, no retractions, no splinting, no tachypnea, labored breathing, is not present, Breath sounds: bronchial sounds, that are mild, are heard diffusely, decreased breath sounds, are not appreciated, stridor, is not appreciated, wheezing: is not appreciated. 11:20 Abdomen/GI: Exam negative for discomfort, distension, guarding, Inspection: abdomen appears normal. 11:20 Skin: no rash present. Vital Signs: 10:57 BP 157 / 100; Pulse 92; Resp 18 S; Temp 98.4(O); Pulse Ox 96% on R/A; Weight 97.07 kg; iw Height 6 ft. (182.88 cm); Pain 0/10; 13:00 BP 147 / 98; Pulse 88; Resp 18 S; Temp 98.2(TE); Pulse Ox 96% on R/A; Pain 0/10; aa5 10:57 Body Mass Index 29.02 (97.07 kg, 182.88 cm) iw MDM: 11:06 Patient medically screened. cp 11:30 Differential diagnosis: bronchitis, pneumonia, sinusitis. cp 12:25 Data reviewed: vital signs, nurses notes, radiologic studies, plain films. cp 12:25 Test interpretation: by ED physician or midlevel provider: chest xray negative for cp focal infiltrates. Counseling: I had a detailed discussion with the patient and/or guardian regarding: the historical points, exam findings, and any diagnostic results supporting the discharge/admit diagnosis, radiology results, to return to the emergency department if symptoms worsen or persist or if there are any questions or concerns that arise at home. ED course: VSS. Will treat with Z-cody due to length of symptoms. No signs of respiratory distress observed. Will discharge to home for continued monitoring. 12/01 11:09 Order name: XRAY Chest Pa And Lat (2 Views); Complete Time: 07:46 cp 12/02 07:46 Interpretation: Report reviewed. cp Administered Medications: 11:46 Drug: Albuterol 2.5 mg Route: Inhalation; aa5 12:00 Follow up: Response: Marked relief of symptoms; Wheezing diminished aa5 11:46 Drug: AtroVENT Aerosol 0.5 mg Route: Inhalation; aa5 12:00 Follow up: Response: Marked relief of symptoms; Wheezing diminished aa5 Disposition: 15:10 Co-signature as Attending Physician, Deep Davison MD I agree with the assessment and kdr plan of care. Disposition: 12/01/18 12:25 Discharged to Home. Impression: Acute bronchitis, unspecified. - Condition is Stable. - Discharge Instructions: Acute Bronchitis, Adult. - Prescriptions for Tessalon Perles 100 mg Oral Capsule - take 1 capsule by ORAL route every 8 hours As needed; 20 capsule. Zithromax Z- Cody 250 mg Oral Tablet - take 1 tablet by ORAL route as directed for 5 days Day 1 - take two (2) tablets one time. Day 2, 3, 4 , 5 take one (1) tablet once daily.; 6 tablet. Albuterol Sulfate 90 mcg/actuation - inhale 1-2 puff by INHALATION route every 4-6 hours; 1 Inhaler. - Medication Reconciliation Form, Thank You Letter, Antibiotic Education, Prescription Opioid Use form. - Follow up: Private Physician; When: 2 - 3 days; Reason: Recheck today's complaints. - Problem is new. - Symptoms have improved. Signatures: Dispatcher [employer] EDMS Deep Davison MD MD kdr Ingrid Stinson RN RN iw Reina Radford RN RN aa5 Mehul Oconnor PA PA cp Corrections: (The following items were deleted from the chart) 12:26 12:25 12/01/2018 12:25 Discharged to Home. Impression: Acute upper respiratory cp infection, unspecified. Condition is Stable. Forms are Medication Reconciliation Form, Thank You Letter, Antibiotic Education, Prescription Opioid Use. Follow up: Private Physician; When: 2 - 3 days; Reason: Recheck today's complaints. Problem is new. Symptoms have improved. cp 13:17 12:26 12/01/2018 12:25 Discharged to Home. Impression: Acute bronchitis, unspecified. iw Condition is Stable. Forms are Medication Reconciliation Form, Thank You Letter, Antibiotic Education, Prescription Opioid Use. Follow up: Private Physician; When: 2 - 3 days; Reason: Recheck today's complaints. Problem is new. Symptoms have improved. cp
--- NOTE | 2018-12-01 12:26 | ER ---
Nurse's Notes [facility] Name: Reese Graf Age: 68 yrs Sex: Male : 1950 Arrival Date: 12/01/2018 Time: 10:40 Bed 13 Private MD: Diagnosis: Acute bronchitis, unspecified Presentation: 12/01 10:54 Presenting complaint: Patient states: flu and cold symptoms X 1 week, c/o SOB and iw productive cough, fever. Transition of care: patient was not received from another setting of care. Onset of symptoms was November 24, 2018. Risk Assessment: Do you want to hurt yourself or someone else? Patient reports no desire to harm self or others. Initial Sepsis Screen: Does the patient meet any 2 criteria? No. Patient's initial sepsis screen is negative. Does the patient have a suspected source of infection? No. Patient's initial sepsis screen is negative. Care prior to arrival: None. 10:54 Method Of Arrival: Ambulatory iw 10:54 Acuity: ANITA 3 iw Historical: - Allergies: 10:57 No Known Allergies; iw - Home Meds: 10:57 carbamazepine 200 mg Oral CM12 1 cap every 12 hours [Active]; fenofibrate 160 mg Oral iw tab 1 tab once daily [Active]; fexofenadine 180 mg Oral tab 1 tab once daily [Active]; losartan 25 mg Oral tab 1 tab once daily [Active]; Plavix 75 mg Oral tab 1 tab once daily [Active]; simvastatin 20 mg Oral tab 1 tab once daily [Active]; venlafaxine 75 mg Oral cp24 1 cap once daily [Active]; Zanaflex 4 mg Oral tab 1 tab at night as needed [Active]; - PMHx: 10:57 CVA; Hyperlipidemia; Hypertension; iw - PSHx: 10:57 hip replacement; back surgery; iw - Immunization history:: Adult Immunizations not up to date. - Social history:: Smoking status: Patient/guardian denies using tobacco. - Ebola Screening: : Patient negative for fever greater than or equal to 101.5 degrees Fahrenheit, and additional compatible Ebola Virus Disease symptoms Patient denies exposure to infectious person Patient denies travel to an Ebola-affected area in the 21 days before illness onset No symptoms or risks identified at this time. Screenin:00 Abuse screen: Denies threats or abuse. Nutritional screening: No deficits noted. aa5 Tuberculosis screening: No symptoms or risk factors identified. 11:00 Fall Risk Fall in past 12 months (25 points). Secondary diagnosis (15 points) CVA, aa5 Ambulatory Aid- Crutches/Cane/Walker (15 pts). Total Torres Fall Scale indicates High Risk Score (45 or more points). Fall prevention measures have been instituted. Side Rails Up X 2 Placed Close to Nursing Station Family Present and informed to notify staff if the need to leave the bedside. Assessment: 11:00 General: Appears uncomfortable, Behavior is calm, cooperative. Pain: Denies pain. aa5 Neuro: Level of Consciousness is awake, alert, obeys commands, Oriented to person, place, time, situation. Cardiovascular: Heart tones S1 S2 present Rhythm is regular. Respiratory: Reports shortness of breath cough that is productive, Airway is patent Respiratory effort is even, unlabored, Respiratory pattern is regular, symmetrical, Breath sounds with wheezes bilaterally. GI: No signs and/or symptoms were reported involving the gastrointestinal system. : No signs and/or symptoms were reported regarding the genitourinary system. EENT: Reports nasal congestion. Derm: Skin is pink, warm \T\ dry. Musculoskeletal: pt is ambulatory with cane. 12:00 Reassessment: Patient is alert, oriented x 3, equal unlabored respirations, skin aa5 warm/dry/pink. Patient denies pain at this time. Respiratory: wheezing is diminished. 13:10 Reassessment: Patient is alert, oriented x 3, equal unlabored respirations, skin aa5 warm/dry/pink. Vital Signs: 10:57 BP 157 / 100; Pulse 92; Resp 18 S; Temp 98.4(O); Pulse Ox 96% on R/A; Weight 97.07 kg; iw Height 6 ft. (182.88 cm); Pain 0/10; 13:00 BP 147 / 98; Pulse 88; Resp 18 S; Temp 98.2(TE); Pulse Ox 96% on R/A; Pain 0/10; aa5 10:57 Body Mass Index 29.02 (97.07 kg, 182.88 cm) iw ED Course: 10:40 Patient arrived in ED. rg4 10:56 Triage completed. iw 10:57 Arm band placed on. iw 11:00 Page, Mehul, PA is PHCP. cp 11:00 Deep Davison MD is Attending Physician. cp 11:00 Patient has correct armband on for positive identification. Bed in low position. Call aa5 light in reach. Side rails up X2. Adult w/ patient. 11:05 Reina Radford, RN is Primary Nurse. aa5 11:52 XRAY Chest Pa And Lat (2 Views) In Process Unspecified. EDMS 13:10 No provider procedures requiring assistance completed. Patient did not have IV access aa5 during this emergency room visit. Administered Medications: 11:46 Drug: Albuterol 2.5 mg Route: Inhalation; aa5 12:00 Follow up: Response: Marked relief of symptoms; Wheezing diminished aa5 11:46 Drug: AtroVENT Aerosol 0.5 mg Route: Inhalation; aa5 12:00 Follow up: Response: Marked relief of symptoms; Wheezing diminished aa5 Outcome: 12:25 Discharge ordered by MD. cp 13:10 Discharged to home ambulatory, with family. aa5 13:10 Condition: improved 13:10 Discharge instructions given to patient, Instructed on discharge instructions, follow up and referral plans. medication usage, Demonstrated understanding of instructions, follow-up care, medications, Prescriptions given X 3. 13:17 Patient left the ED. Signatures: Dispatcher [employer] EDIngrid Sommer RN RN Reina Radford, RN RN aa5 Mehul Oconnor PA PA cp Garcia, Rubi rg4 Corrections: (The following items were deleted from the chart) 12:46 11:00 Respiratory: Reports shortness of breath cough that is productive, Airway is aa5 patent Respiratory effort is even, unlabored, Respiratory pattern is regular, symmetrical, aa5
[2018-12-01 13:43] VITALS: BP 157/100; TEMP 98.4; O2SAT 96
--- OUTSIDE RECORDS SUMMARY | 2018-12-01 14:52 | XMS REPORT | Continuity of Care Document ---
:1950 Author Organization Interface Problems Problem Status Onset Classification Date Comments Source Date Reported AMS Active [facility] 8 INCREASED Active [facility] [place] 8 LEVEL/ACUTE ENCEPHAL LT HIP PAIN Active [facility] 5 TLA [facility] OTHER Active [facility] SPECIFIED ABNORMAL FINDINGS OF BLO Medications Medication Details Route Status Patient Ordering Order Source Instructions Provider Date amLODIPine 10 mg 10 mg=1 tab, Active oral tablet PO, Daily, # 2018 [facility] 30 tab, 0 Refill(s), other gabapentin 100 MG 100 mg=1 cap, Active Oral Capsule PO, BID, # 60 2017 [facility] cap, 1 Refill(s), other Valium 10 mg, 2 tab, Inactive Route: PO, 2017 [facility] Drug form: TAB, ONCE, Dosing Weight 107.727, kg, Start date: 12/21/17 16:00:00 CDT, Stop date: 12/21/17 16:00:00 CDTNotes: (Same as: Valium) Ativan 1 mg, 0.5 mL, Inactive Route: IM, 2017 [facility] Drug form: INJ, ONCE, Dosing Weight 107.727, kg, Start date: 12/21/17 8:04:00 CDT, Stop date: 12/21/17 8:04:00 CDTNotes: (Same as: Ativan) potassium chloride 40 mEq, 2 tab, Inactive 20 mEq oral Route: PO, 2017 [facility] tablet, extended Drug form: release ERTAB, ONCE, [...] s with feeding tube less than 14 Welsh (Dobhoff, J-tube etc) and pediatric and patients. With food and full glass of water Lactulose 667 20 gm, 30 ml, Inactive MG/ML Oral Route: PO, 2017 [facility] Solution Drug form: SYRP, ONCE, Dosing Weight 107.727, kg, Start date: 12/17/17 20:38:00 CDT, Stop date: 12/17/17 20:38:00 CDTNotes: (Same as:Chronulac) Omnipaque 350 100 mL, Route: No Longer injectable IV, Drug Form: Active 2017 [facility] solution SOLN, Dosing Weight 107.727, kg, ONCALL, GFR > 45 mL/min, Start date: 12/17/17 14:00:00 CDT, Duration: 1 doses or timesNotes: (same as:Omnipaque 350). WASTE: F/P - Black; E - Sepior Trash Bin Vitamin B 12 1,000 No Longer microgram, 1 Active 2017 [facility] mL, Route: IM, Drug form: INJ, Daily, Dosing Weight 107.727, kg, Start date: 12/17/17 9:00:00 CDT, Duration: 7 day, Stop date: 12/23/17 9:00:00 CDTNotes: (Same As: Vitamin B12) Potassium Chloride 40 mEq, 2 tab, Inactive Route: PO, 2017 [facility] Drug form: ERTAB, ONCE, Dosing Weight 107.727, [...] s with feeding tube less than 14 Welsh (Dobhoff, J-tube etc) and pediatric and patients. With food and full glass of water cetirizine 10 mg, 2 tab, Inactive Route: PO, 2017 [facility] Drug form: TAB, Daily, Start date: 12/16/17 9:00:00 CDT, Duration: 30 day, Stop date: 01/14/18 9:00:00 CDTNotes: (Same As: Zyrtec) venlafaxine 75 mg, 2 tab, No Longer Route: PO, [facility] 2017 [facility] Drug form: TAB, Daily, Dosing Weight 107.727, kg, Start date: 12/16/17 9:00:00 CDT, Duration: 30 day, Stop date: 01/14/18 9:00:00 CDTNotes: (Same As: Effexor) Hydrochlorothiazid 1 tab, Route: No Longer e 12.5 MG / PO, Drug Form: [address] Losartan Potassium TAB, Dosing 100 MG Oral Tablet Weight 107.727, kg, Daily, Start date: 12/16/17 9:00:00 CDT, Duration: 30 day, Stop date: 01/14/18 9:00:00 CDT fexofenadine 180 mg, Route: No Longer PO, Drug form: [facility] 2017 [facility] TAB, Daily, Dosing Weight 107.727, kg, Start date: 12/16/17 9:00:00 CDT, Duration: 30 day, Stop date: 01/14/18 9:00:00 CDT clopidogrel 75 mg, 1 tab, No Longer Route: PO, 2017 [facility] Drug form: TAB, Daily, Dosing Weight 107.727, kg, Start date: 12/16/17 9:00:00 CDT, Duration: 30 day, Stop date: 01/14/18 9:00:00 CDTNotes: (Same As: Plavix) Simvastatin 20 mg, 1 tab, No Longer Route: PO, 2017 [facility] Drug form: TAB, Bedtime, Dosing Weight 107.727, kg, Start date: 12/15/17 21:00:00 CDT, Duration: 30 day, Stop date: 01/13/18 21:00:00 CDTNotes: (Same as: Zocor) Epitol 200 mg, 1 tab, No Longer Route: PO, 2017 [facility] Drug form: TAB, Q12H, Dosing Weight 107.727, kg, Start date: 12/15/17 21:00:00 CDT, Duration: 30 day, Stop date: 01/14/18 9:00:00 CDTNotes: With food. (Same As: Tegretol) Carbamazepine 200 mg, 1 tab, Inactive Route: PO, 2017 [facility] Drug form: TAB, Q6H, Dosing Weight 107.727, kg, Start date: 12/15/17 18:00:00 CDT, Duration: 30 day, Stop date: 01/14/18 12:00:00 CDTNotes: With food. (Same As: Tegretol) Advair Diskus 250 1 puff, Route: Inactive mcg-50 mcg INHALATION, 2017 [facility] inhalation powder Drug Form: AERO, Dosing Weight 107.727, kg, BID, Start date: 12/15/17 17:00:00 CDT, Duration: 30 day, Stop date: 01/14/18 9:00:00 CDT Fenofibrate 160 MG 145 mg, 1 tab, No Longer Oral Tablet Route: PO, Active 2017 [facility] Drug form: TAB, Daily, Dosing Weight 107.727, kg, Start date: 12/15/17 17:00:00 CDT, Duration: 30 day, Stop date: 01/13/18 17:00:00 CDTNotes: (Same as: Tricor) budesonide-formote 2 inhalation, No Longer rol 160 mcg-4.5 Route: Active 2017 [facility] mcg/inh inhalation INHALATION, aerosol with Drug Form: adapter AERO/A, BID, Start date: 12/15/17 17:00:00 CDT, Duration: 30 day, Stop date: 01/14/18 9:00:00 CDTNotes: (Same as: Symbicort) WASTE: Aerosol - Return to Pharmacy Albuterol 0.833 3 mL, Route: No Longer MG/ML / NEB, Drug Active 2017 [facility] Ipratropium Form: SOLN, [place] 0.167 Dosing Weight MG/ML Inhalant 107.727, kg, Solution RQID, Start date: 12/15/17 15:00:00 CDT, Duration: 30 day, Stop date: 01/14/18 11:00:00 CDTNotes: (Same as: Duoneb) Cozaar 100 mg, 2 tab, No Longer Route: PO, 2017 [facility] Drug form: TAB, Daily, Start date: 12/15/17 14:00:00 CDT, Duration: 30 day, Stop date: 01/14/18 9:00:00 CDTNotes: (Same as: Cozaar) hydrochlorothiazid 12.5 mg, 1 No Longer e tab, Route: Active 2017 [facility] PO, Drug form: TAB, Daily, Start date: [...] No Longer mcg-50 mcg INHALATION, Active 2017 [facility] inhalation powder BID, 0 Refill(s) Carbamazepine 200 200 mg=1 tab, Active MG Oral Tablet PO, Q12H, 0 2017 [Epitol] Refill(s) carBAMazepine 200 200 mg=1 tab, Inactive mg oral tablet PO, QID, 0 2017 Refill(s) Metformin 500 mg, PO, Active Bedtime, 0 2017 Refill(s) gabapentin 300 MG 300 mg=1 cap, No Longer Oral Capsule PO, Bedtime, 0 2017 [facility] Refill(s) Hydrochlorothiazid 1 tab, PO, Active e 12.5 MG / Daily, 0 2017 [facility] Potassium Refill(s) 100 MG Oral Tablet simvastatin 20 mg 20 mg=1 tab, Active oral tablet PO, Bedtime, 0 2017 Refill(s) fexofenadine 180 180 mg=1 tab, Active mg oral tablet PO, Daily, 0 2017 [facility] Refill(s) Fenofibrate 160 MG 160 mg=1 tab, Active Oral Tablet PO, Daily, 0 2017 [facility] Refill(s) tramadol 50 mg=1 tab, No Longer hydrochloride 50 PO, Q4H, PRN Active 2017 [facility] MG Oral Tablet Pain Score 7-10, 0 Refill(s) clopidogrel 75 mg 75 mg=1 tab, Active oral tablet PO, Daily, 0 2017 [facility] Refill(s) Albuterol 0.833 3 mL, NEB, Active MG/ML / QID, 0 2017 [facility] Ipratropium Refill(s) [place] 0.167 MG/ML Inhalant Solution heparin 5,000 unit, 1 No Longer mL, Route: Active 2017 [facility] SUB-Q, Drug form: INJ, Q8H, Dosing Weight 102.273, kg, Start date: 12/15/17 0:00:00 CDT, Duration: 30 day, Stop date: 01/13/18 16:00:00 CDTNotes: porcine heparin Norvasc 10 mg, 2 tab, No Longer Route: PO, Active 2017 [facility] Drug form: TAB, Q24H, Dosing Weight 102.273, kg, Start date: 12/14/17 20:00:00 CDT, Duration: 30 day, Stop date: 01/12/18 20:00:00 CDTNotes: (Same as: Norvasc) Ativan 1 mg, 0.5 mL, Inactive Route: IV, 2017 [facility] Drug form: INJ, ONCE, Dosing Weight 102.273, kg, Start date: 12/14/17 19:09:00 CDT, Stop date: 12/14/17 19:09:00 CDTNotes: (Same as: Ativan) Albuterol 0.833 3 mL, Route: No Longer MG/ML / NEB, Drug Active 2017 [facility] Ipratropium Form: SOLN, [place] 0.167 Dosing Weight MG/ML Inhalant 102.273, kg, Solution [DuoNeb] Q6H, PRN as needed for shortness of breath or wheezing, Start date: 12/14/17 19:09:00 CDT, Duration: 30 day, Stop date: 01/13/18 19:08:00 CDTNotes: (Same as: Duoneb) Insulin Lispro 1 unit, 0.01 No Longer mL, Route: Active 2017 [facility] SUB-Q, Drug form: SOLN, TID-Before Meals, Dosing [...] No Longer IM, Drug form: Active 2017 [facility] PDR/INJ, PRN, Dosing Weight 102.273, kg, PRN Blood Glucose Results, Start date: 12/14/17 19:07:00 CDT, Duration: 30 day, Stop date: 01/13/18 19:06:00 CDT Dextrose 50% 12.5 gm, 25 No Longer Syringe mL, Route: Active 2017 [facility] IVP, Drug Form: INJ, Dosing Weight 102.273, kg, PRN, PRN Blood Glucose Results, Start date: 12/14/17 19:07:00 CDT, Duration: 30 day, Stop date: 01/13/18 19:06:00 CDT Nitroglycerin 0.02 1 inch, Route: Inactive MG/MG Topical TOP, Drug 2017 [facility] Ointment Form: OINT, Dosing Weight 102.273, kg, ONCE, Start date: 12/14/17 18:56:00 CDT, Stop date: 12/14/17 18:56:00 CDTNotes: 1 gram is approximately 1 inch of nitroglycerin ointment (20 mg NTG per gram) (Same as:Nitro-Bid) Hydralazine 10 mg, 0.5 mL, No Longer Route: IV, Active [address] [place] [address] Drug form: INJ, Q6H, Dosing Weight 102.273, kg, PRN Elevated BP, Start date: 12/14/17 18:55:00 CDT, Duration: 30 day, Stop date: 01/13/18 18:54:00 CDT, for SBP > 160 mmNotes: (Same as: Apresoline) Push over 5 minutes NS 1,000 mL 1,000 mL, No Longer Rate: 75 Active 2017 [facility] ml/hr, Infuse over: 13.3 hr, Route: IV, Dosing Weight 102.273 kg, Total Volume: 1,000, Start date: 12/14/17 18:39:00 CDT, Duration: 30 day, Stop date: 01/13/18 18:38:00 CDT, 2.3, m2 Ondansetron 4 mg, 1 tab, No Longer Route: PO, Active 2017 [facility] Drug form: TAB, Q6H, Dosing Weight 102.273, kg, PRN Nausea & Vomiting, Start date: 12/14/17 18:38:00 CDT, Stop date: 01/13/18 18:37:00 CDTNotes: (Same as: Zofran) Acetaminophen 650 mg, 2 tab, No Longer Route: PO, Active 2017 [facility] Drug form: TAB, Q4H, Dosing Weight 102.273, kg, PRN Pain 1-3/Temp > 100.4 F, Start date: 12/14/17 18:38:00 CDT, Duration: 30 day, Stop date: 01/13/18 18:37:00 CDTNotes: Do not exceed 4 gm/day. (Same as: Tylenol) Lactulose 667 30 gm, 45 ml, Inactive MG/ML Oral Route: PO, 2017 [facility] Solution Drug form: SYRP, ONCE, Dosing Weight 102.273, kg, Priority: STAT, Start date: 12/14/17 17:31:00 CDT, Stop date: 12/14/17 17:31:00 CDTNotes: (Same as:Chronulac) Acetaminophen 300 1 tab, PO, Inactive MG / Codeine Q6H, PRN Pain, 2018 [facility] Phosphate 30 MG X 3 day, # 13 Oral Tablet tab, 0 [Tylenol with Refill(s) Codeine #3] Allergies, Adverse Reactions, Alerts Substance Category Reaction Severity Reaction Status Date Comments Source type Reported Immunizations Immunization Date Site Status Last Comments Source Given Updated pneumococcal Left completed [facility] 13-valent 8 Deltoid vaccine Results Order Name Results Value Reference Date Interpretation Comments Source Range LIPIDS LDL 74 mg/dL <=99 mg/dL 12/17 (Calculated) [facility] LIPIDS VLDL 29 12/17 [facility] LIPIDS Chol 136 mg/dL <=199 12/17 mg/dL [facility] LIPIDS Trig 143 mg/dL <=149 12/17 mg/dL [facility] LIPIDS CHD Risk 4.12 4.00 - 12/17 7.30 [facility] LIPIDS HDL 33 mg/dL >=61 mg/dL 12/17 [facility] CHEM PANEL Ammonia 35.0 <=45.0 12/16 umol/L uMol/L /2017 [facility] Carotid Carotid Patient Name: JULIÁN LEBLANC HASLIP 12/16 - artery artery /2017 - [facility] Doppler Doppler : 1950; Age: 67 years Male bilat US bilat US MR: [id number] Read by: David Gagnon MD Dictated Date/time: [...] occlusion High, low, or Variable undetectable SL: [id number] ANEMIA Vitamin B12 323 pg/mL 254 - 1320 12/16 STUDY Lvl [facility] ELECTROLYT AGAP 12.4 meq/L 10.0 - 12/16 ES 20.0 [facility] ELECTROLYT B/C Ratio 20 6 - 25 12/16 ES [facility] ELECTROLYT Globulin 3.5 g/dL 2.7 - 4.2 12/16 ES [facility] ELECTROLYT A/G Ratio 1.0 0.7 - 1.6 [facility] Result Comment: The eGFR is calculated using the CKD-EPI formula. In most young, healthy individuals the eGFR will be >90 mL/ min/1.73m2. The eGFR declines with age. An eGFR of 60-89 may be normal in [facility] mL/min/1.7 some populations, particularly the elderly, for whom the CKD-EPI formula has not been extensively validated. Use of the eGFR is not recommended in the following populations: [facility] 3m2 Individuals with unstable creatinine concentrations, including [...] 3.4 g/dL 3.5 - 5.0 12/16 [facility] Creat[facility] 0.97 mg/dL 0.50 - 12/16 ES Lvl 1.40 /2017 [facility] ELECTROLYT BUN 19 mg/dL 7 - 22 12/16 ES [facility] ELECTROLYT Sodium Lvl 142 meq/L 135 - 145 12/16 MH [facility] ELECTROLYT Glucose Lvl 137 mg/dL 70 - 99 12/16 [facility] ELECTROLYT CO2 26 meq/L 24 - 32 12/16 [facility] ELECTROLYT Calcium Lvl 9.3 mg/dL 8.5 - 10.5 12/16 [facility] ELECTROLYT Total 6.9 g/dL 6.4 - 8.4 12/16 ES [facility] ELECTROLYT ALT 14 unit/L 0 - 65 12/16 [facility] ELECTROLYT Bili Total 0.3 mg/dL 0.2 - 1.3 12/16 [facility] ELECTROLYT AST 6 unit/L 0 - 37 12/16 [facility] ELECTROLYT Alk Phos 63 unit/L 39 - 136 12/16 [facility] ELECTROLYT Potassium 3.4 meq/L 3.5 - 5.1 12/16 [facility] Lv /2017 [facility] ELECTROLYT Chloride Lvl 107 meq/L 95 - 109 12/16 [facility] HEMATOLOGY Hgb 12.6 g/dL 14.0 - 12/16 18.0 [facility] HEMATOLOGY Hct 36.5 % 42.0 - 12/16 54.0 [facility] HEMATOLOGY RBC 4.27 M/CMM 4.70 - 12/16 6.10 [facility] HEMATOLOGY WBC 5.5 K/CMM 3.7 - 10.4 12/16 [facility] HEMATOLOGY MCHC 34.4 g/dL 32.0 - 12/16 36.0 [facility] HEMATOLOGY RDW 13.4 % 11.5 - 12/16 14.5 [facility] HEMATOLOGY Platelet 232 K/CMM 133 - 450 12/16 [facility] HEMATOLOGY MCV 85.5 fL 80.0 - 12/16 94.0 [facility] HEMATOLOGY MPV 9.0 fL 7.4 - 10.4 12/16 [facility] HEMATOLOGY MCH 29.4 pg 27.0 - 12/16 31.0 [facility] Brain wo Brain wo Clinical Indication: - confusion 12/16 - contrast contrast MRI /2017 - [facility] MRI Comparison: Comparison is made to CT [...] component concerning for loosening or infection. SL: [id number] ANEMIA Folate Lvl 17.7 ng/mL >=3.0 12/15 STUDY ng/mL /2017 [facility] CHEM PANEL eGFR 83 12/15 Result Comment: [...] is not recommended in the following populations: [facility] 3m2 Individuals with unstable creatinine concentrations, including [...] Total 0.3 mg/dL 0.2 - 1.3 12/15 [facility] CHEM PANEL Alk Phos 62 unit/L 39 - 136 12/15 [facility] CHEM PANEL Potassium 3.5 meq/L 3.5 - 5.1 12/15 Lvl /2017 [facility] CHEM PANEL BUN 20 mg/dL 7 - 22 12/15 [facility] CHEM PANEL Sodium Lvl 145 meq/L 135 - 145 12/15 [facility] CHEM PANEL Creatinine 0.95 mg/dL 0.50 - [...] Lvl 8.9 mg/dL 8.5 - 10.5 12/15 [facility] CHEM PANEL AGAP 13.5 meq/L 10.0 - 12/15 20.0 [facility] CHEM PANEL B/C Ratio 21 6 - 25 12/15 [facility] CHEM PANEL CO2 25 meq/L 24 - 32 12/15 [facility] CHEM PANEL Chloride Lvl 110 meq/L 95 - 109 12/15 [facility] CHEM PANEL Magnesium 1.7 mg/dL 1.8 - 2.4 12/15 MH Lvl /2018 [facility] HEMATOLOGY Hct 36.0 % 42.0 - 12/15 MH 54.0 [facility] HEMATOLOGY MCV 85.6 fL 80.0 - 12/15 MH 94.0 [facility] HEMATOLOGY Hgb 12.3 g/dL 14.0 - 12/15 MH 18.0 [facility] HEMATOLOGY MCH 29.4 pg 27.0 - 12/15 MH 31.0 [facility] HEMATOLOGY MCHC 34.3 g/dL 32.0 - 12/15 MH 36.0 [facility] HEMATOLOGY RDW 13.7 % 11.5 - 06 MH 14.5 [facility] HEMATOLOGY MPV 8.7 fL 7.4 - 10.4 12/15 [facility] HEMATOLOGY Platelet 223 K/CMM 133 - 450 12/15 [facility] HEMATOLOGY RBC 4.20 M/CMM 4.70 - 06 MH 6.10 [facility] HEMATOLOGY WBC 4.8 K/CMM 3.7 - 10.4 12/15 [facility] HEMATOLOGY Lymphocytes 1.5 K/CMM 1.0 - 5.5 12/15 MH # /2018 [facility] HEMATOLOGY Monocytes # 0.3 K/CMM 0.0 - 0.8 12/15 [facility] HEMATOLOGY Lymphocytes 31.9 % 20.0 - 12/15 MH 40.0 [facility] HEMATOLOGY Segs 55.2 % 45.0 - 12/15 MH 75.0 /2017 [facility] HEMATOLOGY Monocytes 7.1 % 2.0 - 12.0 12/15 [facility] HEMATOLOGY Eosinophils 4.6 % 0.0 - 4.0 12/15 [facility] HEMATOLOGY Segs-Bands # 2.6 K/CMM 1.5 - 8.1 12/15 [facility] HEMATOLOGY Basophils 1.2 % 0.0 - 1.0 12/15 [facility] HEMATOLOGY Eosinophils 0.2 K/CMM 0.0 - 0.5 12/15 /2017 [facility] HEMATOLOGY Basophils # 0.1 K/CMM 0.0 - 0.2 12/15 [facility] DRUG U Benzodia Negative Negative 12/14 SCREEN Scr [facility] *NA* (12/14/17 3:27 PM) DRUG U Cocaine Negative Negative 12/14 SCREEN [facility] *NA* (12/14/17 3:27 PM) DRUG U Cannab Scr Negative Negative 12/14 SCREEN [facility] *NA* (12/14/17 3:27 PM) DRUG U Opiate Scr Negative Negative 12/14 [facility] *NA* (12/14/17 3:27 PM) DRUG U Amph Scr Negative Negative 12/14 SCREEN [facility] *NA* (12/14/17 3:27 PM) DRUG U Sosa Scr Negative Negative 12/14 SCREEN [facility] *NA* (12/14/17 3:27 PM) DRUG UDS Note See Note 12/14 SCREEN /2017 [facility] (12/14/17 3:27 PM) DRUG U Phencyc Negative Negative 12/14 SCREEN Scr [facility] *NA* (12/14/17 3:27 PM) URINE AND UA Gran Cast 1 /LPF 12/14 STOOL [facility] URINE AND UA Sq Epi None Seen 12/14 STOOL [facility] URINE AND UA Mucus Few /LPF None Seen 12/14 STOOL /LPF /2017 [facility] URINE AND UA RBC 2 /HPF 0 - 2 12/14 STOOL [facility] URINE AND UA WBC 1 /HPF 0 - 5 12/14 STOOL [facility] URINE AND UA Blood Negative Negative 12/14 STOOL [facility] (12/14/17 3:27 PM) URINE AND UA 2.0 mg/dL 0.1 - 1.0 12/14 STOOL Urobilinogen /2017 [facility] URINE AND UA pH 5.0 5.0 - 8.0 12/14 STOOL [facility] URINE AND UA Spec Grav 1.027 <=1.030 12/14 STOOL [facility] URINE AND UA Protein Negative Negative 12/14 STOOL mg/dL mg/dL URINE AND UA Glucose Negative Negative 12/14 STOOL mg/dL mg/dL URINE AND UA Nitrite Negative Negative 12/14 STOOL [facility] (12/14/17 3:27 PM) URINE AND UA Leuk Est Negative Negative 12/14 STOOL [facility] (12/14/17 3:27 PM) URINE AND UA Ketones Negative Negative 12/14 STOOL mg/dL mg/dL URINE AND UA Bili Negative Negative 12/14 STOOL [facility] *NA* (12/14/17 3:27 PM) URINE AND UA Turbidity Clear Clear 12/14 STOOL [facility] (12/14/17 3:27 PM) URINE AND UA Color Yellow Yellow 12/14 STOOL [facility] *NA* (12/14/17 3:27 PM) CHEM PANEL Ammonia 51.0 <=45.0 12/14 umol/L uMol/L [facility] CHEM PANEL eGFR 52 12/14 Result Comment: [...] is not recommended in the following populations: [facility] 3m2 Individuals with unstable creatinine concentrations, including [...] Lvl 142 meq/L 135 - 145 12/14 [facility] CHEM PANEL AGAP 8.7 meq/L 10.0 - 12/14 20.0 [facility] CHEM PANEL B/C Ratio 15 6 - 25 12/14 [facility] CHEM PANEL A/G Ratio 1.0 0.7 - 1.6 12/14 [facility] CHEM PANEL Globulin 3.7 g/dL 2.7 - 4.2 12/14 [facility] HEMATOLOGY MPV 9.0 fL 7.4 - 10.4 12/14 [facility] HEMATOLOGY MCHC 33.5 g/dL 32.0 - 12/14 36.0 [facility] HEMATOLOGY RDW 13.5 % 11.5 - 12/14 MH 14. [facility] HEMATOLOGY Platelet 267 K/CMM 133 - 450 12/14 [facility] HEMATOLOGY MCH 28.7 pg 27.0 - 12/14 31.0 /2017 [facility] HEMATOLOGY MCV 85.8 fL 80.0 - 12/14 MH 94.0 /2017 [facility] HEMATOLOGY Hct 38.9 % 42.0 - 12/14 MH 54.0 /2017 [facility] HEMATOLOGY Hgb 13.0 g/dL 14.0 - 12/14 MH 18.0 /2017 [facility] HEMATOLOGY RBC 4.54 M/CMM 4.70 - 12/14 MH 6.10 /2017 [facility] HEMATOLOGY WBC 6.8 K/CMM 3.7 - 10.4 12/14 /2017 [facility] HEMATOLOGY Eosinophils 0.1 K/CMM 0.0 - 0.5 12/14 MH # /2018 [facility] HEMATOLOGY Basophils # 0.1 K/CMM 0.0 - 0.2 12/14 /2017 [facility] HEMATOLOGY Monocytes # 0.5 K/CMM 0.0 - 0.8 12/14 [facility] HEMATOLOGY Segs-Bands # 4.4 K/CMM 1.5 - 8.1 12/14 [facility] HEMATOLOGY Lymphocytes 1.7 K/CMM 1.0 - 5.5 12/14 # /2018 [facility] HEMATOLOGY Eosinophils 1.8 % 0.0 - 4.0 12/14 /2017 [facility] HEMATOLOGY Basophils 0.9 % 0.0 - 1.0 12/14 [facility] HEMATOLOGY Monocytes 7.1 % 2.0 - 12.0 12/14 /2017 [facility] HEMATOLOGY Segs 65.2 % 45.0 - 12/14 75.0 /2017 [facility] Lymphocytes 25.0 % 20.0 - 12/14 40.0 [facility] TOXICOLOGY Ethanol Lvl null 12/14 [facility] TOXICOLOGY Etoh (%) null 12/14 [facility] TOXICOLOGY Salicylate null 0.0 - 30.0 12/14 Lvl /2017 [facility] TOXICOLOGY Acetaminoph <2 10 - 20 12/14 Lvl
(12/14 3:17 PM) CARDIAC Total CK 79 unit/L 12 - 191 12/14 ENZYMES /2017 [facility] CARDIAC Troponin-I null 0.00 - 12/14 ENZYMES 0.40 /2017 [facility] Brain wo Brain wo Clinical Indication: Abdominal pain, bloody stool, ams 12/14 - contrast contrast CT /2017 - [facility] CT Comparison: None Read by: Dee Galindo [...] injury, mass, hemorrhage or subacute stroke. SL: [id number] Chest Chest 1view 1 VIEW CXR. PORTABLE EXAM 3:07 PM 12/[address] [facility] 1view DX /[address] [place] [address] HISTORY: Altered mental status. Read by: Rudy Dale MD Dictated Date/time: 12/14/17 15:26 Electronically Signed by: Rudy Dale MD 12/14/17 15:27 FINAL REPORT COMPARISON: None. The cardiomediastinal silhouette is normal. The lungs are clear with normal pulmonary vasculature. No pleural abnormality. Bones intact. IMPRESSION: Normal exam. END OF IMPRESSION SL: [id number] Vital Signs Vital Sign Value Date Comments Source Respitory Rate 18 12/23/2017 [facility] Heart Rate 78 12/23/2017 [facility] Systolic (mm Hg) 148 12/23/2017 [facility] Diastolic (mm Hg) 94 12/23/2017 [facility] Temperature Oral (F) 97.6 F 12/23/2017 [facility] Respitory Rate 18 12/23/2017 [facility] Respitory Rate 16 12/23/2017 [facility] Heart Rate 82 12/23/2017 [facility] Systolic (mm Hg) 143 12/23/2017 [facility] Diastolic (mm Hg) 94 12/23/2017 [facility] Temperature Oral (F) 98.4 F 12/23/2017 [facility] Heart Rate 93 12/22/2017 [facility] Temperature Oral (F) 98.7 F 12/22/2017 [facility] Systolic (mm Hg) 130 12/22/2017 [facility] Diastolic (mm Hg) 83 12/22/2017 [facility] BMI Calculated 32.21 12/15/2017 [facility] Weight 107.727 12/15/2017 [facility] Height 182.88 cm 12/15/2017 [facility] Height 182.88 cm 12/14/2017 [facility] BMI Calculated 30.58 12/14/2017 [facility] Weight 102.273 12/14/2017 [facility] Encounters Location Location Encounter Encounter Reason Attending ADM DC Status Source Details Type Number For Provider Date Date Visit [facility] [id number] Kilo 06/25 07/25 [facility] [place] /2014 [facility] [id number] Amir 12/14 12/23 Ritesh Haleranious /2017 [facility] Procedures Procedure Code Date Perfomer Comments Source Back fusion [id number] [facility] Hip replacement [id number] [facility]
--- NOTE | 2018-12-01 15:42 | RAD REPORT ---
EXAM DESCRIPTION: RAD - Chest Pa And Lat (2 Views) - 12/01/2018 11:51 am CLINICAL HISTORY: COUGH Chest pain. COMPARISON: Chest Single View dated 09/08/2018 FINDINGS: The lungs are clear. The heart is normal in size. No displaced fractures. IMPRESSION: No acute or concerning finding suspected.
== END 2018-12-01 13:17 | disposition home or self-care (01) ==
LOC: ER 10:38
DX: J20.9 Acute bronchitis, unspecified (principal); I10 Essential (primary) hypertension; E78.5 Hyperlipidemia, unspecified
CPT/HCPCS: 71046; 99284

== ENCOUNTER 2019-06-06 13:04 | Inpatient (IN) | payer OTHER ==
--- NOTE | 2019-06-06 13:24 | RAD REPORT ---
EXAM DESCRIPTION: RAD - Chest Single View - 06/06/2019 1:18 pm CLINICAL HISTORY: BLUNT CHEST TRAUMA Chest pain. COMPARISON: Chest Pa And Lat (2 Views) dated 12/01/2018; Chest Single View dated 09/08/2018 FINDINGS: Portable technique limits examination quality. The lungs are grossly clear. The heart is normal in size. No displaced fractures. IMPRESSION: No acute intrathoracic process suspected.
[2019-06-06] MEDS ORDERED: HYDROMORPHONE HCL 1 MG/ML INJ ONE (13:29)
[2019-06-06] MEDS ORDERED: ONDANSETRON 4 MG/2 ML VIAL ONE (13:30)
[2019-06-06] MEDS ORDERED: NA CHLORIDE 0.9% 1,000 ML ONE (13:30)
[2019-06-06] MEDS ORDERED: DIAZEPAM 10 MG/2 ML INJ SYRINGE ONE (13:30)
[2019-06-06 14:56] LABS: Basophils % 0.6 % (0-1.3); Hematocrit 46.7 % (39.6-49.0); Lymphocytes % 7.7 % (15.3-44.8); MPV 9.3 fL (7.6-11.3); RBC Red Blood Cell Count 5.24 M/uL (4.33-5.43)
[2019-06-06 15:11] LABS: ALT/SGPT 20 U/L (12-78); AST/SGOT 21 U/L (15-37); Albumin 3.7 g/dL (3.4-5.0); Alkaline Phosphatase 72 U/L (45-117); BUN Blood Urea Nitrogen 16 mg/dL (7-18); Bicarbonate 22 mmol/L (21-32); Bilirubin Total 0.6 mg/dL (0.2-1.0); Glucose Level 147 mg/dL (74-106); Lipase 98 U/L (73-393); Potassium 3.8 mmol/L (3.5-5.1); Protein, Total 7.1 g/dL (6.4-8.2); Sodium Level 140 mmol/L (136-145)
--- NOTE | 2019-06-06 16:08 | RAD REPORT ---
EXAM DESCRIPTION: CT - Chest Abdomen Pelvis W Cont - 06/06/2019 3:38 pm CLINICAL HISTORY: Chest and abdominal pain status post fall COMPARISON: CT chest November 13, 2016 TECHNIQUE: Computed axial tomography of the chest, abdomen and pelvis was obtained. 100 cc Isovue-30 0 was administered intravenously. Oral contrast was not requested. This limits evaluation of bowel. All CT scans are performed using dose optimization technique as appropriate and may include automated exposure control or mA/KV adjustment according to patient size. FINDINGS: A mildly displaced fracture involves the right eighth lateral rib. Moderately displaced fr acture involves the right ninth lateral rib. Mildly displaced fracture involves the right tenth later al rib A pleural effusion is not present. A pulmonary contusion is not seen. A mediastinal hematoma is not present. The gallbladder has been removed. The biliary tree is dilated. The liver has a homogeneous density Small splenic cyst is present. Hepatic and splenic granulomas are noted. The pancreas and adrenals are unremarkable Small renal cysts. Postsurgical changes involve the lumbar spine. Bilateral arthroplasties. Artifact from the hardware o bscures detail of the pelvis somewhat. The visualized thyroid gland is enlarged IMPRESSION: Mildly to moderately displaced fractures involving the right lateral eighth, ninth and t enth ribs. No pneumothorax. Prominence of the biliary tree may be physiologic in this patient status post cholecystectomy. Pathol ogy such as a stricture or stone within the common bile duct can also result this appearance
--- NOTE | 2019-06-06 17:08 | ER ---
Nurse's Notes [facility] Name: Reese Graf Age: 68 yrs Sex: Male : 1950 Arrival Date: 06/06/2019 Time: 13:04 Bed 24 Private MD: Diagnosis: Fall due to bumping against object;Contusion of back wall of thorax;Multiple fractures of ribs, right side-8, 9,10 rib fracture Presentation: 06/06 13:01 Transition of care: patient was not received from another setting of care. Onset of ss symptoms was June 06, 2019. Risk Assessment: Do you want to hurt yourself or someone else? Patient reports no desire to harm self or others. Initial Sepsis Screen: Does the patient meet any 2 criteria? RR > 20 per min. HR > 90 bpm. Does the patient have a suspected source of infection? No. Patient's initial sepsis screen is negative. 13:06 Presenting complaint: Patient states: R mid/upper back pain, lateral chest wall pain ss after falling from a standing position onto toilet just prior to arrival. Pt reports pain increases with talking and inspiration. Care prior to arrival: IV initiated. 22 GA, in the left hand. Mechanism of Injury: Fall from standing position. Trauma event details: Injury occurred in the [facility], Injury occurred: at home. Injury occurred: June 06, 2019. 13:06 Acuity: ANITA 2 ss 13:06 Method Of Arrival: EMS: [facility] Trauma Activation: Alert Physician: ED Physician; Name: ; Notified At: ; Arrived At: Physician: General Surgeon; Name: ; Notified At: ; Arrived At: Physician: Radiology; Name: ; Notified At: ; Arrived At: Physician: Respiratory; Name: ; Notified At: ; Arrived At: Physician: Lab; Name: ; Notified At: ; Arrived At: Historical: - Allergies: 13:11 No Known Allergies; ss - PMHx: 13:11 CVA; Hypertension; Hyperlipidemia; ss - PSHx: 13:11 hip replacement; back surgery; ss - Immunization history:: Adult Immunizations up to date, Last tetanus immunization: < 5 years ago Flu vaccine is not up to date. - Social history:: Smoking status: Patient/guardian denies using tobacco. - Family history:: not pertinent. - Ebola Screening: : Patient negative for fever greater than or equal to 101.5 degrees Fahrenheit, and additional compatible Ebola Virus Disease symptoms Patient denies exposure to infectious person Patient denies travel to an Ebola-affected area in the 21 days before illness onset No symptoms or risks identified at this time. Screenin:05 Abuse screen: Denies threats or abuse. Denies injuries from another. Tuberculosis ss screening: Never had TB. 13:20 Fall Risk Fall in past 12 months (25 points). IV access (20 points). Total Torres Fall ca1 Scale indicates Low Risk Score (25-44 pts). Fall prevention measures have been instituted. Side Rails Up X 2 Family Present and informed to notify staff if they need to leave bedside As available Patient and Family Educated on Fall Prevention Program and strategies. 14:36 Nutritional screening: No deficits noted. ca1 Primary Survey: 13:05 NO uncontrolled hemorrhage observed. A: The patient is alert. Breathing/Chest: ca1 Respiratory pattern: regular, Respiratory effort: spontaneous, unlabored, Breath sounds: clear, bilaterally. Chest inspection: symmetrical rise and fall of the chest. Circulation: Heart tones present. Pulses: palpable bilateral radial, brachial, femoral, popliteal, posterior tibial and and dorsalis pedis arteries.. Skin color: pink, Skin temperature: warm, dry. Disability Alert. Exposure/Environment: All clothing and personal items were removed. Forensic evidence collection is not deemed to be indicated at this time. Items placed in patient belonging bag. There is no evidence of uncontrolled external bleeding. No obvious injuries are noted at this time. A warming method has been applied: A warm blanket has been provided to the patient. 14:39 Reassessment Airway Airway Breathing/Chest Respiratory pattern Regular Respiratory ca1 effort Spontaneous Unlabored Chest inspection Symmetrical Circulation Color [place] Temperature Warm Dry Disability Alert. Assessment: 13:20 General: Appears in no apparent distress. uncomfortable, Behavior is calm, cooperative, ca1 appropriate for age. Pain: Complains of pain in right low back and back and right mid back and right subscapular area and right lateral posterior chest Pain currently is 8 out of 10 on a pain scale. Neuro: Level of Consciousness is awake, alert, obeys commands, Oriented to person, place, time, situation. Cardiovascular: Heart tones S1 S2 present Capillary refill < 3 seconds Patient's skin is warm and dry. Respiratory: Airway is patent Respiratory effort is even, unlabored, Respiratory pattern is regular, symmetrical, Breath sounds are clear bilaterally. GI: Abdomen is round non-distended, Bowel sounds present X 4 quads. Abd is soft and non tender X 4 quads. : No deficits noted. No signs and/or symptoms were reported regarding the genitourinary system. EENT: No deficits noted. No signs and/or symptoms were reported regarding the EENT system. Derm: Skin is intact, is healthy with good turgor, Skin is pink, warm \T\ dry. Musculoskeletal: Circulation, motion, and sensation intact. Capillary refill < 3 seconds, Range of motion: intact in all extremities. 14:30 Reassessment: Patient appears in no apparent distress at this time. Patient is alert, ca1 oriented x 3, equal unlabored respirations, skin warm/dry/pink. facility maintenance technician at bedside to do recollect. 15:50 Reassessment: Patient appears in no apparent distress at this time. Patient is alert, ca1 oriented x 3, equal unlabored respirations, skin warm/dry/pink. 16:40 Reassessment: Patient appears in no apparent distress at this time. Patient is alert, ca1 oriented x 3, equal unlabored respirations, skin warm/dry/pink. Dr. Reid at bedside. 17:39 Reassessment: Reassessment: Pt standing at side of bed using urinal, pt's HR noted to aa5 be 156bpm and regular. Pt helped back in bed and HR now 113bpm, Sinus tach on monitor. MD was notified of findings. Pt instructed to stay in bed. . 18:00 Reassessment: Patient appears in no apparent distress at this time. Patient and/or ca1 family updated on plan of care and expected duration. Pain level reassessed. 19:17 Reassessment: Patient appears in no apparent distress at this time. Patient and/or ca1 family updated on plan of care and expected duration. Pain level reassessed. C/o pain, notified provider. Order given. 20:36 Reassessment: Patient appears in no apparent distress at this time. Patient and/or ca1 family updated on plan of care and expected duration. Pain level reassessed. Vital Signs: 13:05 BP 172 / 106; Pulse 111; Resp 22; Pulse Ox 96% on R/A; ss 13:12 Temp 98.5(O); ss 14:30 BP 179 / 109; Pulse 106; Resp 17 S; Pulse Ox 95% on R/A; Weight 95.25 kg (R); Height 6 ca1 ft. 0 in. (182.88 cm) (R); 15:50 BP 170 / 108; Pulse 99; Resp 17 S; Pulse Ox 95% on R/A; ca1 16:40 BP 169 / 122; Pulse 105; Resp 20 S; Pulse Ox 94% on R/A; ca1 17:42 BP 176 / 114; Pulse 97; Resp 12 S; Pulse Ox 100% on R/A; ca1 18:30 BP 188 / 126; Pulse 99; Resp 17 S; Pulse Ox 96% on R/A; ca1 19:22 BP 201 / 132; Pulse 105; Resp 17 S; Pulse Ox 96% on R/A; ca1 20:36 BP 169 / 107; Pulse 93; Resp 16 S; Pulse Ox 92% on R/A; ca1 14:30 Body Mass Index 28.48 (95.25 kg, 182.88 cm) ca1 Kashif Coma Score: 13:05 Eye Response: spontaneous(4). Verbal Response: oriented(5). Motor Response: obeys ss commands(6). Total: 15. Trauma Score (Adult): 13:05 Eye Response: spontaneous(1); Verbal Response: oriented(1); Motor Response: obeys ss commands(2); Systolic BP: > 89 mm Hg(4); Respiratory Rate: 10 to 29 per min(4); Kashif Score: 15; Trauma Score: 12 ED Course: 13:04 Patient arrived in ED. ss 13:05 Mehul Reid MD is Attending Physician. danny 13:05 Patient maintains SpO2 saturation greater than 95% on room air. ca1 13:05 Arm band placed on right wrist. ca1 13:08 Triage completed. ss 13:10 Thermoregulation: warm blanket given to patient. ca1 13:19 XRAY Chest (1 view) In Process Unspecified. EDMS 13:20 No provider procedures requiring assistance completed. ca1 13:20 Patient has correct armband on for positive identification. Placed in gown. Bed in low ca1 position. Call light in reach. Side rails up X2. Pulse ox on. NIBP on. Warm blanket given. 13:23 Christine Jacob, ИВАН is Primary Nurse. ca1 13:30 Inserted saline lock: 20 gauge in right antecubital area, using aseptic technique. tm3 13:32 Initial lab(s) drawn, by me, sent to lab. tm3 14:39 Lab(s) recollected, by poultry farm laborer, sent to lab. ca1 15:05 Radiology exam delayed due to lab results not completed at this time. (BUN/Creatinine). vm2 15:38 CT Chest, Abdomen, Pelvis - W/Contrast In Process Unspecified. EDMS 17:05 Jacky Willard is Hospitalizing Provider. danny 19:49 CT Head C Spine In Process Unspecified. EDMS 20:37 Patient admitted, IV remains in place. ca1 Administered Medications: 13:26 Drug: NS 0.9% 1000 ml Route: IV; Rate: 1 bolus; Site: right antecubital; ca1 14:37 Follow up: Response: No adverse reaction; IV Status: Completed infusion; IV Intake: ca1 1000ml 13:28 Drug: Zofran 4 mg Route: IVP; Site: right antecubital; ca1 14:38 Follow up: Response: No adverse reaction; Nausea is decreased ca1 13:30 Drug: Valium 5 mg Route: IVP; Site: right antecubital; ca1 14:38 Follow up: Response: No adverse reaction; Pain is decreased ca1 13:37 Drug: Dilaudid 1 mg {Note: RASS - 0 .} Route: IVP; Site: right antecubital; ca1 14:37 Follow up: Response: No adverse reaction; Pain is decreased; RASS: Alert and Calm (0) ca1 19:16 Drug: Dilaudid 0.5 mg {Note: RASS - 0.} Route: IVP; Site: left hand; ca1 20:39 Follow up: Response: No adverse reaction; Pain is decreased; RASS: Alert and Calm (0) ca1 Intake: 14:37 IV: 1000ml; Total: 1000ml. ca1 Output: 16:00 Urine: 200ml (Voided); Total: 200ml. ca1 Outcome: 17:07 Decision to Hospitalize by Provider. danny 20:37 Admitted to Med/surg accompanied by jorje, via stretcher, room 202, with chart, Report ca1 called to ИВАН Jones 20:37 Condition: stable 20:37 Instructed on the need for admit. 20:38 Bed assignmentPatient's length of stay extended due to ca1 21:12 Patient left the ED. ca1 Signatures: Dispatcher [employer] EDMS Jimenez Gloria tm3 Mehul Reid MD MD cha Calderon, Audri, RN RN aa5 Marilu Calderón RN RN Maribel Taylor [facility] Christine Jacob RN RN ca1 Corrections: (The following items were deleted from the chart) 14:35 14:30 BP 179 / 109; Pulse 106bpm; Resp 17bpm; Spontaneous; Pulse Ox 95% RA; ca1 ca1 19:17 17:39 Reassessment: jarad abraham
--- NOTE | 2019-06-06 17:09 | EDPHYS ---
Physician Documentation [facility] Name: Reese Graf Age: 68 yrs Sex: Male : 1950 Arrival Date: 06/06/2019 Time: 13:04 Bed 24 Private MD: ED Physician Mehul Reid HPI: 06/06 13:17 This 68 yrs old Male presents to ER via EMS with complaints of Fall Injury, danny Trauma Complaint. 13:17 Details of fall: The patient fell from an upright position, while standing. Onset: The danny symptoms/episode began/occurred just prior to arrival. Associated injuries: The patient sustained upper back injury, injury to the chest, specifically the right lateral posterior chest, contusion, pain with breathing, pain with movement, tenderness. Severity of symptoms: At their worst the symptoms were severe, in the emergency department the symptoms are unchanged. The patient has not experienced similar symptoms in the past. Historical: - Allergies: 13:11 No Known Allergies; ss - PMHx: 13:11 CVA; Hypertension; Hyperlipidemia; ss - PSHx: 13:11 hip replacement; back surgery; ss - Immunization history:: Adult Immunizations up to date, Last tetanus immunization: < 5 years ago Flu vaccine is not up to date. - Social history:: Smoking status: Patient/guardian denies using tobacco. - Family history:: not pertinent. - Ebola Screening: : Patient negative for fever greater than or equal to 101.5 degrees Fahrenheit, and additional compatible Ebola Virus Disease symptoms Patient denies exposure to infectious person Patient denies travel to an Ebola-affected area in the 21 days before illness onset No symptoms or risks identified at this time. ROS: 13:17 Constitutional: Negative for fever, chills, and weight loss, Eyes: Negative for injury, danny pain, redness, and discharge, ENT: Negative for injury, pain, and discharge, Neck: Negative for injury, pain, and swelling, Respiratory: Negative for shortness of breath, cough, wheezing, and pleuritic chest pain, Abdomen/GI: Negative for abdominal pain, nausea, vomiting, diarrhea, and constipation, : Negative for injury, bleeding, discharge, and swelling, MS/Extremity: Negative for injury and deformity, Skin: Negative for injury, rash, and discoloration, Neuro: Negative for headache, weakness, numbness, tingling, and seizure, Psych: Negative for depression, anxiety, suicide ideation, homicidal ideation, and hallucinations, Allergy/Immunology: Negative for hives, rash, and allergies, Endocrine: Negative for neck swelling, polydipsia, polyuria, polyphagia, and marked weight changes, Hematologic/Lymphatic: Negative for swollen nodes, abnormal bleeding, and unusual bruising. 13:17 Cardiovascular: Positive for chest pain, with movement, of the right subscapular area and right mid back. 13:17 Back: Positive for decreased range of motion, pain at rest, pain with movement, of the right subscapular area and right mid back. Exam: 13:17 Constitutional: This is a well developed, well nourished patient who is awake, alert, danny and in no acute distress. Head/Face: Normocephalic, atraumatic. Eyes: Pupils equal round and reactive to light, extra-ocular motions intact. Lids and lashes normal. Conjunctiva and sclera are non-icteric and not injected. Cornea within normal limits. Periorbital areas with no swelling, redness, or edema. ENT: Nares patent. No nasal discharge, no septal abnormalities noted. Tympanic membranes are normal and external auditory canals are clear. Oropharynx with no redness, swelling, or masses, exudates, or evidence of obstruction, uvula midline. Mucous membranes moist. Neck: Trachea midline, no thyromegaly or masses palpated, and no cervical lymphadenopathy. Supple, full range of motion without nuchal rigidity, or vertebral point tenderness. No Meningismus. Chest/axilla: Normal chest wall appearance and motion. Nontender with no deformity. No lesions are appreciated. Cardiovascular: Regular rate and rhythm with a normal S1 and S2. No gallops, murmurs, or rubs. Normal PMI, no JVD. No pulse deficits. Respiratory: Lungs have equal breath sounds bilaterally, clear to auscultation and percussion. No rales, rhonchi or wheezes noted. No increased work of breathing, no retractions or nasal flaring. Abdomen/GI: Soft, non-tender, with normal bowel sounds. No distension or tympany. No guarding or rebound. No evidence of tenderness throughout. Male : Normal genitalia with no discharge or lesions. Skin: Warm, dry with normal turgor. Normal color with no rashes, no lesions, and no evidence of cellulitis. MS/ Extremity: Pulses equal, no cyanosis. Neurovascular intact. Full, normal range of motion. Neuro: Awake and alert, GCS 15, oriented to person, place, time, and situation. Cranial nerves II-XII grossly intact. Motor strength 5/5 in all extremities. Sensory grossly intact. Cerebellar exam normal. Normal gait. Psych: Awake, alert, with orientation to person, place and time. Behavior, mood, and affect are within normal limits. 13:17 Back: ROM is painful, normal spinal alignment noted, CVA tenderness, that is moderate, vertebral tenderness, is not appreciated, muscle spasm, is appreciated in the right subscapular area, right mid back and right low back. Vital Signs: 13:05 BP 172 / 106; Pulse 111; Resp 22; Pulse Ox 96% on R/A; ss 13:12 Temp 98.5(O); ss 14:30 BP 179 / 109; Pulse 106; Resp 17 S; Pulse Ox 95% on R/A; Weight 95.25 kg (R); Height 6 ca1 ft. 0 in. (182.88 cm) (R); 15:50 BP 170 / 108; Pulse 99; Resp 17 S; Pulse Ox 95% on R/A; ca1 16:40 BP 169 / 122; Pulse 105; Resp 20 S; Pulse Ox 94% on R/A; ca1 17:42 BP 176 / 114; Pulse 97; Resp 12 S; Pulse Ox 100% on R/A; ca1 18:30 BP 188 / 126; Pulse 99; Resp 17 S; Pulse Ox 96% on R/A; ca1 19:22 BP 201 / 132; Pulse 105; Resp 17 S; Pulse Ox 96% on R/A; ca1 20:36 BP 169 / 107; Pulse 93; Resp 16 S; Pulse Ox 92% on R/A; ca1 14:30 Body Mass Index 28.48 (95.25 kg, 182.88 cm) ca1 Kashif Coma Score: 13:05 Eye Response: spontaneous(4). Verbal Response: oriented(5). Motor Response: obeys ss commands(6). Total: 15. Trauma Score (Adult): 13:05 Eye Response: spontaneous(1); Verbal Response: oriented(1); Motor Response: obeys ss commands(2); Systolic BP: > 89 mm Hg(4); Respiratory Rate: 10 to 29 per min(4); Kashif Score: 15; Trauma Score: 12 MDM: 13:05 Patient medically screened. [facility] 13:19 Data reviewed: vital signs, nurses notes, lab test result(s), EKG, radiologic studies, [facility] CT scan, plain films. 06/06 13:17 Order name: CBC with Diff [facility] 06/06 13:17 Order name: Comprehensive Metabolic Panel; Complete Time: 16:25 [facility] 06/06 13:17 Order name: Lipase; Complete Time: 16:25 [facility] 06/06 13:17 Order name: Type And Screen; Complete Time: 17:23 [facility] 06/06 13:17 Order name: Urine Culture [facility] 06/06 16:29 Order name: Urine Dipstick--Ancillary (enter results) 06/06 13:12 Order name: XRAY Chest (1 view); Complete Time: 15:01 ss 06/06 13:17 Order name: CT Chest, Abdomen, Pelvis - W/Contrast; Complete Time: 16:25 [facility] 06/06 16:26 Order name: INCENTIVE SPIROMETRY [facility] 06/06 16:30 Order name: Urine Dipstick-Ancillary; Complete Time: 19:18 EDNM 06/06 16:47 Order name: ABO/RH no charge; Complete Time: 17:23 [facility] 06/06 19:19 Order name: CT Head C Spine [facility] 06/06 19:43 Order name: Manual Differential [facility] 06/06 13:17 Order name: Urine Dipstick-Ancillary (obtain specimen); Complete Time: 16:18 [facility] 06/06 13:55 Order name: Labs - recollect needed; Complete Time: 14:38 06/06 16:03 Order name: Labs - recollect needed; Complete Time: 16:18 bd Administered Medications: 13:26 Drug: NS 0.9% 1000 ml Route: IV; Rate: 1 bolus; Site: right antecubital; ca1 14:37 Follow up: Response: No adverse reaction; IV Status: Completed infusion; IV Intake: ca1 1000ml 13:28 Drug: Zofran 4 mg Route: IVP; Site: right antecubital; ca1 14:38 Follow up: Response: No adverse reaction; Nausea is decreased ca1 13:30 Drug: Valium 5 mg Route: IVP; Site: right antecubital; ca1 14:38 Follow up: Response: No adverse reaction; Pain is decreased ca1 13:37 Drug: Dilaudid 1 mg {Note: RASS - 0 .} Route: IVP; Site: right antecubital; ca1 14:37 Follow up: Response: No adverse reaction; Pain is decreased; RASS: Alert and Calm (0) ca1 19:16 Drug: Dilaudid 0.5 mg {Note: RASS - 0.} Route: IVP; Site: left hand; ca1 20:39 Follow up: Response: No adverse reaction; Pain is decreased; RASS: Alert and Calm (0) ca1 Disposition: 06/06/19 17:07 Hospitalization ordered by Jacky Willard for Inpatient Admission. Preliminary diagnosis are Fall due to bumping against object, Contusion of back wall of thorax, Multiple fractures of ribs, right side - 8, 9,10 rib fracture. - Bed requested for Telemetry/MedSurg (Inpatient). - Status is Inpatient Admission. ca1 - Condition is Fair. - Problem is new. - Symptoms have improved. UTI on Admission? No Signatures: Dispatcher [employer] EDMS Belgica Mendoza Martha, RN RN mw Anderson, Corey, MD MD cha Smirch, Shelby, RN RN Christine Jacob RN RN ca1 Corrections: (The following items were deleted from the chart) 19:45 17:07 Hospitalization Ordered by Jacky Willard for Inpatient Admission. Preliminary mw diagnosis is Fall due to bumping against object; Contusion of back wall of thorax; Multiple fractures of ribs, right side - 8, 9,10 rib fracture. Bed requested for Telemetry/MedSurg (Inpatient). Status is Inpatient Admission. Condition is Fair. Problem is new. Symptoms have improved. UTI on Admission? No. danny 21:12 19:45 06/06/2019 17:07 Hospitalization Ordered by Jacky Willard for Inpatient ca1 Admission. Preliminary diagnosis is Fall due to bumping against object; Contusion of back wall of thorax; Multiple fractures of ribs, right side - 8, 9,10 rib fracture. Bed requested for Telemetry/MedSurg (Inpatient). Status is Inpatient Admission. Condition is Fair. Problem is new. Symptoms have improved. UTI on Admission? No. mw
[2019-06-06 17:37] LABS: Urine Blood TRACE (NEG); Urine Glucose NEGATIVE (NEG); Urine Protein 3+ (NEG); Urine Specific Gravity 1.025 (1.005-1.030); Urine pH 5.5 (5.0-7.0)
[2019-06-06] MEDS ORDERED: HYDROMORPHONE HCL 0.5 MG/0.5 ML INJ ONE (19:15)
--- NOTE | 2019-06-06 19:37 | P.HP ---
Certification for Inpatient Patient admitted to: Inpatient With expected LOS: >2 Midnights Practitioner: I am a practitioner with admitting privileges, knowledge of patient current condition, hospital course, and medical plan of care. Services: Services provided to patient in accordance with Admission requirements found in Title 42 Section 412.3 of the Code of Federal Regulations Patient History Date of Service: 06/10/19 Reason for admission: Fall with rib fractures History of Present Illness: 62 year old with gentleman with a history of CVA with residual aphasia, hypertension, history of falls in the past was brought to the emergency department after an episode of fall at home. Patient stated he fell in the bathroom. He could not tell me the mechanism of fall, whether he slipped or tripped on an object or felt dizzy or passed out. He could not provide much history due to uncontrolled pain and aphasia. Imaging done in the ED which included chest x-ray and CT scan of the abdomen and chest report mildly displaced 7th and 9th right rib fractures and moderately displaced right 8th rib fracture. No pulmonary contusion or pneumothorax or abdominal organ injury noted. Blood work is unremarkable except elevated glucose and mild leukocytosis. Patient is admitted for management of uncontrolled pain and further monitoring. Allergies No Known Allergies Allergy (Verified 09/09/18 02:41) Home Medications: Amlodipine [Norvasc*] 10 mg PO DAILY #30 tab 06/09/19 Atorvastatin Calcium [Lipitor] 40 mg PO BEDTIME #30 tab 06/09/19 Docusate [Colace Cap*] 100 mg PO BID #60 cap 06/09/19 Ibuprofen [Motrin] 400 mg PO Q6H PRN #60 tablet 06/09/19 Tramadol HCl [Ultram] 50 mg PO Q6H PRN #60 tablet 06/09/19 - Past Medical/Surgical History Diabetic: No -: CVA -: HTN -: hyperlipidemia -: Hip replacement -: back surgery - Family History Father -: Heart disease, Hypertension, Diabetes Mother -: Heart disease, Hypertension, Diabetes Brother -: Heart disease, Diabetes Sister -: Heart disease, Diabetes - Social History Alcohol use: No CD- Drugs: No Caffeine use: Yes Review of Systems Other: Unable to obtain due to uncontrolled pain and the fact that patient is aphasic. Physical Examination - Physical Exam General: Alert, Acute distress (Moderate distress due to pain) HEENT: Atraumatic, Normocephalic, Mucous membr. moist/pink, EOMI, Sclerae nonicteric Neck: Supple, JVD not distended, No Thyromegaly Respiratory: Clear to auscultation bilaterally, Diminished Cardiovascular: No edema, Regular rate/rhythm, Normal S1 S2, No murmurs Capillary refill: <2 Seconds Gastrointestinal: Normal bowel sounds, Soft and benign, Non-distended, No tenderness Musculoskeletal: Tenderness (Right flank and right anterior chest wall tenderness, no crepitation.) Integumentary: No rashes, No erythema Neurological: Normal strength at 5/5 x4 extr, Other (Aphasic) - Studies Laboratory Data (last 24 hrs) 06/06/19 14:30: Sodium 140, Potassium 3.8, BUN 16, Creatinine 0.84, Glucose 147 H, Total Bilirubin 0.6, AST 21, ALT 20, Alkaline Phosphatase 72, Lipase 98 06/06/19 14:30: WBC 12.5 H, Hgb 15.9, Hct 46.7, Plt Count 183 Assessment and Plan - Problems (Diagnosis) (1) Fall Current Visit: Yes Status: Acute Qualifiers: Encounter type: initial encounter Qualified Code(s): W19.XXXA - Unspecified fall, initial encounter (2) Multiple rib fractures Current Visit: Yes Status: Acute (3) History of CVA (cerebrovascular accident) Current Visit: Yes Status: Acute (4) HTN (hypertension) Current Visit: No Status: Chronic Qualifiers: Hypertension type: essential hypertension Qualified Code(s): I10 - Essential (primary) hypertension - Plan Admit patient to the medical floor Start Supportive measures with IV normal saline hydration. Aggressive pain control with IV hydromorphone Oxygen as needed Incentive spirometry Consult to general surgery to assist with management. Serial chest x-ray PT and OT assessment - Advance Directives Does patient have a Living Will: No Does patient have a Durable POA for Healthcare: No
[2019-06-06 19:43] LABS: Blood Morphology Comment NOT SEEN (NOT SEEN); Platelet Estimate ADEQ
--- NOTE | 2019-06-06 20:06 | RAD REPORT ---
EXAM DESCRIPTION: CT - Head C Spine Mpr Wo Con - 06/06/2019 7:49 pm CLINICAL HISTORY: Head and neck pain status post fall COMPARISON: September 2018 TECHNIQUE: Computed axial tomography of the head and cervical spine was obtained. Sagittal and coronal reconstruction was performed. All CT scans are performed using dose optimization technique as appropriate and may include automated exposure control or mA/KV adjustment according to patient size. FINDINGS: An intracranial bleed is not seen. The ventricles are normal in caliber. Marked low-density areas within periventricular, deep and subcortical white matter An extra-axial fluid collection is not noted.Fluid within the visualized sinuses and mastoids is not seen A cervical fracture is not visualized. No dislocation is noted. The left lobe of thyroid gland is enl arged IMPRESSION: Marked low-density areas within periventricular, deep and subcortical white matter may b e secondary to ischemic changes secondary to small vessel disease or a demyelinating process No acute intracranial abnormality A cervical fracture is not visualized. If the patient continues to have symptoms to suggest intracra nial /spinal cord pathology then MRI would be recommended
[2019-06-06] MEDS ORDERED: ALBUTEROL 2.5 MG/3 ML NEB SOL NEB PRN (20:49)
[2019-06-06] MEDS ORDERED: ACETAMINOPHEN 500 MG TAB PO PRN (20:49)
[2019-06-06] MEDS: NA CHLORIDE 0.9% 1,000 ML IV SCH (21:25)
[2019-06-06 21:43] VITALS: BMI 4358.6
[2019-06-06] MEDS: HYDROMORPHONE HCL 1 MG/ML INJ IV PRN (21:53)
[2019-06-07] MEDS: HEPARIN 5000 UNIT/ML 1 ML VIAL SQ SCH ×3 (00:41→21:51)
[2019-06-07] MEDS: HYDROMORPHONE HCL 1 MG/ML INJ IV PRN ×3 (05:20→12:57)
[2019-06-07] MEDS: NA CHLORIDE 0.9% 1,000 ML IV SCH ×2 (05:21→17:27)
[2019-06-07 06:17] LABS: Absolute Lymphocytes (CBC) 1.5 K/uL (0.7-4.9); Basophils % 0.5 % (0-1.3); Lymphocytes % 17.3 % (15.3-44.8); MPV 9.4 fL (7.6-11.3); RBC Red Blood Cell Count 4.89 M/uL (4.33-5.43)
[2019-06-07 06:34] LABS: Magnesium 1.8 mg/dL (1.8-2.4); Phosphorus 3.3 mg/dL (2.5-4.9); Potassium 3.9 mmol/L (3.5-5.1)
--- NOTE | 2019-06-07 08:13 | RAD REPORT ---
EXAM DESCRIPTION: Cheli Single View06/07/2019 6:32 am CLINICAL HISTORY: Chest pain COMPARISON: June 06, 2019 FINDINGS: Lower lateral right rib fractures without obvious change A small right pleural effusion with mild right basilar atelectasis Left lung appears clear. The heart is normal size Mediastinum appears more prominent. This likely is secondary to technique and positioning. It is syd mmended patient have PA and lateral chest series for further evaluation
[2019-06-07] MEDS ORDERED: POTASSIUM CL SA 10 MEQ TAB PO ONE (09:00)
[2019-06-07] MEDS ORDERED: MAGNESIUM SULFATE 1 gm IVPB 1 GM/100 ML BAG IV ONE (09:00)
[2019-06-07] MEDS: HYDRALAZINE HCL 20 MG/ML VIAL IV PRN ×2 (11:34→17:27)
[2019-06-07] MEDS ORDERED: HYDROMORPHONE HCL 2 MG/ML inj IV PRN (13:29)
--- NOTE | 2019-06-07 13:36 | P.PN ---
Subjective Date of Service: 06/07/19 Chief Complaint: Fall with rib fractures Subjective: No new changes Patient stated his breathing is better. He still complaining of significant right chest pain once the effect of the hydromorphone wears off. He has been tolerating room air. Patient is aphasic and not forthcoming. Noted his blood pressure has been persistently elevated. Physical Examination - Vital Signs Temperature: 97.8 F Blood Pressure: 172/96 Pulse: 68 Respirations: 17 Pulse Ox (%): 97 - Physical Exam General: Alert, In no apparent distress, Oriented x3 HEENT: Mucous membr. moist/pink Neck: Supple, JVD not distended Respiratory: Clear to auscultation bilaterally, Normal air movement Cardiovascular: No edema, Regular rate/rhythm, Normal S1 S2 Gastrointestinal: Normal bowel sounds, Soft and benign, Non-distended, No tenderness Musculoskeletal: No swelling, No erythema Integumentary: No rashes Neurological: Normal strength at 5/5 x4 extr, Other (Aphasic) - Studies Laboratory Data (last 24 hrs) 06/06/19 14:30: Sodium 140, Potassium 3.8, BUN 16, Creatinine 0.84, Glucose 147 H, Total Bilirubin 0.6, AST 21, ALT 20, Alkaline Phosphatase 72, Lipase 98 06/06/19 14:30: WBC 12.5 H, Hgb 15.9, Hct 46.7, Plt Count 183 Assessment And Plan - Current Problems (Diagnosis) (1) Fall Current Visit: Yes Status: Acute Qualifiers: Encounter type: initial encounter Qualified Code(s): W19.XXXA - Unspecified fall, initial encounter (2) Multiple rib fractures Current Visit: Yes Status: Acute (3) History of CVA (cerebrovascular accident) Current Visit: Yes Status: Acute (4) HTN (hypertension) Current Visit: No Status: Chronic Qualifiers: Hypertension type: essential hypertension Qualified Code(s): I10 - Essential (primary) hypertension - Plan Continue IV normal saline Continue IV hydromorphone and oral hydromorphone for pain management. Oxygen as needed Incentive spirometry. Repeat chest x-ray with PA and lateral view as recommended by radiology PT and OT Start amlodipine to control blood pressure Hydralazine IV p.r.n. for BP spikes. Disposition pending PT and OT evaluation. No home medications for recorded. Patient is a poor historian. Will start him on aspirin and Lipitor for history of CVA.
[2019-06-07] MEDS ORDERED: ALBUTEROL 2.5 MG/3 ML NEB SOL NEB PRN (14:00)
[2019-06-07] MEDS: AMLODIPINE 10 MG TAB PO SCH (14:27)
[2019-06-07] MEDS: HYDROMORPHONE ORAL 2 MG TAB PO PRN ×2 (14:27→18:32)
[2019-06-07] MEDS: ONDANSETRON 4 MG/2 ML VIAL IV PRN ×2 (15:18→22:33)
--- NOTE | 2019-06-07 15:38 | RAD REPORT ---
EXAM DESCRIPTION: RAD - Chest Pa And Lat (2 Views) - 06/07/2019 3:33 pm CLINICAL HISTORY: Rib fractures Chest pain. COMPARISON: Chest Single View dated 06/07/2019; Chest Single View dated 06/06/2019; Chest Pa And Lat ( 2 Views) dated 12/01/2018; Chest Single View dated 09/08/2018; Chest Abdomen Pelvis W Cont dated 06/06/20 19; Head C Spine Mpr Wo Con dated 06/06/2019 FINDINGS: The lungs are clear. No pneumothorax. The heart is mildly prominent size. Several slightly angulated lateral inferior right rib fractures seen.
--- NOTE | 2019-06-07 15:52 | CON ---
Date of Consultation: 06/07/2019 Reason For Service: Status post fall with rib fractures. History Of Present Illness: This is the case of a 68-year-old patient who was seen by me in the ER a fter he had a workup and found out that after a fall, he had some rib fractures. He initially came t o the ER and then after he claimed that he was in a restroom, he tripped and he hit his right-sided r ib cage with the toilet. When I discussed this with the patient, he said he tripped. He does not re member any events of loss of consciousness. He has history of CVA in the past with some aphasia. [place], [place] here [place] too long ago. He does not remember getting dizzy. He is awake at all time. The workup was done by the ER, and when they found the rib fracture, they called us fo r evaluation. Allergies: NONE. Medical Problems: Severe hypertension, hyperlipidemia. Medications: Reviewed including Plavix. Family History: Hypertension and heart disease. Social History: He does not smoke. He does not drink alcohol. Past Surgical History: Hip replacement and back surgery. Review of Systems: Ten points otherwise unremarkable. Physical Examination: General: Patient is awake and alert. No distress. He is calm and cooperative. HEENT: Pupils are equal and reactive. No otorrhea. No rhinorrhea. Tongue is midline. Neck: No pinpoint tenderness. No step-off. Chest: Bilateral breath sounds. Heart: S1, S2. Right rib cage with some tenderness over the area. No step-off. No hematoma seen. Abdomen: Soft and depressible. No guarding, rebound, or peritoneal signs. Pelvis: Stable. No tenderness. Genitalia/Rectal: Deferred. Extremities: No gross deformities. Peripheral pulses present. No cyanosis. Full range of motion. Back: No step-off. No pinpoint tenderness. Neuro: Some residual aphasia from CVA, but other than that his cranial nerves 2 through 12 are gross ly within normal limits. Imaging: CAT scan of the C-spine, head, chest, abdomen, and pelvis interpreted by Dr. Wayne as no cervical fracture. The patient has multiple rib fractures involving right lateral 8, 9, and 10. Nor mal mediastinum. Intraabdominally, no acute injuries seen. Laboratory Data: Blood work shows WBC count of 12.5 with hemoglobin of 15.9. Potassium 3.8. Lipase 98. Assessment: This is a 68-year-old patient who fell. Patient remembers his events. He states he did not get dizzy, he just tripped. Still, I believe from the surgical standpoint, we have to keep him for observation, pain management. Obviously the medical service will try to figure out if there is a nything physiological that made him or contributed to his fall. Since he has history of cerebrovascu lar accident, medical doctors will be watching him overnight. We are going to be watching him from a trauma standpoint. Right now, there is no pneumo at this moment. We will repeat the x-ray once aga in to make sure he is not developing any findings of pulmonary contusion. We are going to encourage incentive spirometry, and once he is cleared from the medical standpoint, we will like him also to am bulate with assistance. We will follow the patient with you. RAY Voice ID: [id number] Report ID: [id number]
[2019-06-07] MEDS: ATORVASTATIN 40 MG TAB PO SCH (21:51)
[2019-06-08] MEDS ORDERED: PROMETHAZINE 25 MG/ML VIAL IV ONE (00:06)
[2019-06-08] MEDS ORDERED: NA CHLORIDE 0.9% 500 ML ONE (00:23)
[2019-06-08] MEDS: HEPARIN 5000 UNIT/ML 1 ML VIAL SQ SCH ×3 (00:35→16:11)
[2019-06-08] MEDS ORDERED: PROMETHAZINE IV SCH (01:00)
[2019-06-08] MEDS ORDERED: NA CHLORIDE 0.9% IV SCH (01:00)
[2019-06-08] MEDS: HYDRALAZINE HCL 20 MG/ML VIAL IV PRN ×2 (01:43→20:13)
[2019-06-08] MEDS: HYDROMORPHONE HCL 0.5 MG/0.5 ML INJ IV PRN ×6 (02:43→23:58)
[2019-06-08] MEDS: LORAZEPAM 0.5 MG TABLET PO PRN ×2 (04:02→18:15)
[2019-06-08 06:14] LABS: Magnesium 1.8 mg/dL (1.8-2.4); Potassium 3.6 mmol/L (3.5-5.1)
[2019-06-08] MEDS: NA CHLORIDE 0.9% 1,000 ML IV SCH ×3 (06:36→20:21)
--- NOTE | 2019-06-08 08:36 | RAD REPORT ---
EXAM DESCRIPTION: RAD - Chest Pa And Lat (2 Views) - 06/08/2019 8:29 am CLINICAL HISTORY: Rib fractures, chest pain COMPARISON: June 07 TECHNIQUE: PA and lateral views of the chest were obtained. FINDINGS: The lungs are slightly underinflated. No pneumothorax has developed. No pulmonary contusio n for measurable pleural fluid. Heart size is normal and central vasculature is within normal limit s. Displaced eighth and ninth ribs are identified on this examination as previously detailed. The lo wer rib fractures fall outside the field of view. No aortic abnormality. IMPRESSION: No pneumothorax, pulmonary contusion or acute cardiopulmonary finding seen. Partially imaged, partially displaced lower right rib fractures
[2019-06-08] MEDS: AMLODIPINE 10 MG TAB PO SCH (08:52)
[2019-06-08] MEDS: HYDROCODONE/APAP 5/325 MG TAB PO PRN ×4 (08:52→22:30)
[2019-06-08] MEDS: DOCUSATE NA 100 MG CAP PO SCH ×2 (08:52→20:13)
[2019-06-08] MEDS: ASPIRIN EC 81 MG TAB PO SCH (08:52)
[2019-06-08] MEDS ORDERED: MAGNESIUM SULFATE 1 gm IVPB 1 GM/100 ML BAG IV ONE (09:00)
[2019-06-08] MEDS ORDERED: POTASSIUM CL SA 10 MEQ TAB PO ONE (09:00)
--- NOTE | 2019-06-08 15:06 | P.PN ---
Subjective Date of Service: 06/08/19 Chief Complaint: Fall with rib fractures Subjective: No new changes Patient stated his breathing is better. Pain medication dose were reduced overnight. Patient noted to tolerate physical therapy today. Serial chest x- ray has not shown any pulmonary contusion or pneumothorax. He has been tolerating room air. Blood pressure is still elevated Physical Examination - Vital Signs Temperature: 97.7 F Blood Pressure: 169/96 Pulse: 72 Respirations: 18 Pulse Ox (%): 96 - Physical Exam General: Alert, In no apparent distress, Oriented x3 HEENT: Mucous membr. moist/pink Neck: Supple, JVD not distended Respiratory: Clear to auscultation bilaterally, Normal air movement Cardiovascular: No edema, Regular rate/rhythm, Normal S1 S2 Gastrointestinal: Normal bowel sounds, Soft and benign, Non-distended, No tenderness Musculoskeletal: No swelling Integumentary: No rashes Neurological: Normal strength at 5/5 x4 extr - Studies Laboratory Data (last 24 hrs) 06/08/19 05:46: Sodium 140, Potassium 3.6, BUN 13, Creatinine 0.90, Glucose 149 H, Magnesium 1.8 Microbiology Data (last 24 hrs): 06/06/19 16:14 Clean Catch Urine [place] Count - Final <10,000 CFU/ML. 06/06/19 16:14 Clean Catch Urine - Final MIXED ANGELA. Assessment And Plan - Current Problems (Diagnosis) (1) Fall Current Visit: Yes Status: Acute Qualifiers: Encounter type: initial encounter Qualified Code(s): W19.XXXA - Unspecified fall, initial encounter (2) Multiple rib fractures Current Visit: Yes Status: Acute (3) History of CVA (cerebrovascular accident) Current Visit: Yes Status: Acute (4) HTN (hypertension) Current Visit: No Status: Chronic Qualifiers: Hypertension type: essential hypertension Qualified Code(s): I10 - Essential (primary) hypertension - Plan Discontinue IV fluid Continue IV hydromorphone and [place]. Manage pain with oral medications and titrate. Oxygen as needed Incentive spirometry. Continue PT and OT. Rehab placement recommended given history of multiple falls but the patient declined it and wants to go home rather. He will be discharged with home health for physical therapy. Start discharge planning. Continue amlodipine for high blood pressure Hydralazine IV p.r.n. for BP spikes. Continue aspirin and Lipitor for history of CVA.
[2019-06-08] MEDS: ATORVASTATIN 40 MG TAB PO SCH (20:13)
[2019-06-09] MEDS: HEPARIN 5000 UNIT/ML 1 ML VIAL SQ SCH ×3 (00:01→17:39)
[2019-06-09] MEDS: HYDROCODONE/APAP 5/325 MG TAB PO PRN ×2 (03:24→21:23)
[2019-06-09] MEDS: HYDROMORPHONE HCL 0.5 MG/0.5 ML INJ IV PRN ×5 (04:42→23:17)
[2019-06-09 05:59] LABS: Magnesium 1.9 mg/dL (1.8-2.4); Potassium 3.7 mmol/L (3.5-5.1)
[2019-06-09] MEDS: NA CHLORIDE 0.9% 1,000 ML IV SCH ×2 (06:48→23:17)
[2019-06-09] MEDS: ASPIRIN EC 81 MG TAB PO SCH (08:57)
[2019-06-09] MEDS: AMLODIPINE 10 MG TAB PO SCH (08:57)
[2019-06-09] MEDS: DOCUSATE NA 100 MG CAP PO SCH ×2 (08:57→21:23)
[2019-06-09] MEDS ORDERED: POTASSIUM 25 MEQ EFFERV TAB PO ONE (09:00)
[2019-06-09] MEDS: HYDRALAZINE HCL 20 MG/ML VIAL IV PRN ×2 (10:13→21:24)
--- NOTE | 2019-06-09 10:46 | RAD REPORT ---
EXAM DESCRIPTION: RAD - Chest Single View - 06/09/2019 10:35 am CLINICAL HISTORY: Rib fractures, chest pains COMPARISON: June 08, 2019 TECHNIQUE: AP portable chest image was obtained 1031 hours . FINDINGS: Exam is limited by portable technique, large body habitus and significantly shallow inspir atory effort. No pneumothorax is identified. No pulmonary contusion or progressive lung parenchymal p rocess seen. Heart size is normal for portable shallow inspiration exam. No significant edema seen. Rib fractures of the lower right rib cage are partially imaged on this study. No gross change. IMPRESSION: No pneumothorax has developed and no pulmonary contusion or other acute lung parenchymal
--- NOTE | 2019-06-09 12:47 | P.PN ---
Subjective Date of Service: 06/09/19 Chief Complaint: Fall with rib fractures Subjective: Improving (although still needing pain control for his ribs fracture ) Physical Examination - Vital Signs Temperature: 98.1 F Blood Pressure: 159/79 Pulse: 88 Respirations: 17 Pulse Ox (%): 98 - Physical Exam General: Alert, In no apparent distress, Oriented x3, Cooperative HEENT: PERRLA, EOMI Neck: Supple Respiratory: Normal air movement Gastrointestinal: Soft and benign Integumentary: No rashes, No breakdown - Studies Microbiology Data (last 24 hrs): 06/06/19 16:14 Clean Catch Urine [place] Count - Final <10,000 CFU/ML. 06/06/19 16:14 Clean Catch Urine - Final MIXED ANGELA. Imagings Data: CXR reviewed Assessment And Plan - Plan incentive spirimetry Pain control no surgical intervention planned
--- NOTE | 2019-06-09 13:04 | P.DS ---
Admission Date: 06/08/19 Discharge Date: 06/09/19 Disposition: DC HOME/HOME HEALTH CARE Discharge Condition: GOOD Reason for Admission: Fall with rib fractures Consultations: General Surgery Procedures: None - Problems (1) Fall Current Visit: Yes Status: Acute Qualifiers: Encounter type: initial encounter Qualified Code(s): W19.XXXA - Unspecified fall, initial encounter (2) Multiple rib fractures Current Visit: Yes Status: Acute (3) History of CVA (cerebrovascular accident) Current Visit: Yes Status: Acute (4) HTN (hypertension) Current Visit: No Status: Chronic Qualifiers: Hypertension type: essential hypertension Qualified Code(s): I10 - Essential (primary) hypertension Brief History of Present Illness: 62 year old with gentleman with a history of CVA with residual aphasia, hypertension, history of falls in the past was brought to the emergency department after an episode of fall at home. Patient stated he fell in the bathroom. He could not tell me the mechanism of fall, whether he slipped or tripped on an object or felt dizzy or passed out. He could not provide much history due to uncontrolled pain and aphasia. Imaging done in the ED which included chest x-ray and CT scan of the abdomen and chest reported mildly displaced 7th and 9th right rib fractures and moderately displaced right 8th rib fracture. No pulmonary contusion or abdominal organ injury noted. Blood work was unremarkable except elevated glucose and mild leukocytosis. Patient was admitted for management of uncontrolled pain and further monitoring. Hospital Course: Patient was admitted to the medical floor for supportive measures. His pain was treated with hydromorphone and later switched to [place]. Serial chest x-ray daily demonstrated no pulmonary contusion or pneumothorax. He was evaluated by physical therapy due to history of multiple falls. Skilled rehab placement was recommended but patient refused to go to a facility. He is planned for home health with physical therapy. He was seen and monitored by general surgery. He has been clinically stable, has not required oxygen. He has no home medications recorded. Patient was noted to be hypertensive and started on amlodipine. He was also placed on aspirin and Lipitor for history of CVA. Patient is discharged with home Health for physical therapy and nursing. Vital Signs/Physical Exam: Temp Pulse Resp BP Pulse Ox 98.1 F 88 17 159/79 H 98 06/09/19 12:47 06/09/19 12:47 06/09/19 12:47 06/09/19 12:47 06/09/19 12:47 General: Alert, In no apparent distress HEENT: Mucous membr. moist/pink Neck: Supple, JVD not distended Respiratory: Clear to auscultation bilaterally, Normal air movement Cardiovascular: Regular rate/rhythm, Normal S1 S2 Gastrointestinal: Normal bowel sounds, Soft and benign, Non-distended, No tenderness Musculoskeletal: No swelling Integumentary: No rashes Laboratory Data at Discharge: WBC 8.7 K/uL (4.3-10.9) D 06/07/19 05:04 Hgb 15.3 g/dL (13.6-17.9) 06/07/19 05:04 Hct 43.0 % (39.6-49.0) 06/07/19 05:04 Plt Count 187 K/uL (152-406) 06/07/19 05:04 Sodium 142 mmol/L (136-145) 06/09/19 05:30 Potassium 3.7 mmol/L (3.5-5.1) 06/09/19 05:30 BUN 12 mg/dL (7-18) 06/09/19 05:30 Creatinine 0.90 mg/dL (0.55-1.3) 06/09/19 05:30 Glucose 123 mg/dL (74-106) H 06/09/19 05:30 Phosphorus 3.3 mg/dL (2.5-4.9) 06/07/19 05:04 Magnesium 1.9 mg/dL (1.8-2.4) 06/09/19 05:30 Total Bilirubin 0.6 mg/dL (0.2-1.0) 06/06/19 14:30 AST 21 U/L (15-37) 06/06/19 14:30 ALT 20 U/L (12-78) 06/06/19 14:30 Alkaline Phosphatase 72 U/L (45-117) 06/06/19 14:30 Lipase 98 U/L (73-393) 06/06/19 14:30 Home Medications: Amlodipine [Norvasc*] 10 mg PO DAILY #30 tab 06/09/19 Atorvastatin Calcium [Lipitor] 40 mg PO BEDTIME #30 tab 06/09/19 Docusate [Colace Cap*] 100 mg PO BID #60 cap 06/09/19 Ibuprofen [Motrin] 400 mg PO Q6H PRN #60 tablet 06/09/19 Tramadol HCl [Ultram] 50 mg PO Q6H PRN #60 tablet 06/09/19 New Medications: Amlodipine [Norvasc*] 10 mg PO DAILY #30 tab Atorvastatin Calcium [Lipitor] 40 mg PO BEDTIME #30 tab Docusate [Colace Cap*] 100 mg PO BID #60 cap Ibuprofen [Motrin] 400 mg PO Q6H PRN #60 tablet PRN Reason: Pain Scale 5-7 (Moderate) Tramadol HCl [Ultram] 50 mg PO Q6H PRN #60 tablet PRN Reason: Pain Scale 8-10 (Severe) Diet: AHA Activity: Fall precautions Time spent managing pt's care (in minutes): 36
[2019-06-09] MEDS: ATORVASTATIN 40 MG TAB PO SCH (21:23)
[2019-06-10] MEDS: HEPARIN 5000 UNIT/ML 1 ML VIAL SQ SCH ×3 (00:58→17:18)
[2019-06-10] MEDS: HYDROCODONE/APAP 5/325 MG TAB PO PRN ×3 (02:23→18:41)
[2019-06-10] MEDS: HYDROMORPHONE HCL 0.5 MG/0.5 ML INJ IV PRN (03:33)
[2019-06-10] MEDS: NA CHLORIDE 0.9% 1,000 ML IV SCH ×3 (04:49→18:21)
[2019-06-10] MEDS: HYDROMORPHONE HCL 1 MG/ML INJ IV PRN ×3 (06:32→17:13)
[2019-06-10 06:43] LABS: BUN Blood Urea Nitrogen 9 mg/dL (7-18); Bicarbonate 24 mmol/L (21-32); Glucose Level 133 mg/dL (74-106); Potassium 3.5 mmol/L (3.5-5.1); Sodium Level 140 mmol/L (136-145)
[2019-06-10] MEDS: AMLODIPINE 10 MG TAB PO SCH (08:52)
[2019-06-10] MEDS: DOCUSATE NA 100 MG CAP PO SCH ×2 (08:52→20:14)
[2019-06-10] MEDS: ASPIRIN EC 81 MG TAB PO SCH (08:53)
[2019-06-10] MEDS ORDERED: POTASSIUM CL SA 10 MEQ TAB PO ONE (09:00)
[2019-06-10] MEDS: HYDRALAZINE HCL 20 MG/ML VIAL IV PRN ×2 (09:22→18:38)
--- NOTE | 2019-06-10 11:57 | P.PN ---
Subjective Date of Service: 06/10/19 Chief Complaint: Fall with rib fractures Patient complains of persistent right lower chest pain but intensity is better than before. He has been tolerating room air. He has been tolerating room air. Physical Examination - Vital Signs Temperature: 98.1 F Blood Pressure: 180/93 Pulse: 89 Respirations: 16 Pulse Ox (%): 95 - Physical Exam General: Alert, In no apparent distress, Oriented x3 HEENT: Mucous membr. moist/pink Neck: Supple Respiratory: Clear to auscultation bilaterally, Normal air movement Cardiovascular: Normal pulses, Regular rate/rhythm, Normal S1 S2 Gastrointestinal: Normal bowel sounds, Soft and benign, No tenderness Musculoskeletal: No swelling Integumentary: No rashes Assessment And Plan - Current Problems (Diagnosis) (1) Fall Current Visit: Yes Status: Acute Qualifiers: Encounter type: initial encounter Qualified Code(s): W19.XXXA - Unspecified fall, initial encounter (2) Multiple rib fractures Current Visit: Yes Status: Acute (3) History of CVA (cerebrovascular accident) Current Visit: Yes Status: Acute (4) HTN (hypertension) Current Visit: No Status: Chronic Qualifiers: Hypertension type: essential hypertension Qualified Code(s): I10 - Essential (primary) hypertension - Plan Continue current pain medications. Oxygen as needed Incentive spirometry. Continue PT and OT. Patient has agreed to skilled rehab placement and awaiting for a bed availability and insurance authorization. Continue amlodipine for high blood pressure Hydralazine IV p.r.n. for BP spikes. Continue aspirin and Lipitor for history of CVA.
[2019-06-10] MEDS: METOPROLOL TAR 25 MG TAB PO SCH (17:12)
[2019-06-10] MEDS ORDERED: MAGNESIUM SULFATE 1 gm IVPB 1 GM/100 ML BAG IV ONE (20:00)
[2019-06-10] MEDS: ATORVASTATIN 40 MG TAB PO SCH (20:14)
[2019-06-11] MEDS: HEPARIN 5000 UNIT/ML 1 ML VIAL SQ SCH ×3 (00:30→16:52)
[2019-06-11] MEDS: HYDROMORPHONE HCL 1 MG/ML INJ IV PRN (01:33)
[2019-06-11] MEDS: ONDANSETRON 4 MG/2 ML VIAL IV PRN (04:09)
[2019-06-11] MEDS: HYDROCODONE/APAP 5/325 MG TAB PO PRN (04:11)
[2019-06-11] MEDS: NA CHLORIDE 0.9% 1,000 ML IV SCH (04:17)
[2019-06-11 05:04] LABS: BUN Blood Urea Nitrogen 10 mg/dL (7-18); Bicarbonate 27 mmol/L (21-32); Glucose Level 138 mg/dL (74-106); Magnesium 1.8 mg/dL (1.8-2.4); Potassium 3.6 mmol/L (3.5-5.1); Sodium Level 138 mmol/L (136-145)
[2019-06-11] MEDS: METOPROLOL TAR 25 MG TAB PO SCH ×2 (05:32→16:51)
[2019-06-11 08:32] VITALS: O2SAT 95
[2019-06-11] MEDS ORDERED: POTASSIUM CL SA 10 MEQ TAB PO ONE (09:00)
[2019-06-11] MEDS ORDERED: MAGNESIUM SULFATE 1 gm IVPB 1 GM/100 ML BAG IV ONE (09:00)
[2019-06-11] MEDS: LIDOCAINE 4% PATCH TOP SCH (09:57)
[2019-06-11] MEDS: ASPIRIN EC 81 MG TAB PO SCH (09:58)
[2019-06-11] MEDS: DOCUSATE NA 100 MG CAP PO SCH ×2 (09:58→20:38)
[2019-06-11] MEDS: AMLODIPINE 10 MG TAB PO SCH (09:58)
[2019-06-11] MEDS: TRAMADOL HCL 50 MG TAB PO PRN ×2 (10:04→13:40)
--- NOTE | 2019-06-11 13:55 | P.PN ---
Subjective Date of Service: 06/11/19 Primary Care Provider: none Chief Complaint: Fall with rib fractures Subjective: Improving Physical Examination - Vital Signs Temperature: 97.9 F Blood Pressure: 162/85 Pulse: 80 Respirations: 18 Pulse Ox (%): 8 - Physical Exam General: Alert, In no apparent distress, Oriented x3, Cooperative HEENT: Atraumatic Neck: Supple Respiratory: Clear to auscultation bilaterally, Normal air movement, Other ( Some pain to the right side) Cardiovascular: Normal pulses, Regular rate/rhythm Gastrointestinal: Normal bowel sounds, Soft and benign, Non-distended, No tenderness, No masses, No rebound, No guarding Musculoskeletal: No erythema, No tenderness, No warmth Integumentary: No erythema, No warmth, No cyanosis Neurological: Normal speech, Normal strength at 5/5 x4 extr, Normal tone, Normal affect - Studies Medications List Reviewed: Yes Assessment & Plan Discharge Plan: Other (group home facility) Plan to discharge in: 24 Hours Physician Review Additional Text: Impression: Fall with multiple rib fractures involving right lateral 8th, 9th and 10th rib Hypertension History of CVA Plan: Fall with multiple rib fractures involving right lateral 8th, 9th and 10th rib: Continue physical therapy. Encourage incentive spirometer. Will adjust current pain medication. Will add lidocaine patch. Discontinue IV fluids. Patient waiting for skilled placement. Anticipate discharge tomorrow once skilled placement approved. Hypertension: Continue medication. Will monitor and adjust appropriately. History of CVA: Continue with medication. Time Spent Managing Pts Care (In Minutes): 55
[2019-06-11] MEDS: ATORVASTATIN 40 MG TAB PO SCH (20:38)
[2019-06-12] MEDS: HEPARIN 5000 UNIT/ML 1 ML VIAL SQ SCH ×3 (00:27→17:35)
[2019-06-12] MEDS: METOPROLOL TAR 25 MG TAB PO SCH ×2 (05:28→17:34)
[2019-06-12] MEDS: TRAMADOL HCL 50 MG TAB PO PRN ×2 (05:28→17:40)
[2019-06-12 06:05] LABS: BUN Blood Urea Nitrogen 12 mg/dL (7-18); Bicarbonate 26 mmol/L (21-32); Glucose Level 132 mg/dL (74-106); Magnesium 1.8 mg/dL (1.8-2.4); Potassium 3.6 mmol/L (3.5-5.1); Sodium Level 139 mmol/L (136-145)
[2019-06-12] MEDS ORDERED: POTASSIUM CL SA 10 MEQ TAB PO ONE (09:00)
[2019-06-12] MEDS: AMLODIPINE 10 MG TAB PO SCH (09:00)
[2019-06-12] MEDS ORDERED: MAGNESIUM SULFATE 1 gm IVPB 1 GM/100 ML BAG IV ONE (09:00)
[2019-06-12] MEDS: ASPIRIN EC 81 MG TAB PO SCH (10:05)
[2019-06-12] MEDS: DOCUSATE NA 100 MG CAP PO SCH ×2 (10:05→21:01)
--- NOTE | 2019-06-12 11:27 | P.PN ---
Subjective Date of Service: 06/12/19 Primary Care Provider: none Chief Complaint: Fall with rib fractures Subjective: Tolerating diet, Ambulating, Improving (no sob) Review of Systems 10-point ROS is otherwise unremarkable Physical Examination - Vital Signs Temperature: 98.5 F Blood Pressure: 119/87 Pulse: 71 Respirations: 20 Pulse Ox (%): 95 - Physical Exam General: Alert, In no apparent distress, Oriented x3, Cooperative HEENT: PERRLA, EOMI Neck: Supple Respiratory: Normal air movement - Studies Medications List Reviewed: Yes Assessment And Plan - Plan PT explained the importance to avoid falls and if he develop SOB come to ER immediately incentive spirimetry Pain control Physician Review Additional Text: Impression: Fall with multiple rib fractures involving right lateral 8th, 9th and 10th rib Hypertension History of CVA Plan: Fall with multiple rib fractures involving right lateral 8th, 9th and 10th rib: Continue physical therapy. Encourage incentive spirometer. Will adjust current pain medication. Will add lidocaine patch. Discontinue IV fluids. Patient waiting for skilled placement. Anticipate discharge tomorrow once skilled placement approved. Hypertension: Continue medication. Will monitor and adjust appropriately. History of CVA: Continue with medication.
[2019-06-12] MEDS: LIDOCAINE 4% PATCH TOP SCH (12:18)
--- NOTE | 2019-06-12 15:08 | P.PN ---
Subjective Date of Service: 06/12/19 Primary Care Provider: none Chief Complaint: Fall with rib fractures Subjective: Doing well Physical Examination - Vital Signs Temperature: 98.3 F Blood Pressure: 148/77 Pulse: 75 Respirations: 20 Pulse Ox (%): 97 - Physical Exam General: Alert, In no apparent distress, Cooperative HEENT: Atraumatic Neck: Supple Respiratory: Clear to auscultation bilaterally, Normal air movement Cardiovascular: Normal pulses, Regular rate/rhythm Gastrointestinal: Normal bowel sounds, No masses, No rebound, No guarding - Studies Medications List Reviewed: Yes Assessment & Plan Discharge Plan: Other (Skilled placement) Plan to discharge in: 24 Hours Physician Review Additional Text: Impression: Fall with multiple rib fractures involving right lateral 8th, 9th and 10th rib Hypertension History of CVA Plan: Fall with multiple rib fractures involving right lateral 8th, 9th and 10th rib: Continue with physical therapy. Encourage incentive spirometer. Continue with medication for pain. Awaiting transfer and approval for skilled placement. Anticipate discharge once approved. Hypertension: Continue medication. Will monitor and adjust appropriately. History of CVA: Continue with medication. Time Spent Managing Pts Care (In Minutes): 55
[2019-06-12] MEDS: ATORVASTATIN 40 MG TAB PO SCH (21:00)
[2019-06-13] MEDS: HEPARIN 5000 UNIT/ML 1 ML VIAL SQ SCH ×2 (00:22→08:45)
[2019-06-13] MEDS: METOPROLOL TAR 25 MG TAB PO SCH (06:34)
[2019-06-13 07:02] LABS: Magnesium 1.9 mg/dL (1.8-2.4); Potassium 3.7 mmol/L (3.5-5.1)
[2019-06-13] MEDS: AMLODIPINE 10 MG TAB PO SCH (08:45)
[2019-06-13] MEDS: LIDOCAINE 4% PATCH TOP SCH (08:45)
[2019-06-13] MEDS: DOCUSATE NA 100 MG CAP PO SCH (08:45)
[2019-06-13] MEDS: ASPIRIN EC 81 MG TAB PO SCH (08:45)
--- NOTE | 2019-06-13 12:02 | P.DS ---
Admission Date: 06/08/19 Discharge Date: 06/13/19 Primary Care Provider: none Disposition: TRANSFER TO SNF - MEDICAL Discharge Condition: GOOD Reason for Admission: Fall with rib fractures Consultations: Surgery-Dr. Schuster Procedures: Follow up chest x-ray: FINDINGS: Exam is limited by portable technique, large body habitus and significantly shallow inspiratory effort. No pneumothorax is identified. No pulmonary contusion or progressive lung parenchymal process seen. Heart size is normal for portable shallow inspiration exam. No significant edema seen. Rib fractures of the lower right rib cage are partially imaged on this study. No gross change. IMPRESSION: No pneumothorax has developed and no pulmonary contusion or other acute lung parenchymal CT head/neck scan: FINDINGS: An intracranial bleed is not seen. The ventricles are normal in caliber. Marked low-density areas within periventricular, deep and subcortical white matter An extra-axial fluid collection is not noted.Fluid within the visualized sinuses and mastoids is not seen A cervical fracture is not visualized. No dislocation is noted. The left lobe of thyroid gland is enlarged IMPRESSION: Marked low-density areas within periventricular, deep and subcortical white matter may be secondary to ischemic changes secondary to small vessel disease or a demyelinating process No acute intracranial abnormality A cervical fracture is not visualized. CT chest/abdomen: FINDINGS: A mildly displaced fracture involves the right eighth lateral rib. Moderately displaced fracture involves the right ninth lateral rib. Mildly displaced fracture involves the right tenth lateral rib A pleural effusion is not present. A pulmonary contusion is not seen. A mediastinal hematoma is not present. The gallbladder has been removed. The biliary tree is dilated. The liver has a homogeneous density Small splenic cyst is present. Hepatic and splenic granulomas are noted. The pancreas and adrenals are unremarkable Small renal cysts. Postsurgical changes involve the lumbar spine. Bilateral arthroplasties. Artifact from the hardware obscures detail of the pelvis somewhat. The visualized thyroid gland is enlarged IMPRESSION: Mildly to moderately displaced fractures involving the right lateral eighth, ninth and tenth ribs. No pneumothorax. Prominence of the biliary tree may be physiologic in this patient status post cholecystectomy. Medical Problem List: Fall with multiple rib fractures involving right lateral 8th, 9th and 10th rib Hypertension History of CVA Hyperlipidemia Brief History of Present Illness: 68-year-old male with history of CVA with residual aphasia, hypertension, and falls in the past. Patient presented after a fall at home. Patient was a poor historian. CT and chest x-ray showed displaced rib fractures the right lateral area. Patient was admitted for further evaluation and treatment. Hospital Course: Patient presented with falls. Patient was evaluated in the emergency room. He was found to have a right lateral 8th, 9th and 10th rib fractures. Patient required hospitalization and monitoring. Patient seen and evaluated by surgery. No intervention required. Follow up chest x-ray showed no pneumothorax. Patient was evaluated by physical therapy. Patient was to be discharge home but prefer to go to a skilled facility. Patient approved to go to skilled facility. At discharge he will go to the skilled facility to continue physical therapy. No heavy lifting, pushing or pulling. Patient will continue with current pain medications-lidocaine patch to area of pain daily, tramadol 50 mg 3 times a day as needed for pain, and ibuprofen 400 mg twice daily as needed for pain. Fall precautions to be continued. Patient with history of CVA, hyperlipidemia and hypertension. Metoprolol was added for better blood pressure control. Blood pressure stable. At discharge he will continue with current medications-aspirin 81 mg daily, Norvasc 10 mg daily, metoprolol 25 mg 1 pill twice daily, and Lipitor 40 mg daily. Vital Signs/Physical Exam: Temp Pulse Resp BP Pulse Ox 97.8 F 66 18 159/88 H 97 06/13/19 08:00 06/13/19 08:00 06/13/19 08:00 06/13/19 08:00 06/13/19 08:00 General: Alert, In no apparent distress, Oriented x3, Cooperative HEENT: Atraumatic Neck: Supple Respiratory: Clear to auscultation bilaterally, Normal air movement Cardiovascular: Normal pulses, Regular rate/rhythm Gastrointestinal: Normal bowel sounds, Soft and benign, Non-distended Musculoskeletal: No warmth, Tenderness (Less pain to the chest wall) Neurological: Normal speech, Normal strength at 5/5 x4 extr Laboratory Data at Discharge: WBC 8.7 K/uL (4.3-10.9) D 06/07/19 05:04 Hgb 15.3 g/dL (13.6-17.9) 06/07/19 05:04 Hct 43.0 % (39.6-49.0) 06/07/19 05:04 Plt Count 187 K/uL (152-406) 06/07/19 05:04 Sodium 140 mmol/L (136-145) 06/13/19 05:41 Potassium 3.7 mmol/L (3.5-5.1) 06/13/19 05:41 BUN 14 mg/dL (7-18) 06/13/19 05:41 Creatinine 0.86 mg/dL (0.55-1.3) 06/13/19 05:41 Glucose 125 mg/dL (74-106) H 06/13/19 05:41 Phosphorus 3.3 mg/dL (2.5-4.9) 06/07/19 05:04 Magnesium 1.9 mg/dL (1.8-2.4) 06/13/19 05:41 Total Bilirubin 0.6 mg/dL (0.2-1.0) 06/06/19 14:30 AST 21 U/L (15-37) 06/06/19 14:30 ALT 20 U/L (12-78) 06/06/19 14:30 Alkaline Phosphatase 72 U/L (45-117) 06/06/19 14:30 Lipase 98 U/L (73-393) 06/06/19 14:30 Home Medications: Amlodipine [Norvasc*] 10 mg PO DAILY #30 tab 06/09/19 Atorvastatin Calcium [Lipitor] 40 mg PO BEDTIME #30 tab 06/09/19 Docusate [Colace Cap*] 100 mg PO BID #60 cap 06/09/19 Ibuprofen [Motrin] 400 mg PO Q6H PRN #60 tablet 06/09/19 Tramadol HCl [Ultram] 50 mg PO Q6H PRN #60 tablet 06/09/19 Lidocaine 4% Patch [Lidoderm 5% Patch*] 1 patch TOP DAILY #30 patch 06/13/19 Metoprolol Tartrate [Lopressor*] 25 mg PO BID 6AM 6PM #60 tab 06/13/19 New Medications: Amlodipine [Norvasc*] 10 mg PO DAILY #30 tab Atorvastatin Calcium [Lipitor] 40 mg PO BEDTIME #30 tab Docusate [Colace Cap*] 100 mg PO BID #60 cap Ibuprofen [Motrin] 400 mg PO Q6H PRN #60 tablet PRN Reason: Pain Scale 5-7 (Moderate) Lidocaine 4% Patch [Lidoderm 5% Patch*] 1 patch TOP DAILY #30 patch Metoprolol Tartrate [Lopressor*] 25 mg PO BID 6AM 6PM #60 tab Tramadol HCl [Ultram] 50 mg PO Q6H PRN #60 tablet PRN Reason: Pain Scale 8-10 (Severe) Patient Discharge Instructions: 1. Patient be transferred to skilled facility continue his care and physical therapy. 2. Patient presented with falls. Patient was evaluated in the emergency room. He was found to have a right lateral 8th, 9th and 10th rib fractures. Patient required hospitalization and monitoring. Patient seen and evaluated by surgery. No intervention required. Follow up chest x-ray showed no pneumothorax. Patient was evaluated by physical therapy. Patient was to be discharge home but prefer to go to a skilled facility. Patient approved to go to skilled facility. At discharge he will go to the skilled facility to continue physical therapy. No heavy lifting , pushing or pulling. Patient will continue with current pain medications- lidocaine patch to area of pain daily, tramadol 50 mg 3 times a day as needed for pain, and ibuprofen 400 mg twice daily as needed for pain. Fall precautions to be continued. 3. Patient with history of CVA, hyperlipidemia and hypertension. Metoprolol was added for better blood pressure control. Blood pressure stable. At discharge he will continue with current medications- aspirin 81 mg daily, Norvasc 10 mg daily, metoprolol 25 mg 1 pill twice daily, and Lipitor 40 mg daily. Diet: AHA Activity: Fall precautions Time spent managing pt's care (in minutes): 55
[2019-06-13 14:41] VITALS: BP 135/70; TEMP 97.9
[2019-06-13] MEDS ORDERED: ENSURE HIGH PROTEIN 237 ML CAN PO SCH (21:00)
== END 2019-06-13 15:45 | DRG 185 ==
LOC: ER 13:04 → ERHOLD 19:41 → 2ND 20:41 → OBSVTOIN 06-08 11:47
PROVIDERS: ADMIT Internal Medicine; ATTEND Internal Medicine
DX: S22.41XA Multiple fractures of ribs, right side, initial encounter for closed fracture (principal); W01.0XXA Fall on same level from slipping, tripping and stumbling without subsequent striking against object, initial encounter; Y92.002 Bathroom of unspecified non-institutional (private) residence as the place of occurrence of the external cause; I69.320 Aphasia following cerebral infarction; I10 Essential (primary) hypertension; Z96.649 Presence of unspecified artificial hip joint; E78.5 Hyperlipidemia, unspecified
CPT/HCPCS: 36415; 70450; 71045; 71046; 71260; 72125; 74177; 80048; 80053; 81003; 82550; 83690; 83735; 84100; 85025; 86850; 86900; 86901; 87086; 87088; 94640; 94760; 96361; 96374; 96375; 97116; 97161; 97530; 99285; G0378; J0360; J1170; J1644; J2405; J2550; J3360; J3475; J7030; J7040; Q9967

== ENCOUNTER 2019-08-22 15:46 | Emergency (ER) | payer OTHER ==
--- NOTE | 2019-08-22 16:21 | RAD REPORT ---
EXAM DESCRIPTION: CT - [id number] - 08/22/2019 4:06 pm CLINICAL HISTORY: Syncope, fall, head and neck injury COMPARISON: CT head and cervical June 2019 TECHNIQUE: Axial 5 mm thick images of the head were obtained. Axial 2 mm thick images of the cervic al spine were obtained with sagittal and coronal reconstruction images generated and reviewed. All CT scans are performed using dose optimization technique as appropriate and may include automated exposure control or mA/KV adjustment according to patient size. FINDINGS: No intracranial hemorrhage, mass, edema or acute intracranial finding. No suspicion for acute infarct ion. No cortical edema or sulcal effacement. Atrophy changes are mild to moderate for age with ventri cles in proportion. Patient has very advanced for age white matter chronic ischemic change. Old lacun e or type infarctions are seen near the left basal ganglia. Mastoid air cells and paranasal sinuses a re clear. No globe or orbit abnormality seen. Intracranial findings are similar to the short interva l June 2019 exam. Cervical body height and alignment are normal. No disk space narrowing. No fracture or acute bony abn ormality. Mild facet and endplate degenerative change. Central canal detail is inherently limited. No paraspinal mass or hematoma. IMPRESSION: No hemorrhage, edema or acute intracranial finding. Mild to moderate atrophy and advanced for age chronic ischemic changes are present in the cerebral he mispheres similar to comparison. Negative CT cervical spine examination for acute or significant finding. Degenerative changes are st able.
--- NOTE | 2019-08-22 17:14 | RAD REPORT ---
EXAM DESCRIPTION: - CP - 08/22/2019 5:08 pm CLINICAL HISTORY: SYNCOPE COMPARISON: Head C Spine Mpr Wo Con dated 08/22/2019 TECHNIQUE: Real-time sonographic evaluation of bilateral carotid and vertebral systems was performed . Pardo scale and Doppler interrogation were performed with waveform tracing bilaterally. FINDINGS: Normal high resistance waveforms are noted in both external carotid arteries. The common c arotid arteries and internal carotid arteries show normal low resistance waveforms. Plaquing changes are seen in each carotid bulb in each proximal internal carotid artery. These change s do not cause a significant narrowing of the vessel lumen. Peak systolic and end diastolic velocity values and the ICA/CCA ratios are in the non-hemodynamically significant range. Antegrade flow seen in both vertebral arteries. Velocity values and ratios were recorded and are retained in the patient's imaging records. IMPRESSION: Bilateral carotid plaquing changes are present without significant luminal narrowing on visual inspection. Velocity values, waveforms and ratios do not indicate hemodynamically significant stenoses.
--- NOTE | 2019-08-22 17:33 | ER ---
Nurse's Notes [facility] Name: Reese Graf Age: 68 yrs Sex: Male : 1950 Arrival Date: 08/22/2019 Time: 15:35 Bed 18 Private MD: Diagnosis: Essential (primary) hypertension;Patient's other noncompliance with medication regimen;Syncope and collapse Presentation: 08/22 15:29 Presenting complaint: EMS states: Pt. A \T\ O x 4, had a syncope episode on the street. rb1 Pt. reports that is has happened in the past. Is slow to respond. NKA, no medications according to the pt. C/o being nauseous. Has a laceration on the back of his head that is not bleeding. BP 160's-170's/ 100's, BGL 124. Pt. did not want to come to the ER but EMS was able to talk him into coming to be checked out. Transition of care: patient was not received from another setting of care. Onset of symptoms was August 22, 2019. Risk Assessment: Do you want to hurt yourself or someone else? Patient reports no desire to harm self or others. Initial Sepsis Screen: Does the patient meet any 2 criteria? No. Patient's initial sepsis screen is negative. Does the patient have a suspected source of infection? No. Patient's initial sepsis screen is negative. Care prior to arrival: None. 15:29 Method Of Arrival: EMS: [facility] rb1 15:29 Acuity: ANITA 3 rb1 Triage Assessment: 15:29 General: Appears in no apparent distress. comfortable, Behavior is calm, cooperative. rb1 Pain: Denies pain. Neuro: Level of Consciousness is awake, alert, obeys commands, Oriented to person, place, time, situation, Reports a syncopal episode it has happened in the past.. Neuro: Real Estate Coordinator are equal bilaterally Moves all extremities. Gait is Pt. has not ambulated at this time. Speech Slow to respond, pt. reports that is normal for him due to a previous stroke. Facial symmetry appears normal, Pupils are PERRLA. Cardiovascular: Capillary refill < 3 seconds is brisk in bilateral fingers. Respiratory: Airway is patent Respiratory effort is even, unlabored, Respiratory pattern is regular, symmetrical. GI: No signs and/or symptoms were reported involving the gastrointestinal system. : No signs and/or symptoms were reported regarding the genitourinary system. Derm: Skin is pink, warm \T\ dry. Musculoskeletal: Range of motion: intact in all extremities. Historical: - Allergies: 15:29 No Known Allergies; rb1 - PMHx: 15:29 CVA; Hyperlipidemia; Hypertension; rb1 - PSHx: 15:29 hip replacement; back surgery; rb1 - Immunization history:: Adult Immunizations unknown. - Coronavirus screen:: The patient has NOT traveled to [place] in the past 14 days. The patient has NOT had contact with known/suspected case of Coronavirus?. - Social history:: Smoking status: Patient/guardian denies using. - Ebola Screening: : Patient negative for fever greater than or equal to 101.5 degrees Fahrenheit, and additional compatible Ebola Virus Disease symptoms. Screenin:29 Abuse screen: Denies threats or abuse. Nutritional screening: No deficits noted. rb1 Tuberculosis screening: No symptoms or risk factors identified. Fall Risk Fall in past 12 months (25 points). Secondary diagnosis (15 points) CVA, No IV (0 pts). Ambulatory Aid- None/Bed Rest/Nurse Assist (0 pts). Gait- Normal/Bed Rest/Wheelchair (0 pts) Mental Status- Oriented to own ability (0 pts). Total Torres Fall Scale indicates Low Risk Score (25-44 pts). Fall prevention measures have been instituted. Side Rails Up X 2 Placed close to Nursing Station 1:1 attendant Assigned to Pt. Frequent Obs/Assesments occuring As available Patient and Family Educated on Fall Prevention Program and strategies. Assessment: 15:29 General: See triage assessment. rb1 16:29 Reassessment: Pt. is off the unit for testing. rb1 17:20 Reassessment: Patient appears in no apparent distress at this time. Patient and/or rb1 family updated on plan of care and expected duration. Pain level reassessed. Patient is alert, oriented x 3, equal unlabored respirations, skin warm/dry/pink. 17:49 Reassessment: Patient appears in no apparent distress at this time. No changes from rb1 previously documented assessment. Vital Signs: 15:29 BP 183 / 102; Pulse 93; Resp 17; Temp 98.6(TE); Pulse Ox 100% on R/A; Weight 104.33 kg rb1 (R); Height 6 ft. 0 in. (182.88 cm) (R); 16:29 rb1 17:24 BP 179 / 112; Pulse 88; Resp 21; Pulse Ox 97% on R/A; Pain 0/10; rb1 15:29 Body Mass Index 31.19 (104.33 kg, 182.88 cm) rb1 16:29 pt. is off the unit for testing. [facility] ED Course: 15:29 Arm band placed on right wrist. rb1 15:29 Patient has correct armband on for positive identification. Bed in low position. Call [facility] light in reach. Side rails up X 1. deputy clerk of superior [address] on. Pulse ox on. NIBP on. 15:35 Patient arrived in ED. rb1 15:35 Anupama Rubio FNP-C is PHCP. snw 15:35 George Hope MD is Attending Physician. snw 15:40 Triage completed. rb1 15:48 Mulu Buenrostro, ИВАН is Primary Nurse. rb1 16:34 CT Head C Spine In Process Unspecified. EDMS 18:00 No provider procedures requiring assistance completed. Patient did not have IV access rb1 during this emergency room visit. Administered Medications: No medications were administered Point of Care Testing: Blood Glucose: 17:30 Blood Glucose: 130 mg/dL; rb1 Ranges: Outcome: 17:32 Discharge ordered by . snw 18:00 Patient left the ED. rb1 18:00 Discharged to home via wheelchair, with family. rb1 18:00 Condition: stable 18:00 Discharge instructions given to patient, Instructed on discharge instructions, follow up and referral plans. Demonstrated understanding of instructions, follow-up care, Prescriptions given X none Signatures: Dispatcher [employer] EDMS Anupama Rubio FNP-C CHIEF PSYCHOLOGIST-Csnw Mulu Buenrostro, RN RN [facility] Corrections: (The following items were deleted from the chart) 15:41 15:29 Presenting complaint: EMS states: Pt. A \T\ O x 4, had a syncope episode on the [facility] street. Pt. reports that is has happened in the past. Is slow to respond. NKA, no medications according to the pt. C/o being nauseous. Has a laceration on the back of his head that is not bleeding. BP 160's-170's/ 100's, BGL 124 rb1
--- NOTE | 2019-08-22 17:34 | EDPHYS ---
Physician Documentation [facility] Name: Reese Graf Age: 68 yrs Sex: Male : 1950 Arrival Date: 08/22/2019 Time: 15:35 Bed 18 Private MD: ED Physician George Hope HPI: 08/22 15:57 This 68 yrs old Male presents to ER via EMS with complaints of Syncope. snw 15:57 The patient has experienced syncope, collapsed. Onset: The symptoms/episode snw began/occurred suddenly, just prior to arrival. Duration: This was a single episode, that lasted an unknown period of time. Context: occurred outdoors, occurred while the patient was standing, Just prior to the episode the patient experienced potentially vertigo, unable to confirm 2nd to long standing aphasia. Associated injury: Head/face: abrasion. Associated signs and symptoms: The patient has no apparent associated signs or symptoms. Current symptoms: aphasia, frustration, otherwise PE normal, + htn. The patient has experienced similar episodes in the past. The patient has not recently seen a physician. pt apparently has HTN, has been on meds at some time for condition. Pt states no meds now and no PCP. Historical: - Allergies: 15:29 No Known Allergies; rb1 - PMHx: 15:29 CVA; Hyperlipidemia; Hypertension; rb1 - PSHx: 15:29 hip replacement; back surgery; rb1 - Immunization history:: Adult Immunizations unknown. - Coronavirus screen:: The patient has NOT traveled to [place] in the past 14 days. The patient has NOT had contact with known/suspected case of Coronavirus?. - Social history:: Smoking status: Patient/guardian denies using. - Ebola Screening: : Patient negative for fever greater than or equal to 101.5 degrees Fahrenheit, and additional compatible Ebola Virus Disease symptoms. ROS: 15:55 Constitutional: Negative for fever, chills, and weight loss, Eyes: Negative for injury, snw pain, redness, and discharge, ENT: Negative for injury, pain, and discharge, Neck: Negative for injury, pain, and swelling, Cardiovascular: Negative for chest pain, palpitations, and edema, Respiratory: Negative for shortness of breath, cough, wheezing, and pleuritic chest pain, Abdomen/GI: Negative for abdominal pain, nausea, vomiting, diarrhea, and constipation, Back: Negative for injury and pain, : Negative for injury, bleeding, discharge, and swelling, MS/Extremity: Negative for injury and deformity, Skin: Negative for injury, rash, and discoloration, Psych: Negative for depression, anxiety, suicide ideation, homicidal ideation, and hallucinations. 15:55 Neuro: Positive for syncope and aphasia that happens on occasion. Pt's nephew coming to get him. Pt consents to CT of head and c-spine, carotid US. Pt states this is his norm "unfortunately". Exam: 15:49 Constitutional: This is a well developed, well nourished patient who is awake, alert, snw and in no acute distress. 15:49 Eyes: Pupils equal round and reactive to light, extra-ocular motions intact. Lids and lashes normal. Conjunctiva and sclera are non-icteric and not injected. Cornea within normal limits. Periorbital areas with no swelling, redness, or edema. ENT: Nares patent. No nasal discharge, no septal abnormalities noted. Tympanic membranes are normal and external auditory canals are clear. Oropharynx with no redness, swelling, or masses, exudates, or evidence of obstruction, uvula midline. Mucous membranes moist. Neck: Trachea midline, no thyromegaly or masses palpated, and no cervical lymphadenopathy. Supple, full range of motion without nuchal rigidity, or vertebral point tenderness. No Meningismus. Chest/axilla: Normal chest wall appearance and motion. Nontender with no deformity. No lesions are appreciated. Cardiovascular: Regular rate and rhythm with a normal S1 and S2. No gallops, murmurs, or rubs. Normal PMI, no JVD. No pulse deficits. Respiratory: Lungs have equal breath sounds bilaterally, clear to auscultation and percussion. No rales, rhonchi or wheezes noted. No increased work of breathing, no retractions or nasal flaring. Abdomen/GI: Soft, non-tender, with normal bowel sounds. No distension or tympany. No guarding or rebound. No evidence of tenderness throughout. Back: No spinal tenderness. No costovertebral tenderness. Full range of motion. Skin: Warm, dry with normal turgor. Normal color with no rashes, no lesions, and no evidence of cellulitis. MS/ Extremity: Pulses equal, no cyanosis. Neurovascular intact. Full, normal range of motion. Psych: Awake, alert, with orientation to person, place and time. Behavior, mood, and affect are within normal limits. 15:49 Head/face: Noted is abrasion(s), that are moderate, of the right side of the back of head. 15:49 Neuro: Orientation: is normal, Mentation: able to follow commands, Memory: immediate memory is impaired, Cranial nerves: grossly normal, Cerebellar function: is grossly normal, Motor: is normal, Sensation: no obvious gross deficits, seizure activity, is not displayed by the patient, Abnormal movements: there are no abnormal movements, pt unable to answer questions in detail. Able to understand, process, and seems to know what he wants to express but is mostly unable. 17:43 ECG was reviewed by the Attending Physician. snw Vital Signs: 15:29 BP 183 / 102; Pulse 93; Resp 17; Temp 98.6(TE); Pulse Ox 100% on R/A; Weight 104.33 kg rb1 (R); Height 6 ft. 0 in. (182.88 cm) (R); 16:29 rb1 17:24 BP 179 / 112; Pulse 88; Resp 21; Pulse Ox 97% on R/A; Pain 0/10; rb1 15:29 Body Mass Index 31.19 (104.33 kg, 182.88 cm) rb1 16:29 pt. is off the unit for testing. rb1 MDM: 15:35 Patient medically screened. snw 15:48 Differential Diagnosis: cardiac arrhythmia, cerebrovascular accident, idiopathic snw syncope, transient ischemic attack. Data reviewed: vital signs, nurses notes. 17:34 Data interpreted: Pulse oximetry: on room air is 97 %. Interpretation: normal. Other snw consultation: Pharmacy for medication regimen and refill. 08/22 17:42 Order name: Glucose, Ancillary Testing; Complete Time: 17:43 EDMS 08/22 15:44 Order name: CT Head C Spine; Complete Time: 17:36 snw 08/22 15:44 Order name: US Carotid Artery Bilateral snw 08/22 15:49 Order name: EKG; Complete Time: 15:49 snw 08/22 15:49 Order name: EKG - Nurse/Tech; Complete Time: 18:51 snw EC:43 Rate is 86 beats/min. Rhythm is regular. QRS [place] is Normal. LA interval is normal. QRS snw interval is normal. QT interval is normal. No Q waves. Clinical impression: NSR w/ Non-specific ST/T Changes. Administered Medications: No medications were administered Point of Care Testing: Blood Glucose: 17:30 Blood Glucose: 130 mg/dL; rb1 Ranges: Critical Glucose Levels:Adult <50 mg/dl or >400 mg/dl <40 mg/dl or >180 mg/dl Disposition: 18:29 Co-signature as Attending Physician, George Hope MD. rn Disposition: 08/22/19 17:32 Discharged to Home. Impression: Essential (primary) hypertension, Patient's other noncompliance with medication regimen, Syncope and collapse. - Condition is Stable. - Discharge Instructions: Hypertension, Syncope, Aphasia, How to Take Your Blood Pressure, [id number], DASH Eating Plan, Rehydration, Adult, Managing Your Hypertension. - Medication Reconciliation Form, Thank You Letter, Antibiotic Education, Prescription Opioid Use form. - Follow up: Emergency Department; When: As needed; Reason: Worsening of condition. Follow up: Private Physician; When: 2 - 3 days; Reason: Recheck today's complaints, Continuance of care, Re-evaluation by your physician. - Notes: Refilled current medications of Metoprolol 25mg po BID, Amlodipine 10mg po daily, and Atorvastatin 40mg po daily to pharmacy Signatures: Dispatcher [employer] EDMS Anupama Rubio, WEATHERIZATION AND HOUSING INSPECTOR-C WEATHERIZATION AND HOUSING INSPECTOR-Csnw George Hope MD MD rn Barber, Rebecca, RN RN rb1 Corrections: (The following items were deleted from the chart) 18:00 17:32 08/22/2019 17:32 Discharged to Home. Impression: Essential (primary) rb1 hypertension; Patient's other noncompliance with medication regimen; Syncope and collapse. Condition is Stable. Discharge Instructions: Aphasia, Hypertension, Syncope. Forms are Medication Reconciliation Form, Thank You Letter, Antibiotic Education, Prescription Opioid Use. Follow up: Emergency Department; When: As needed; Reason: Worsening of condition. Follow up: Private Physician; When: 2 - 3 days; Reason: Recheck today's complaints, Continuance of care, Re-evaluation by your physician. snw
--- NOTE | 2019-08-23 07:50 | EKG ---
Test Date: 2019-08-22 Test Time: 17:46:00 Embossing Machine Operator: PRIYA MEASUREMENT RESULTS: Intervals: Rate: 86 [place]: 222 QRSD: 104 QT: 394 QTc: 471 [place]: P: 59 AZ: 222 QRS: -8 T: 44 INTERPRETIVE STATEMENTS: Sinus rhythm with 1st degree AV block Incomplete right bundle branch block Borderline ECG Compared to ECG 09/08/2018 21:44:17 Incomplete right bundle-branch block now present Electronically Signed On 08-23-19 07:50:04 SHELL PLATER by Theo Rondon
--- NOTE | 2019-08-23 10:22 | EKG ---
Test Date: 2019-08-22 Test Time: 17:46:31 Redevelopment Manager: PRIYA MEASUREMENT RESULTS: Intervals: Rate: 86 IA: 228 QRSD: 102 QT: 384 QTc: 459 [place]: P: 55 IA: 228 QRS: -8 T: 42 INTERPRETIVE STATEMENTS: Sinus rhythm with 1st degree AV block Incomplete right bundle branch block Borderline ECG Compared to ECG 08/22/2019 17:46:00 No significant changes Electronically Signed On 08-23-19 10:21:33 POST TRONIC MACHINE OPERATOR by Theo Rondon
== END 2019-08-22 18:00 | disposition home or self-care (01) ==
LOC: ER 15:46
DX: I10 Essential (primary) hypertension (principal); Z91.14 Patient's other noncompliance with medication regimen
CPT/HCPCS: 70450; 72125; 82947; 93005; 93880; 99284

== ENCOUNTER 2020-10-12 14:28 | Emergency (ER) | payer OTHER, BC ==
[2020-10-12 16:26] LABS: Absolute Lymphocytes (CBC) 1.6 K/uL (0.7-4.9); Basophils % 0.7 % (0-1.3); Hematocrit 44.8 % (39.6-49.0); Lymphocytes % 14.6 % (15.3-44.8); MPV 9.5 fL (7.6-11.3)
[2020-10-12] MEDS ORDERED: MORPHINE 2 MG/ML SYR ONE (16:29)
[2020-10-12 16:33] LABS: Potassium 3.6 mmol/L (3.5-5.1)
--- NOTE | 2020-10-12 17:20 | RAD REPORT ---
EXAM DESCRIPTION: CT - Head C Spine Cap W Con - 10/12/2020 4:58 pm CLINICAL HISTORY: LOWER BACK PAIN COMPARISON: No comparisonsNo comparisonsChest Abdomen Pelvis W Cont dated 06/06/2019 TECHNIQUE: Axial [address] head images were obtained. Axial [address] cervical spine images were obtaine d with sagittal and coronal reconstruction images reviewed. During dynamic enhancement of 100mL non-i onic contrast, axial 5 mm images of the chest, abdomen and pelvis were obtained. Biphasic technique p erformed of the abdomen and pelvis. All CT scans are performed using dose optimization technique as appropriate and may include automated exposure control or mA/KV adjustment according to patient size. FINDINGS: No intracranial hemorrhage, mass or edema. No midline shift or abnormal fluid collection. No cortical edema or sulcal effacement. Patient does have atrophy with ventricles in proportion. Very extensive diminished attenuation is seen throughout the cerebral white matter extending into the sheldon lamus and basal ganglia tissues. Brainstem involvement is likely present. This is typically chronic i schemic change but would be very advanced for the patient's age. Nonhemorrhagic infarction can easily be masked with the severity of disease. Mastoid air cells and paranasal sinuses are clear. No skull fracture. CT cervical spine imaging shows normal height. Normal alignment of the vertebrae. No significant disc space narrowing seen. Endplate spurring is seen at multiple levels most prominent at C5-6. Prominent left-sided facet joint degenerative change and uncovertebral joint hypertrophy noted. There is signi ficant left bony foraminal stenosis at C2-3 and C3-4. No paraspinal mass or hematoma seen. Central ca nal detail is inherently limited. Concerns for traumatic disc herniation or traumatic cord injury can be further addressed with MR imaging. Thyroid gland is enlarged. No single large thyroid mass or nodule seen. CT chest shows no pneumothorax, pulmonary contusion or pleural fluid collection. No mediastinal hemat dariana and the aorta and pulmonary arteries are unremarkable. No chest will mass or abnormal axillary fi nding. No displaced rib fracture or other significant bony finding. Patient has old rib fractures al amy the lateral lower right ribcage. CT abdomen and pelvis show no injury to solid abdominal viscera. Gallbladder is absent. Dilated bilia ry tree is present likely the normal reservoir affect after cholecystectomy. No bowel injury or signi ficant finding. No free air, free fluid or abnormal stranding. No urinary bladder abnormality. Pelvic floor assessment is limited by the bilateral hip implant spray artifact. Lower lumbar degenera tive and postsurgical changes are present. L1 wedge compression is chronic. No significant vascular finding. IMPRESSION: No hemorrhage, edema or acute intracranial finding. Very extensive chronic ischemic ava efrem is seen far advanced for the patient's age. Atrophy changes are mild with ventricles in proportio n. Cervical spine degenerative change as detailed. No acute findings seen. No acute traumatic injury to the chest. No acute CT abdomen or pelvis finding.
--- NOTE | 2020-10-12 18:12 | ER ---
Nurse's Notes [facility] Name: Reese Graf Age: 70 yrs Sex: Male : 1950 Arrival Date: 10/12/2020 Time: 14:31 Bed 14 Private MD: Diagnosis: Fall on same level from slipping, tripping and stumbling;Cervicalgia;Low back pain Presentation: 10/12 14:32 Chief complaint: EMS states: right shoulder, right side of neck, and low back pain hb after mechanical fall from standing this morning. Negative LOC. Coronavirus screen: At this time, the client does not indicate any symptoms associated with coronavirus-19. Ebola Screen: No symptoms or risks identified at this time. Initial Sepsis Screen: Does the patient meet any 2 criteria? No. Patient's initial sepsis screen is negative. Does the patient have a suspected source of infection? No. Patient's initial sepsis screen is negative. Risk Assessment: Do you want to hurt yourself or someone else? Patient reports no desire to harm self or others. Onset of symptoms was October 12, 2020. 14:32 Method Of Arrival: EMS: [facility] hb 14:32 Acuity: ANITA 3 hb 18:30 Care prior to arrival: None. Mechanism of Injury: Fall. Trauma event details: Injury ll1 occurred in the [facility]. Trauma Activation: Not Applicable Physician: ED Physician; Name: ; Notified At: ; Arrived At: Physician: General Surgeon; Name: ; Notified At: ; Arrived At: Physician: Radiology; Name: ; Notified At: ; Arrived At: Physician: Respiratory; Name: ; Notified At: ; Arrived At: Physician: Lab; Name: ; Notified At: ; Arrived At: Historical: - Allergies: 14:33 No Known Allergies; hb - PMHx: 14:33 CVA; Hyperlipidemia; Hypertension; hb - PSHx: 14:33 hip replacement; back surgery; hb - Immunization history:: Adult Immunizations up to date, Last tetanus immunization: up to date. - Social history:: Smoking status: Patient reports the use of cigarette tobacco products, smokes one-half pack cigarettes per day. Screenin:28 Abuse screen: Denies threats or abuse. Nutritional screening: No deficits noted. ll1 Tuberculosis screening: No symptoms or risk factors identified. Fall Risk Fall in past 12 months (25 points). IV access (20 points). Gait- Impaired (20 pts.). Mental Status- Overestimates/Forgets Limitations (15 pts.). Total Torres Fall Scale indicates High Risk Score (45 or more points). Fall prevention measures have been instituted. Side Rails Up X 2 Placed Close to Nursing Station Frequent Obs/Assessments Occuring As available patient and family educated on Fall Prevention Program and Strategies. Primary Survey: 16:00 NO uncontrolled hemorrhage observed. A: The patient is alert. Airway: patent. ll1 Breathing/Chest: Respiratory pattern: regular, Respiratory effort: spontaneous, unlabored, Breath sounds: clear, bilaterally. Chest inspection: symmetrical rise and fall of the chest. Circulation: Pulses: palpable right radial artery and left radial artery. Skin color: pink. Disability Alert. Exposure/Environment: There is no evidence of uncontrolled external bleeding. A warming method has been applied: A warm blanket has been provided to the patient. 18:29 Reassessment Airway Airway Patent Breathing/Chest Respiratory pattern Regular ll1 Respiratory effort Spontaneous Unlabored Circulation Pulses Palpable Color [place] Disability Alert. Assessment: 15:43 General: Appears uncomfortable, Behavior is calm, cooperative, appropriate for age. ll1 Pain: Complains of pain in back Quality of pain is described as aching. Neuro: No deficits noted. Cardiovascular: No deficits noted. Musculoskeletal: Circulation, motion, and sensation intact. Capillary refill < 3 seconds, Range of motion: intact in all extremities, Reports pain in neck and low back. Injury Description: Bruise. Vital Signs: 14:32 BP 178 / 112; Pulse 88; Resp 16; Temp 97.8; Pulse Ox 100% ; Pain 7/10; hb 18:17 BP 165 / 103; Pulse 91; Resp 14; Pulse Ox 97% on R/A; dh4 Speculator Coma Score: 16:30 Eye Response: spontaneous(4). Verbal Response: oriented(5). Motor Response: obeys ll1 commands(6). Total: 15. Trauma Score (Adult): 16:30 Eye Response: spontaneous(1); Verbal Response: oriented(1); Motor Response: obeys ll1 commands(2); Systolic BP: > 89 mm Hg(4); Respiratory Rate: 10 to 29 per min(4); Speculator Score: 15; Trauma Score: 12 ED Course: 14:31 Patient arrived in ED. hb 14:33 Triage completed. hb 14:33 Arm band placed on. hb 15:43 Lauren Bautista, RN is Primary Nurse. ll1 15:43 Patient placed in an exam room, on a stretcher. ll1 15:45 Inserted saline lock: 22 gauge in left antecubital area, using aseptic technique. Blood ll1 collected. 15:47 Mehul Oconnor PA is PHCP. cp 15:47 George Hope MD is Attending Physician. cp 16:35 Patient has correct armband on for positive identification. Bed in low position. Call ll1 light in reach. Side rails up X 1. Pulse ox on. NIBP on. 16:58 Head C Spine Cap W Con In Process Unspecified. EDMS 18:27 No provider procedures requiring assistance completed. IV discontinued, intact, ll1 bleeding controlled, No redness/swelling at site. Pressure dressing applied. 18:31 Patient maintains SpO2 saturation greater than 95% on room air. Thermoregulation: warm ll1 blanket given to patient. Administered Medications: 16:21 Drug: morphine 2 mg Route: IVP; Site: left antecubital; ll1 18:32 Follow up: Response: No adverse reaction; RASS: Alert and Calm (0) ll1 Output: 16:30 Urine: 400ml; Total: 400ml. ll1 Outcome: 18:12 Discharge ordered by MD. cp 18:31 Discharged to home via wheelchair. ll1 18:31 Condition: stable 18:31 Discharge instructions given to patient, Instructed on discharge instructions, follow up and referral plans. medication usage, Demonstrated understanding of instructions, follow-up care, medications, Prescriptions given X 1. 18:31 Patient's length of stay in the Emergency Department was greater than [address] ll1 resultsPatient's length of stay extended due to 18:32 Patient left the ED. ll1 Signatures: Dispatcher [employer] EDKY Mehul Oconnor PA PA cp Baxter, Heather, RN RN Salvador Amezquita [facility] Lauren Bautista, ИВАН RN ll1
--- NOTE | 2020-10-12 18:12 | EDPHYS ---
Physician Documentation [facility] Name: Reese Graf Age: 70 yrs Sex: Male : 1950 Arrival Date: 10/12/2020 Time: 14:31 Bed 14 Private MD: ED Physician George Hope HPI: 10/12 16:00 This 70 yrs old Male presents to ER via EMS with complaints of Fall Injury. cp 16:00 Details of fall: The patient fell from an upright position, while standing, and struck cp a tile surface. Onset: The symptoms/episode began/occurred today. Associated injuries: The patient sustained neck and back pain. Patient reports slip and fall in bathroom today. Denies LOC. Complains of pain to neck and back. Historical: - Allergies: 14:33 No Known Allergies; hb - PMHx: 14:33 CVA; Hyperlipidemia; Hypertension; hb - PSHx: 14:33 hip replacement; back surgery; hb - Immunization history:: Adult Immunizations up to date, Last tetanus immunization: up to date. - Social history:: Smoking status: Patient reports the use of cigarette tobacco products, smokes one-half pack cigarettes per day. ROS: 16:05 Neck: Positive for pain with movement, pain at rest. cp 16:05 Eyes: Negative for injury, pain, redness, and discharge. cp 16:05 Constitutional: Negative for fever, poor PO intake. 16:05 Cardiovascular: Negative for chest pain, palpitations. 16:05 Respiratory: Negative for cough, shortness of breath, wheezing. 16:05 Abdomen/GI: Negative for abdominal pain, nausea, vomiting, and diarrhea. 16:05 Back: Positive for pain at rest, pain with movement. 16:05 MS/extremity: Negative for decreased range of motion, deformity. 16:05 Neuro: Negative for altered mental status, loss of consciousness, syncope, weakness. 16:05 All other systems are negative. Exam: 16:10 Constitutional: The patient appears in no acute distress, alert, awake, cp non-diaphoretic, non-toxic, well developed, well nourished. 16:10 Head/Face: Normocephalic, atraumatic. cp 16:10 Eyes: Periorbital structures: appear normal, Pupils: equal, round, and reactive to light and accomodation, Extraocular movements: intact throughout, Conjunctiva: normal, no exudate, no injection, Lids and lashes: appear normal, bilaterally. 16:10 ENT: External ear(s): are unremarkable, Nose: is normal, Mouth: Lips: moist, Oral mucosa: moist, Posterior pharynx: Airway: no evidence of obstruction, patent. 16:10 Neck: ROM/movement: pain, that is mild, with any movement, limited range of motion, is not appreciated, nuchal rigidity, is not appreciated. 16:10 Chest/axilla: Inspection: normal, Palpation: is normal, no crepitus, no tenderness. 16:10 Cardiovascular: Rate: normal, Rhythm: regular, Edema: is not appreciated, JVD: is not appreciated. 16:10 Respiratory: the patient does not display signs of respiratory distress, Respirations: normal, no use of accessory muscles, no retractions, labored breathing, is not present, Breath sounds: are clear throughout, no decreased breath sounds, no stridor, no wheezing. 16:10 Abdomen/GI: Inspection: abdomen appears normal, Palpation: abdomen is soft and non-tender, in all quadrants. 16:10 Back: pain, that is moderate, of the lumbar area, ROM is painful, with all movement. 16:10 Musculoskeletal/extremity: Exam is negative for decreased range of motion, deformity. 16:10 Neuro: Orientation: to person, place \T\ time. Mentation: able to follow commands, slow to respond, Motor: moves all fours, strength is normal. Vital Signs: 14:32 BP 178 / 112; Pulse 88; Resp 16; Temp 97.8; Pulse Ox 100% ; Pain 7/10; hb 18:17 BP 165 / 103; Pulse 91; Resp 14; Pulse Ox 97% on R/A; dh4 [place] Coma Score: 16:30 Eye Response: spontaneous(4). Verbal Response: oriented(5). Motor Response: obeys ll1 commands(6). Total: 15. Trauma Score (Adult): 16:30 Eye Response: spontaneous(1); Verbal Response: oriented(1); Motor Response: obeys ll1 commands(2); Systolic BP: > 89 mm Hg(4); Respiratory Rate: 10 to 29 per min(4); [place] Score: 15; Trauma Score: 12 MDM: 15:53 Patient medically screened. cp 16:00 Differential diagnosis: closed head injury, contusion, fracture, multiple trauma. cp 18:10 Data reviewed: vital signs, nurses notes, lab test result(s), radiologic studies, CT cp scan, and as a result, I will discharge patient. Counseling: I had a detailed discussion with the patient and/or guardian regarding: the historical points, exam findings, and any diagnostic results supporting the discharge/admit diagnosis, radiology results, to return to the emergency department if symptoms worsen or persist or if there are any questions or concerns that arise at home. 10/12 15:54 Order name: Basic Metabolic Panel; Complete Time: 16:37 cp 10/12 15:54 Order name: CBC with Diff; Complete Time: 16:37 cp 10/12 15:54 Order name: CT Traumagram (Head C Spine CAP W Con) 10/12 15:54 Order name: Type And Screen; Complete Time: 17:37 cp 10/12 15:54 Order name: Head C Spine Cap W Con; Complete Time: 17:37 EDGA 10/12 15:54 Order name: Labs collected and sent; Complete Time: 15:57 cp Administered Medications: 16:21 Drug: morphine 2 mg Route: IVP; Site: left antecubital; ll1 18:32 Follow up: Response: No adverse reaction; RASS: Alert and Calm (0) ll1 Disposition: 18:45 Co-signature as Attending Physician, George Hope MD. rn Disposition: 10/12/20 18:12 Discharged to Home. Impression: Fall on same level from slipping, tripping and stumbling, Cervicalgia, Low back pain. - Condition is Stable. - Discharge Instructions: Back Pain, Adult, Fall Prevention in the Home, Neck Exercises, Back Exercises. - Prescriptions for Tramadol 50 mg Oral Tablet - take 1 tablet by ORAL route every 8 hours as needed; 12 tablet. - Medication Reconciliation Form, Thank You Letter, Antibiotic Education, Prescription Opioid Use form. - Follow up: Private Physician; When: 1 - 2 days; Reason: Recheck today's complaints. - Problem is new. - Symptoms have improved. Signatures: Dispatcher [employer] EDGA George Hope MD MD rn Page, Corey, PA PA cp Baxter, Heather, RN RN hb Lewis, Lynsay, RN RN ll1 Corrections: (The following items were deleted from the chart) 18:32 18:12 10/12/2020 18:12 Discharged to Home. Impression: Fall on same level from ll1 slipping, tripping and stumbling; Cervicalgia; Low back pain. Condition is Stable. Forms are Medication Reconciliation Form, Thank You Letter, Antibiotic Education, Prescription Opioid Use. Follow up: Private Physician; When: 1 - 2 days; Reason: Recheck today's complaints. Problem is new. Symptoms have improved. cp
== END 2020-10-12 18:32 | disposition home or self-care (01) ==
LOC: ER 14:28
DX: M54.5 Low back pain (principal); M54.2 Cervicalgia; W01.0XXA Fall on same level from slipping, tripping and stumbling without subsequent striking against object, initial encounter; F17.210 Nicotine dependence, cigarettes, uncomplicated; Y92.002 Bathroom of unspecified non-institutional (private) residence as the place of occurrence of the external cause; E78.5 Hyperlipidemia, unspecified; I10 Essential (primary) hypertension; Z86.73 Personal history of transient ischemic attack (TIA), and cerebral infarction without residual deficits; Z96.649 Presence of unspecified artificial hip joint
CPT/HCPCS: 36415; 70450; 71260; 72125; 74177; 80048; 85025; 86850; 86900; 86901; 96374; 99284; J2270; Q9967